=== PATIENT | female | born 1940 | race Hispanic/Latino ===

== ENCOUNTER 2017-10-28 08:54 | Emergency (ER) | payer MEDICARE ==
[~2017-10-28 08:54] MED LIST: ALBU8.5H8 IH; BIMA12.5OS OU; D-ME118S56 PO; FLUT16H NS; LORA10TA7 PO; METO-391 PO; OMEP20CA10 PO; SIMV20TA6 PO
[2017-10-28 09:16] LABS: APPEARANCE,URINE Clear (CLEAR); BILIRUBIN,URINE Negative (NEGATIVE); COLOR,URINE Yellow (YELLOW); GLUCOSE, URINE (UA) Negative (NEGATIVE); KETONES,URINE Negative (NEGATIVE); LEUKOCYTE ESTERASE ,URINE Negative (NEGATIVE); NITRATE,URINE Negative (NEGATIVE); OCCULT BLOOD,URINE Trace (NEGATIVE); PROTEIN,URINE Negative (NEGATIVE); UROBILINOGEN,URINE 0.2 mg/dL (0.2-1.0)
[2017-10-28 09:26] LABS: BASOPHILS % (AUTO) 0.9 % (0.0-5.0); EOSINOPHILS % (AUTO) 6.2 % (0.0-8.0); HEMATOCRIT 36.1 % (36-48); LYMPHOCYTES % (AUTO) 19.1 % (21.0-51.0); MEAN CORPUSCULAR HEMOGLOBIN 30.6 pg (27.0-33.0); MEAN CORPUSCULAR VOLUME 87.4 fL (79-99); MONOCYTES % (AUTO) 8.1 % (3.0-13.0); NEUTROPHILS % (AUTO) 65.7 % (40.0-77.0); NUCLEATED RED BLOOD CELLS 0.1 % (0.0-0.19); PLATELET COUNT (AUTO) 272 K/uL (130-400); RED BLOOD CELL COUNT(AUTO) 4.13 MIL/uL (4.00-5.50); RED CELL DISTRIBUTION WIDTH 15.4 % (11.0-15.5); WHITE BLOOD COUNT (AUTO) 6.6 K/uL (4.8-10.8)
[2017-10-28 09:32] LABS: POTASSIUM 4.7 mmol/L (3.5-5.1)
[2017-10-28 09:33] LABS: BACTERIA,URINE Few /HPF (None Seen); SQUAMOUS EPITHELIAL CELL,UR 0-2 /HPF (0-2); WBC,URINE 0-1 /HPF (0-1)
[2017-10-28 09:46] LABS: ALBUMIN 3.7 g/dL (3.5-5.0); BILIRUBIN,TOTAL 0.5 mg/dL (0.2-1.0); CREATINE KINASE MB 1.7 ng/mL (0.5-3.6); TOTAL PROTEIN, SERUM 7.7 g/dL (6.0-8.3)
== END 2017-10-28 11:47 | disposition home or self-care (01) ==
LOC: EDH 08:54
DX: R07.89 Other chest pain (principal); E78.5 Hyperlipidemia, unspecified; Z88.0 Allergy status to penicillin; Z72.0 Tobacco use
CPT/HCPCS: 36415; 71045; 80053; 81001; 82550; 82553; 84484; 85025; 93005

== ENCOUNTER 2024-04-24 10:51 | Inpatient (IN) | payer MEDICARE ==
[~2024-04-24] VITALS: Ht 157.5 cm; Wt 63.8 kg
[~2024-04-24 10:51] MED LIST changes: -OMEP20CA10 PO; +OMEP20CA12 PO; +SIMV-43 PO; -SIMV20TA6 PO
[2024-04-24] MEDS: 0.9%NACL 1000ML 1,000 ML IV ONE (11:26)
[2024-04-24] MEDS: morPHINE 4 MG SYG IVP ONE ×2 (11:26→14:34)
[2024-04-24] MEDS: ondanSETRON 4MG INJ IVP ONE ×2 (11:26→11:53)
--- NOTE | 2024-04-24 11:31 | ERN ---
ED Note History of Present Illness Stated Complaint: ABD PAIN Chief Complaint: Abdominal Pain Time Seen by MD: 10:51 Time Seen by Midlevel: 10:51 Dictation: The patient is an 83-year-old female with a history of hypertension, cholecystectomy, hysterectomy, ventral hernia who presents to the emergency department with complaints of right and left lower abdominal pain, nonbloody v omiting, onset today, constipation for three days. Patient denies any fevers. Patient reports abdominal mass to right lower quadrant. Reports she had a history of a hernia repair and reports that it has gotten bigger. Patient had an incisional hernia repair on 01/02/2015 Allergies: Coded Allergies: Penicillins (Unverified Allergy, Unknown, RASH, 12/31/14) atorvastatin (Unverified Allergy, Unknown, RASH, 12/01/16) Home Meds Reported Medications Albuterol Sulfate (Proair Hfa) 8.5 Gm Hfa.aer.ad, 90 MCG IH AD PRN for WHEEZING 12/01/16 D-Methorphan Hb/P-Epd HCl/Bpm (Hovggpoyfj-Ruuqxjaffsr-Ri Syr) 118 Ml Syrup, 10 ML PO Q4HPRN PRN for COUGH, ML 12/01/16 Omeprazole (Omeprazole) 20 Mg Capsule.dr, 20 MG PO DAILY, CAP 12/01/16 Metoprolol Succinate (Metoprolol Succinate) 50 Mg Tab.er.24h, 75 MG PO DAILY, TAB 12/01/16 Simvastatin (Simvastatin) 20 Mg Tablet, 20 MG PO HS, TAB 12/01/16 Bimatoprost (Lumigan 0.01% Ophth Soln) 20 Drop/Ml Opsol, 1 DROP OU HS, DROP 12/31/14 Loratadine (Loratadine) 10 Mg Tablet, 10 MG PO AM, TAB 12/31/14 Fluticasone Propionate (Fluticasone Propionate) 16 Gm [place].susp, NS DAILY PRN for CONGESTION, APPL 12/31/14 Past Medical History Past Medical History: Asthma, Diabetes-Type II, High Cholesterol, Hypertension Surgical History: Hysterectomy, Other Surgical History Other: HERNIA SX RN Note Reviewed/Agreed w/PFSH: Yes Review of System Dictation Constitutional: Negative for fever,chills, and weight loss Eyes: Negative for injury, pain,redness, and discharge ENT: Negative for injury,pain or swelling Cardiovascular: Negative for chest pain, palpitations, and edema Respiratory: Negative for shortness of breath, cough, and wheezing, Abdomen/GI: Negative for diarrhea positive for abdominal pain, nausea, vomiting, constipation Back: Negative for injury and pain : Negative for injury, bleeding and discharge MS/Extremity: Negative for injury and deformity Skin: Negative for rash, and discoloration Neuro: Negative for headache, weakness, numbness, tingling, and seizure Psych: Negative for suicide ideation, homicidal ideation, and hallucinations Initial Vital Sign VS Vital Signs Date Time Temp Pulse Resp B/P (MAP) Pulse Ox O2 Delivery O2 Flow Rate FiO2 04/24/24 10:52 98.2 76 16 173/80 98 Room Air 0 04/24/24 10:58 21 Physical Exam Dictation Vital Signs reviewed General Appearance: Alert, oriented x 3, no acute distress, well developed, nourished. Head and Face: non-traumatic. Eyes: PERRL, pink conjunctivas, eyelid no trauma, anterior chamber with arcus senilis. Ears: Pinnas intact and no signs of trauma or erythema ear canals clear and no discharge TM no erythema Nose: No discharge, no bleeding. Oropharynx: Mouth normal, tongue pink. pharynx clear,no erythema, tonsils no exudates, no abscesses noted, mucous membrane moist Neck: Supple, non-tender, no thyromegaly, no masses, no JVD, no bruits Breast:Deferred Chest:No tenderness, no crepitus, no paradoxical movement, no retractions Lungs:Clear, well-ventilated, symmetric, no rales, no wheezing, no rhonchi, no stridor, good breath sounds bilaterally Heart: Regular rate, regular rhythm, no murmur, no gallops Vascular: no peripheral edema, Abdomen: Soft, positive bowel sounds, nondistended, no guarding, no rebound, no hepatomegaly, no splenomegaly, no Emery's sign, lower abdominal pain tenderness, large right lower abdominal mass/hernia protruding, non reducible, periumbilical abdominal hernia, reducible Rectal: Deferred Genital: Deferred Neurological: Normal speech, motor function intact, sensory function intact Musculoskeletal: Neck nontender, full range of motion, back nontender, full range of motion, Extremities: nontender, full range of motion Skin: Color pink, dry, no turgor, no rash, no lacerations, no abrasions, no contusions. Lymphatic: Deferred Results (Laboratory/Radiology) Laboratory/Radiology Laboratory Tests Test 04/24/24 11:18 04/24/24 12:20 White Blood Count 11.4 K/uL (4.8-10.8) H Red Blood Count 4.43 MIL/uL (4.00-5.50) Hemoglobin 13.2 g/dL (12.0-16.0) Hematocrit 39.1 % (36-48) Mean Corpuscular Volume 88.3 fL (79-99) Mean Corpuscular Hemoglobin 29.8 pg (27.0-33.0) Mean Corpuscular Hemoglobin Concent 33.8 g/dL (32.0-36.0) Red Cell Distribution Width 13.9 % (11.0-15.5) Platelet Count 304 K/uL (130-400) Mean Platelet Volume 8.6 fL (7.5-10.5) Immature Granulocyte % (Auto) 0.4 % (0-1) Neutrophils (%) (Auto) 85.3 % (40.0-77.0) H Lymphocytes (%) (Auto) 8.3 % (21.0-51.0) L Monocytes (%) (Auto) 4.3 % (3.0-13.0) Eosinophils (%) (Auto) 1.3 % (0.0-8.0) Basophils (%) (Auto) 0.4 % (0.0-5.0) Neutrophils # (Auto) 9.7 K/uL (1.8-7.7) H Lymphocytes # (Auto) 0.9 K/uL (1.0-4.8) L Monocytes # (Auto) 0.5 K/uL (0.1-1.0) Eosinophils # (Auto) 0.15 K/uL (0.00-0.70) Basophils # (Auto) 0.04 K/uL (0.00-0.20) Absolute Immature Granulocyte (auto 0.04 K/uL (0-1) Nucleated Red Blood Cells 0.0 % (0.0-0.19) White Cell Morphology Comment See comments Sodium Level 136 mmol/L (136-145) Potassium Level 3.9 mmol/L (3.5-5.1) Chloride Level 98 mmol/L (101-111) L Carbon Dioxide Level 32 mmol/L (21-32) Blood Urea Nitrogen 11 mg/dL (7-18) Creatinine 1.2 mg/dL (0.5-1.0) H Glomerular Filtration Rate Calc 45 mL/min (>90) Random Glucose 154 mg/dL (70-105) H Hemoglobin A1c 5.8 % (4.0-6.0) Estimated Average Glucose (eAG) 120 mg/dL (70-126) Total Calcium 9.9 mg/dL (8.5-10.1) Total Bilirubin 0.6 mg/dL (0.2-1.0) Direct Bilirubin 0.1 mg/dL (0.0-0.3) Aspartate Amino Transf (AST/SGOT) 20 U/L (10-37) Alanine Aminotransferase (ALT/SGPT) 22 U/L (12-78) Alkaline Phosphatase 93 U/L (50-136) Total Protein 8.3 g/dL (6.0-8.3) Albumin 4.2 g/dL (3.5-5.0) Lipase 50 U/L (16-77) Urine Color COLORLESS (YELLOW) Urine Appearance CLOUDY (CLEAR) H Urine pH 8.0 (5.0-8.0) Urine Specific [place] 1.007 (1.001-1.031) Urine Protein 50 mg/dL (NEGATIVE) H Urine Glucose (UA) 30 mg/dL (NEGATIVE) H Urine Ketones 10 mg/dL (NEGATIVE) H Urine Occult Blood NEGATIVE (NEGATIVE) Urine Nitrate NEGATIVE (NEGATIVE) Urine Bilirubin NEGATIVE mg/dL (NEGATIVE) Urine Urobilinogen 0.2 mg/dL (0.2-1.0) Urine Leukocyte Esterase NEGATIVE Pravin/uL Urine RBC 2-5 /HPF (0-1) H Urine WBC 0-1 /HPF (0-1) Urine Squamous Epithelial Cells RARE /HPF (0-2) Urine Bacteria RARE /HPF (None Seen) REASON: lower abd pain, hx hernia, n/v ORDERING PHYSICIAN: JOHN LARA PROCEDURE: ABD PEL W - CT ABDOMEN/PELVIS W/CONTRAST CT ABDOMEN/PELVIS W/CONTRAST HISTORY: Pelvic pain COMPARISON: None TECHNIQUE: Multiple sequential axial images of the abdomen and pelvis were obtained from the dome of the diaphragm through symphysis pubis. Patient was given 100 cc of Omnipaque through intravenous route. Oral contrast was not given. FINDINGS: No pleural effusion is seen bilaterally. There is no evidence of parenchymal disease or pulmonary nodule of the visualized lower lungs. COPD changes are seen. Degenerative changes of the thoracolumbar spine are present. The heart is not enlarged. The liver measures 12 cm. Is small hiatal hernia is seen. Gastric distention is seen. Small bowel dilatation is seen with transitional point not well visualized. There is large anterior pelvic ventral hernia with bowel content. The liver, spleen, adrenal glands and pancreas are unremarkable. There is no evidence of hydronephrosis bilaterally. No evidence of renal stone is seen. Fecal material is seen in the colon. There are normal size retroperitoneal and mesenteric lymph nodes. No ascites is seen. Atherosclerotic changes are present. Appendix is not well seen limiting evaluation. There is diverticulosis. Pelvic sidewalls are symmetric bilaterally. Bladder is poorly distended. IMPRESSION: 1. Large anterior pelvic wall hernia with bowel content. Mild small bowel dilatation. No ascites. CT was performed with one or more following dose reduction techniques: automated exposure control, adjustment of the mA and kv according to patient's size, or use of a iterative reconstruction technique. Labs Reviewed?: Yes ED Course ED Course Orders Procedure Category Date Status Time Cbc With Differential LAB 04/24/24 Complete 10:59 Urinalysis Profile LAB 04/24/24 Complete 10:59 0.9%Nacl 1000ml (Ns PHA 04/24/24 Complete 1000ml) 11:00 Morphine 4mg Syg PHA 04/24/24 Complete (Morphine 4mg Syg) 11:00 Ondansetron 4mg Inj PHA 04/24/24 Complete (Zofran 4mg Inj) 11:00 Lipase LAB 04/24/24 Complete 10:59 Basic Metabolic Panel LAB 04/24/24 Complete 10:59 Ct Abdomen/Pelvis CT 04/24/24 Resulted W/Contrast 10:59 Hepatic Function Panel LAB 04/24/24 Complete 10:59 Ondansetron 4mg Inj PHA 04/24/24 Complete (Zofran 4mg Inj) 12:00 Iohexol (Omnipaque) PHA 04/24/24 Complete 13:22 Iohexol (Omnipaque) PHA 04/24/24 Complete 13:23 Metoclopramide 10 PHA 04/24/24 Complete Mg/2 Ml Vial (Reglan 1 14:30 Morphine 4mg Syg PHA 04/24/24 Complete (Morphine 4mg Syg) 14:30 Apply Ice Pack To: CPOE 04/24/24 Transmitted (Er) 15:53 Ngt To Low CPOE 04/24/24 Transmitted Intermittent Suctn 15:53 Edm Admit Bridge Order ADM 04/24/24 Transmitted 16:02 Admit Orders ADM 04/24/24 Transmitted 16:02 General Surgery CONPHYSVC 04/24/24 Transmitted Consult 16:02 Admit Orders ADM 04/24/24 Transmitted 16:02 Ngt To Low CPOE 04/24/24 Transmitted Intermittent Suctn 16:07 Nothing By Mouth DIET 04/24/24 Transmitted Dinner Ondansetron 4mg Inj PHA 04/24/24 In Process (Zofran 4mg Inj) 16:30 Morphine 2mg Syg PHA 04/24/24 In Process (Morphine 2mg Syg) 16:30 0.9%Nacl 1000ml (Ns PHA 04/24/24 In Process 1000ml) 16:30 Acetaminophen 325 Tab PHA 04/24/24 In Process (Tylenol 325mg Tab 16:30 Acetaminophen 325 Tab PHA 04/24/24 In Process (Tylenol 325mg Tab 16:30 Acetaminophen 325mg PHA 04/24/24 In Process Supp (Tylenol 325mg 16:30 Acetaminophen 325mg PHA 04/24/24 In Process Supp (Tylenol 325mg 16:30 Pantoprazole 40mg Inj PHA 04/25/24 In Process (Protonix 40mg Inj 09:00 Hemoglobin A1c LAB 04/24/24 Complete 16:53 Cbc Without LAB 04/25/24 Verified Differential 04:00 Basic Metabolic Panel LAB 04/25/24 Verified 04:00 Current Medications Medications (Trade) Dose Ordered Sig/[place] Route PRN Reason Start Time Stop Time Status Last Admin Dose Admin Iohexol (Omnipaque) 75 ml STK-MED ONCE IV 04/24/24 13:22 04/24/24 13:23 DC Iohexol (Omnipaque) 35,000 mg STK-MED ONCE IV 04/24/24 13:23 04/24/24 13:24 DC Metoclopramide HCl (regLAN 10MG IV) 10 mg ONCE ONCE IVP 04/24/24 14:30 04/24/24 14:31 DC 04/24/24 14:34 Morphine Sulfate (morPHINE 4MG SYG) 4 mg ONCE ONCE IVP 04/24/24 11:00 04/24/24 11:01 DC 04/24/24 11:26 Morphine Sulfate (morPHINE 4MG SYG) 4 mg ONCE ONCE IVP 04/24/24 14:30 04/24/24 14:31 DC 04/24/24 14:34 Ondansetron HCl (zoFRAN 4MG INJ) 4 mg ONCE ONCE IVP 04/24/24 11:00 04/24/24 11:01 DC 04/24/24 11:26 Ondansetron HCl (zoFRAN 4MG INJ) 4 mg ONCE ONCE IVP 04/24/24 12:00 04/24/24 12:01 DC 04/24/24 11:53 Sodium Chloride 1,000 ml @ 0 mls/hr ONCE ONCE IV 04/24/24 11:00 04/24/24 11:01 DC 04/24/24 11:26 Vital Signs Date Time Temp Pulse Resp B/P (MAP) Pulse Ox O2 Delivery O2 Flow Rate FiO2 04/24/24 16:55 98.2 72 16 163/77 98 Room Air* 0 21 04/24/24 14:12 98.2 74 16 158/74 98 Room Air* 0 21 04/24/24 10:58 98.2 76 16 173/80 98 Room Air* 0 04/24/24 10:52 98.2 76 16 173/80 98 Room Air 0 Medical Decision Making MDM The patient is an 83-year-old female with a history of hypertension, cholecystectomy, hysterectomy, ventral hernia who presents to the emergency department with complaints of right and left lower abdominal pain, nonbloody vomiting, onset today, constipation for three days. Patient denies any fevers. Patient reports abdominal mass to right lower quadrant. Reports she had a history of a hernia repair and reports that it has gotten bigger. Patient had an incisional hernia repair on 01/02/2015 CBC showed mild leukocytosis, no anemia, chemistry showed mild hypochloremia, decreased renal function, negative lipase, negative liver function, urinalysis unremarkable. CT abdomen revealed a large pelvic wall hernia with a small-bowel dilation. Patient will be admitted further management. Differential diagnosis: Bowel obstruction, electrolyte imbalance, constipation, gastritis, gastroenteritis Comorbidities: Hypertension, cholecystectomy, hypertension Tests considered and not ordered secondary to shared decision making include: none Previous outside records reviewed: none Risk of complication and/or morbidity or mortality of patient management: The patient meets criteria for admission. Need for emergency major/minor surgery: No There are no social concerns with this patient. I independently interpreted the tests I ordered (labs, urinalysis, etc.). I discussed the case with the hospitalist for admission. I discussed the case with the following specialists: Dr.Michael Thapa who accepts consult. Historian: pateint. I independently interpreted imaging studies and EKGs that I ordered (US, CT, XR, EKG, etc.). External chart review: none. Medical management and examination interpretation discussions were had by me with other qualified healthcare professionals as indicated for the patient's care. DX & DISP Disposition: Inpatient Decision to Admit Date: Apr 24, 2024 Decision to Admit Time: 16:02 Departure Impression: Primary Impression: Small bowel obstruction Additional Impressions: Abdominal wall hernia, Nausea and vomiting, Hypochloremia, Leukocytosis Condition: Stable Referrals: NADEEN LOWRY DO (PCP) I have examined patient, & reviewed all documents, & agreed W/ the Diagnosis, and Plan JOHN LARA Apr 24, 2024 11:31
[2024-04-24 11:35] LABS: BASOPHILS # (AUTO) 0.04 K/uL (0.00-0.20); BASOPHILS % (AUTO) 0.4 % (0.0-5.0); EOSINOPHILS # (AUTO) 0.15 K/uL (0.00-0.70); EOSINOPHILS % (AUTO) 1.3 % (0.0-8.0); HEMATOCRIT 39.1 % (36-48); IMMATURE GRANULOCYTE ABSOLUTE 0.04 K/uL (0-1); LYMPHOCYTES # (AUTO) 0.9 K/uL (1.0-4.8); LYMPHOCYTES % (AUTO) 8.3 % (21.0-51.0); MEAN CORPUSCULAR HEMOGLOBIN 29.8 pg (27.0-33.0); MEAN CORPUSCULAR HGB CONC 33.8 g/dL (32.0-36.0); MEAN CORPUSCULAR VOLUME 88.3 fL (79-99); MONOCYTES # (AUTO) 0.5 K/uL (0.1-1.0); MONOCYTES % (AUTO) 4.3 % (3.0-13.0); NEUTROPHILS # (AUTO) 9.7 K/uL (1.8-7.7); NEUTROPHILS % (AUTO) 85.3 % (40.0-77.0); PLATELET COUNT (AUTO) 304 K/uL (130-400); RED BLOOD CELL COUNT(AUTO) 4.43 MIL/uL (4.00-5.50); RED CELL DISTRIBUTION WIDTH 13.9 % (11.0-15.5); WHITE BLOOD COUNT (AUTO) 11.4 K/uL (4.8-10.8)
[2024-04-24 11:44] LABS: CREATININE 1.2 mg/dL (0.5-1.0); POTASSIUM 3.9 mmol/L (3.5-5.1)
[2024-04-24 11:51] LABS: ALBUMIN 4.2 g/dL (3.5-5.0); BILIRUBIN,DIRECT 0.1 mg/dL (0.0-0.3); BILIRUBIN,TOTAL 0.6 mg/dL (0.2-1.0); TOTAL PROTEIN, SERUM 8.3 g/dL (6.0-8.3)
[2024-04-24 12:51] LABS: APPEARANCE,URINE CLOUDY (CLEAR); BILIRUBIN,URINE NEGATIVE (NEGATIVE); COLOR,URINE COLORLESS (YELLOW); GLUCOSE, URINE (UA) 30 mg/dL (NEGATIVE); KETONES,URINE 10 mg/dL (NEGATIVE); LEUKOCYTE ESTERASE ,URINE NEGATIVE Leu/uL (NEGATIVE); NITRATE,URINE NEGATIVE (NEGATIVE); OCCULT BLOOD,URINE NEGATIVE (NEGATIVE); PROTEIN,URINE 50 mg/dL (NEGATIVE); UROBILINOGEN,URINE 0.2 mg/dL (0.2-1.0)
[2024-04-24 12:58] LABS: ADD UA MICROSCOPIC YES
[2024-04-24 12:59] LABS: BACTERIA,URINE RARE /HPF (None Seen); SQUAMOUS EPITHELIAL CELL,UR RARE /HPF (0-2); WBC,URINE 0-1 /HPF (0-1)
[2024-04-24] MEDS ORDERED: IOHEXOL-350 75 ML VIAL IV ONE (13:22)
[2024-04-24] MEDS ORDERED: IOHEXOL 350 MG/ML 100ML INFUS..BTL IV ONE (13:23)
--- NOTE | 2024-04-24 13:54 | HMCIMG ---
CT ABDOMEN/PELVIS W/CONTRAST HISTORY: Pelvic pain COMPARISON: None TECHNIQUE: Multiple sequential axial images of the abdomen and pelvis were obtained from the dome of the diaphragm through symphysis pubis. Patient was given 100 cc of Omnipaque through intravenous route. Oral contrast was not given. FINDINGS: No pleural effusion is seen bilaterally. There is no evidence of parenchymal disease or pulmonary nodule of the visualized lower lungs. COPD changes are seen. Degenerative changes of the thoracolumbar spine are present. The heart is not enlarged. The liver measures 12 cm. Is small hiatal hernia is seen. Gastric distention is seen. Small bowel dilatation is seen with transitional point not well visualized. There is large anterior pelvic ventral hernia with bowel content. The liver, spleen, adrenal glands and pancreas are unremarkable. There is no evidence of hydronephrosis bilaterally. No evidence of renal stone is seen. Fecal material is seen in the colon. There are normal size retroperitoneal and mesenteric lymph nodes. No ascites is seen. Atherosclerotic changes are present. Appendix is not well seen limiting evaluation. There is diverticulosis. Pelvic sidewalls are symmetric bilaterally. Bladder is poorly distended. IMPRESSION: 1. Large anterior pelvic wall hernia with bowel content. Mild small bowel dilatation. No ascites. CT was performed with one or more following dose reduction techniques: automated exposure control, adjustment of the mA and kv according to patient's size, or use of a iterative reconstruction technique.
[2024-04-24] MEDS: metoCLOPRAmide 10 MG/2 ML VIAL IVP ONE (14:34)
[2024-04-24] MEDS ORDERED: acetaMINOPHEN 325 MG TAB PO PRN (16:30)
[2024-04-24] MEDS ORDERED: acetaMINOPHEN 325 MG SUPPOSITORY RC PRN (16:30)
--- NOTE | 2024-04-24 16:57 | HP ---
[facility] HISTORY [facility] PHYS[facility] Date of Service: Apr 24, 2024 Time of Service: 16:10 HISTORY OF PRESENT ILLNESS: [83-year-old female with history of hyperlipidemia presented to the emergency department with complaints of left lower quadrant pain. Apparently patient was cooking when she suddenly felt sharp pain to the left lower quadrant accompanied by vomiting. Patient has history of ventral hernia in the past but after she vomited at home, her ventral hernia protruded out, and intense pain was felt after. In the ED, her initial vitals showed temperature of 98.2, pulse 76, respiratory rate 16, blood pressure 173/80, pulse oximetry 98% on room air. Labs reviewed, WBC 11.4, Cl 98, creatinine 1.2, random glucose 154. Urinalysis was remarkable with cloudy appearance, ketones 10. CT abdomen and pelvis with contrast showed large anterior pelvic wall hernia with bowel contents. Mild small bowel dilatation. No ascites. As per ER provider they reached out to Dr. Thapa, general surgeon who recommended patient to be admitted. She was referred to the hospitalist service further evaluation and management. Patient was evaluated in ED room 15, she is alert and oriented x3. she stated that the pain is subsided compared to the pain that she came with. Patient received morphine 4 mg x2 in the ED. patient also received ondansetron4 mg x 2, Reglan 10 mg x1. REVIEW OF SYSTEMS CONSTITUTIONAL: Denies fevers, chills, or night sweats. No unintentional weight loss reported. NEUROLOGICAL: Denies headache, amaurosis fugax, motor weakness, sensory deficit, vertigo/spinning sensation, gait abnormalities, or tremors. ENT: No hearing loss, otalgia, otorrhea, rhinitis, rhinorrhea, hoarseness, or sore throat. CARDIOVASCULAR: Denies any exertional angina, dyspnea on exertion, orthopnea, paroxysmal nocturnal dyspnea, palpitations, life-threatening arrhythmias, claudication. PULMONARY: Denies any shortness of breath, cough, phlegm/sputum, hemoptysis, pleuritic chest pain. SLEEP: Denies morning headaches, daytime somnolence or napping. Denies difficulty falling asleep, staying asleep, waking from sleep. Denies knowledge of snoring. GASTROINTESTINAL: Right lower quadrant pain. Reported no BM x5 days GENITOURINARY: Denies frequency, urgency, nocturia, hematuria or incontinence (Storage/Irritative symptoms.) Low urinary stream, straining to void, urinary intermittency or hesitancy, splitting of the voiding stream, terminal dribbling. ENDOCRINOLOGIC: Denies polyuria, polydipsia, polyphagia or heat/cold intolerances. HEMATOLOGIC: Denies thrombophilia/previous clots, or coagulopathy/bleeding disorders. ONCOLOGIC: Denies personal history of malignancy. DERMATOLOGIC: Denies rashes or pruritus. PSYCHIATRIC: Denies any suicidal or homicidal ideation. Denies hallucinations. PAST MEDICAL HISTORY: [Hyperlipidemia ] PAST SURGICAL HISTORY: [Cholecystectomy, hysterectomy and right knee surgery ] PAST SOCIAL HISTORY: [ Patient lives at home alone. She denies tobacco, alcohol or illicit drug use ] FAMILY HISTORY: [Noncontributory ] Coded Allergies: Penicillins (Unverified Allergy, Unknown, RASH, 12/31/14) atorvastatin (Unverified Allergy, Unknown, RASH, 12/01/16) PHYSICAL EXAM GENERAL APPEARANCE: The patient is awake, alert, and oriented, in no acute cardiopulmonary distress. NEUROLOGICAL: Cranial nerves II-XII grossly intact. Motor is 5/5 in bilateral upper and lower extremities proximal to distal. No sensory deficits. HEENT: Face is symmetric. Pupils are equal and reactive. Extraocular movements are intact. NECK: Supple. No JVD. No thyromegaly. No submental, submandibular, pre- /postauricular, occipital or supraclavicular lymphadenopathy. CHEST: Normal chest expansion. No Telemetry. LUNGS: Absence of any rales, rhonchi or any wheezing. CARDIOVASCULAR: Regular. S1 and S2 normal. No appreciable rubs, murmurs or gallops. ABDOMEN: Soft, nontender, and nondistended. There is no rebound, voluntary guarding, or rigidity. : Deferred. No Sykes. EXTREMITIES: Non-edematous and not cyanotic. No clubbing. Good capillary refill. SKIN: No skin breakdown. Vital Sign (Last 24 Hours) 04/24/24 14:12 Temp 98.2 Pulse 74 Resp 16 B/P (MAP) 158/74 Pulse Ox 98 O2 Delivery Room Air* O2 Flow Rate 0 FiO2 21 LABS: Laboratory: Test 04/24/24 12:20 04/24/24 11:18 Range/Units Urine Color COLORLESS YELLOW Urine Appearance CLOUDY H CLEAR Urine pH 8.0 5.0-8.0 Urine Specific [place] 1.007 1.001-1.031 Urine Protein 50 H NEGATIVE mg/dL Urine Glucose (UA) 30 H NEGATIVE mg/dL Urine Ketones 10 H NEGATIVE mg/dL Urine Occult Blood NEGATIVE NEGATIVE Urine Nitrate NEGATIVE NEGATIVE Urine Bilirubin NEGATIVE NEGATIVE mg/dL Urine Urobilinogen 0.2 0.2-1.0 mg/dL Urine Leukocyte Esterase NEGATIVE NEGATIVE Pravin/uL Urine RBC 2-5 H 0-1 /HPF Urine WBC 0-1 0-1 /HPF Urine Squamous Epithelial Cells RARE 0-2 /HPF Urine Bacteria RARE None Seen /HPF White Blood Count 11.4 H 4.8-10.8 K/uL Red Blood Count 4.43 4.00-5.50 MIL/uL Hemoglobin 13.2 12.0-16.0 g/dL Hematocrit 39.1 36-48 % Mean Corpuscular Volume 88.3 79-99 fL Mean Corpuscular Hemoglobin 29.8 27.0-33.0 pg Mean Corpuscular Hemoglobin Concent 33.8 32.0-36.0 g/dL Red Cell Distribution Width 13.9 11.0-15.5 % Platelet Count 304 130-400 K/uL Mean Platelet Volume 8.6 7.5-10.5 fL Immature Granulocyte % (Auto) 0.4 0-1 % Neutrophils (%) (Auto) 85.3 H 40.0-77.0 % Lymphocytes (%) (Auto) 8.3 L 21.0-51.0 % Monocytes (%) (Auto) 4.3 3.0-13.0 % Eosinophils (%) (Auto) 1.3 0.0-8.0 % Basophils (%) (Auto) 0.4 0.0-5.0 % Neutrophils # (Auto) 9.7 H 1.8-7.7 K/uL Lymphocytes # (Auto) 0.9 L 1.0-4.8 K/uL Monocytes # (Auto) 0.5 0.1-1.0 K/uL Eosinophils # (Auto) 0.15 0.00-0.70 K/uL Basophils # (Auto) 0.04 0.00-0.20 K/uL Absolute Immature Granulocyte (auto 0.04 0-1 K/uL Nucleated Red Blood Cells 0.0 0.0-0.19 % White Cell Morphology Comment See comments Sodium Level 136 136-145 mmol/L Potassium Level 3.9 3.5-5.1 mmol/L Chloride Level 98 L 101-111 mmol/L Carbon Dioxide Level 32 21-32 mmol/L Blood Urea Nitrogen 11 7-18 mg/dL Creatinine 1.2 H 0.5-1.0 mg/dL Glomerular Filtration Rate Calc 45 >90 mL/min Random Glucose 154 H 70-105 mg/dL Total Calcium 9.9 8.5-10.1 mg/dL Total Bilirubin 0.6 0.2-1.0 mg/dL Direct Bilirubin 0.1 0.0-0.3 mg/dL Aspartate Amino Transf (AST/SGOT) 20 10-37 U/L Alanine Aminotransferase (ALT/SGPT) 22 12-78 U/L Alkaline Phosphatase 93 50-136 U/L Total Protein 8.3 6.0-8.3 g/dL Albumin 4.2 3.5-5.0 g/dL Lipase 50 16-77 U/L DIAGNOSTICS / RADIOLOGY: [place] [address] IMAGING REPORT Signed PATIENT: NAMITA VICKERS MR#: [id number] : 1940 SEX: F AGE: 83 LOCATION: [facility] ORDER [id number] STATUS: [facility] REPORT#: [id number] SERVICE [id number] REASON: lower abd pain, hx hernia, n/v ORDERING PHYSICIAN: JOHN LARA PROCEDURE: ABD PEL W - CT ABDOMEN/PELVIS W/CONTRAST CT ABDOMEN/PELVIS W/CONTRAST HISTORY: Pelvic pain COMPARISON: None TECHNIQUE: Multiple sequential axial images of the abdomen and pelvis were obtained from the dome of the diaphragm through symphysis pubis. Patient was given 100 cc of Omnipaque through intravenous route. Oral contrast was not given. FINDINGS: No pleural effusion is seen bilaterally. There is no evidence of parenchymal disease or pulmonary nodule of the visualized lower lungs. COPD changes are seen. Degenerative changes of the thoracolumbar spine are present. The heart is not enlarged. The liver measures 12 cm. Is small hiatal hernia is seen. Gastric distention is seen. Small bowel dilatation is seen with transitional point not well visualized. There is large anterior pelvic ventral hernia with bowel content. The liver, spleen, adrenal glands and pancreas are unremarkable. There is no evidence of hydronephrosis bilaterally. No evidence of renal stone is seen. Fecal material is seen in the colon. There are normal size retroperitoneal and mesenteric lymph nodes. No ascites is seen. Atherosclerotic changes are present. Appendix is not well seen limiting evaluation. There is diverticulosis. Pelvic sidewalls are symmetric bilaterally. Bladder is poorly distended. IMPRESSION: 1. Large anterior pelvic wall hernia with bowel content. Mild small bowel dilatation. No ascites. CT was performed with one or more following dose reduction techniques: automated exposure control, adjustment of the mA and kv according to patient's size, or use of a iterative reconstruction technique. DICTATED BY: CARO TSE MD DATE: 04/24/24 1344 ELECTRONICALLY SIGNED BY: CARO TSE MD DATE: 04/24/24 8765 ] ASSESSMENT: [Large ventral hernia, POA Small bowel obstruction, POA Intractable nausea/vomiting, POA Hypertensive emergency, POA Hyperglycemia, POA Leukocytosis with left shift, POA PLAN: [Admit patient to medical-surgical Patient will be kept NPO Patient will be placed on NG tube on low intermittent suction General surgeon has been consulted we will await for his recommendation We will start with gentle IV hydration with NS at 50 mL/hour We will provide prn hydralazine for elevated systolic blood pressure of greater than 160 mm per mercury We will order hemoglobin A1c to rule out diabetes mellitus due to hyperglycemia We will start broad-spectrum IV antibiotic due to leukocytosis Patient will be on antiemetic as needed Patient will be on pain management We will repeat labs tomorrow GI prophylaxis with Protonix 40 mg IV daily DVT prophylaxis with SCD Patient is a full code Patient's case discussed with Dr. Mancia, above plan was formulated ADVANCED CARE PLANNING 1. Which of the following were discussed? Hospice Care - Yes / No Therapeutic options - Yes / No Advance Directives - Yes / No Other discussions - 2. Discussed with who? Patient 3. Voluntary nature of this service was explained to the patient? Yes / No 4. Amount of time spent - __20 mins____ 5. Reviewed by Physician? (if this service was performed by NPP) Yes / No ] ATTESTATION BY PHYSICIAN I have seen and examined the patient. I reviewed the documentation, medical decision making, and treatment plan as noted by the mid-level provider above. I agree with the findings and plan of care. ALDEN MANCIA MD, [facility] Apr 24, 2024 16:57
[2024-04-24] MEDS: 0.9%NACL 1000ML 1,000 ML IV SCH (17:08)
[2024-04-24 17:18] LABS: HEMOGLOBIN A1C 5.8 % (4.0-6.0)
[2024-04-24] MEDS: ondanSETRON 4MG INJ IVP PRN (20:08)
[2024-04-24] MEDS: morPHINE 2 MG SYG IVP PRN (20:08)
[2024-04-24] MEDS ORDERED: ACEB200C18 PO (20:35)
[2024-04-24] MEDS ORDERED: OMEP40CA21 PO (20:35)
--- NOTE | 2024-04-24 21:33 | NUR ---
CALLED [facility] FOR A REPORT NOT ABLE TO TAKE IT AT THE MOMENT, WILL WAIT FOR A CALL BACK
[2024-04-24 21:55] VITALS: BP 151/89; PULSE 98; RESP 18; TEMP 98
[2024-04-24 23:57] VITALS: BP 137/85; PULSE 93; RESP 17; TEMP 97.7
[2024-04-25] VITALS (8 sets, daily range): BP systolic 107–129; BP diastolic 42–74; PULSE 100–116; RESP 16–19; TEMP 97.7–100.3; O2SAT 93
[2024-04-25 04:32] LABS: HEMATOCRIT 43.7 % (36-48); MEAN CORPUSCULAR HEMOGLOBIN 30.1 pg (27.0-33.0); MEAN CORPUSCULAR HGB CONC 33.9 g/dL (32.0-36.0); RED BLOOD CELL COUNT(AUTO) 4.91 MIL/uL (4.00-5.50); RED CELL DISTRIBUTION WIDTH 14.1 % (11.0-15.5); WHITE BLOOD COUNT (AUTO) 19.5 K/uL (4.8-10.8)
[2024-04-25 04:42] LABS: CREATININE 1.6 mg/dL (0.5-1.0); POTASSIUM 3.4 mmol/L (3.5-5.1)
[2024-04-25] MEDS: PANTOPrazole 40 MG/VIAL IVP SCH (09:36)
--- NOTE | 2024-04-25 11:17 | CONS ---
CONSULT NOTE: Consulting physician: Dr. Mancia Consulting service: General surgery Reason for consultation: Large incisional hernia with bowel contents with concerns of small bowel obstruction History of present illness: This 83-year-old female with a medical history listed below who has been consulted to surgery for concerns of incisional hernia with bowel content concerning for small bowel obstruction. Patient with a several year history of known hernia. Patient had seen previous surgeons in the past but was told that she was too high-risk for surgery. Patient with a initial surgery back in 2014 for repair of incisional hernia which patient reports presented five years prior. Over the last two years patient has been unable to return content and reduce hernia. Patient is seen today resting comfortably. On presentation imaging performed and concerns of potential obstruction at hernia site. Patient with NG tube in place. Her INR reducible at this time. Patient otherwise stabl e. WBCs 19.5 with a hemoglobin of 14.8. Patient's last bowel movement two days prior. Patient reporting no flatus at this time. Hernia site for Medical history: PAST MEDICAL HISTORY: Hyperlipidemia PAST SURGICAL HISTORY: Cholecystectomy, hysterectomy and right knee surgery PAST SOCIAL HISTORY: Patient lives at home alone. She denies tobacco, alcohol or illicit drug use FAMILY HISTORY: Noncontributory Coded Allergies: Penicillins (Unverified Allergy, Unknown, RASH, 12/31/14) atorvastatin (Unverified Allergy, Unknown, RASH, 12/01/16) Vital Signs Date Time Temp Pulse Resp B/P (MAP) Pulse Ox O2 Delivery O2 Flow Rate FiO2 04/25/24 08:00 98.2 107 19 126/52 93 Room Air 04/24/24 22:00 0 21 Review of systems: General: No Fever, No Chills, No Night Sweats, No Fatigue, No Malaise, No Appetite, No Other HEENT: No Head Aches, No Visual Changes, No Eye Pain, No Ear Pain, No Dysphasia, No Sinus Congestion, No Post Nasal Drip, No Sore Throat, No Other Pulmonary: No Dyspnea, No Cough, No Pleuritic Chest Pain, No Other Cardiovascular: No: Chest Pain, Palpitations, Orthopnea, Paroxysmal No Dyspnea, Edema, Lt Headedness, Other Gastrointestinal: No: Nausea, Vomiting, Diarrhea, Constipation, Melena, Hematochezia, Other Genitourinary: No Dysuria, No Frequency, No Incontinence, No Hematuria, No Retention, No Other Musculoskeletal: No: other, neck pain, shoulder pain, arm pain, back pain, hand pain, leg pain, foot pain Skin: No Urticaria, No Rash, No Other Neurological: No: Weakness, Numbness, Incoordination, Change in speech, Confusion, Seizures, Other Physical exam: General: Awake alert and oriented Heart: Regular rate and rhythm} Lungs: [Clear to auscultation no distress Abdomen: [Large firm incisional hernia lower abdominal wall with bowel content not reducible Laboratory Tests Test 04/24/24 11:18 04/24/24 12:20 04/25/24 04:05 White Blood Count 11.4 K/uL (4.8-10.8) H 19.5 K/uL (4.8-10.8) #H Red Blood Count 4.43 MIL/uL (4.00-5.50) 4.91 MIL/uL (4.00-5.50) Hemoglobin 13.2 g/dL (12.0-16.0) 14.8 g/dL (12.0-16.0) Hematocrit 39.1 % (36-48) 43.7 % (36-48) Mean Corpuscular Volume 88.3 fL (79-99) 89.0 fL (79-99) Mean Corpuscular Hemoglobin 29.8 pg (27.0-33.0) 30.1 pg (27.0-33.0) Mean Corpuscular Hemoglobin Concent 33.8 g/dL (32.0-36.0) 33.9 g/dL (32.0-36.0) Red Cell Distribution Width 13.9 % (11.0-15.5) 14.1 % (11.0-15.5) Platelet Count 304 K/uL (130-400) 327 K/uL (130-400) Mean Platelet Volume 8.6 fL (7.5-10.5) 8.6 fL (7.5-10.5) Immature Granulocyte % (Auto) 0.4 % (0-1) Neutrophils (%) (Auto) 85.3 % (40.0-77.0) H Lymphocytes (%) (Auto) 8.3 % (21.0-51.0) L Monocytes (%) (Auto) 4.3 % (3.0-13.0) Eosinophils (%) (Auto) 1.3 % (0.0-8.0) Basophils (%) (Auto) 0.4 % (0.0-5.0) Neutrophils # (Auto) 9.7 K/uL (1.8-7.7) H Lymphocytes # (Auto) 0.9 K/uL (1.0-4.8) L Monocytes # (Auto) 0.5 K/uL (0.1-1.0) Eosinophils # (Auto) 0.15 K/uL (0.00-0.70) Basophils # (Auto) 0.04 K/uL (0.00-0.20) Absolute Immature Granulocyte (auto 0.04 K/uL (0-1) Nucleated Red Blood Cells 0.0 % (0.0-0.19) 0.0 % (0.0-0.19) White Cell Morphology Comment See comments Sodium Level 136 mmol/L (136-145) 141 mmol/L (136-145) Potassium Level 3.9 mmol/L (3.5-5.1) 3.4 mmol/L (3.5-5.1) L Chloride Level 98 mmol/L (101-111) L 98 mmol/L (101-111) L Carbon Dioxide Level 32 mmol/L (21-32) 29 mmol/L (21-32) Blood Urea Nitrogen 11 mg/dL (7-18) 20 mg/dL (7-18) H Creatinine 1.2 mg/dL (0.5-1.0) H 1.6 mg/dL (0.5-1.0) H Glomerular Filtration Rate Calc 45 mL/min (>90) 32 mL/min (>90) Random Glucose 154 mg/dL (70-105) H 156 mg/dL (70-105) H Hemoglobin A1c 5.8 % (4.0-6.0) Estimated Average Glucose (eAG) 120 mg/dL (70-126) Total Calcium 9.9 mg/dL (8.5-10.1) 10.2 mg/dL (8.5-10.1) H Total Bilirubin 0.6 mg/dL (0.2-1.0) Direct Bilirubin 0.1 mg/dL (0.0-0.3) Aspartate Amino Transf (AST/SGOT) 20 U/L (10-37) Alanine Aminotransferase (ALT/SGPT) 22 U/L (12-78) Alkaline Phosphatase 93 U/L (50-136) Total Protein 8.3 g/dL (6.0-8.3) Albumin 4.2 g/dL (3.5-5.0) Lipase 50 U/L (16-77) Urine Color COLORLESS (YELLOW) Urine Appearance CLOUDY (CLEAR) H Urine pH 8.0 (5.0-8.0) Urine Specific [place] 1.007 (1.001-1.031) Urine Protein 50 mg/dL (NEGATIVE) H Urine Glucose (UA) 30 mg/dL (NEGATIVE) H Urine Ketones 10 mg/dL (NEGATIVE) H Urine Occult Blood NEGATIVE (NEGATIVE) Urine Nitrate NEGATIVE (NEGATIVE) Urine Bilirubin NEGATIVE mg/dL (NEGATIVE) Urine Urobilinogen 0.2 mg/dL (0.2-1.0) Urine Leukocyte Esterase NEGATIVE Pravin/uL Urine RBC 2-5 /HPF (0-1) H Urine WBC 0-1 /HPF (0-1) Urine Squamous Epithelial Cells RARE /HPF (0-2) Urine Bacteria RARE /HPF (None Seen) Assessment: This is a 83-year-old female with incisional hernia concerns of bowel obstruction Plan: With patient's advanced age patient will likely need cardiac clearance before any surgical intervention Patient to remain NPO with NG tube to LIS Previous notes and surgeries to be reviewed to attempt to find out what was done to patient Dr. Thapa to be updated in patient's status and surgical team to follow patient closely DONNIE BA Jr. Apr 25, 2024 11:16
--- NOTE | 2024-04-25 11:40 | NUR ---
Initial assessment SW met with patient. Pt said that she lives alone and feels safe. Pt said that she has provider services Tuesday- Tuesday , to assist her with her adl's. Pt said that she is in need of a walker. SW encouraged her to speak to her PCP to request a walker. Pt expressed understanding. Pt said that her daughter, Emelia Jones, assist her with transportation to dr pagan as needed. PCP is Mirella Donohue and preferred pharmacy is [facility]. Addendum: 04/25/24 at 1140 by NAMITA LOAIZA Amended: Links added.
--- NOTE | 2024-04-25 12:08 | PN ---
[facility] PROGRESS NOTE Date of Service: Apr 25, 2024 Time of Service: 11:59 SUBJECTIVE: [83-year-old female admitted for early abdominal obstruction and large ventral hernia. She is currently tolerating NG tube to LIS. Patient reports no bowel movement and no passing gas at this time. Pain is controlled for now. ] REVIEW OF SYSTEMS CONSTITUTIONAL: Denies fevers, chills, or night sweats. No unintentional weight loss reported. NEUROLOGICAL: Denies headache, amaurosis fugax, motor weakness, sensory deficit, vertigo/spinning sensation, gait abnormalities, or tremors. ENT: No hearing loss, otalgia, otorrhea, rhinitis, rhinorrhea, hoarseness, or sore throat. CARDIOVASCULAR: Denies any exertional angina, dyspnea on exertion, orthopnea, paroxysmal nocturnal dyspnea, palpitations, life-threatening arrhythmias, claudication. PULMONARY: Denies any shortness of breath, cough, phlegm/sputum, hemoptysis, pleuritic chest pain. SLEEP: Denies morning headaches, daytime somnolence or napping. Denies difficulty falling asleep, staying asleep, waking from sleep. Denies knowledge of snoring. GASTROINTESTINAL: Right lower quadrant pain. Reported no BM x5 days GENITOURINARY: Denies frequency, urgency, nocturia, hematuria or incontinence (Storage/Irritative symptoms.) Low urinary stream, straining to void, urinary intermittency or hesitancy, splitting of the voiding stream, terminal dribbling. ENDOCRINOLOGIC: Denies polyuria, polydipsia, polyphagia or heat/cold intolerances. HEMATOLOGIC: Denies thrombophilia/previous clots, or coagulopathy/bleeding disorders. ONCOLOGIC: Denies personal history of malignancy. DERMATOLOGIC: Denies rashes or pruritus. PSYCHIATRIC: Denies any suicidal or homicidal ideation. Denies hallucinations. PHYSICAL EXAM GENERAL APPEARANCE: The patient is awake, alert, and oriented, in no acute cardiopulmonary distress. NEUROLOGICAL: Cranial nerves II-XII grossly intact. Motor is 5/5 in bilateral upper and lower extremities proximal to distal. No sensory deficits. HEENT: Face is symmetric. Pupils are equal and reactive. Extraocular movements are intact. NECK: Supple. No JVD. No thyromegaly. No submental, submandibular, pre-/postauricular, occipital or supraclavicular lymphadenopathy. CHEST: Normal chest expansion. No Telemetry. LUNGS: Absence of any rales, rhonchi or any wheezing. CARDIOVASCULAR: Regular. S1 and S2 normal. No appreciable rubs, murmurs or gallops. ABDOMEN: Soft, nontender, and nondistended. There is no rebound, voluntary guarding, or rigidity. : Deferred. No Sykes. EXTREMITIES: Non-edematous and not cyanotic. No clubbing. Good capillary refill. SKIN: No skin breakdown. Vital Signs (last 8hr) Date Time Temp Pulse Resp B/P (MAP) Pulse Ox O2 Delivery O2 Flow Rate FiO2 04/25/24 08:00 98.2 107 19 126/52 93 Room Air 04/25/24 04:00 97.7 100 17 126/74 94 Room Air LABS: Laboratory: Test 04/25/24 04:05 04/24/24 12:20 04/24/24 11:18 Range/Units White Blood Count 19.5 #H 4.8-10.8 K/uL Red Blood Count 4.91 4.00-5.50 MIL/uL Hemoglobin 14.8 12.0-16.0 g/dL Hematocrit 43.7 36-48 % Mean Corpuscular Volume 89.0 79-99 fL Mean Corpuscular Hemoglobin 30.1 27.0-33.0 pg Mean Corpuscular Hemoglobin Concent 33.9 32.0-36.0 g/dL Red Cell Distribution Width 14.1 11.0-15.5 % Platelet Count 327 130-400 K/uL Mean Platelet Volume 8.6 7.5-10.5 fL Nucleated Red Blood Cells 0.0 0.0-0.19 % Sodium Level 141 136-145 mmol/L Potassium Level 3.4 L 3.5-5.1 mmol/L Chloride Level 98 L 101-111 mmol/L Carbon Dioxide Level 29 21-32 mmol/L Blood Urea Nitrogen 20 H 7-18 mg/dL Creatinine 1.6 H 0.5-1.0 mg/dL Glomerular Filtration Rate Calc 32 >90 mL/min Random Glucose 156 H 70-105 mg/dL Total Calcium 10.2 H 8.5-10.1 mg/dL Urine Color COLORLESS YELLOW Urine Appearance CLOUDY H CLEAR Urine pH 8.0 5.0-8.0 Urine Specific [place] 1.007 1.001-1.031 Urine Protein 50 H NEGATIVE mg/dL Urine Glucose (UA) 30 H NEGATIVE mg/dL Urine Ketones 10 H NEGATIVE mg/dL Urine Occult Blood NEGATIVE NEGATIVE Urine Nitrate NEGATIVE NEGATIVE Urine Bilirubin NEGATIVE NEGATIVE mg/dL Urine Urobilinogen 0.2 0.2-1.0 mg/dL Urine Leukocyte Esterase NEGATIVE NEGATIVE Pravin/uL Urine RBC 2-5 H 0-1 /HPF Urine WBC 0-1 0-1 /HPF Urine Squamous Epithelial Cells RARE 0-2 /HPF Urine Bacteria RARE None Seen /HPF Immature Granulocyte % (Auto) 0.4 0-1 % Neutrophils (%) (Auto) 85.3 H 40.0-77.0 % Lymphocytes (%) (Auto) 8.3 L 21.0-51.0 % Monocytes (%) (Auto) 4.3 3.0-13.0 % Eosinophils (%) (Auto) 1.3 0.0-8.0 % Basophils (%) (Auto) 0.4 0.0-5.0 % Neutrophils # (Auto) 9.7 H 1.8-7.7 K/uL Lymphocytes # (Auto) 0.9 L 1.0-4.8 K/uL Monocytes # (Auto) 0.5 0.1-1.0 K/uL Eosinophils # (Auto) 0.15 0.00-0.70 K/uL Basophils # (Auto) 0.04 0.00-0.20 K/uL Absolute Immature Granulocyte (auto 0.04 0-1 K/uL White Cell Morphology Comment See comments Hemoglobin A1c 5.8 4.0-6.0 % Estimated Average Glucose (eAG) 120 70-126 mg/dL Total Bilirubin 0.6 0.2-1.0 mg/dL Direct Bilirubin 0.1 0.0-0.3 mg/dL Aspartate Amino Transf (AST/SGOT) 20 10-37 U/L Alanine Aminotransferase (ALT/SGPT) 22 12-78 U/L Alkaline Phosphatase 93 50-136 U/L Total Protein 8.3 6.0-8.3 g/dL Albumin 4.2 3.5-5.0 g/dL Lipase 50 16-77 U/L Current Medications Medications (Trade) Dose Ordered Sig/Papito Route PRN Reason Start Time Stop Time Status Last Admin Dose Admin Acetaminophen (TYLenol 325MG TAB) 650 mg Q4H PRN PO TEMPERATURE GREATER THAN 101.5 04/24/24 16:30 05/24/24 16:29 Acetaminophen (TYLenol 325MG TAB) 650 mg Q6H PRN PO MILD PAIN (1-3) 04/24/24 16:30 05/24/24 16:29 Acetaminophen (Tylenol 325mg Suppository) 325 mg Q4H PRN RC TEMPERATURE GREATER THAN 101.5 04/24/24 16:30 05/24/24 16:29 Acetaminophen (Tylenol 325mg Suppository) 325 mg Q6H PRN RC MILD PAIN (1-3) 04/24/24 16:30 05/24/24 16:29 Morphine Sulfate (morPHINE 2MG SYG) 2 mg Q4H PRN IVP SEVERE PAIN (7-10) 04/24/24 16:30 05/01/24 16:29 04/24/24 20:08 2 MG Ondansetron HCl (zoFRAN 4MG INJ) 4 mg Q6H PRN IVP NAUSEA/VOMITING 04/24/24 16:30 05/24/24 16:29 04/24/24 20:08 4 MG Pantoprazole Sodium (PROTonix 40MG INJ) 40 mg DAILY IVP 04/25/24 09:00 05/25/24 08:59 04/25/24 09:36 40 MG Sodium Chloride 1,000 ml @ 75 mls/hr [id number] IV 04/24/24 16:30 05/24/24 16:29 04/25/24 09:43 75 MLS/HR DIAGNOSTICS / RADIOLOGY: [ ] ASSESSMENT: [Large ventral hernia, POA Small bowel obstruction, POA Intractable nausea/vomiting, POA Hypertensive emergency, POA Hyperglycemia, POA Leukocytosis with left shift, uptrending POA Hypokalemia, POA PLAN: [Admit patient to medical-surgical Patient will be kept NPO Patient will be placed on NG tube on low intermittent suction General surgeon has been consulted we will await for his recommendation We will with gentle IV hydration with NS at 50 mL/hour We will provide prn hydralazine for elevated systolic blood pressure of greater than 160 mm per mercury We will continue broad-spectrum IV antibiotic due to leukocytosis We will continue to monitor electrolytes and replace as necessary Continue on antiemetic as needed Continue with pain management We will repeat labs tomorrow GI prophylaxis with Protonix 40 mg IV daily DVT prophylaxis with SCD Patient is a full code Patient's case discussed with Dr. Dinh, above plan was formulated ATTESTATION BY PHYSICIAN I have seen and examined the patient. I reviewed the documentation, medical decision making, and treatment plan as noted by the mid-level provider above. I agree with the findings and plan of care. ALDEN DINH MD, [facility] Apr 25, 2024 12:08
[2024-04-25 12:35] LABS: CREATININE 2.3 mg/dL (0.5-1.0); MAGNESIUM 3.3 mg/dL (1.80-2.40); POTASSIUM 3.4 mmol/L (3.5-5.1); TOTAL PROTEIN, SERUM 8.2 g/dL (6.0-8.3)
[2024-04-25] MEDS: acetaMINOPHEN 325 MG SUPPOSITORY RC PRN (14:02)
[2024-04-25 17:25] LABS: ALBUMIN 3.9 g/dL (3.5-5.0); MAGNESIUM 3.4 mg/dL (1.80-2.40); POTASSIUM 3.4 mmol/L (3.5-5.1); TOTAL PROTEIN, SERUM 8.2 g/dL (6.0-8.3)
[2024-04-25 23:49] LABS: ALBUMIN 3.6 g/dL (3.5-5.0); CREATININE 3.8 mg/dL (0.5-1.0); MAGNESIUM 3.7 mg/dL (1.80-2.40); POTASSIUM 3.4 mmol/L (3.5-5.1)
[2024-04-26] VITALS (12 sets, daily range): BP systolic 109–126; BP diastolic 52–78; PULSE 90–100; RESP 13–22; TEMP 97.7–99; O2SAT 91–93
--- NOTE | 2024-04-26 01:05 | NUR ---
PATIENT IS CONFUSED AND KEEPS TRYING TO GET OUT OF BED. SHE HAS PULLED OUT HER NG TUBE. PAGED THE INFORMATICS DEVELOPER TO REQUEST A 1:1 SITTER.
[2024-04-26] MEDS: LORazepam 2 MG/ML 1 ML VIAL IVP ONE (01:21)
--- NOTE | 2024-04-26 01:56 | NUR ---
PATIENT WAS GIVEN A ONE TIME DOSE OF LORAZEPAM 0.5MG IV PUSH ADMINISTERED BY ANTONETTE WILSON. THE PATIENT IS NOW SLEEPING COMFORTABLY, DEEP EVEN BREATHS. SIDE RAILS UP X3 CALL LIGHT IN REACH AND DOOR OPEN. CONTINUING TO MONITOR THE PATIENT.
[2024-04-26 05:31] LABS: BASOPHILS # (AUTO) 0.04 K/uL (0.00-0.20); BASOPHILS % (AUTO) 0.2 % (0.0-5.0); EOSINOPHILS # (AUTO) 0.02 K/uL (0.00-0.70); EOSINOPHILS % (AUTO) 0.1 % (0.0-8.0); HEMATOCRIT 41.6 % (36-48); LYMPHOCYTES # (AUTO) 0.7 K/uL (1.0-4.8); LYMPHOCYTES % (AUTO) 3.2 % (21.0-51.0); MEAN CORPUSCULAR HEMOGLOBIN 30.1 pg (27.0-33.0); MEAN CORPUSCULAR HGB CONC 33.2 g/dL (32.0-36.0); MEAN CORPUSCULAR VOLUME 90.6 fL (79-99); MONOCYTES # (AUTO) 2.2 K/uL (0.1-1.0); MONOCYTES % (AUTO) 9.9 % (3.0-13.0); NEUTROPHILS # (AUTO) 19.4 K/uL (1.8-7.7); NEUTROPHILS % (AUTO) 85.7 % (40.0-77.0); PLATELET COUNT (AUTO) 277 K/uL (130-400); RED BLOOD CELL COUNT(AUTO) 4.59 MIL/uL (4.00-5.50); RED CELL DISTRIBUTION WIDTH 14.7 % (11.0-15.5); WHITE BLOOD COUNT (AUTO) 22.6 K/uL (4.8-10.8)
[2024-04-26 05:59] LABS: ALBUMIN 3.4 g/dL (3.5-5.0); CREATININE 4.3 mg/dL (0.5-1.0); POTASSIUM 3.3 mmol/L (3.5-5.1); TOTAL PROTEIN, SERUM 7.6 g/dL (6.0-8.3)
--- NOTE | 2024-04-26 10:01 | PN ---
[facility] PROGRESS NOTE Date of Service: Apr 26, 2024 Time of Service: 09:59 SUBJECTIVE: [83-year-old female admitted for early abdominal obstruction and large ventral hernia. Patient pulled out her NG tube early this morning. Patient was noted with some confusion and trying to get out of bed. Patient is now on one-to-one supervision. We will continue to follow up with general surgeon on further recommendations. She will remain NPO. REVIEW OF SYSTEMS CONSTITUTIONAL: Denies fevers, chills, or night sweats. No unintentional weight loss reported. NEUROLOGICAL: Denies headache, amaurosis fugax, motor weakness, sensory deficit, vertigo/spinning sensation, gait abnormalities, or tremors. ENT: No hearing loss, otalgia, otorrhea, rhinitis, rhinorrhea, hoarseness, or sore throat. CARDIOVASCULAR: Denies any exertional angina, dyspnea on exertion, orthopnea, paroxysmal nocturnal dyspnea, palpitations, life-threatening arrhythmias, claudication. PULMONARY: Denies any shortness of breath, cough, phlegm/sputum, hemoptysis, pleuritic chest pain. SLEEP: Denies morning headaches, daytime somnolence or napping. Denies difficulty falling asleep, staying asleep, waking from sleep. Denies knowledge of snoring. GASTROINTESTINAL: Right lower quadrant pain. Reported no BM x5 days GENITOURINARY: Denies frequency, urgency, nocturia, hematuria or incontinence (Storage/Irritative symptoms.) Low urinary stream, straining to void, urinary intermittency or hesitancy, splitting of the voiding stream, terminal dribbling. ENDOCRINOLOGIC: Denies polyuria, polydipsia, polyphagia or heat/cold intolerances. HEMATOLOGIC: Denies thrombophilia/previous clots, or coagulopathy/bleeding disorders. ONCOLOGIC: Denies personal history of malignancy. DERMATOLOGIC: Denies rashes or pruritus. PSYCHIATRIC: Denies any suicidal or homicidal ideation. Denies hallucinations. PHYSICAL EXAM GENERAL APPEARANCE: The patient is awake, alert, and oriented, in no acute cardiopulmonary distress. NEUROLOGICAL: Cranial nerves II-XII grossly intact. Motor is 5/5 in bilateral upper and lower extremities proximal to distal. No sensory deficits. HEENT: Face is symmetric. Pupils are equal and reactive. Extraocular movements are intact. NECK: Supple. No JVD. No thyromegaly. No submental, submandibular, pre-/postauricular, occipital or supraclavicular lymphadenopathy. CHEST: Normal chest expansion. No Telemetry. LUNGS: Absence of any rales, rhonchi or any wheezing. CARDIOVASCULAR: Regular. S1 and S2 normal. No appreciable rubs, murmurs or gallops. ABDOMEN: Soft, nontender, and nondistended. There is no rebound, voluntary guarding, or rigidity. : Deferred. No Sykes. EXTREMITIES: Non-edematous and not cyanotic. No clubbing. Good capillary refill. SKIN: No skin breakdown. Vital Signs (last 8hr) Date Time Temp Pulse Resp B/P (MAP) Pulse Ox O2 Delivery O2 Flow Rate FiO2 04/26/24 08:00 97.7 100 18 112/67 91 Room Air LABS: Laboratory: Test 04/26/24 05:15 04/25/24 23:32 04/25/24 12:08 04/24/24 12:20 Range/Units White Blood Count 22.6 H 4.8-10.8 K/uL Red Blood Count 4.59 4.00-5.50 MIL/uL Hemoglobin 13.8 12.0-16.0 g/dL Hematocrit 41.6 36-48 % Mean Corpuscular Volume 90.6 79-99 fL Mean Corpuscular Hemoglobin 30.1 27.0-33.0 pg Mean Corpuscular Hemoglobin Concent 33.2 32.0-36.0 g/dL Red Cell Distribution Width 14.7 11.0-15.5 % Platelet Count 277 130-400 K/uL Mean Platelet Volume 9.3 7.5-10.5 fL Immature Granulocyte % (Auto) 0.9 0-1 % Neutrophils (%) (Auto) 85.7 H 40.0-77.0 % Lymphocytes (%) (Auto) 3.2 L 21.0-51.0 % Monocytes (%) (Auto) 9.9 3.0-13.0 % Eosinophils (%) (Auto) 0.1 0.0-8.0 % Basophils (%) (Auto) 0.2 0.0-5.0 % Neutrophils # (Auto) 19.4 H 1.8-7.7 K/uL Lymphocytes # (Auto) 0.7 L 1.0-4.8 K/uL Monocytes # (Auto) 2.2 H 0.1-1.0 K/uL Eosinophils # (Auto) 0.02 0.00-0.70 K/uL Basophils # (Auto) 0.04 0.00-0.20 K/uL Absolute Immature Granulocyte (auto 0.20 0-1 K/uL Nucleated Red Blood Cells 0.0 0.0-0.19 % Sodium Level 140 136-145 mmol/L Potassium Level 3.3 L 3.5-5.1 mmol/L Chloride Level 99 L 101-111 mmol/L Carbon Dioxide Level 26 21-32 mmol/L Blood Urea Nitrogen 55 H 7-18 mg/dL Creatinine 4.3 H 0.5-1.0 mg/dL Glomerular Filtration Rate Calc 10 >90 mL/min Random Glucose 141 H 70-105 mg/dL Total Calcium 9.2 8.5-10.1 mg/dL Total Bilirubin 1.0 0.2-1.0 mg/dL Aspartate Amino Transf (AST/SGOT) 71 H 10-37 U/L Alanine Aminotransferase (ALT/SGPT) 24 12-78 U/L Alkaline Phosphatase 73 50-136 U/L Total Protein 7.6 6.0-8.3 g/dL Albumin 3.4 L 3.5-5.0 g/dL Magnesium Level 3.70 H 1.80-2.40 mg/dL Lactic Acid Level 1.8 0.8-2.5 mmol/L Urine Color COLORLESS YELLOW Urine Appearance CLOUDY H CLEAR Urine pH 8.0 5.0-8.0 Urine Specific [place] 1.007 1.001-1.031 Urine Protein 50 H NEGATIVE mg/dL Urine Glucose (UA) 30 H NEGATIVE mg/dL Urine Ketones 10 H NEGATIVE mg/dL Urine Occult Blood NEGATIVE NEGATIVE Urine Nitrate NEGATIVE NEGATIVE Urine Bilirubin NEGATIVE NEGATIVE mg/dL Urine Urobilinogen 0.2 0.2-1.0 mg/dL Urine Leukocyte Esterase NEGATIVE NEGATIVE Pravin/uL Urine RBC 2-5 H 0-1 /HPF Urine WBC 0-1 0-1 /HPF Urine Squamous Epithelial Cells RARE 0-2 /HPF Urine Bacteria RARE None Seen /HPF Test 04/24/24 11:18 Range/Units White Cell Morphology Comment See comments Hemoglobin A1c 5.8 4.0-6.0 % Estimated Average Glucose (eAG) 120 70-126 mg/dL Direct Bilirubin 0.1 0.0-0.3 mg/dL Lipase 50 16-77 U/L Current Medications Medications (Trade) Dose Ordered Sig/Papito Route PRN Reason Start Time Stop Time Status Last Admin Dose Admin Acetaminophen (TYLenol 325MG TAB) 650 mg Q4H PRN PO TEMPERATURE GREATER THAN 101.5 04/24/24 16:30 05/24/24 16:29 Acetaminophen (TYLenol 325MG TAB) 650 mg Q6H PRN PO MILD PAIN (1-3) 04/24/24 16:30 05/24/24 16:29 Acetaminophen (Tylenol 325mg Suppository) 325 mg Q4H PRN RC TEMPERATURE GREATER THAN 101.5 04/24/24 16:30 05/24/24 16:29 04/25/24 14:02 325 MG Acetaminophen (Tylenol 325mg Suppository) 325 mg Q6H PRN RC MILD PAIN (1-3) 04/24/24 16:30 05/24/24 16:29 Morphine Sulfate (morPHINE 2MG SYG) 2 mg Q4H PRN IVP SEVERE PAIN (7-10) 04/24/24 16:30 05/01/24 16:29 04/24/24 20:08 2 MG Ondansetron HCl (zoFRAN 4MG INJ) 4 mg Q6H PRN IVP NAUSEA/VOMITING 04/24/24 16:30 05/24/24 16:29 04/24/24 20:08 4 MG Pantoprazole Sodium (PROTonix 40MG INJ) 40 mg DAILY IVP 04/25/24 09:00 05/25/24 08:59 04/26/24 08:08 40 MG Sodium Chloride 1,000 ml @ 75 mls/hr [id number] IV 04/24/24 16:30 05/24/24 16:29 04/26/24 08:10 75 MLS/HR DIAGNOSTICS / RADIOLOGY: [ ] ASSESSMENT: [Large ventral hernia, POA Small bowel obstruction, POA Intractable nausea/vomiting, POA Hypertensive emergency, POA Hyperglycemia, POA Leukocytosis with left shift, uptrending POA Hypokalemia, POA PLAN: [Admit patient to medical-surgical Patient will be kept NPO Patient's NG tube has been pulled out by patient this morning We will follow up with general surgeon on further recommendations We will continue with gentle IV hydration with NS at 50 mL/hour We will continue to monitor CMP every 6 hours Continue with prn hydralazine for elevated systolic blood pressure of greater than 160 mm per mercury We will continue broad-spectrum IV antibiotic due to leukocytosis We will request Infectious Disease due to up trending leukocytosis We will continue to monitor electrolytes and replace as necessary Continue on antiemetic as needed Continue with pain management We will repeat labs tomorrow GI prophylaxis with Protonix 40 mg IV daily DVT prophylaxis with SCD Patient is a full code Patient's case discussed with Dr. Dinh, above plan was formulated ATTESTATION BY PHYSICIAN I have seen and examined the patient. I reviewed the documentation, medical decision making, and treatment plan as noted by the mid-level provider above. I agree with the findings and plan of care. ALDEN DINH MD, [facility] Apr 26, 2024 10:01
[2024-04-26] MEDS: ceFEPime HCL 1 GM VIAL IVPB SCH (11:00)
--- NOTE | 2024-04-26 11:08 | PN ---
PROGRESS NOTE PROGRESS NOTE DATE OF PROGRESS NOTE: 04/26/24 SUBJECTIVE: This 83-year-old female seen in her room resting. overnight NG tube accidentally removed. 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 Patient reporting no flatus White count elevated 22.6 Patient also with episodes of tachycardia Patient remains NPO VITAL SIGNS Vital Signs Date Time Temp Pulse Resp B/P (MAP) Pulse Ox O2 Delivery O2 Flow Rate FiO2 04/26/24 08:00 97.7 100 18 112/67 91 Room Air 04/25/24 20:00 0 21 LABORATORY: Laboratory Result(s) Test 04/25/24 12:08 04/25/24 17:00 04/25/24 23:32 04/26/24 05:15 Sodium Level 138 mmol/L (136-145) 138 mmol/L (136-145) 140 mmol/L (136-145) 140 mmol/L (136-145) Potassium Level 3.4 mmol/L (3.5-5.1) 3.4 mmol/L (3.5-5.1) 3.4 mmol/L (3.5-5.1) 3.3 mmol/L (3.5-5.1) Chloride Level 96 mmol/L (101-111) 95 mmol/L (101-111) 98 mmol/L (101-111) 99 mmol/L (101-111) Carbon Dioxide Level 28 mmol/L (21-32) 27 mmol/L (21-32) 29 mmol/L (21-32) 26 mmol/L (21-32) Blood Urea Nitrogen 30 mg/dL (7-18) 37 mg/dL (7-18) 46 mg/dL (7-18) 55 mg/dL (7-18) Creatinine 2.3 mg/dL (0.5-1.0) 3.0 mg/dL (0.5-1.0) 3.8 mg/dL (0.5-1.0) 4.3 mg/dL (0.5-1.0) Glomerular Filtration Rate Calc 21 mL/min (>90) 15 mL/min (>90) 11 mL/min (>90) 10 mL/min (>90) Random Glucose 142 mg/dL (70-105) 148 mg/dL (70-105) 146 mg/dL (70-105) 141 mg/dL (70-105) Lactic Acid Level 1.8 mmol/L (0.8-2.5) Total Calcium 9.9 mg/dL (8.5-10.1) 9.8 mg/dL (8.5-10.1) 9.8 mg/dL (8.5-10.1) 9.2 mg/dL (8.5-10.1) Magnesium Level 3.30 mg/dL (1.80-2.40) 3.40 mg/dL (1.80-2.40) 3.70 mg/dL (1.80-2.40) Total Bilirubin 1.0 mg/dL (0.2-1.0) 1.0 mg/dL (0.2-1.0) 1.0 mg/dL (0.2-1.0) 1.0 mg/dL (0.2-1.0) Aspartate Amino Transf (AST/SGOT) 76 U/L (10-37) 74 U/L (10-37) 75 U/L (10-37) 71 U/L (10-37) Alanine Aminotransferase (ALT/SGPT) 26 U/L (12-78) 24 U/L (12-78) 21 U/L (12-78) 24 U/L (12-78) Alkaline Phosphatase 87 U/L (50-136) 85 U/L (50-136) 79 U/L (50-136) 73 U/L (50-136) Total Protein 8.2 g/dL (6.0-8.3) 8.2 g/dL (6.0-8.3) 8.0 g/dL (6.0-8.3) 7.6 g/dL (6.0-8.3) Albumin 4.0 g/dL (3.5-5.0) 3.9 g/dL (3.5-5.0) 3.6 g/dL (3.5-5.0) 3.4 g/dL (3.5-5.0) White Blood Count 22.6 K/uL (4.8-10.8) Red Blood Count 4.59 MIL/uL (4.00-5.50) Hemoglobin 13.8 g/dL (12.0-16.0) Hematocrit 41.6 % (36-48) Mean Corpuscular Volume 90.6 fL (79-99) Mean Corpuscular Hemoglobin 30.1 pg (27.0-33.0) Mean Corpuscular Hemoglobin Concent 33.2 g/dL (32.0-36.0) Red Cell Distribution Width 14.7 % (11.0-15.5) Platelet Count 277 K/uL (130-400) Mean Platelet Volume 9.3 fL (7.5-10.5) Immature Granulocyte % (Auto) 0.9 % (0-1) Neutrophils (%) (Auto) 85.7 % (40.0-77.0) Lymphocytes (%) (Auto) 3.2 % (21.0-51.0) Monocytes (%) (Auto) 9.9 % (3.0-13.0) Eosinophils (%) (Auto) 0.1 % (0.0-8.0) Basophils (%) (Auto) 0.2 % (0.0-5.0) Neutrophils # (Auto) 19.4 K/uL (1.8-7.7) Lymphocytes # (Auto) 0.7 K/uL (1.0-4.8) Monocytes # (Auto) 2.2 K/uL (0.1-1.0) Eosinophils # (Auto) 0.02 K/uL (0.00-0.70) Basophils # (Auto) 0.04 K/uL (0.00-0.20) Absolute Immature Granulocyte (auto 0.20 K/uL (0-1) Nucleated Red Blood Cells 0.0 % (0.0-0.19) INPATIENT MEDS: Current Medications Medications Dose Ordered Sig/Papito Start Time Stop Time Status Last Admin Ondansetron HCl 4 mg Q6H PRN 04/24/24 16:30 05/24/24 16:29 04/24/24 20:08 Morphine Sulfate 2 mg Q4H PRN 04/24/24 16:30 05/01/24 16:29 04/24/24 20:08 Sodium Chloride 1,000 ml @ 75 mls/hr [id number] 04/24/24 16:30 05/24/24 16:29 04/26/24 08:10 Acetaminophen 650 mg Q4H PRN 04/24/24 16:30 05/24/24 16:29 Acetaminophen 650 mg Q6H PRN 04/24/24 16:30 05/24/24 16:29 Acetaminophen 325 mg Q6H PRN 04/24/24 16:30 05/24/24 16:29 Acetaminophen 325 mg Q4H PRN 04/24/24 16:30 05/24/24 16:29 04/25/24 14:02 Pantoprazole Sodium 40 mg DAILY 04/25/24 09:00 05/25/24 08:59 04/26/24 08:08 Cefepime HCl 1 gm Q24H 04/26/24 10:30 05/06/24 10:29 Metronidazole 500 mg Q8H 04/26/24 10:30 05/06/24 10:29 PROBLEM LIST: (1) Small bowel obstruction ICD Code: K56.609 - Unspecified intestinal obstruction, unspecified as to partial versus complete obstruction (2) Incisional hernia ICD Code: K43.2 - Incisional hernia PLAN: Dr. Thapa to see patient today Patient to remain NPO Patient will likely need cardiac clearance before moving forward with any surgical intervention Surgical team to be updated with any further acute events DONNIE BA Jr. Apr 26, 2024 11:08
[2024-04-26 11:29] LABS: INFLUENZA TYPE A Negative For Type A (NEGATIVE); INFLUENZA TYPE B Negative For Type B (NEGATIVE)
[2024-04-26] MEDS: metRONIDazole 500 MG TABLET PO SCH (11:35)
[2024-04-26 12:13] LABS: ALBUMIN 3.2 g/dL (3.5-5.0); BILIRUBIN,TOTAL 1.1 mg/dL (0.2-1.0); CREATININE 4.7 mg/dL (0.5-1.0); POTASSIUM 3.6 mmol/L (3.5-5.1); TOTAL PROTEIN, SERUM 7.5 g/dL (6.0-8.3)
[2024-04-26 12:15] LABS: MAGNESIUM 4.1 mg/dL (1.80-2.40)
--- NOTE | 2024-04-26 12:46 | HMCIMG ---
CT CHEST W/O CONTRAST HISTORY: Pneumonia COMPARISON: None TECHNIQUE: Multiple sequential axial images of the chest were obtained from the thoracic inlet through upper abdomen. Patient was not given contrast through intravenous route. FINDINGS: Bilateral lower lung pulmonary infiltrates are seen. There are interstitial fibrosis with bronchiectasis. Tiny pericardial effusion is seen. No pleural effusion or pericardial effusion is seen. There is no evidence of pneumothorax. There are normal size mediastinal and hilar lymph nodes. The heart is not enlarged. Degenerative changes of the thoracolumbar spine are present. There is no evidence of adrenal nodule. IMPRESSION: 1. Bilateral lower lung pulmonary infiltrates with interstitial fibrosis. CT was performed with one or more following dose reduction techniques: automated exposure control, adjustment of the mA and kv according to patient's size, or use of a iterative reconstruction technique.
--- NOTE | 2024-04-26 14:30 | CONS ---
[facility] CARDIOLOGY CONSULTATION REPORT Cardiology consultation note dictated for Santiago Spicer MD Primary shellfish sorter: Kehinde Gillis MD Date Patient Seen: Apr 26, 2024 Requesting Physician: CIARAN Brown Reason for Consultation: CARDIAC RISK STRATIFICATION History of Present Illness: This is an 83-year-old female with a past medical history of paroxysmal supraventricular tachycardia, GERD, a negative Cardiolite Stress Test in 2011, dyslipidemia, and abdominal hernia who presented to the ED with complaints of abdominal pain, vomiting x1 day and constipation x3 days. CT of the abdomen demonstrated a large anterior pelvic wall hernia with bowel content and a mild small bowel dilatation. CT of the chest demonstrated bilateral lower pulmonary infiltrates with interstitial fibrosis, and a tiny pericardial effusion. Cardiology has been consulted for cardiac risk stratification for the patient to undergo a ventral hernia repair. The patient has a poor memory and possible dementia. The majority of the HPI was obtained by medical records but the patient was able to answer a some questions. The patient currently denies chest pain, chest pressure, dizziness, dyspnea, orthopnea, PND, fever, cough, nausea, or vomiting. She does admit to abdominal discomfort. We will order an EKG to assess for rhythm and an echocardiogram to assess LV function. Past Medical History: As per HPI and summarized below Past Surgical History: Hysterectomy Right knee surgery Cholecystectomy Hernia repair Family History: The patient's mother had diabetes mellitus type 2 and an unknown cancer. Social History: A grandson lives with the patient. Habits: The patient denies alcohol, tobacco, or illicit drug use. Home Meds: Acebutolol 200mg daily Omeprazole 40 mg daily Current Meds: Current Medications Medications Dose Ordered Sig/Papito Start Time Stop Time Status Last Admin Ondansetron HCl 4 mg Q6H PRN 04/24/24 16:30 05/24/24 16:29 04/24/24 20:08 Morphine Sulfate 2 mg Q4H PRN 04/24/24 16:30 05/01/24 16:29 04/24/24 20:08 Sodium Chloride 1,000 ml @ 75 mls/hr [id number] 04/24/24 16:30 05/24/24 16:29 04/26/24 08:10 Acetaminophen 650 mg Q4H PRN 04/24/24 16:30 05/24/24 16:29 Acetaminophen 650 mg Q6H PRN 04/24/24 16:30 05/24/24 16:29 Acetaminophen 325 mg Q6H PRN 04/24/24 16:30 05/24/24 16:29 Acetaminophen 325 mg Q4H PRN 04/24/24 16:30 05/24/24 16:29 04/25/24 14:02 Pantoprazole Sodium 40 mg DAILY 04/25/24 09:00 05/25/24 08:59 04/26/24 08:08 Cefepime HCl 1 gm Q24H 04/26/24 10:30 05/06/24 10:29 04/26/24 11:00 Metronidazole 500 mg Q8H 04/26/24 10:30 05/06/24 10:29 04/26/24 11:35 Review of Systems: CONST: No fever, fatigue, or weight changes. EYES: No recent vision problems. ENT: No congestion, ear pain, or sore throat. C/V: No chest pain, palpitations, or edema. RESP: No cough, congestion, wheezing or shortness of breath. GI: Admits to abdominal pain. No nausea, vomiting, constipation, or diarrhea. : No incontinence or dysuria. SKIN: No rash. NEURO: No headache, focal numbness or weakness, dizziness, or seizures. PSYCH: No depression or anxiety. HEME: No abnormal bruising or bleeding. LYMPH: No swollen glands. Physical Examination: GENERAL: No acute distress. HEAD: Normal with no signs of head trauma. EYES: PERRLA, EOMI, conjunctiva and sclera normal. ENT: Hearing grossly intact, normal oropharynx. NECK: Supple without JVD. There is no tenderness, lymphadenopathy, or masses. No thyromegaly. Normal carotid upstrokes without bruits. LUNGS: Clear breath sounds bilaterally. No wheezes, or rhonchi. HEART: Normal rate and rhythm. Normal S1 and S2 without murmurs, gallop or rub. VASC: Bilateral DP pulses 2+ ABD: Bilateral right and left abdomen with large, tender protrusions. : Not examined LYMPH: No lymphadenopathy noted. EXT: No clubbing, cyanosis or edema. SKIN: No rashes or lesions noted. NEURO: Awake and alert. Poor memory. Vital Signs (last 8hr) Date Time Temp Pulse Resp B/P (MAP) Pulse Ox O2 Delivery O2 Flow Rate FiO2 04/26/24 12:00 97.7 96 18 94 Room Air 04/26/24 08:00 97.7 100 18 112/67 91 Room Air Laboratory: Hematology Labs: Test 04/26/24 05:15 Range/Units White Blood Count 22.6 H 4.8-10.8 K/uL Red Blood Count 4.59 4.00-5.50 MIL/uL Hemoglobin 13.8 12.0-16.0 g/dL Hematocrit 41.6 36-48 % Mean Corpuscular Volume 90.6 79-99 fL Mean Corpuscular Hemoglobin 30.1 27.0-33.0 pg Mean Corpuscular Hemoglobin Concent 33.2 32.0-36.0 g/dL Red Cell Distribution Width 14.7 11.0-15.5 % Platelet Count 277 130-400 K/uL Mean Platelet Volume 9.3 7.5-10.5 fL Immature Granulocyte % (Auto) 0.9 0-1 % Neutrophils (%) (Auto) 85.7 H 40.0-77.0 % Lymphocytes (%) (Auto) 3.2 L 21.0-51.0 % Monocytes (%) (Auto) 9.9 3.0-13.0 % Eosinophils (%) (Auto) 0.1 0.0-8.0 % Basophils (%) (Auto) 0.2 0.0-5.0 % Neutrophils # (Auto) 19.4 H 1.8-7.7 K/uL Lymphocytes # (Auto) 0.7 L 1.0-4.8 K/uL Monocytes # (Auto) 2.2 H 0.1-1.0 K/uL Eosinophils # (Auto) 0.02 0.00-0.70 K/uL Basophils # (Auto) 0.04 0.00-0.20 K/uL Absolute Immature Granulocyte (auto 0.20 0-1 K/uL Nucleated Red Blood Cells 0.0 0.0-0.19 % Chemistry Labs: Test 04/26/24 12:46 04/26/24 11:40 Range/Units Lactic Acid Level 2.5 0.8-2.5 mmol/L Sodium Level 140 136-145 mmol/L Potassium Level 3.6 3.5-5.1 mmol/L Chloride Level 100 L 101-111 mmol/L Carbon Dioxide Level 26 21-32 mmol/L Blood Urea Nitrogen 65 H 7-18 mg/dL Creatinine 4.7 H 0.5-1.0 mg/dL Glomerular Filtration Rate Calc 9 >90 mL/min Random Glucose 142 H 70-105 mg/dL Total Calcium 9.3 8.5-10.1 mg/dL Magnesium Level 4.10 *H 1.80-2.40 mg/dL Total Bilirubin 1.1 H 0.2-1.0 mg/dL Aspartate Amino Transf (AST/SGOT) 61 H 10-37 U/L Alanine Aminotransferase (ALT/SGPT) 21 12-78 U/L Alkaline Phosphatase 73 50-136 U/L Total Protein 7.5 6.0-8.3 g/dL Albumin 3.2 L 3.5-5.0 g/dL Diagnostics / Radiology: Impression and Plan: Cardiac risk stratification Large anterior pelvic wall hernia with mild small bowel dilatation CTA with bilateral lower pulmonary infiltrates with interstitial fibrosis, and a tiny pericardial effusion Leukocytosis, WBC 22.6 JEAN-CLAUDE, Creatinine of 1.2 on admission has increased to 4.7 Paroxysmal supraventricular tachycardia GERD Negative Cardiolite Stress Test in 2011 DLD Possible dementia Allergy to atorvastatin Cardiology has been consulted for cardiac risk stratification for the patient to undergo a ventral hernia repair. The patient currently denies anginal equivalents. We will order an EKG to assess rhythm and an echocardiogram to assess LV function. Further recommendations pending results of echocardiogram. We will place the patient on continuous telemetry monitoring as she does have a history of SVT. Update: NSTEMI EKG demonstrating diffuse [place] [address] -Will initiate Metoprolol tartrate 12.5 mg b.i.d., Aspirin 325mg x1, then 81mg daily and Heparin drip per ACS protocol x 48 hours -Allergy to atorvastatin, but is currently taking Pravastatin 40mg nightly (Bottle in room), please resume VIDAL KING [facility] Apr 26, 2024 14:30
--- NOTE | 2024-04-26 15:17 | EKG ---
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
[2024-04-26 16:21] LABS: INR 1.25 (0.85-1.15); PROTHROMBIN TIME 13.3 SEC (9.6-11.6)
[2024-04-26 16:33] LABS: ALBUMIN 3.1 g/dL (3.5-5.0); BILIRUBIN,TOTAL 1.1 mg/dL (0.2-1.0); POTASSIUM 3.7 mmol/L (3.5-5.1); TOTAL PROTEIN, SERUM 7.4 g/dL (6.0-8.3)
[2024-04-26 16:38] LABS: MAGNESIUM 4.1 mg/dL (1.80-2.40)
[2024-04-26] MEDS: ASPIRIN 325MG TAB PO ONE (16:51)
[2024-04-26] MEDS ORDERED: HEParin 5,000 UNIT VIAL IV PRN (17:00)
[2024-04-26] MEDS: HEParin 5,000 UNIT VIAL IV ONE (17:10)
[2024-04-26] MEDS: HEParin 25,000 UNITS/250ML D5W 250 ML IV SCH (17:14)
--- NOTE | 2024-04-26 18:34 | NUR ---
No cardiac intervention as per Dr. Santiago Spicer
--- NOTE | 2024-04-26 20:24 | NUR ---
UPDATE 1448 EKG WAS ORDERED 1506 TELEMETRY WAS ORDERED 1512 EKG DONE 1513 VIDAL KING STATED THAT THE EKG RESULTS SHOWED "DIFFUSE T WAVE INVERSIONS" 1516 TROPONIN WAS ORDERED 1552 TELEMETRY WAS PLACED, #39 HR SR 96 1547 [place] [address] 1547 VIDAL KING POWDER COATER NOTIFIED OF TROPONIN RESULTS 1549 SAMMY BARROSO POWDER COATER NOTIFIED OF TROPONIN RESULTS 1553 TRANSFER TO PCCU ORDER FOR NSTEMI ENTERED PER SANTIAGO FINN 1600 VS DONE, HR 98 BP 119/61 RR 18 98% RA 1602 ORDER FOR HEPARIN PROTOCOL ENTERED PER VIDAL CHRISTIANSON IN AGREEMENT, SHE CALLED AND NOTIFIED DR. MATHIS 1602 VIDAL KING STATED PATIENTS VS ARE STABLE SHE NEEDS TO JUST GO TO PCCU FOR CLOSE MONITORING DUE TO NSTEMI, NO NEED FOR RR AT THIS TIME SINCE PATIENT IS NONSYMPTOMATIC 1615 REPORT GIVEN TO SHARA WILSON 1625 PATIENT TRANSFERRED TO ROOM 211
[2024-04-26] MEDS: metoPROLOL tartRATE 25 MG TAB PO SCH (21:48)
[2024-04-26 23:43] LABS: ALBUMIN 2.8 g/dL (3.5-5.0); BILIRUBIN,TOTAL 0.9 mg/dL (0.2-1.0); CREATININE 5.2 mg/dL (0.5-1.0); POTASSIUM 4.1 mmol/L (3.5-5.1); TOTAL PROTEIN, SERUM 7.4 g/dL (6.0-8.3)
[2024-04-26 23:50] LABS: MAGNESIUM 4.2 mg/dL (1.80-2.40)
[2024-04-27] VITALS (21 sets, daily range): BP systolic 111–138; BP diastolic 39–89; PULSE 83–95; RESP 10–23; TEMP 97.9–98.7; O2SAT 94–100
[2024-04-27 03:57] LABS: BASOPHILS # (AUTO) 0.02 K/uL (0.00-0.20); BASOPHILS % (AUTO) 0.1 % (0.0-5.0); HEMATOCRIT 38.2 % (36-48); IMMATURE GRANULOCYTE ABSOLUTE 0.09 K/uL (0-1); LYMPHOCYTES # (AUTO) 0.4 K/uL (1.0-4.8); LYMPHOCYTES % (AUTO) 2.6 % (21.0-51.0); MEAN CORPUSCULAR HEMOGLOBIN 29.4 pg (27.0-33.0); MEAN CORPUSCULAR HGB CONC 32.5 g/dL (32.0-36.0); MEAN CORPUSCULAR VOLUME 90.5 fL (79-99); MONOCYTES # (AUTO) 1.3 K/uL (0.1-1.0); MONOCYTES % (AUTO) 7.8 % (3.0-13.0); PLATELET COUNT (AUTO) 239 K/uL (130-400); RED BLOOD CELL COUNT(AUTO) 4.22 MIL/uL (4.00-5.50); RED CELL DISTRIBUTION WIDTH 14.9 % (11.0-15.5); WHITE BLOOD COUNT (AUTO) 16.8 K/uL (4.8-10.8)
[2024-04-27 04:08] LABS: CREATININE 5.2 mg/dL (0.5-1.0); POTASSIUM 3.7 mmol/L (3.5-5.1)
[2024-04-27 04:14] LABS: INR 1.23 (0.85-1.15); PROTHROMBIN TIME 13.1 SEC (9.6-11.6)
[2024-04-27 04:15] LABS: PARTIAL THROMBOPLASTIN TIME 42.6 SEC (26.3-35.5)
--- NOTE | 2024-04-27 07:14 | CONS ---
DATE OF SERVICE: 04/26/2024 INFECTIOUS DISEASE CONSULTATION REPORT REQUESTING PHYSICIAN: Dr. Rk Mancia. REASON FOR CONSULTATION: Sepsis, on antibiotic management. HISTORY OF PRESENT ILLNESS: The patient is an 83-year-old female with history of ventral hernia, dyslipidemia, who presented to hospital with abdominal pain. The pain localized to the left lower quadrant. The patient was also found with some fever, some nausea, vomiting. Initial WBC was 11,000 which has increased to 22,000. CT of the abdomen shows large ventral hernia. The patient has no cough, no hemoptysis or pleuritic pain. No dysuria or urinary frequency. The patient denies headache or dizziness. PAST MEDICAL HISTORY: * Dyslipidemia. * Ventral hernia. PAST SURGICAL HISTORY: * Cholecystectomy. * Hysterectomy. * Right knee surgery. ALLERGIES: * PENICILLIN (tolerating cephalosporin). * LIPITOR. CURRENT MEDICATIONS: Reviewed. SOCIAL HISTORY: No alcohol, tobacco or illicit drug use. FAMILY HISTORY: Noncontributory. REVIEW OF SYSTEMS: Greater than 10 systems were reviewed and negative except as documented above. PHYSICAL EXAMINATION: GENERAL: Elderly female, awake, in painful distress. VITAL SIGNS: Temperature 97.7, pulse 100, respiratory rate 18, BP 112/67. EYES: No icterus. Pupils are equal and reactive. HENT: No oral thrush seen. Moist oral mucosa. NECK: Supple. No JVD or thyromegaly. LUNGS: Good air entry. No rales. No rhonchi. CARDIOVASCULAR: S1, S2 regular. Tachycardic. No murmur. ABDOMEN: Full. Soft. Bowel sounds are hypoactive. There is a ventral hernia involving both lower quadrants, which is markedly tender. CENTRAL NERVOUS SYSTEM: Awake, alert, oriented x 3. No focal deficits. SKIN: No rashes. No itchiness. LYMPHATIC: No peripheral lymphadenopathy. BACK: No deformity. No pressure ulcer. HEMATOLOGIC: No bleeding or petechial lesions seen. MUSCULOSKELETAL: No joint swelling, erythema or tenderness. LABORATORY DATA: Sodium 140, potassium 3.3, BUN 55, creatinine 4.3. WBC 22.7, hemoglobin 13.8, platelet 277. Urinalysis negative. RADIOLOGY: CT of the abdomen results reviewed. ASSESSMENT: An 83-year-old female presenting with abdominal pain and fever. CURRENT PROBLEMS: Include: * Sepsis. * Incarcerated ventral hernia. * Abdominal pain. * Renal failure. * Hypokalemia. PLAN: * Obtain CT of chest without contrast. * Start the patient on cefepime. * Start the patient on doxycycline. * The patient will need a Surgical evaluation. * Monitor electrolytes and correct as needed. * Continue antiemetic. * Avoid nephrotoxic medications. Thank you for allowing me to participate in the care of this patient. TID: [id number] RECEIPT: [id number]
--- NOTE | 2024-04-27 07:15 | PN ---
[facility] Cardiology Progress Note CARDIOLOGY PROGRESS NOTE April Problems: 1. Small bowel obstruction with large anterior pelvic wall hernia 2. Non ST-elevation myocardial infarction 3. Acute kidney failure 4. History of paroxysmal supraventricular tachycardia 5. Dyslipidemia 6. Intolerance to atorvastatin 7. Leukocytosis The patient has been transferred to the intensive care unit. Blood pressure is running 120-130 systolic heart rate is in the 90s the patient did have a low- grade temperature of 99. Potassium 3.7 BUN 85 creatinine 5.2 essentially unchanged from yesterday. Baseline creatinine of 1.2. White count is 16.8 hemoglobin 12.4 platelet count is 168191. The patient continues on aspirin antibiotics metoprolol tartrate pantoprazole. I will review her 2D echocardiogram when available. She is a poor candidate for invasive cardiac procedures at this time due to acute renal failure and bowel obstruction . If her condition is considered life-threatening and surgery emergent there was no contraindication from a cardiac standpoint. We will plan on managing medically if possible. If she develops evidence of an ST-elevation myocardial infarction we will still proceed with left heart catheterization despite her renal failure. EDU QUINTANA MD Apr 27, 2024 07:15
--- NOTE | 2024-04-27 08:04 | PN ---
[facility] PROGRESS NOTE Date of Service: Apr 27, 2024 Time of Service: 07:52 SUBJECTIVE: [83-year-old female admitted for early abdominal obstruction and large ventral hernia. Patient continues with nonreducible hernia. Her abdomen is tender. Surgeon recommended cardiac clearance and found that patient has abnormal T-wave on the 12 lead EKG and troponin was elevated in [id number]. Patient was upgraded to PCCU as we have to start patient on heparin drip. At this time, machine operator assistant evaluated the patient this morning and indicated that patient is poor candidate for invasive cardiac procedure due to acute renal failure and bowel obstruction. We will await for 2D echo. At this time, we will also await for further surgical recommendation. No acute event reported overnight. Patient continues with abdominal tenderness. She will remain NPO. REVIEW OF SYSTEMS CONSTITUTIONAL: Denies fevers, chills, or night sweats. No unintentional weight loss reported. NEUROLOGICAL: Denies headache, amaurosis fugax, motor weakness, sensory deficit, vertigo/spinning sensation, gait abnormalities, or tremors. ENT: No hearing loss, otalgia, otorrhea, rhinitis, rhinorrhea, hoarseness, or sore throat. CARDIOVASCULAR: Denies any exertional angina, dyspnea on exertion, orthopnea, paroxysmal nocturnal dyspnea, palpitations, life-threatening arrhythmias, claudication. PULMONARY: Denies any shortness of breath, cough, phlegm/sputum, hemoptysis, pleuritic chest pain. SLEEP: Denies morning headaches, daytime somnolence or napping. Denies difficulty falling asleep, staying asleep, waking from sleep. Denies knowledge of snoring. GASTROINTESTINAL: Right lower quadrant pain. Reported no BM x5 days GENITOURINARY: Denies frequency, urgency, nocturia, hematuria or incontinence (Storage/Irritative symptoms.) Low urinary stream, straining to void, urinary i ntermittency or hesitancy, splitting of the voiding stream, terminal dribbling. ENDOCRINOLOGIC: Denies polyuria, polydipsia, polyphagia or heat/cold intolerances. HEMATOLOGIC: Denies thrombophilia/previous clots, or coagulopathy/bleeding disorders. ONCOLOGIC: Denies personal history of malignancy. DERMATOLOGIC: Denies rashes or pruritus. PSYCHIATRIC: Denies any suicidal or homicidal ideation. Denies hallucinations. PHYSICAL EXAM GENERAL APPEARANCE: The patient is awake, alert, and oriented, in no acute cardiopulmonary distress. NEUROLOGICAL: Cranial nerves II-XII grossly intact. Motor is 5/5 in bilateral upper and lower extremities proximal to distal. No sensory deficits. HEENT: Face is symmetric. Pupils are equal and reactive. Extraocular movements are intact. NECK: Supple. No JVD. No thyromegaly. No submental, submandibular, pre- /postauricular, occipital or supraclavicular lymphadenopathy. CHEST: Normal chest expansion. No Telemetry. LUNGS: Absence of any rales, rhonchi or any wheezing. CARDIOVASCULAR: Regular. S1 and S2 normal. No appreciable rubs, murmurs or gallops. ABDOMEN: Soft, nontender, and nondistended. There is no rebound, voluntary guarding, or rigidity. : Deferred. No Sykes. EXTREMITIES: Non-edematous and not cyanotic. No clubbing. Good capillary refill. SKIN: No skin breakdown. Vital Signs (last 8hr) Date Time Temp Pulse Resp B/P (MAP) Pulse Ox O2 Delivery O2 Flow Rate FiO2 04/27/24 03:49 98.8 91 20 122/39 Nasal Cannula 2.0 04/27/24 01:57 91 15 138/66 96 Nasal Cannula 2.0 LABS: Laboratory: Test 04/27/24 03:48 04/27/24 03:24 04/26/24 23:17 04/26/24 21:00 Range/Units Prothrombin Time 13.1 H 9.6-11.6 SEC Prothromb Time International Ratio 1.23 H 0.85-1.15 Activated Partial Thromboplast Time 42.6 #H 26.3-35.5 SEC White Blood Count 16.8 #H 4.8-10.8 K/uL Red Blood Count 4.22 4.00-5.50 MIL/uL Hemoglobin 12.4 12.0-16.0 g/dL Hematocrit 38.2 36-48 % Mean Corpuscular Volume 90.5 79-99 fL Mean Corpuscular Hemoglobin 29.4 27.0-33.0 pg Mean Corpuscular Hemoglobin Concent 32.5 32.0-36.0 g/dL Red Cell Distribution Width 14.9 11.0-15.5 % Platelet Count 239 130-400 K/uL Mean Platelet Volume 9.6 7.5-10.5 fL Immature Granulocyte % (Auto) 0.5 0-1 % Neutrophils (%) (Auto) 89.0 H 40.0-77.0 % Lymphocytes (%) (Auto) 2.6 L 21.0-51.0 % Monocytes (%) (Auto) 7.8 3.0-13.0 % Eosinophils (%) (Auto) 0.0 0.0-8.0 % Basophils (%) (Auto) 0.1 0.0-5.0 % Neutrophils # (Auto) 15.0 H 1.8-7.7 K/uL Lymphocytes # (Auto) 0.4 L 1.0-4.8 K/uL Monocytes # (Auto) 1.3 H 0.1-1.0 K/uL Eosinophils # (Auto) 0.00 0.00-0.70 K/uL Basophils # (Auto) 0.02 0.00-0.20 K/uL Absolute Immature Granulocyte (auto 0.09 0-1 K/uL Nucleated Red Blood Cells 0.0 0.0-0.19 % Sodium Level 144 136-145 mmol/L Potassium Level 3.7 3.5-5.1 mmol/L Chloride Level 105 101-111 mmol/L Carbon Dioxide Level 25 21-32 mmol/L Blood Urea Nitrogen 85 *H 7-18 mg/dL Creatinine 5.2 H 0.5-1.0 mg/dL Glomerular Filtration Rate Calc 8 >90 mL/min Random Glucose 146 H 70-105 mg/dL Total Calcium 8.7 8.5-10.1 mg/dL Magnesium Level 4.20 *H 1.80-2.40 mg/dL Total Bilirubin 0.9 0.2-1.0 mg/dL Aspartate Amino Transf (AST/SGOT) 60 H 10-37 U/L Alanine Aminotransferase (ALT/SGPT) 21 12-78 U/L Alkaline Phosphatase 69 50-136 U/L Total Protein 7.4 6.0-8.3 g/dL Albumin 2.8 L 3.5-5.0 g/dL Troponin I High Sensitivity 8493 *H 4-50 ng/L Test 04/26/24 16:25 04/26/24 16:00 04/26/24 11:05 Range/Units Whole Blood Glucose 139 H 70-110 MG/DL Lactic Acid Level 2.3 0.8-2.5 mmol/L Influenza Type A Antigen Negative For Type A NEGATIVE Influenza Type B Antigen Negative For Type B NEGATIVE Current Medications Medications (Trade) Dose Ordered Sig/Papito Route PRN Reason Start Time Stop Time Status Last Admin Dose Admin Acetaminophen (TYLenol 325MG TAB) 650 mg Q4H PRN PO TEMPERATURE GREATER THAN 101.5 04/24/24 16:30 05/24/24 16:29 Acetaminophen (TYLenol 325MG TAB) 650 mg Q6H PRN PO MILD PAIN (1-3) 04/24/24 16:30 05/24/24 16:29 Acetaminophen (Tylenol 325mg Suppository) 325 mg Q4H PRN RC TEMPERATURE GREATER THAN 101.5 04/24/24 16:30 05/24/24 16:29 04/25/24 14:02 325 MG Acetaminophen (Tylenol 325mg Suppository) 325 mg Q6H PRN RC MILD PAIN (1-3) 04/24/24 16:30 05/24/24 16:29 Aspirin (Aspirin 81mg Ec Tab) 81 mg DAILY PO 04/27/24 09:00 05/27/24 08:59 Cefepime HCl (MAXipime 1 GM vial) 1 gm Q24H IVPB 04/26/24 10:30 05/06/24 10:29 04/26/24 11:00 1 GM Heparin Sodium (Porcine) (HEParin 5,000 UNIT VIAL) *calculation based on ACTUAL B... AD PRN IV HEPARIN PROTOCOL 04/26/24 17:00 05/26/24 16:59 Heparin Sodium/ Dextrose 250 ml @ 0 mls/hr Q6H IV 04/26/24 17:00 05/26/24 16:59 04/26/24 17:14 10.47 MLS/HR Metoprolol Tartrate (loprESSOR) 12.5 mg BID PO 04/26/24 21:00 05/26/24 20:59 04/26/24 21:48 12.5 MG Metronidazole (flaGYL) 500 mg Q8H PO 04/26/24 10:30 05/06/24 10:29 04/27/24 03:30 500 MG Morphine Sulfate (morPHINE 2MG SYG) 2 mg Q4H PRN IVP SEVERE PAIN (7-10) 04/24/24 16:30 05/01/24 16:29 04/24/24 20:08 2 MG Ondansetron HCl (zoFRAN 4MG INJ) 4 mg Q6H PRN IVP NAUSEA/VOMITING 04/24/24 16:30 05/24/24 16:29 04/24/24 20:08 4 MG Pantoprazole Sodium (PROTonix 40MG INJ) 40 mg DAILY IVP 04/25/24 09:00 05/25/24 08:59 04/26/24 08:08 40 MG Sodium Chloride 1,000 ml @ 75 mls/hr [id number] IV 04/24/24 16:30 05/24/24 16:29 04/27/24 05:17 75 MLS/HR DIAGNOSTICS / RADIOLOGY: [ ] ASSESSMENT: [NSTEMI with abnormal EKG, POA Large ventral hernia, POA Small bowel obstruction, POA Intractable nausea/vomiting, POA Hypertensive emergency, POA Hyperglycemia, POA Leukocytosis with left shift, uptrending POA Hypokalemia, POA PLAN: Patient upgraded to PCCU Cardiology consulted, we will follow their recommendations: Continue with ACS protocol, heparin drip per protocol, continue with pravastatin, aspirin, and beta alta. 2D echo pending Patient will be kept NPO Patient has no NG tube at this time as it was accidentally pulled We will follow up with general surgeon on further recommendations We will continue with gentle IV hydration with NS at 50 mL/hour Continue with prn hydralazine for elevated systolic blood pressure of greater than 160 mm per mercury We will continue broad-spectrum IV antibiotic due to leukocytosis We will request Infectious Disease due to up trending leukocytosis We will continue to monitor electrolytes and replace as necessary Continue on antiemetic as needed We will repeat lactic acid now Continue with pain management We will repeat labs tomorrow GI prophylaxis with Protonix 40 mg IV daily DVT prophylaxis with SCD Patient is a full code, we will follow up with family regarding advance directive. Patient's case discussed with Dr. Dinh, above plan was formulated ATTESTATION BY PHYSICIAN I have seen and examined the patient. I reviewed the documentation, medical decision making, and treatment plan as noted by the mid-level provider above. I agree with the findings and plan of care. ALDEN DINH MD, [facility] Apr 27, 2024 08:04
--- NOTE | 2024-04-27 08:15 | NUR ---
CARDIAC CLEAREANCE Dewey RN notified Jeromy WAGONER from surgery team that as per Dr. Gillis from cardiology if the patient's condition is considered life-threatening and surgery emergent there was no contraindication from a cardiac standpoint. No new orders given from Jeromy WAGONER at this time, patient is awake, alert and oriented times 4 at this time , in no acute distress, no chest pain, no shortness of breath. will continue to monitor.
[2024-04-27] MEDS: ASPIRIN 81 MG EC TAB PO SCH (09:24)
--- NOTE | 2024-04-27 09:51 | PN ---
DONNIE BA Jr. 04/27/24 0951: This is an 83-year-old female with concerns of large ventral hernia with concerns of small bowel obstruction with recent upgrade the PCCU due to elevated troponins Interval history This 63-year-old female seen in her room resting. Patient is still with no return of bowel function Patient upgraded the PCCU due to elevated troponins Cardiology has seen patient and if condition is consider life-threatening and surgery emergently there is no contraindication from cardiology standpoint for surgical intervention Patient is still NPO Kidney function showing an elevation in creatinine to 5.2 White count trending down to 16.[address] Thapa to see patient today and evaluate for potential surgery Patient to remain NPO Continue with PCCU status Surgical team to be updated with any further acute events Patient to continue with IV antibiotics as well as IV fluids Continue to monitor electrolytes closely and replace as needed Vitals/Labs Vital Signs Date Time Temp Pulse Resp B/P (MAP) Pulse Ox O2 Delivery O2 Flow Rate FiO2 04/27/24 03:49 98.8 91 20 122/39 Nasal Cannula 2.0 04/27/24 01:57 96 04/26/24 19:15 28 Laboratory Tests 04/26/24 11:40 04/26/24 16:00 04/26/24 23:17 04/27/24 03:24 Medications Current Medications Sodium Chloride 1,000 ml @ 0 mls/hr ONCE ONCE IV Last administered on 04/24/24at 11:26; Start 04/24/24 at 11:00; Stop 04/24/24 at 11:01; Status DC Morphine Sulfate 4 mg ONCE ONCE IVP Last administered on 04/24/24at 11:26; Start 04/24/24 at 11:00; Stop 04/24/24 at 11:01; Status DC Ondansetron HCl 4 mg ONCE ONCE IVP Last administered on 04/24/24at 11:26; Start 04/24/24 at 11:00; Stop 04/24/24 at 11:01; Status DC Ondansetron HCl 4 mg ONCE ONCE IVP Last administered on 04/24/24at 11:53; Start 04/24/24 at 12:00; Stop 04/24/24 at 12:01; Status DC Iohexol 75 ml STK-MED ONCE IV; Start 04/24/24 at 13:22; Stop 04/24/24 at 13:23; Status DC Iohexol 35,000 mg STK-MED ONCE IV; Start 04/24/24 at 13:23; Stop 04/24/24 at 13:24; Status DC Metoclopramide HCl 10 mg ONCE ONCE IVP Last administered on 04/24/24at 14:34; Start 04/24/24 at 14:30; Stop 04/24/24 at 14:31; Status DC Morphine Sulfate 4 mg ONCE ONCE IVP Last administered on 04/24/24at 14:34; Start 04/24/24 at 14:30; Stop 04/24/24 at 14:31; Status DC Ondansetron HCl 4 mg Q6H PRN IVP Last administered on 04/24/24at 20:08; Start 04/24/24 at 16:30; Stop 05/24/24 at 16:29 Morphine Sulfate 2 mg Q4H PRN IVP Last administered on 04/24/24at 20:08; Start 04/24/24 at 16:30; Stop 05/01/24 at 16:29 Sodium Chloride 1,000 ml @ 75 mls/hr [id number] IV Last administered on 04/27/24at 05:17; Start 04/24/24 at 16:30; Stop 05/24/24 at 16:29 Acetaminophen 650 mg Q4H PRN PO; Start 04/24/24 at 16:30; Stop 05/24/24 at 16:29 Acetaminophen 650 mg Q6H PRN PO; Start 04/24/24 at 16:30; Stop 05/24/24 at 16:29 Acetaminophen 325 mg Q6H PRN RC; Start 04/24/24 at 16:30; Stop 05/24/24 at 16:29 Acetaminophen 325 mg Q4H PRN RC Last administered on 04/25/24at 14:02; Start 04/24/24 at 16:30; Stop 05/24/24 at 16:29 Pantoprazole Sodium 40 mg DAILY IVP Last administered on 04/27/24at 09:24; Start 04/25/24 at 09:00; Stop 05/25/24 at 08:59 Lorazepam 0.5 mg ONCE ONCE IVP Last administered on 04/26/24at 01:21; Start 04/26/24 at 01:30; Stop 04/26/24 at 01:31; Status DC Cefepime HCl 1 gm Q24H IVPB Last administered on 04/27/24at 09:24; Start 04/26/24 at 10:30; Stop 05/06/24 at 10:29 Metronidazole 500 mg Q8H PO Last administered on 04/27/24at 09:24; Start 04/26/24 at 10:30; Stop 05/06/24 at 10:29 Heparin Sodium (Porcine) *calculation based on ACTUAL B... AD PRN IV; Start 04/26/24 at 17:00; Stop 05/26/24 at 16:59 Heparin Sodium/ Dextrose 250 ml @ 0 mls/hr Q6H IV Last administered on 04/26/24at 17:14; Start 04/26/24 at 17:00; Stop 05/26/24 at 16:59 Metoprolol Tartrate 12.5 mg BID PO Last administered on 04/27/24at 09:24; Start 04/26/24 at 21:00; Stop 05/26/24 at 20:59 Aspirin 325 mg ONCE ONCE PO Last administered on 04/26/24at 16:51; Start 04/26/24 at 16:30; Stop 04/26/24 at 16:31; Status DC Aspirin 81 mg DAILY PO Last administered on 04/27/24at 09:24; Start 04/27/24 at 09:00; Stop 05/27/24 at 08:59 Heparin Sodium (Porcine) 5,000 unit ONCE ONCE IV Last administered on 04/26/24at 17:10; Start 04/26/24 at 17:00; Stop 04/26/24 at 17:01; Status DC PETERJUNE John CORDERO 04/27/241954: Patient seen [facility] for my partner Dr. Thapa. She is complaining of abdominal pain at hernia site NGT has been out. Daughter and patient deny her passing flatus she has a little bit of nausea with the pills and no vomiting vss wbc lower today at 16 abdomen is distended, she is tender over hernia site but NOT peritonitic on my exam, there is some bruising on her abdomen but she is on a hep gtt. I think her pain is due to her distention and she needs NGT now ordered NGT placement to [facility] (nursing staff aware); I believe NGT decompression will help improve her symptoms spoke with Dr. Thapa and he would like to hold heparin gtt at 0400 04/28/24. He will re-evaluate her in am to see if she has any improvement or if she needs to go to OR emergently. told the daughter and patient the plan. DONNIE Rogers Jr. Apr 27, 2024 09:51 JACOB GREEN MD Apr 27, 2024 19:55
--- NOTE | 2024-04-27 10:32 | PN ---
INFECTIOUS DISEASE PROGRESS NOTE Date of Service: Apr 27, 2024 SUBJECTIVE: Patient was seen and examined at bedside in room 232. Patient was downgraded from the ICU earlier today. Patient is awake, and able to answer basic questions. Has a ventral hernia, large area protruding from the lower abdomen. Very tender on palpation and with some erythema on the abdomen. Patient reported feeling nauseated earlier this morning and was medicated with Zofran.. Patient is currently on a heparin drip. The WBC is trending down and is 16.8 today. No reports fever, temperature. Patient continues on cefepime 1 g IV every 24 hours. PHYSICAL EXAM EYES: Anicteric. Pupils equal and reactive. HENT: No oral thrush seen, moist Oral mucosa NECK: Supple, no JVD or thyromegaly. LUNGS: Good air entry. No rales, no rhonchi. CARDIOVASCULAR: S1, S2 regular. No murmur heard. ABDOMEN: Soft, non tender, bowel sounds present, no organomegaly. Abdominal hernia. CENTRAL NERVOUS SYSTEM: Awake, alert, oriented x 3. SKIN: No rashes, no swelling. LYMPHATICS: No peripheral lymphadenopathy MUSCULOSKELETAL: No joint swelling, erythema or tenderness. EXTREMITIES: No cyanosis or clubbing BACK: No deformity, no pressure ulcer. GENITOURINARY: No dysuria or hematuria Vital Sign (Last 12 Hours) 04/26/24 04/26/24 04/27/24 04/27/24 22:48 23:49 01:57 03:49 Temp 99.0 98.8 Pulse 92 90 91 91 Resp 21 22 15 20 B/P (MAP) 126/72 116/73 138/66 122/39 Pulse Ox 95 95 96 O2 Delivery Nasal Cannula Nasal Cannula Nasal Cannula Nasal Cannula O2 Flow Rate 2.0 2.0 2.0 2.0 Intake & Output (last 24hrs) 04/26/24 04/26/24 04/27/24 15:00 23:00 07:00 Intake Total 100 ml 574.9 ml 421.0 ml Balance 100 ml 574.9 ml 421.0 ml LABS: Laboratory: Test 04/27/24 08:21 04/27/24 03:48 04/27/24 03:24 04/26/24 23:17 Range/Units Lactic Acid Level 2.2 0.8-2.5 mmol/L Prothrombin Time 13.1 H 9.6-11.6 SEC Prothromb Time International Ratio 1.23 H 0.85-1.15 Activated Partial Thromboplast Time 42.6 #H 26.3-35.5 SEC White Blood Count 16.8 #H 4.8-10.8 K/uL Red Blood Count 4.22 4.00-5.50 MIL/uL Hemoglobin 12.4 12.0-16.0 g/dL Hematocrit 38.2 36-48 % Mean Corpuscular Volume 90.5 79-99 fL Mean Corpuscular Hemoglobin 29.4 27.0-33.0 pg Mean Corpuscular Hemoglobin Concent 32.5 32.0-36.0 g/dL Red Cell Distribution Width 14.9 11.0-15.5 % Platelet Count 239 130-400 K/uL Mean Platelet Volume 9.6 7.5-10.5 fL Immature Granulocyte % (Auto) 0.5 0-1 % Neutrophils (%) (Auto) 89.0 H 40.0-77.0 % Lymphocytes (%) (Auto) 2.6 L 21.0-51.0 % Monocytes (%) (Auto) 7.8 3.0-13.0 % Eosinophils (%) (Auto) 0.0 0.0-8.0 % Basophils (%) (Auto) 0.1 0.0-5.0 % Neutrophils # (Auto) 15.0 H 1.8-7.7 K/uL Lymphocytes # (Auto) 0.4 L 1.0-4.8 K/uL Monocytes # (Auto) 1.3 H 0.1-1.0 K/uL Eosinophils # (Auto) 0.00 0.00-0.70 K/uL Basophils # (Auto) 0.02 0.00-0.20 K/uL Absolute Immature Granulocyte (auto 0.09 0-1 K/uL Nucleated Red Blood Cells 0.0 0.0-0.19 % Sodium Level 144 136-145 mmol/L Potassium Level 3.7 3.5-5.1 mmol/L Chloride Level 105 101-111 mmol/L Carbon Dioxide Level 25 21-32 mmol/L Blood Urea Nitrogen 85 *H 7-18 mg/dL Creatinine 5.2 H 0.5-1.0 mg/dL Glomerular Filtration Rate Calc 8 >90 mL/min Random Glucose 146 H 70-105 mg/dL Total Calcium 8.7 8.5-10.1 mg/dL Magnesium Level 4.20 *H 1.80-2.40 mg/dL Total Bilirubin 0.9 0.2-1.0 mg/dL Aspartate Amino Transf (AST/SGOT) 60 H 10-37 U/L Alanine Aminotransferase (ALT/SGPT) 21 12-78 U/L Alkaline Phosphatase 69 50-136 U/L Total Protein 7.4 6.0-8.3 g/dL Albumin 2.8 L 3.5-5.0 g/dL Test 04/26/24 21:00 04/26/24 16:25 04/26/24 11:05 Range/Units Troponin I High Sensitivity 8493 *H 4-50 ng/L Whole Blood Glucose 139 H 70-110 MG/DL Influenza Type A Antigen Negative For Type A NEGATIVE Influenza Type B Antigen Negative For Type B NEGATIVE ASSESSMENT: Abdominal pain. Incarcerated ventral hernia Sepsis. Acute renal failure. Leukocytosis. PLAN: Continue cefepime. Continue metronidazole. General surgery following patient. Continue pain management. Avoid nephrotoxic medications. This case was reviewed and discussed with my supervising physician and the above assessment and plan was formulated and agreed upon. ATTESTATION BY PHYSICIAN I have seen and examined the patient. I reviewed the documentation, medical decision making, and treatment plan as noted by the mid-level provider above. I agree with the findings and plan of care. NAHUM BROWN MD, [facility] Apr 27, 2024 10:32
[2024-04-27 11:45] LABS: INR 1.22 (0.85-1.15)
[2024-04-27 11:47] LABS: PARTIAL THROMBOPLASTIN TIME 71.2 SEC (26.3-35.5)
--- NOTE | 2024-04-27 14:44 | NUR ---
report given to Luigi MAHONEY , patient is going to room 232 stable. iv lines, labs, patient's condition and plan of care reviewed. all questions answered.
--- NOTE | 2024-04-27 18:05 | HMCSR ---
APPROVED REPORT EXAM: Two-dimensional and M-mode echocardiogram with Doppler and color Doppler. Study Details: Hx: DM type 2, hypertension, hyperlipidemia, diabetic retinopathy, macular degeneratio n INDICATION ICD: Cardiac clearance 2D Dimensions RVDd3.2 cmLVEF(%)25.2 (>50%)LVED Vol(simp.)96.5 mL IVSd1.1 (0.7-1.1cm)FS(%)12 %LVES Vol(simp.)61.2 mL LVDd5.2 (3.8-5.6cm)LVOT diam2.2 (1.8-2.4cm)LVEF(%, simp.)37 % PWd0.7 (0.7-1.1cm)LA ESV INDEX (4CH)18.10 mL/m2 IVSs1.0 cmLA ESV INDEX (2CH)21.30 mL/m2 LVDs4.6 (2.5-4.0cm)LA ESV INDEX (BP)20.30 mL/m2 PWs0.9 cm Deformation Strain Apical 414.0 % Apical 211.0 % Apical 313.0 % Global Humwqt19.0 % Aortic Valve AoV VTI0.2 mAo Mean GR5.0 mmHgLVOT VTI0.15 m VIDHYA (VMAX)2.5 cm2Al P1/2T436 msAVA (VTI) 2.5 cm2 Mitral Valve MV E Vmax43.7 cm/sDECEL [place]196 ms MV A Vmax83.9 cm/sP 1/2 T57 ms E/A ratio0.5MVA (PHT)3.9 cm2 TDI E/E' Fvewuj45.7E/E' Yvhwlpn18.6 Medial E' Peak V3.20 cm/sLateral E' Peak V2.80 cm/s Pulmonary Valve PV Vmax1.2 m/s PV Peak GR6.1 mmHg Left Ventricle Left ventricular cavity size is normal. There is normal left ventricular wall thickness. LVEF is 35-4 0%. Stage I diastolic dysfunction. Right Ventricle The right ventricle is normal size. The right ventricular systolic function is normal. Atria The left atrium size is normal. Lipomatus atrial septal hypertrophy is present. The right atrium size is normal. Eustachian valve is noted in the right atrium. Aortic Valve Aortic valve leaflets Trace of aortic regurgitation is present. There is no aortic valvular stenosis. Mitral Valve Mitral valve leaflets open well. There is trace of mitral valve regurgitation noted. There is no mitr al valve stenosis. Tricuspid Valve The tricuspid valve is normal in structure and function. There is no tricuspid valve regurgitation no renan. Pulmonic Valve The pulmonic valve leaflets appear normal. There is no pulmonic valvular regurgitation. Great Vessels The aortic root is normal in size. IVC is small in size and collapses <50% with inspiration. Pericardium No pericardial effusion. Other Information Quality : Technically difficult study due to body habitus Conclusion LVEF is 35-40%. Stage I diastolic dysfunction. The right atrium size is normal. Eustachian valve is noted in the right atrium. Lipomatus atrial septal hypertrophy is present. Trace of aortic regurgitation is present. There is trace of mitral valve regurgitation noted.
--- NOTE | 2024-04-27 19:25 | NUR ---
JACOB GREEN MD PRESENT AT PTS BEDSIDE. PER INSERT NG TUBE ,AND PLACE IT TO LOW INTERMITTENT WALL SUCTION ,AND ORDER X RAY FOR PLACEMENT . PER MD GREEN SHE SPOKE TO DR QURESHI ,AND DR QURESHI WOULD LIKE TO HAVE THE PTS HEPARIN GTT TURNED OFF AT 0400 04/28/24 ,[address] QURESHI WILL BE BY TO SEE THE PT TOMORROW 04/28/24.
--- NOTE | 2024-04-27 20:34 | NUR ---
PT LAYING IN BED WITH THE HEAD OF THE BED ELEVATED.PT DOES NOT APPEAR TO BE IN ANY DISTRESS.INSTRUCTED PT TO USE THE CALL LIGHT FOR ANY ASSISTANCE WHEN NEEDED.PT UNDERSTOOD BED IS LOW AND LOCKED CALL LIGHT WITHIN REACH .
--- NOTE | 2024-04-27 20:34 | NUR ---
14 FAROESE NG TUBE WAS INSERTED BY CANDIDA WILSON TO PTS LEFT NARE. GI ASPIRATE WAS CONFIRMED ,AIR BOLUS CHECK WAS DONE ,AND CONFIRMED PLACEMENT .PT PENDING X RAY CONFIRMATION .NG TUBE WAS SECURED TO THE PT .PT TOLERATED THE PROCEDURE WELL .NG TUBE WAS PLACED TO LOW INTERMITTENT WALL SUCTION PER MD MCGRATH ORDERS.
--- NOTE | 2024-04-27 22:04 | NUR ---
PAGED PERSON TRAVEL NURSE FOR HOSPITALIST TO UPDATE THEM THAT PER MD GREEN AN NG TUBE WAS INSERTED ,AND PTS NG TUBE IS ON LOW INTERMITTENT WALL SUCTION . CALL BACK FROM LING PEREZ RIVET STICKER UPDATED HER THAT NG TUBE WAS INSERTED AND PLACED TO LOW INTERMITTENT WALL SUCTION PER MD MCGRATH ORDER,UPDATED RIVET STICKER THAT PT HAS METOPROLOL 12.5MG PO DUE TONIGHT ,AND FLAGYL 5OOMG PO DUE AT 0230. PER RIVET STICKER HOLD PO METOPROLOL TONIGHT , PER PT IS NPO ,AND CHANGE PO FLAGYL TO FLAGYL 500MG IV Q8H X 2 DOSES,AND ORDER METOPROLOL 5MG IV Q6H PRN FOR SYSTOLIC GREATER THAN 160 ,AND HEART RATE GREATER THAN 110.
[2024-04-27] MEDS ORDERED: metoPROLOL tartRATE 1 MG/ML 5ML VIAL IV PRN (23:00)
[2024-04-27 23:06] LABS: INR 1.23 (0.85-1.15); PROTHROMBIN TIME 13.1 SEC (9.6-11.6)
[2024-04-27 23:07] LABS: PARTIAL THROMBOPLASTIN TIME 60.4 SEC (26.3-35.5)
[2024-04-28] VITALS (8 sets, daily range): BP systolic 110–125; BP diastolic 51–68; PULSE 77–85; RESP 15–20; TEMP 97.5–98.8; O2SAT 100
--- NOTE | 2024-04-28 00:17 | HMCIMG ---
ABD 1VW HISTORY: Nasogastric tube insertion COMPARISON: None FINDINGS: A frontal projection of the abdomen was obtained. Mild small bowel dilatation is seen. Fecal material is seen in the colon. Degenerative changes of the thoracolumbar spine are noted. IMPRESSION: 1. Mild small bowel dilatation.
--- NOTE | 2024-04-28 03:45 | NUR ---
PAGED PERSON [facility] NURSING DIRECTOR FOR HOSPITALIST REGARDING DR QURESHI WANTING THE HEPARIN GTT TO BE STOPPED AT 0400. CALL BACK FROM LING PEREZ UPDATED HER THAT PT WAS PLACED ON HEPARIN GTT FOR NSTEMI ,UPDATED BODY BUILDER THAT DR QURESHI WANTED HEPARIN GTT TO BE STOPPED AT 0400 ,[address] DR QURESHI WOULD BE BY TO SEE HER ON 04/28/24, PER BODY BUILDER OKAY TO STOP HEPARIN GTT AT 0400.
[2024-04-28] MEDS: metRONIDazole 500MG/100ML BAG IV SCH (04:02)
[2024-04-28 04:45] LABS: HEMATOCRIT 33.4 % (36-48); MEAN CORPUSCULAR HEMOGLOBIN 29.9 pg (27.0-33.0); MEAN CORPUSCULAR HGB CONC 32.3 g/dL (32.0-36.0); MEAN CORPUSCULAR VOLUME 92.5 fL (79-99); RED BLOOD CELL COUNT(AUTO) 3.61 MIL/uL (4.00-5.50); RED CELL DISTRIBUTION WIDTH 14.8 % (11.0-15.5); WHITE BLOOD COUNT (AUTO) 11.6 K/uL (4.8-10.8)
[2024-04-28 04:58] LABS: CREATININE 4.9 mg/dL (0.5-1.0); POTASSIUM 3.5 mmol/L (3.5-5.1)
--- NOTE | 2024-04-28 05:33 | NUR ---
PAGED PERSON [employer]IATION SAFETY TECHNICIAN FOR HOSPITALIST REGARDING PTS BUN OF 100. CALL BACK FROM LING PEREZ EQUINE BREEDER UPDATED HER ON PTS MORNING BUN LAB RESULT OF 100,AND EQUINE BREEDER AWARE OF GFR OF 8 . PER EQUINE BREEDER ORDER NEPHROLOGY CONSULT FOR DR TAFOYA FOR LATER IN THE MORNING.
--- NOTE | 2024-04-28 08:59 | PN ---
Problems: 1. Small bowel obstruction with large anterior pelvic wall hernia 2. Non ST-elevation myocardial infarction 3. Acute kidney failure 4. History of paroxysmal supraventricular tachycardia 5. Dyslipidemia 6. Intolerance to atorvastatin 7. Leukocytosis Patient offers no complaints of chest pressure, chest pain, or dyspnea. She does have some musculoskeletal pain in the left shoulder. Chest is clear and S1 and S2 are preserved and rhythm is currently regular. Bowel sounds are present. Patient is oriented and alert and conversant. Impression: Although the patient has suffered a non-STEMI earlier in the stay, she now appears stable and improved. She had been in ICU yesterday but appears stable now. Plan: Continue current observation on medical therapy. Vitals/Labs Vital Signs Date Time Temp Pulse Resp B/P (MAP) Pulse Ox O2 Delivery O2 Flow Rate FiO2 04/28/24 07:00 100 Room Air* 0 21 04/28/24 06:09 98.8 79 15 110/63 Laboratory Tests 04/28/24 04:39 Medications Current Medications Sodium Chloride 1,000 ml @ 0 mls/hr ONCE ONCE IV Last administered on 04/24/24at 11:26; Start 04/24/24 at 11:00; Stop 04/24/24 at 11:01; Status DC Morphine Sulfate 4 mg ONCE ONCE IVP Last administered on 04/24/24at 11:26; Start 04/24/24 at 11:00; Stop 04/24/24 at 11:01; Status DC Ondansetron HCl 4 mg ONCE ONCE IVP Last administered on 04/24/24at 11:26; Start 04/24/24 at 11:00; Stop 04/24/24 at 11:01; Status DC Ondansetron HCl 4 mg ONCE ONCE IVP Last administered on 04/24/24at 11:53; Start 04/24/24 at 12:00; Stop 04/24/24 at 12:01; Status DC Iohexol 75 ml STK-MED ONCE IV; Start 04/24/24 at 13:22; Stop 04/24/24 at 13:23; Status DC Iohexol 35,000 mg STK-MED ONCE IV; Start 04/24/24 at 13:23; Stop 04/24/24 at 13:24; Status DC Metoclopramide HCl 10 mg ONCE ONCE IVP Last administered on 04/24/24at 14:34; Start 04/24/24 at 14:30; Stop 04/24/24 at 14:31; Status DC Morphine Sulfate 4 mg ONCE ONCE IVP Last administered on 04/24/24at 14:34; Start 04/24/24 at 14:30; Stop 04/24/24 at 14:31; Status DC Ondansetron HCl 4 mg Q6H PRN IVP Last administered on 04/27/24at 10:42; Start 04/24/24 at 16:30; Stop 05/24/24 at 16:29 Morphine Sulfate 2 mg Q4H PRN IVP Last administered on 04/24/24at 20:08; Start 04/24/24 at 16:30; Stop 05/01/24 at 16:29 Sodium Chloride 1,000 ml @ 75 mls/hr [id number] IV Last administered on 04/28/24at 04:02; Start 04/24/24 at 16:30; Stop 05/24/24 at 16:29 Acetaminophen 650 mg Q4H PRN PO; Start 04/24/24 at 16:30; Stop 05/24/24 at 16:29 Acetaminophen 650 mg Q6H PRN PO; Start 04/24/24 at 16:30; Stop 05/24/24 at 16:29 Acetaminophen 325 mg Q6H PRN RC; Start 04/24/24 at 16:30; Stop 05/24/24 at 16:29 Acetaminophen 325 mg Q4H PRN RC Last administered on 04/25/24at 14:02; Start 04/24/24 at 16:30; Stop 05/24/24 at 16:29 Pantoprazole Sodium 40 mg DAILY IVP Last administered on 04/28/24at 08:28; Start 04/25/24 at 09:00; Stop 05/25/24 at 08:59 Lorazepam 0.5 mg ONCE ONCE IVP Last administered on 04/26/24at 01:21; Start 04/26/24 at 01:30; Stop 04/26/24 at 01:31; Status DC Cefepime HCl 1 gm Q24H IVPB Last administered on 04/27/24at 09:24; Start 04/26/24 at 10:30; Stop 05/06/24 at 10:29 Metronidazole 500 mg Q8H PO Last administered on 04/27/24at 17:47; Start 04/26/24 at 10:30; Stop 04/27/24 at 22:59; Status DC Heparin Sodium (Porcine) *calculation based on ACTUAL B... AD PRN IV; Start 04/26/24 at 17:00; Stop 05/26/24 at 16:59 Heparin Sodium/ Dextrose 250 ml @ 0 mls/hr Q6H IV Last administered on 04/27/24at 14:45; Start 04/26/24 at 17:00; Stop 05/26/24 at 16:59 Metoprolol Tartrate 12.5 mg BID PO Last administered on 04/27/24at 09:24; Start 04/26/24 at 21:00; Stop 05/26/24 at 20:59 Aspirin 325 mg ONCE ONCE PO Last administered on 04/26/24at 16:51; Start 04/26/24 at 16:30; Stop 04/26/24 at 16:31; Status DC Aspirin 81 mg DAILY PO Last administered on 04/27/24at 09:24; Start 04/27/24 at 09:00; Stop 05/27/24 at 08:59 Heparin Sodium (Porcine) 5,000 unit ONCE ONCE IV Last administered on 04/26/24at 17:10; Start 04/26/24 at 17:00; Stop 04/26/24 at 17:01; Status DC Metronidazole/ Sodium Chloride 500 mg Q8H IV Last administered on 04/28/24at 04:02; Start 04/28/24 at 02:30; Stop 05/08/24 at 02:29 Metoprolol Tartrate 5 mg Q6H PRN IV; Start 04/27/24 at 23:00; Stop 05/27/24 at 22:59 ROB GARZA MD Apr 28, 2024 08:59
--- NOTE | 2024-04-28 10:37 | PN ---
Patient reports improvement in her abdominal distention and pain after placement of the NG tube. On physical exam her hernias still firm remainder of the abdomen is soft. She does not have any peritoneal signs no rebound or guarding. White count continues to down trend. This is an 83-year-old female with small bowel obstruction due to chronically incarcerated ventral hernia. Patient does not appear to be resolving obstruction. I discussed with the family that patient is high risk for surgery given her elevated troponins. We will plan for operative ventral hernia repair tomorrow after an 24 hours of decompression. Hold heparin at 4:00 a.m. Vitals/Labs Vital Signs Date Time Temp Pulse Resp B/P (MAP) Pulse Ox O2 Delivery O2 Flow Rate FiO2 04/28/24 07:00 100 Room Air* 0 21 04/28/24 06:09 98.8 79 15 110/63 Laboratory Tests 04/28/24 04:39 EDU QURESHI DO Apr 28, 2024 10:37
[2024-04-28] MEDS: LACTATED RINGERS 1000ML 1,000 ML IV SCH (12:23)
--- NOTE | 2024-04-28 13:11 | PN ---
[facility] PROGRESS NOTE Date of Service: Apr 28, 2024 Time of Service: 13:08 Patient was seen and examined. Case discussed with RN. She was having good output with a NG tube which he was set to low intermittent suction. She is not having good urine output and is in significant renal failure. BUN of 100 and creatinine of 4.9 indicating worsening renal function possible chance of ending up on dialysis. She was agreeable to having a Sykes inserted for accurate I's and O's. SUBJECTIVE: [83-year-old female admitted for early abdominal obstruction and large ventral hernia. Patient continues with nonreducible hernia. Her abdomen is tender. Surgeon recommended cardiac clearance and found that patient has abnormal T-wave on the 12 lead EKG and trop[place] [address]22S. Patient was upgraded to PCCU as we have to start patient on heparin drip. At this time, prototype sewer evaluated the patient this morning and indicated that patient is poor candidate for invasive cardiac procedure due to acute renal failure and bowel obstruction. We will await for 2D echo. At this time, we will also await for further surgical recommendation. No acute event reported overnight. Patient continues with abdominal tenderness. She will remain NPO. REVIEW OF SYSTEMS CONSTITUTIONAL: Denies fevers, chills, or night sweats. No unintentional weight loss reported. NEUROLOGICAL: Denies headache, amaurosis fugax, motor weakness, sensory deficit, vertigo/spinning sensation, gait abnormalities, or tremors. ENT: No hearing loss, otalgia, otorrhea, rhinitis, rhinorrhea, hoarseness, or sore throat. CARDIOVASCULAR: Denies any exertional angina, dyspnea on exertion, orthopnea, paroxysmal nocturnal dyspnea, palpitations, life-threatening arrhythmias, claudication. PULMONARY: Denies any shortness of breath, cough, phlegm/sputum, hemoptysis, pleuritic chest pain. SLEEP: Denies morning headaches, daytime somnolence or napping. Denies difficulty falling asleep, staying asleep, waking from sleep. Denies knowledge of snoring. GASTROINTESTINAL: Right lower quadrant pain. Reported no BM x5 days GENITOURINARY: Denies frequency, urgency, nocturia, hematuria or incontinence (Storage/Irritative symptoms.) Low urinary stream, straining to void, urinary intermittency or hesitancy, splitting of the voiding stream, terminal dribbling. ENDOCRINOLOGIC: Denies polyuria, polydipsia, polyphagia or heat/cold intolerances. HEMATOLOGIC: Denies thrombophilia/previous clots, or coagulopathy/bleeding disorders. ONCOLOGIC: Denies personal history of malignancy. DERMATOLOGIC: Denies rashes or pruritus. PSYCHIATRIC: Denies any suicidal or homicidal ideation. Denies hallucinations. PHYSICAL EXAM GENERAL APPEARANCE: The patient is awake, alert, and oriented, in no acute cardiopulmonary distress. NEUROLOGICAL: Cranial nerves II-XII grossly intact. Motor is 5/5 in bilateral upper and lower extremities proximal to distal. No sensory deficits. HEENT: Face is symmetric. Pupils are equal and reactive. Extraocular movements are intact. NECK: Supple. No JVD. No thyromegaly. No submental, submandibular, pre- /postauricular, occipital or supraclavicular lymphadenopathy. CHEST: Normal chest expansion. No Telemetry. LUNGS: Absence of any rales, rhonchi or any wheezing. CARDIOVASCULAR: Regular. S1 and S2 normal. No appreciable rubs, murmurs or gallops. ABDOMEN: Soft, nontender, and nondistended. There is no rebound, voluntary guarding, or rigidity. : Deferred. No Sykes. EXTREMITIES: Non-edematous and not cyanotic. No clubbing. Good capillary refill. SKIN: No skin breakdown. Vital Signs (last 8hr) Date Time Temp Pulse Resp B/P (MAP) Pulse Ox O2 Delivery O2 Flow Rate FiO2 04/28/24 11:00 97.7 79 18 120/51 93 Room Air 04/28/24 07:00 100 Room Air* 0 21 04/28/24 06:09 98.8 79 15 110/63 100 Room Air LABS: Laboratory: Test 04/28/24 04:39 04/27/24 22:31 04/27/24 08:21 04/27/24 03:24 Range/Units White Blood Count 11.6 H 4.8-10.8 K/uL Red Blood Count 3.61 L 4.00-5.50 MIL/uL Hemoglobin 10.8 L 12.0-16.0 g/dL Hematocrit 33.4 L 36-48 % Mean Corpuscular Volume 92.5 79-99 fL Mean Corpuscular Hemoglobin 29.9 27.0-33.0 pg Mean Corpuscular Hemoglobin Concent 32.3 32.0-36.0 g/dL Red Cell Distribution Width 14.8 11.0-15.5 % Platelet Count 213 130-400 K/uL Mean Platelet Volume 9.2 7.5-10.5 fL Nucleated Red Blood Cells 0.0 0.0-0.19 % Activated Partial Thromboplast Time 52.0 H 26.3-35.5 SEC Sodium Level 145 136-145 mmol/L Potassium Level 3.5 3.5-5.1 mmol/L Chloride Level 109 101-111 mmol/L Carbon Dioxide Level 21 21-32 mmol/L Blood Urea Nitrogen 100 *H 7-18 mg/dL Creatinine 4.9 H 0.5-1.0 mg/dL Glomerular Filtration Rate Calc 8 >90 mL/min Random Glucose 143 H 70-105 mg/dL Total Calcium 7.7 L 8.5-10.1 mg/dL Prothrombin Time 13.1 H 9.6-11.6 SEC Prothromb Time International Ratio 1.23 H 0.85-1.15 Lactic Acid Level 2.2 0.8-2.5 mmol/L Immature Granulocyte % (Auto) 0.5 0-1 % Neutrophils (%) (Auto) 89.0 H 40.0-77.0 % Lymphocytes (%) (Auto) 2.6 L 21.0-51.0 % Monocytes (%) (Auto) 7.8 3.0-13.0 % Eosinophils (%) (Auto) 0.0 0.0-8.0 % Basophils (%) (Auto) 0.1 0.0-5.0 % Neutrophils # (Auto) 15.0 H 1.8-7.7 K/uL Lymphocytes # (Auto) 0.4 L 1.0-4.8 K/uL Monocytes # (Auto) 1.3 H 0.1-1.0 K/uL Eosinophils # (Auto) 0.00 0.00-0.70 K/uL Basophils # (Auto) 0.02 0.00-0.20 K/uL Absolute Immature Granulocyte (auto 0.09 0-1 K/uL Test 04/26/24 23:17 04/26/24 21:00 04/26/24 16:25 Range/Units Magnesium Level 4.20 *H 1.80-2.40 mg/dL Total Bilirubin 0.9 0.2-1.0 mg/dL Aspartate Amino Transf (AST/SGOT) 60 H 10-37 U/L Alanine Aminotransferase (ALT/SGPT) 21 12-78 U/L Alkaline Phosphatase 69 50-136 U/L Total Protein 7.4 6.0-8.3 g/dL Albumin 2.8 L 3.5-5.0 g/dL Troponin I High Sensitivity 8493 *H 4-50 ng/L Whole Blood Glucose 139 H 70-110 MG/DL Current Medications Medications (Trade) Dose Ordered Sig/[place] Route PRN Reason Start Time Stop Time Status Last Admin Dose Admin Acetaminophen (TYLenol 325MG TAB) 650 mg Q4H PRN PO TEMPERATURE GREATER THAN 101.5 04/24/24 16:30 05/24/24 16:29 Acetaminophen (TYLenol 325MG TAB) 650 mg Q6H PRN PO MILD PAIN (1-3) 04/24/24 16:30 05/24/24 16:29 Acetaminophen (Tylenol 325mg Suppository) 325 mg Q4H PRN RC TEMPERATURE GREATER THAN 101.5 04/24/24 16:30 05/24/24 16:29 04/25/24 14:02 325 MG Acetaminophen (Tylenol 325mg Suppository) 325 mg Q6H PRN RC MILD PAIN (1-3) 04/24/24 16:30 05/24/24 16:29 Aspirin (Aspirin 81mg Ec Tab) 81 mg DAILY PO 04/27/24 09:00 05/27/24 08:59 04/27/24 09:24 81 MG Cefepime HCl (MAXipime 1 GM vial) 1 gm Q24H IVPB 04/26/24 10:30 05/06/24 10:29 04/28/24 10:51 1 GM Heparin Sodium (Porcine) (HEParin 5,000 UNIT VIAL) *calculation based on ACTUAL B... AD PRN IV HEPARIN PROTOCOL 04/26/24 17:00 05/26/24 16:59 Heparin Sodium/ Dextrose 250 ml @ 0 mls/hr Q6H IV 04/26/24 17:00 05/26/24 16:59 04/27/24 14:45 15 MLS/HR Lactated Ringer's 1,000 ml @ 150 mls/hr Q6H40M IV 04/28/24 12:00 05/28/24 11:59 04/28/24 12:23 150 MLS/HR Metoprolol Tartrate (loprESSOR) 5 mg Q6H PRN IV ARRHYTHMIA 04/27/24 23:00 05/27/24 22:59 Metoprolol Tartrate (loprESSOR) 12.5 mg BID PO 04/26/24 21:00 05/26/24 20:59 04/27/24 09:24 12.5 MG Metronidazole (flaGYL) 500 mg Q8H PO 04/26/24 10:30 04/27/24 22:59 DC 04/27/24 17:47 500 MG Metronidazole/ Sodium Chloride (flaGYL) 500 mg Q8H IV 04/28/24 02:30 05/08/24 02:29 04/28/24 10:51 500 MG Morphine Sulfate (morPHINE 2MG SYG) 2 mg Q4H PRN IVP SEVERE PAIN (7-10) 04/24/24 16:30 05/01/24 16:29 04/24/24 20:08 2 MG Ondansetron HCl (zoFRAN 4MG INJ) 4 mg Q6H PRN IVP NAUSEA/VOMITING 04/24/24 16:30 05/24/24 16:29 04/27/24 10:42 4 MG Pantoprazole Sodium (PROTonix 40MG INJ) 40 mg DAILY IVP 04/25/24 09:00 05/25/24 08:59 04/28/24 08:28 40 MG Sodium Chloride 1,000 ml @ 75 mls/hr [id number] IV 04/24/24 16:30 04/28/24 11:48 DC 04/28/24 04:02 75 MLS/HR DIAGNOSTICS / RADIOLOGY: [ ] ASSESSMENT: [NSTEMI with abnormal EKG, POA Large ventral hernia, POA Small bowel obstruction, POA Intractable nausea/vomiting, POA Hypertensive emergency, POA Hyperglycemia, POA Leukocytosis with left shift, uptrending POA Hypokalemia, POA Acute renal failure. POA PLAN: Patient upgraded to PCCU Cardiology consulted, we will follow their recommendations: Continue with ACS protocol, heparin drip per protocol, continue with pravastatin, aspirin, and beta alta. 2D echo pending Patient will be kept NPO Patient has no NG tube at this time as it was accidentally pulled We will follow up with general surgeon on further recommendations We will continue with gentle IV hydration with NS at 50 mL/hour Continue with prn hydralazine for elevated systolic blood pressure of greater than 160 mm per mercury We will continue broad-spectrum IV antibiotic due to leukocytosis We will request Infectious Disease due to up trending leukocytosis We will continue to monitor electrolytes and replace as necessary Continue on antiemetic as needed We will repeat lactic acid now Continue with pain management We will repeat labs tomorrow GI prophylaxis with Protonix 40 mg IV daily DVT prophylaxis with SCD Patient is a full code, we will follow up with family regarding advance directive. Patient's case discussed with Dr. Mancia, above plan was formulated FELICIA RADFORD MD Apr 28, 2024 13:11
--- NOTE | 2024-04-28 13:28 | PN ---
INFECTIOUS DISEASE PROGRESS NOTE Date of Service: Apr 28, 2024 SUBJECTIVE: This 83 year old female patient is being seen today at bedside. She was placed on NG tube low intermitted suction. A total of 600 cc are seen in canister. Heparin has been placed on hold since early this morning. Awake, alert and oriented. She remains on antibiotics. WBC trending down. Pending recommendations from surgeon. Daughter at bedside went over plan of care, stated understanding. PHYSICAL EXAM EYES: Anicteric. Pupils equal and reactive. HENT: No oral thrush seen, moist Oral mucosa NECK: Supple, no JVD or thyromegaly. LUNGS: Good air entry. No rales, no rhonchi. CARDIOVASCULAR: S1, S2 regular. No murmur heard. ABDOMEN: Soft, tender, no organomegaly. Abdominal hernia. CENTRAL NERVOUS SYSTEM: Awake, alert, oriented x 3. SKIN: No rashes, no swelling. LYMPHATICS: No peripheral lymphadenopathy MUSCULOSKELETAL: No joint swelling, erythema or tenderness. EXTREMITIES: No cyanosis or clubbing BACK: No deformity, no pressure ulcer. GENITOURINARY: No dysuria or hematuria Vital Sign (Last 12 Hours) 04/28/24 04/28/24 04/28/24 04/28/24 04:12 06:09 07:00 11:00 Temp 97.9 98.8 97.7 Pulse 82 79 79 Resp 19 15 18 B/P (MAP) 112/64 110/63 120/51 Pulse Ox 94 100 100 93 O2 Delivery Room Air Room Air Room Air* Room Air O2 Flow Rate 0 FiO2 21 Intake & Output (last 24hrs) 04/27/24 04/27/24 04/28/24 15:00 23:00 07:00 Intake Total 508.8 ml 1071.7 ml Output Total 300 ml Balance 508.8 ml 771.7 ml LABS: Laboratory: Test 04/28/24 04:39 04/27/24 22:31 04/27/24 08:21 04/27/24 03:24 Range/Units White Blood Count 11.6 H 4.8-10.8 K/uL Red Blood Count 3.61 L 4.00-5.50 MIL/uL Hemoglobin 10.8 L 12.0-16.0 g/dL Hematocrit 33.4 L 36-48 % Mean Corpuscular Volume 92.5 79-99 fL Mean Corpuscular Hemoglobin 29.9 27.0-33.0 pg Mean Corpuscular Hemoglobin Concent 32.3 32.0-36.0 g/dL Red Cell Distribution Width 14.8 11.0-15.5 % Platelet Count 213 130-400 K/uL Mean Platelet Volume 9.2 7.5-10.5 fL Nucleated Red Blood Cells 0.0 0.0-0.19 % Activated Partial Thromboplast Time 52.0 H 26.3-35.5 SEC Sodium Level 145 136-145 mmol/L Potassium Level 3.5 3.5-5.1 mmol/L Chloride Level 109 101-111 mmol/L Carbon Dioxide Level 21 21-32 mmol/L Blood Urea Nitrogen 100 *H 7-18 mg/dL Creatinine 4.9 H 0.5-1.0 mg/dL Glomerular Filtration Rate Calc 8 >90 mL/min Random Glucose 143 H 70-105 mg/dL Total Calcium 7.7 L 8.5-10.1 mg/dL Prothrombin Time 13.1 H 9.6-11.6 SEC Prothromb Time International Ratio 1.23 H 0.85-1.15 Lactic Acid Level 2.2 0.8-2.5 mmol/L Immature Granulocyte % (Auto) 0.5 0-1 % Neutrophils (%) (Auto) 89.0 H 40.0-77.0 % Lymphocytes (%) (Auto) 2.6 L 21.0-51.0 % Monocytes (%) (Auto) 7.8 3.0-13.0 % Eosinophils (%) (Auto) 0.0 0.0-8.0 % Basophils (%) (Auto) 0.1 0.0-5.0 % Neutrophils # (Auto) 15.0 H 1.8-7.7 K/uL Lymphocytes # (Auto) 0.4 L 1.0-4.8 K/uL Monocytes # (Auto) 1.3 H 0.1-1.0 K/uL Eosinophils # (Auto) 0.00 0.00-0.70 K/uL Basophils # (Auto) 0.02 0.00-0.20 K/uL Absolute Immature Granulocyte (auto 0.09 0-1 K/uL Test 04/26/24 23:17 04/26/24 21:00 04/26/24 16:25 Range/Units Magnesium Level 4.20 *H 1.80-2.40 mg/dL Total Bilirubin 0.9 0.2-1.0 mg/dL Aspartate Amino Transf (AST/SGOT) 60 H 10-37 U/L Alanine Aminotransferase (ALT/SGPT) 21 12-78 U/L Alkaline Phosphatase 69 50-136 U/L Total Protein 7.4 6.0-8.3 g/dL Albumin 2.8 L 3.5-5.0 g/dL Troponin I High Sensitivity 8493 *H 4-50 ng/L Whole Blood Glucose 139 H 70-110 MG/DL HISTORY: Nasogastric tube insertion COMPARISON: None FINDINGS: A frontal projection of the abdomen was obtained. Mild small bowel dilatation is seen. Fecal material is seen in the colon. Degenerative changes of the thoracolumbar spine are noted. IMPRESSION: 1. Mild small bowel dilatation. EXAM: Two-dimensional and M-mode echocardiogram with Doppler and color Doppler. Study Details: Hx: DM type 2, hypertension, hyperlipidemia, diabetic retinopathy, macular degeneration INDICATION ICD: Cardiac clearance 2D Dimensions RVDd 3.2 cm LVEF(%) 25.2 (>50%) LVED Vol(simp.) 96.5 mL IVSd 1.1 (0.7-1.1cm) FS(%) 12 % LVES Vol(simp.) 61.2 mL LVDd 5.2 (3.8-5.6cm) LVOT diam 2.2 (1.8-2.4cm) LVEF(%, simp.) 37 % PWd 0.7 (0.7-1.1cm) LA ESV INDEX (4CH) 18.10 mL/m2 IVSs 1.0 cm LA ESV INDEX (2CH) 21.30 mL/m2 LVDs 4.6 (2.5-4.0cm) LA ESV INDEX (BP) 20.30 mL/m2 PWs 0.9 cm Deformation Strain Apical 4 14.0 % Apical 2 11.0 % Apical 3 13.0 % Global Strain 13.0 % Aortic Valve AoV VTI 0.2 m Ao Mean GR 5.0 mmHg LVOT VTI 0.15 m VIDHYA (VMAX) 2.5 cm2 Al P1/2T 436 ms VIDHYA (VTI) 2.5 cm2 Mitral Valve MV E Vmax 43.7 cm/s DECEL Time 137 ms MV A Vmax 83.9 cm/s P 1/2 T 57 ms E/A ratio 0.5 MVA (PHT) 3.9 cm2 TDI E/E' Medial 13.7 E/E' Lateral 15.6 Medial E' Peak V 3.20 cm/s Lateral E' Peak V 2.80 cm/s Pulmonary Valve PV Vmax 1.2 m/s PV Peak GR 6.1 mmHg Left Ventricle Left ventricular cavity size is normal. There is normal left ventricular wall thickness. LVEF is 35-40%. Stage I diastolic dysfunction. Right Ventricle The right ventricle is normal size. The right ventricular systolic function is normal. Atria The left atrium size is normal. Lipomatus atrial septal hypertrophy is present. The right atrium size is normal. Eustachian valve is noted in the right atrium. Aortic Valve Aortic valve leaflets Trace of aortic regurgitation is present. There is no aortic valvular stenosis. Mitral Valve Mitral valve leaflets open well. There is trace of mitral valve regurgitation noted. There is no mitral valve stenosis. Tricuspid Valve The tricuspid valve is normal in structure and function. There is no tricuspid valve regurgitation noted. Pulmonic Valve The pulmonic valve leaflets appear normal. There is no pulmonic valvular regurgitation. Great Vessels The aortic root is normal in size. IVC is small in size and collapses <50% with inspiration. Pericardium No pericardial effusion. Other Information Quality : Technically difficult study due to body habitus Conclusion LVEF is 35-40%. Stage I diastolic dysfunction. The right atrium size is normal. Eustachian valve is noted in the right atrium. Lipomatus atrial septal hypertrophy is present. Trace of aortic regurgitation is present. There is trace of mitral valve regurgitation noted. ASSESSMENT: Abdominal pain. Incarcerated ventral hernia Sepsis. Acute renal failure. Leukocytosis. Elevated troponin PLAN: Continue cefepime. Continue metronidazole. General surgery following patient. Continue pain management. Avoid nephrotoxic medications. monitor electrolytes This case was reviewed and discussed with my supervising physician and the above assessment and plan was formulated and agreed upon. FATOUMATA ZAMBRANO Apr 28, 2024 13:28
--- NOTE | 2024-04-28 13:41 | CONS ---
REFERRING PHYSICIAN: Rk Mancia MD REASON FOR CONSULTATION: Renal failure. HISTORY OF PRESENT ILLNESS: An 83-year-old female with a history of hypertension. The patient initially presented to the hospital with complaints of abdominal pain. The patient found to have a known ventral hernia. The patient has had a prolonged hospital course. The patient was found to have underlying bowel obstruction and had an NG tube in place. During her hospital course, the patient has had worsening renal dysfunction. The patient is being seen by surgical service for all of the above and the patient is being seen in consultation. PAST MEDICAL HISTORY: Hypertension, hypercholesterolemia, coronary artery disease. SURGICAL HISTORY: Cholecystectomy, hysterectomy, knee surgery. SOCIAL HISTORY: No alcohol or tobacco use. FAMILY HISTORY: No renal disease in the family. ALLERGIES: SHE HAS AN ALLERGY TO PENICILLIN AND LIPITOR. MEDICATIONS: All noted. REVIEW OF SYSTEMS: GENERAL: She is feeling weak and tired. HEENT: No change in vision. No change in hearing. CARDIOVASCULAR: No current chest pains or palpitations. PULMONARY: No shortness of breath. GASTROINTESTINAL: As described above. MUSCULOSKELETAL: Complains of weakness. NEUROLOGIC: No seizures or focal deficits. PSYCHIATRIC: No history of hallucinations, psychosis. ENDOCRINE: No history of thyroid disease. HEME: History of anemia. No history of malignancy. PHYSICAL EXAMINATION: VITAL SIGNS: Blood pressure 110/63, pulse 70s. GENERAL: She is a chronically ill female, elderly, lying in bed in the medical floor. HEENT: Head is atraumatic. Pupils equal, roving to light. Oropharynx is without exudate. Nares clear. NECK: There is no JVP. There is no thyromegaly, no mass. CARDIOVASCULAR: Regular. There is no S3, S4 gallop. LUNGS: Coarse with equal thoracic movement. ABDOMEN: Soft, nondistended, nontender. EXTREMITIES: Reveal no clubbing, no cyanosis. NEUROLOGICAL: She is awake. She is alert. She is oriented. SKIN: Reveals no rash or nodules. BACK: There is no CVA tenderness, no back deformities. LABORATORY DATA: Sodium 145, potassium 3.5, chloride 109, bicarbonate 21, BUN 100, creatinine 4.9. Creatinine upon admission was 1.2 mg/dL. Hemoglobin 10, hematocrit 34, white cell count of 11,000. Urinalysis is noted. IMPRESSION: 1. Acute renal failure. 2. Bowel obstruction. 3. Volume depletion. 4. Electrolyte abnormalities. 5. Anemia. PLAN: The patient with worsening renal dysfunction in the hospital. The patient has underlying intravascular volume depletion. The patient now with NG tube in place. The patient will be bolused 2 liters of normal saline. The patient will be started on lactated Ringer at 150 mL per hour. All chemistries can be repeated in the a.m. The patient is being seen by surgical service. We will send off urine for electrolytes. The patient's does have significant anemia. We will check on iron levels in the a.m. The patient and family at the bedside. Multiple questions were all answered. TID: [id number] RECEIPT: [id number]
[2024-04-29] VITALS (44 sets, daily range): BP systolic 91–168; BP diastolic 37–70; PULSE 74–93; RESP 11–29; TEMP 97.5–99.9; O2SAT 95–100
--- NOTE | 2024-04-29 01:30 | NUR ---
DR QURESHI MADE AWARE OF HEPARIN DRIP BEEN OFF SINCE 04/28/24 @ [address] QURESHI RECOMMENDATIONS, GO AHEAD AND ENTER AN ORDER FOR PTT AND INR FOR 04/29/24 @ 0400, NO NEED TO RESTART THE HEPARIN DRIP AT THIS TIME. WILL CONT TO MONITOR
[2024-04-29 04:32] LABS: HEMATOCRIT 32.2 % (36-48); MEAN CORPUSCULAR HEMOGLOBIN 28.9 pg (27.0-33.0); MEAN CORPUSCULAR VOLUME 90.4 fL (79-99); RED BLOOD CELL COUNT(AUTO) 3.56 MIL/uL (4.00-5.50); RED CELL DISTRIBUTION WIDTH 14.9 % (11.0-15.5); WHITE BLOOD COUNT (AUTO) 12.5 K/uL (4.8-10.8)
[2024-04-29 04:51] LABS: CREATININE 3.8 mg/dL (0.5-1.0); POTASSIUM 3.1 mmol/L (3.5-5.1)
[2024-04-29 04:52] LABS: % IRON SATURATION 7.6 % (22-44)
[2024-04-29 08:53] LABS: CREATININE,URINE RANDOM 66.67 mg/dL (30-135)
--- NOTE | 2024-04-29 09:43 | PN ---
Problems: 1. Small bowel obstruction with large anterior pelvic wall hernia 2. Non ST-elevation myocardial infarction 3. Acute kidney failure 4. History of paroxysmal supraventricular tachycardia 5. Dyslipidemia 6. Intolerance to atorvastatin 7. Leukocytosis Patient complains of cough but denies shortness of breath or chest pain or chest pressure. No rales or rhonchi, normal S1 and S2, regular rhythm, S4 noted, alert and oriented and appropriate. Impression: Suffered a non-STEMI earlier in the stay but is stable from a cardiac perspective Plan: Continue current therapy. Vitals/Labs Vital Signs Date Time Temp Pulse Resp B/P (MAP) Pulse Ox O2 Delivery O2 Flow Rate FiO2 04/29/24 08:59 97.9 81 18 133/66 97 Room Air 04/28/24 20:00 0 21 Laboratory Tests 04/29/24 04:06 Medications Current Medications Sodium Chloride 1,000 ml @ 0 mls/hr ONCE ONCE IV Last administered on 04/24/24at 11:26; Start 04/24/24 at 11:00; Stop 04/24/24 at 11:01; Status DC Morphine Sulfate 4 mg ONCE ONCE IVP Last administered on 04/24/24at 11:26; Start 04/24/24 at 11:00; Stop 04/24/24 at 11:01; Status DC Ondansetron HCl 4 mg ONCE ONCE IVP Last administered on 04/24/24at 11:26; Start 04/24/24 at 11:00; Stop 04/24/24 at 11:01; Status DC Ondansetron HCl 4 mg ONCE ONCE IVP Last administered on 04/24/24at 11:53; Start 04/24/24 at 12:00; Stop 04/24/24 at 12:01; Status DC Iohexol 75 ml STK-MED ONCE IV; Start 04/24/24 at 13:22; Stop 04/24/24 at 13:23; Status DC Iohexol 35,000 mg STK-MED ONCE IV; Start 04/24/24 at 13:23; Stop 04/24/24 at 13:24; Status DC Metoclopramide HCl 10 mg ONCE ONCE IVP Last administered on 04/24/24at 14:34; Start 04/24/24 at 14:30; Stop 04/24/24 at 14:31; Status DC Morphine Sulfate 4 mg ONCE ONCE IVP Last administered on 04/24/24at 14:34; Start 04/24/24 at 14:30; Stop 04/24/24 at 14:31; Status DC Ondansetron HCl 4 mg Q6H PRN IVP Last administered on 04/27/24at 10:42; Start 04/24/24 at 16:30; Stop 05/24/24 at 16:29 Morphine Sulfate 2 mg Q4H PRN IVP Last administered on 04/24/24at 20:08; Start 04/24/24 at 16:30; Stop 05/01/24 at 16:29 Sodium Chloride 1,000 ml @ 75 mls/hr [id number] IV Last administered on 04/28/24at 04:02; Start 04/24/24 at 16:30; Stop 04/28/24 at 11:48; Status DC Acetaminophen 650 mg Q4H PRN PO; Start 04/24/24 at 16:30; Stop 05/24/24 at 16:29 Acetaminophen 650 mg Q6H PRN PO; Start 04/24/24 at 16:30; Stop 05/24/24 at 16:29 Acetaminophen 325 mg Q6H PRN RC; Start 04/24/24 at 16:30; Stop 05/24/24 at 16:29 Acetaminophen 325 mg Q4H PRN RC Last administered on 04/25/24at 14:02; Start 04/24/24 at 16:30; Stop 05/24/24 at 16:29 Pantoprazole Sodium 40 mg DAILY IVP Last administered on 04/29/24at 08:33; Start 04/25/24 at 09:00; Stop 05/25/24 at 08:59 Lorazepam 0.5 mg ONCE ONCE IVP Last administered on 04/26/24at 01:21; Start 04/26/24 at 01:30; Stop 04/26/24 at 01:31; Status DC Cefepime HCl 1 gm Q24H IVPB Last administered on 04/28/24at 10:51; Start 04/26/24 at 10:30; Stop 05/06/24 at 10:29 Metronidazole 500 mg Q8H PO Last administered on 04/27/24at 17:47; Start 04/26/24 at 10:30; Stop 04/27/24 at 22:59; Status DC Heparin Sodium (Porcine) *calculation based on ACTUAL B... AD PRN IV; Start 04/26/24 at 17:00; Stop 05/26/24 at 16:59 Heparin Sodium/ Dextrose 250 ml @ 0 mls/hr Q6H IV Last administered on 04/27/24at 14:45; Start 04/26/24 at 17:00; Stop 05/26/24 at 16:59 Metoprolol Tartrate 12.5 mg BID PO Last administered on 04/29/24at 08:33; Start 04/26/24 at 21:00; Stop 05/26/24 at 20:59 Aspirin 325 mg ONCE ONCE PO Last administered on 04/26/24at 16:51; Start 04/26/24 at 16:30; Stop 04/26/24 at 16:31; Status DC Aspirin 81 mg DAILY PO Last administered on 04/27/24at 09:24; Start 04/27/24 at 09:00; Stop 05/27/24 at 08:59 Heparin Sodium (Porcine) 5,000 unit ONCE ONCE IV Last administered on 04/26/24at 17:10; Start 04/26/24 at 17:00; Stop 04/26/24 at 17:01; Status DC Metronidazole/ Sodium Chloride 500 mg Q8H IV Last administered on 04/29/24at 01:42; Start 04/28/24 at 02:30; Stop 05/08/24 at 02:29 Metoprolol Tartrate 5 mg Q6H PRN IV; Start 04/27/24 at 23:00; Stop 05/27/24 at 22:59 Lactated Ringer's 1,000 ml @ 150 mls/hr Q6H40M IV Last administered on 04/29/24at 01:42; Start 04/28/24 at 12:00; Stop 05/28/24 at 11:59 ROB GARZA MD Apr 29, 2024 09:43
--- NOTE | 2024-04-29 10:20 | NUR ---
TRANSFER pt transfer via bed to surgical holding area
[2024-04-29] MEDS ORDERED: NOREPINEPHRINE BITARTRATE 1 MG/1 ML ML IV ONE ×2 (11:21)
[2024-04-29] MEDS ORDERED: proPOFol 10 MG/ML 20ML VIAL IV ONE (11:22)
[2024-04-29] MEDS ORDERED: SUCCINYLCHOLINE CHLORIDE 20 MG/ML 10 ML VIAL ONE (11:22)
[2024-04-29] MEDS ORDERED: ETOMIDATE 20MG VIAL ONE (11:24)
[2024-04-29] MEDS ORDERED: NITROGLYCERIN 50MG/D5W 250ML 1 BOT ONE (11:25)
[2024-04-29] MEDS ORDERED: FENTanyl CITRate PF 50 MCG/1 ML 2ML VIAL ONE ×2 (11:46→15:07)
[2024-04-29] MEDS ORDERED: rocuRONium bROMide 10MG/1ML 5ML VL ONE (12:06)
--- NOTE | 2024-04-29 12:18 | PN ---
FOLLOWUP PROGRESS NOTE SUBJECTIVE: A 43-year-old female initially presented to the hospital with underlying abdominal pain. The patient has developed acute renal failure in the hospital. The patient also found to have cholecystitis as well as bowel obstruction. The patient is being seen by surgical service. The patient is also being seen by Cardiology and she is being seen for all the above. The patient was started on IV hydration and creatinine has actually stabilized. The patient is being seen for all of the above. REVIEW OF SYSTEMS: GENERAL: She is feeling somewhat improved. HEENT: No change in vision. No change in hearing. CARDIOVASCULAR: No current chest pain or palpitations. PULMONARY: No shortness of breath. GASTROINTESTINAL: As described above. MUSCULOSKELETAL: Complains of weakness. PHYSICAL EXAMINATION: VITAL SIGNS: Blood pressure 133/66, pulse in the 80s. GENERAL: Chronically ill female, elderly, lying in bed on the medical floor. HEENT: Head is Atraumatic. Pupils equal, roving to light. Oropharynx is without exudate. Nares clear. NECK: There is no JVP. There is no thyromegaly, no mass. CARDIOVASCULAR: Regular. There is no S3, S4 gallop. LUNGS: Coarse with equal thoracic movement. ABDOMEN: Soft, nondistended, nontender. EXTREMITIES: No clubbing, no cyanosis. NEUROLOGIC: She is awake. She is alert. LABORATORY DATA: Hemoglobin 10, hematocrit 32, white cell count is 12,000. Sodium 147, potassium is 3, BUN 100, creatinine is 3.8. Iron levels are all noted. IMPRESSION: 1. Renal dysfunction. 2. Electrolyte abnormalities. 3. History of bowel obstruction. 4. Electrolyte abnormalities. PLAN: The patient's IV fluids will be changed to half normal saline secondary to the hypernatremia. The patient's creatinine continues to stabilize. The patient is also being seen by Cardiology. The patient is scheduled for surgery later today. We will follow while in the hospital. TID: [id number] RECEIPT: [id number]
--- NOTE | 2024-04-29 13:24 | PN ---
[facility] PROGRESS NOTE Date of Service: Apr 29, 2024 Time of Service: 13:24 Patient was seen and examined case discussed with the RN. Her creatinine continues to improve. She will be undergoing ventral hernia repair surgery today SUBJECTIVE: [83-year-old female admitted for early abdominal obstruction and large ventral hernia. Patient continues with nonreducible hernia. Her abdomen is tender. Surgeon recommended cardiac clearance and found that patient has abnormal T-wave on the 12 lead EKG and trop[place] [address]5225T. Patient was upgraded to PCCU as we have to start patient on heparin drip. At this time, rubber heel and sole press tender evaluated the patient this morning and indicated that patient is poor candidate for invasive cardiac procedure due to acute renal failure and bowel obstruction. We will await for 2D echo. At this time, we will also await for further surgical recommendation. No acute event reported overnight. Patient continues with abdominal tenderness. She will remain NPO. REVIEW OF SYSTEMS CONSTITUTIONAL: Denies fevers, chills, or night sweats. No unintentional weight loss reported. NEUROLOGICAL: Denies headache, amaurosis fugax, motor weakness, sensory deficit, vertigo/spinning sensation, gait abnormalities, or tremors. ENT: No hearing loss, otalgia, otorrhea, rhinitis, rhinorrhea, hoarseness, or sore throat. CARDIOVASCULAR: Denies any exertional angina, dyspnea on exertion, orthopnea, paroxysmal nocturnal dyspnea, palpitations, life-threatening arrhythmias, claudication. PULMONARY: Denies any shortness of breath, cough, phlegm/sputum, hemoptysis, pleuritic chest pain. SLEEP: Denies morning headaches, daytime somnolence or napping. Denies difficulty falling asleep, staying asleep, waking from sleep. Denies knowledge of snoring. GASTROINTESTINAL: Right lower quadrant pain. Reported no BM x5 days GENITOURINARY: Denies frequency, urgency, nocturia, hematuria or incontinence (Storage/Irritative symptoms.) Low urinary stream, straining to void, urinary intermittency or hesitancy, splitting of the voiding stream, terminal dribbling. ENDOCRINOLOGIC: Denies polyuria, polydipsia, polyphagia or heat/cold intolerances. HEMATOLOGIC: Denies thrombophilia/previous clots, or coagulopathy/bleeding disorders. ONCOLOGIC: Denies personal history of malignancy. DERMATOLOGIC: Denies rashes or pruritus. PSYCHIATRIC: Denies any suicidal or homicidal ideation. Denies hallucinations. PHYSICAL EXAM GENERAL APPEARANCE: The patient is awake, alert, and oriented, in no acute cardiopulmonary distress. NEUROLOGICAL: Cranial nerves II-XII grossly intact. Motor is 5/5 in bilateral upper and lower extremities proximal to distal. No sensory deficits. HEENT: Face is symmetric. Pupils are equal and reactive. Extraocular movements are intact. NECK: Supple. No JVD. No thyromegaly. No submental, submandibular, pre- /postauricular, occipital or supraclavicular lymphadenopathy. CHEST: Normal chest expansion. No Telemetry. LUNGS: Absence of any rales, rhonchi or any wheezing. CARDIOVASCULAR: Regular. S1 and S2 normal. No appreciable rubs, murmurs or gallops. ABDOMEN: Soft, nontender, and nondistended. There is no rebound, voluntary guarding, or rigidity. : Deferred. No Sykes. EXTREMITIES: Non-edematous and not cyanotic. No clubbing. Good capillary refill. SKIN: No skin breakdown. Vital Signs (last 8hr) Date Time Temp Pulse Resp B/P (MAP) Pulse Ox O2 Delivery O2 Flow Rate FiO2 04/29/24 08:59 97.9 81 18 133/66 97 Room Air 04/29/24 08:00 100 Room Air* 0 21 LABS: Laboratory: Test 04/29/24 08:30 04/29/24 05:35 04/29/24 04:06 04/27/24 22:31 Range/Units Urine Random Creatinine 66.67 30-135 mg/dL Urine Random Sodium 31 L 40-220 mmol/l Whole Blood Glucose 104 70-110 MG/DL White Blood Count 12.5 H 4.8-10.8 K/uL Red Blood Count 3.56 L 4.00-5.50 MIL/uL Hemoglobin 10.3 L 12.0-16.0 g/dL Hematocrit 32.2 L 36-48 % Mean Corpuscular Volume 90.4 79-99 fL Mean Corpuscular Hemoglobin 28.9 27.0-33.0 pg Mean Corpuscular Hemoglobin Concent 32.0 32.0-36.0 g/dL Red Cell Distribution Width 14.9 11.0-15.5 % Platelet Count 234 130-400 K/uL Mean Platelet Volume 9.4 7.5-10.5 fL Nucleated Red Blood Cells 0.0 0.0-0.19 % Activated Partial Thromboplast Time 31.3 # 26.3-35.5 SEC Sodium Level 147 H 136-145 mmol/L Potassium Level 3.1 L 3.5-5.1 mmol/L Chloride Level 111 101-111 mmol/L Carbon Dioxide Level 22 21-32 mmol/L Blood Urea Nitrogen 100 *H 7-18 mg/dL Creatinine 3.8 H 0.5-1.0 mg/dL Glomerular Filtration Rate Calc 11 >90 mL/min Random Glucose 120 H 70-105 mg/dL Total Calcium 8.5 8.5-10.1 mg/dL Iron Level 12 L 50-170 mcg/dL Total Iron Binding Capacity 156 L 250-450 mcg/dL Percent Iron Saturation 7.6 L 22-44 % Prothrombin Time 13.1 H 9.6-11.6 SEC Prothromb Time International Ratio 1.23 H 0.85-1.15 Current Medications Medications (Trade) Dose Ordered Sig/[place] Route PRN Reason Start Time Stop Time Status Last Admin Dose Admin Acetaminophen (TYLenol 325MG TAB) 650 mg Q4H PRN PO TEMPERATURE GREATER THAN 101.5 04/24/24 16:30 05/24/24 16:29 Acetaminophen (TYLenol 325MG TAB) 650 mg Q6H PRN PO MILD PAIN (1-3) 04/24/24 16:30 05/24/24 16:29 Acetaminophen (Tylenol 325mg Suppository) 325 mg Q4H PRN RC TEMPERATURE GREATER THAN 101.5 04/24/24 16:30 05/24/24 16:29 04/25/24 14:02 325 MG Acetaminophen (Tylenol 325mg Suppository) 325 mg Q6H PRN RC MILD PAIN (1-3) 04/24/24 16:30 05/24/24 16:29 Aspirin (Aspirin 81mg Ec Tab) 81 mg DAILY PO 04/27/24 09:00 05/27/24 08:59 04/27/24 09:24 81 MG Cefepime HCl (MAXipime 1 GM vial) 1 gm Q24H IVPB 04/26/24 10:30 05/06/24 10:29 04/29/24 10:11 1 GM Heparin Sodium (Porcine) (HEParin 5,000 UNIT VIAL) *calculation based on ACTUAL B... AD PRN IV HEPARIN PROTOCOL 04/26/24 17:00 05/26/24 16:59 Heparin Sodium/ Dextrose 250 ml @ 0 mls/hr Q6H IV 04/26/24 17:00 04/29/24 10:28 DC 04/27/24 14:45 15 MLS/HR Lactated Ringer's 1,000 ml @ 150 mls/hr Q6H40M IV 04/28/24 12:00 04/29/24 11:36 DC 04/29/24 08:00 150 MLS/HR Metoprolol Tartrate (loprESSOR) 5 mg Q6H PRN IV ARRHYTHMIA 04/27/24 23:00 05/27/24 22:59 Metoprolol Tartrate (loprESSOR) 12.5 mg BID PO 04/26/24 21:00 05/26/24 20:59 04/29/24 08:33 12.5 MG Metronidazole (flaGYL) 500 mg Q8H PO 04/26/24 10:30 04/27/24 22:59 DC 04/27/24 17:47 500 MG Metronidazole/ Sodium Chloride (flaGYL) 500 mg Q8H IV 04/28/24 02:30 05/08/24 02:29 04/29/24 10:11 500 MG Morphine Sulfate (morPHINE 2MG SYG) 2 mg Q4H PRN IVP SEVERE PAIN (7-10) 04/24/24 16:30 05/01/24 16:29 04/24/24 20:08 2 MG Ondansetron HCl (zoFRAN 4MG INJ) 4 mg Q6H PRN IVP NAUSEA/VOMITING 04/24/24 16:30 05/24/24 16:29 04/27/24 10:42 4 MG Pantoprazole Sodium (PROTonix 40MG INJ) 40 mg DAILY IVP 04/25/24 09:00 05/25/24 08:59 04/29/24 08:33 40 MG Sodium Chloride 1,000 ml @ 75 mls/hr [id number] IV 04/24/24 16:30 04/28/24 11:48 DC 04/28/24 04:02 75 MLS/HR Sodium Chloride 1,000 ml @ 125 mls/hr Q8H IV 04/29/24 12:00 05/29/24 11:59 DIAGNOSTICS / RADIOLOGY: [ ] ASSESSMENT: [NSTEMI with abnormal EKG, POA Large ventral hernia, POA Small bowel obstruction, POA Intractable nausea/vomiting, POA Hypertensive emergency, POA Hyperglycemia, POA Leukocytosis with left shift, uptrending POA Hypokalemia, POA Acute renal failure. POA PLAN: Patient upgraded to PCCU Cardiology consulted, we will follow their recommendations: Continue with ACS protocol, heparin drip per protocol, continue with pravastatin, aspirin, and beta alta. 2D echo pending Patient will be kept NPO Patient has no NG tube at this time as it was accidentally pulled We will follow up with general surgeon on further recommendations We will continue with gentle IV hydration with NS at 50 mL/hour Continue with prn hydralazine for elevated systolic blood pressure of greater than 160 mm per mercury We will continue broad-spectrum IV antibiotic due to leukocytosis We will request Infectious Disease due to up trending leukocytosis We will continue to monitor electrolytes and replace as necessary Continue on antiemetic as needed We will repeat lactic acid now Continue with pain management We will repeat labs tomorrow GI prophylaxis with Protonix 40 mg IV daily DVT prophylaxis with SCD Patient is a full code, we will follow up with family regarding advance directive. Patient's case discussed with Dr. Mancia, above plan was formulated FELICIA RADFORD MD Apr 29, 2024 13:24
[2024-04-29 13:43] LABS: ABG BASE EXCESS -8.8 mmol/L (-2.0-3.0); ABG HCO3 17.4 mmol/L (21.0-28.0); ABG OXYGEN SATURATION 99.1 % (94.0-98.0); ABG PCO2 39 mmHg (32-45); ABG PH 7.268 (7.350-7.450); CARBON MONOXIDE 0.3 % (0.5-1.5); DEVICE COMMENT CRNA; HHb 0.9; PO2, ARTERIAL BG 319.5 mmHg (83.0-108.0); VENT MODE, BG AC (ROOM AIR)
[2024-04-29] MEDS ORDERED: SODIUM BICARB 8.4% 50ML SYRINGE ONE (13:45)
[2024-04-29] MEDS ORDERED: ALBUMIN (HUMAN) 5% 250 ML IV ONE (14:07)
[2024-04-29] MEDS ORDERED: ROPivacaine 0.5% 5MG/ML 30ML ONE (14:36)
--- NOTE | 2024-04-29 15:01 | OP ---
Operative Note: DATE OF PROCEDURE: 04/29/24 SURGEON: EDU QURESHI DO WILD ANIMAL CARETAKER: None ANESTHESIA: General ANESTHESIOLOGIST/BUSINESS PROGRAMMER: BEV Salgado PREOPERATIVE DIAGNOSIS: Incarcerated ventral hernia with small bowel obstr uction POSTOPERATIVE DIAGNOSIS: Incarcerated ventral hernia with small-bowel obstruction and ischemic small bowel SYNOPSIS: None PROCEDURE: Open ventral hernia repair and small-bowel resection ESTIMATED BLOOD LOSS: 200 cc INDICATIONS: This is an 83-year-old female that came to the ED with nausea vomiting and abdominal distention for several days. She had a large ventral hernia that was nonreducible. This hernia has been present and nonreducible for many years. NG tube was placed and nonoperative management was attempted. Patient developed an NSTEMI and was started on heparin drip. After about five days of nonoperative management I recommended to the patient open hernia repair with small bowel resection. I discussed the procedure in detail with the patient. All questions were answered. The patient expressed understanding and agreement with plan. DESCRIPTION OF PROCEDURE: The patient was placed on the operating table in the supine position. After adequate sedation the patient was intubated by anesthesia. Perioperative antibiotics were given. The patient's abdomen was prepped and draped in the usual sterile fashion and the time-out was performed. A low vertical midline skin incision was made and dissection was carried down to the hernia. Hernia sac was identified and incised. Foul odor was appreciated on entering the hernia sac. Multiple loops of ischemic small intestine were identified. The fascial defect was extended about 2 cm cephalad. The small bowel was mobilized and brought up out of the abdomen to identify the margins. There appeared to be two independent segments of ischemic bowel these were resected one at a time. They were divided proximally and medially using a blue load ANGELITO stapling device. The mesentery was taken down using vouyant vessel sealing device. Specimen was handed off for routine pathology and found to be 50 in long. A stapled [id number] anastomosis was performed using multiple blue load ANGELITO stapling devices. All intersections and corners of staple lines were oversewn in a Lembert fashion using 3-0 Vicryl sutures. The mesenteric defect was approximated using a running suture of 2-0 Vicryl in a locking fashion. The next segment of small bowel that was necrotic was approximately 50 cm away from the last. It was divided proximally and distally using blue load stapling device. The mesentery was divided using vouyant vessel sealing device. The specimen was handed off for routine pathology. It measured 39 in long. The healthy ends of bowel were then brought together and a stapled [id number] anastomosis was performed using blue load ANGELITO stapling devices. All corners and in her sections of staple lines were oversewn in a Lembert fashion using 3-0 Vicryl sutures. The mesenteric defect was approximated using 2-0 Vicryl in a running locking fashion. The small bowel was then evaluated and found to be in healthy-appearing condition and all the anastomosis is were patent. The bowel was placed back into the abdominal cavity in the abdominal cavity was irrigated with sterile saline. There was necrotic omentum adherent to the hernia sac. This was divided using the vouyant vessel sealing device. The hernia sac was then excised from the subcutaneous tissue in the abdominal fascia. It was handed off for routine pathology. The fascial defect was then measured to be 10 cm in length. It was approximated using interrupted sutures of 1. Prolene. The subcutaneous tissues were then irrigated copiously with sterile saline. Two Kevin drains were placed in the subcutaneous space and secured to the skin using sutures of 2-0 nylon. The subcutaneous tissues were approximated using interrupted sutures of 2-0 Vicryl. The skin was approximated using skin yossi. The wounds were dressed with gauze and tape. An abdominal binder was placed. The patient tolerated the procedure well. All instrument, needle, and sponge counts were correct at the end of the procedure. The patient was aroused from sedation, extubated, and transferred to the postanesthesia care unit in good condition. EDU QURESHI DO Apr 29, 2024 15:01
[2024-04-29] MEDS ORDERED: ondanSETRON 4MG INJ ONE (15:03)
[2024-04-29] MEDS: 1/2 NS 1000ML 1,000 ML IV SCH (15:31)
--- NOTE | 2024-04-29 15:42 | NUR ---
PATIENT ARRIVED TO ICU 219 AT 1500 BY OR STAFF. PT ON NRB 10L. AROUSABLE AND TRYING TO PULL ON LINES AND TUBES. PT STATED SHE HAD PAIN. 03/29, ANALGESIA MEDICATION GIVEN. PT CONTINUES TO TRY TO REMOVE IVS/NGT/LELE.
[2024-04-29] MEDS: SUGAMMADEX SODIUM 200 MG/2 ML VIAL IV ONE (15:44)
[2024-04-29] MEDS: morPHINE 2 MG SYG IVP PRN (22:09)
--- NOTE | 2024-04-29 22:13 | NUR ---
Patient is complaining about abdominal pain s/p surgery ventral hernia repair ischemic bowel resection of colon - called hospitalist - ALYSSA [employer] called back made aware of pt pain level, re -ordered morphine iv, as per morning nurse patient tolerated morphine earlier today well for pain continues on intermittent suction ng tube and NPO - poor mobility tolerance due to pain small repositioning positions left and right q2h and prn. low grade fever took off 2 blankets off left sheet and added some ice packs. morphine given stable vitals will cont to monitor- scd in place for vte prophylaxis- mouth swabs as needed. Rp was in the room earlier left for the day.
[2024-04-30] VITALS (73 sets, daily range): BP systolic 0–135; BP diastolic 0–57; PULSE 75–95; RESP 8–45; TEMP 98.4–99.9; O2SAT 94–96
[2024-04-30 04:51] LABS: BASOPHILS # (AUTO) 0.01 K/uL (0.00-0.20); BASOPHILS % (AUTO) 0.1 % (0.0-5.0); EOSINOPHILS # (AUTO) 0.06 K/uL (0.00-0.70); EOSINOPHILS % (AUTO) 0.8 % (0.0-8.0); HEMATOCRIT 29.7 % (36-48); IMMATURE GRANULOCYTE ABSOLUTE 0.09 K/uL (0-1); LYMPHOCYTES # (AUTO) 0.5 K/uL (1.0-4.8); LYMPHOCYTES % (AUTO) 6.2 % (21.0-51.0); MEAN CORPUSCULAR HEMOGLOBIN 29.6 pg (27.0-33.0); MEAN CORPUSCULAR HGB CONC 31.3 g/dL (32.0-36.0); MEAN CORPUSCULAR VOLUME 94.6 fL (79-99); MONOCYTES # (AUTO) 0.5 K/uL (0.1-1.0); MONOCYTES % (AUTO) 6.6 % (3.0-13.0); NEUTROPHILS # (AUTO) 6.6 K/uL (1.8-7.7); NEUTROPHILS % (AUTO) 85.1 % (40.0-77.0); PLATELET COUNT (AUTO) 204 K/uL (130-400); RED BLOOD CELL COUNT(AUTO) 3.14 MIL/uL (4.00-5.50); RED CELL DISTRIBUTION WIDTH 15.2 % (11.0-15.5); WHITE BLOOD COUNT (AUTO) 7.8 K/uL (4.8-10.8)
[2024-04-30] MEDS: SOD FERRIC GLUC COMPLEX/SUC 125 MG in 0.9%NACL 100ML 100 ML IV SCH (09:30)
[2024-04-30] MEDS: DEXTROSE 5%-WATER 1,000 ML IV SCH (09:30)
--- NOTE | 2024-04-30 09:31 | PN ---
SUBJECTIVE: An 83-year-old female initially presented to the hospital with abdominal pain. The patient was found to have incarcerated hernia. The patient was seen by surgical service and underwent surgery. She was found to have a bowel obstruction. She has had acute renal failure in the hospital. Creatinine continues to improve with the IV hydration. The patient is being seen as a followup visit for all of the above. She is being seen in the ICU. REVIEW OF SYSTEMS: GENERAL: She is feeling weak and tired. HEENT: No change in vision. No change in hearing. CARDIOVASCULAR: There is no current chest pain or palpitations. PULMONARY: There is no shortness of breath. GASTROINTESTINAL: As described above. She is n.p.o. right now. MUSCULOSKELETAL: Complains of weakness. PHYSICAL EXAMINATION:. VITAL SIGNS: Blood pressure 100/46, pulse in the 80s. GENERAL: She is a chronically ill female, elderly, lying in bed on the medical floor. SKIN: Head is atraumatic. Pupils equal, roving to light. Oropharynx is without exudate. Nares clear. NECK: There is no JVP, no thyromegaly. CARDIOVASCULAR: Regular. There is no S3, S4 gallop. LUNGS: Coarse with equal thoracic movement. ABDOMEN: Soft. She has bowel sounds. Extremities: Reveal no clubbing, no cyanosis. NEUROLOGIC: She is awake. She is alert. LABORATORY DATA: Hemoglobin 9.3, hematocrit 29, white count 7000. LABORATORY DATA: Sodium 155, potassium is 3, BUN 79, creatinine is 3. IMPRESSION: 1. Renal dysfunction. 2. Electrolyte abnormalities. 3. Anemia. 4. History of bowel obstruction, status post surgery. PLAN: The patient now with significant hypernatremia. The IV fluids will be switched to D5W at 125 mL per hour. The patient's creatinine continues to stabilize. The patient can be started on the IV iron for the anemia. We will continue to follow closely. Workup is ongoing per surgical service and we will follow while the patient is in the hospital. All labs will be repeated in the morning. TID: [id number] RECEIPT: [id number]
[2024-04-30] MEDS ORDERED: COMPOUND IV REFRIGERATED 1 EACH IVSOLN MISC PRN (10:00)
--- NOTE | 2024-04-30 10:22 | PN ---
This is an 83-year-old female postop day one open ventral hernia with small bowel resection by Dr. Thapa Interval history: This 83-year-old female seen in ICU resting. Incisions clean and dry patient has been compliant with the abdominal binder Accordion drain with no more than 30 mL of serosanguineous output NG in place with an of 100 No flatus reported today White count and hemoglobin stable Blood pressure on the softer side but patient receiving fluids Vital Signs Date Time Temp Pulse Resp B/P (MAP) Pulse Ox O2 Delivery O2 Flow Rate FiO2 04/30/24 08:30 95 Room Air* 0 21 04/30/24 06:00 88 21 100/46 04/30/24 05:15 98.8 Physical exam General: Awake alert and oriented Heart: Regular rate and rhythm} Lungs: [Clear to auscultation no distress Abdomen: [Midline incision clean, accordion drain in place, pain controlled but still present, patient compliant with the abdominal binder Laboratory Tests Test 04/29/24 13:41 04/30/24 04:31 Blood Gas Specimen Type Arterial Arterial Blood pH 7.268 (7.350-7.450) Arterial Blood Partial Pressure CO2 39 mmHg (32-45) Arterial Blood Partial Pressure O2 319.5 mmHg (83.0-108.0) Arterial Blood HCO3 17.4 mmol/L (21.0-28.0) L Arterial Blood Oxygen Saturation 99.1 % (94.0-98.0) H Arterial Blood Base Excess -8.8 mmol/L (-2.0-3.0) L Hemoglobin (Blood Gas) 10.3 g/dL (12.0-16.0) L Sodium (Blood Gas) 150 MMOL/L (136-145) H Bedside Potassium (Blood Gas) 3.1 MMOL/L (3.4-4.5) L Bedside Chloride (Blood Gas) 121 MMOL/L (98-107) *H Bedside Glucose (Blood Gas) 99 MG/DL (65-95) H Bedside Ionized Calcium (Blood Gas) 1.03 MMOL/L (1.15-1.33) L Bedside Lactic Acid (Blood Gas) 1.59 MMOL/L (0.36-0.75) H Blood Gas Temperature 37.0 CELSIUS (35.5-37.0) Blood Gas Vent Mode AC (ROOM AIR) FiO2 100.0 % Blood Gas Specimen Comment [employer]ING [employer]IST White Blood Count 7.8 K/uL (4.8-10.8) Red Blood Count 3.14 MIL/uL (4.00-5.50) L Hemoglobin 9.3 g/dL (12.0-16.0) L Hematocrit 29.7 % (36-48) L Mean Corpuscular Volume 94.6 fL (79-99) Mean Corpuscular Hemoglobin 29.6 pg (27.0-33.0) Mean Corpuscular Hemoglobin Concent 31.3 g/dL (32.0-36.0) L Red Cell Distribution Width 15.2 % (11.0-15.5) Platelet Count 204 K/uL (130-400) Mean Platelet Volume 9.6 fL (7.5-10.5) Immature Granulocyte % (Auto) 1.2 % (0-1) H Neutrophils (%) (Auto) 85.1 % (40.0-77.0) H Lymphocytes (%) (Auto) 6.2 % (21.0-51.0) L Monocytes (%) (Auto) 6.6 % (3.0-13.0) Eosinophils (%) (Auto) 0.8 % (0.0-8.0) Basophils (%) (Auto) 0.1 % (0.0-5.0) Neutrophils # (Auto) 6.6 K/uL (1.8-7.7) Lymphocytes # (Auto) 0.5 K/uL (1.0-4.8) L Monocytes # (Auto) 0.5 K/uL (0.1-1.0) Eosinophils # (Auto) 0.06 K/uL (0.00-0.70) Basophils # (Auto) 0.01 K/uL (0.00-0.20) Absolute Immature Granulocyte (auto 0.09 K/uL (0-1) Nucleated Red Blood Cells 0.0 % (0.0-0.19) Sodium Level 155 mmol/L (136-145) H Potassium Level 3.0 mmol/L (3.5-5.1) *L Chloride Level 115 mmol/L (101-111) H Carbon Dioxide Level 25 mmol/L (21-32) Blood Urea Nitrogen 79 mg/dL (7-18) *H Creatinine 3.0 mg/dL (0.5-1.0) H Glomerular Filtration Rate Calc 15 mL/min (>90) Random Glucose 88 mg/dL (70-105) Total Calcium 7.6 mg/dL (8.5-10.1) L Assessment : This is an 83-year-old female status post ventral hernia repair with small-bowel resection Plan: Patient should continue with ICU observation possible downgrade tomorrow Patient to remain NPO until flatus noted Continue with strict I's and O's of accordion drain as well as NG tube Continue with ICU management Dr Thapa to be updated in patient's status and surgical team to follow patient closely Vitals/Labs Vital Signs Date Time Temp Pulse Resp B/P (MAP) Pulse Ox O2 Delivery O2 Flow Rate FiO2 04/30/24 08:30 95 Room Air* 0 21 04/30/24 06:00 88 21 100/46 04/30/24 05:15 98.8 Laboratory Tests 04/30/24 04:31 Medications Current Medications Sodium Chloride 1,000 ml @ 0 mls/hr ONCE ONCE IV Last administered on 04/24/24at 11:26; Start 04/24/24 at 11:00; Stop 04/24/24 at 11:01; Status DC Morphine Sulfate 4 mg ONCE ONCE IVP Last administered on 04/24/24at 11:26; Start 04/24/24 at 11:00; Stop 04/24/24 at 11:01; Status DC Ondansetron HCl 4 mg ONCE ONCE IVP Last administered on 04/24/24at 11:26; Start 04/24/24 at 11:00; Stop 04/24/24 at 11:01; Status DC Ondansetron HCl 4 mg ONCE ONCE IVP Last administered on 04/24/24at 11:53; Start 04/24/24 at 12:00; Stop 04/24/24 at 12:01; Status DC Iohexol 75 ml STK-MED ONCE IV; Start 04/24/24 at 13:22; Stop 04/24/24 at 13:23; Status DC Iohexol 35,000 mg STK-MED ONCE IV; Start 04/24/24 at 13:23; Stop 04/24/24 at 13:24; Status DC Metoclopramide HCl 10 mg ONCE ONCE IVP Last administered on 04/24/24at 14:34; Start 04/24/24 at 14:30; Stop 04/24/24 at 14:31; Status DC Morphine Sulfate 4 mg ONCE ONCE IVP Last administered on 04/24/24at 14:34; Start 04/24/24 at 14:30; Stop 04/24/24 at 14:31; Status DC Ondansetron HCl 4 mg Q6H PRN IVP Last administered on 04/29/24at 18:29; Start 04/24/24 at 16:30; Stop 05/24/24 at 16:29 Morphine Sulfate 2 mg Q4H PRN IVP Last administered on 04/29/24at 15:38; Start 04/24/24 at 16:30; Stop 04/29/24 at 19:29; Status DC Sodium Chloride 1,000 ml @ 75 mls/hr [id number] IV Last administered on 04/28/24at 04:02; Start 04/24/24 at 16:30; Stop 04/28/24 at 11:48; Status DC Acetaminophen 650 mg Q4H PRN PO; Start 04/24/24 at 16:30; Stop 05/24/24 at 16:29 Acetaminophen 650 mg Q6H PRN PO; Start 04/24/24 at 16:30; Stop 05/24/24 at 16:29 Acetaminophen 325 mg Q6H PRN RC; Start 04/24/24 at 16:30; Stop 05/24/24 at 16:29 Acetaminophen 325 mg Q4H PRN RC Last administered on 04/25/24at 14:02; Start 04/24/24 at 16:30; Stop 05/24/24 at 16:29 Pantoprazole Sodium 40 mg DAILY IVP Last administered on 04/30/24at 08:09; Start 04/25/24 at 09:00; Stop 05/25/24 at 08:59 Lorazepam 0.5 mg ONCE ONCE IVP Last administered on 04/26/24at 01:21; Start 04/26/24 at 01:30; Stop 04/26/24 at 01:31; Status DC Cefepime HCl 1 gm Q24H IVPB Last administered on 04/29/24at 10:11; Start 04/26/24 at 10:30; Stop 05/06/24 at 10:29 Metronidazole 500 mg Q8H PO Last administered on 04/27/24at 17:47; Start 04/26/24 at 10:30; Stop 04/27/24 at 22:59; Status DC Heparin Sodium (Porcine) *calculation based on ACTUAL B... AD PRN IV; Start 04/26/24 at 17:00; Stop 05/26/24 at 16:59 Heparin Sodium/ Dextrose 250 ml @ 0 mls/hr Q6H IV Last administered on 04/27/24at 14:45; Start 04/26/24 at 17:00; Stop 04/29/24 at 10:28; Status DC Metoprolol Tartrate 12.5 mg BID PO Last administered on 04/29/24at 08:33; Start 04/26/24 at 21:00; Stop 05/26/24 at 20:59 Aspirin 325 mg ONCE ONCE PO Last administered on 04/26/24at 16:51; Start 04/26/24 at 16:30; Stop 04/26/24 at 16:31; Status DC Aspirin 81 mg DAILY PO Last administered on 04/27/24at 09:24; Start 04/27/24 at 09:00; Stop 05/27/24 at 08:59 Heparin Sodium (Porcine) 5,000 unit ONCE ONCE IV Last administered on 04/26/24at 17:10; Start 04/26/24 at 17:00; Stop 04/26/24 at 17:01; Status DC Metronidazole/ Sodium Chloride 500 mg Q8H IV Last administered on 04/30/24at 01:46; Start 04/28/24 at 02:30; Stop 05/08/24 at 02:29 Metoprolol Tartrate 5 mg Q6H PRN IV; Start 04/27/24 at 23:00; Stop 05/27/24 at 22:59 Lactated Ringer's 1,000 ml @ 150 mls/hr Q6H40M IV Last administered on 04/29/24at 08:00; Start 04/28/24 at 12:00; Stop 04/29/24 at 11:36; Status DC Norepinephrine Bitartrate 4 mg STK-MED ONCE IV; Start 04/29/24 at 11:21; Stop 04/29/24 at 11:22; Status DC Norepinephrine Bitartrate 4 mg STK-MED ONCE IV; Start 04/29/24 at 11:21; Stop 04/29/24 at 11:22; Status DC Propofol 200 mg STK-MED ONCE IV; Start 04/29/24 at 11:22; Stop 04/29/24 at 11:22; Status DC Succinylcholine Chloride 200 mg STK-MED ONCE .ROUTE; Start 04/29/24 at 11:22; Stop 04/29/24 at 11:22; Status DC Etomidate 20 mg STK-MED ONCE .ROUTE; Start 04/29/24 at 11:24; Stop 04/29/24 at 11:24; Status DC Nitroglycerin/ Dextrose 1 ml @ As Directed STK-MED ONCE .ROUTE; Start 04/29/24 at 11:25; Stop 04/29/24 at 11:25; Status DC Sodium Chloride 1,000 ml @ 125 mls/hr Q8H IV Last administered on 04/30/24at 04:16; Start 04/29/24 at 12:00; Stop 04/30/24 at 09:15; Status DC Fentanyl Citrate 100 mcg STK-MED ONCE .ROUTE; Start 04/29/24 at 11:46; Stop 04/29/24 at 11:46; Status DC Rocuronium Marshall 50 mg STK-MED ONCE .ROUTE; Start 04/29/24 at 12:06; Stop 04/29/24 at 12:06; Status DC Sodium Bicarbonate 50 meq STK-MED ONCE .ROUTE; Start 04/29/24 at 13:45; Stop 04/29/24 at 13:45; Status DC Albumin Human 250 ml @ As Directed STK-MED ONCE IV; Start 04/29/24 at 14:07; Stop 04/29/24 at 14:08; Status DC Ropivacaine 150 mg STK-MED ONCE .ROUTE; Start 04/29/24 at 14:36; Stop 04/29/24 at 14:36; Status DC Ondansetron HCl 4 mg STK-MED ONCE .ROUTE; Start 04/29/24 at 15:03; Stop 04/29/24 at 15:03; Status DC Fentanyl Citrate 100 mcg STK-MED ONCE .ROUTE; Start 04/29/24 at 15:07; Stop 04/29/24 at 15:07; Status DC Morphine Sulfate 2 mg Q4H PRN IVP Last administered on 04/29/24at 22:09; Start 04/29/24 at 21:30; Stop 05/06/24 at 21:29 Dextrose 1,000 ml @ 125 mls/hr Q8H IV Last administered on 04/30/24at 09:30; Start 04/30/24 at 09:30; Stop 05/30/24 at 09:29 Ferric Sodium Gluconate Complex 125 mg/Sodium Chloride 110 ml @ 110 mls/hr Q24H IV Last administered on 04/30/24at 09:30; Start 04/30/24 at 09:30; Stop 05/02/24 at 10:29 DONNIE BA Jr. Apr 30, 2024 10:22
--- NOTE | 2024-04-30 11:39 | PN ---
INFECTIOUS DISEASE PROGRESS NOTE Date of Service: Apr 30, 2024 SUBJECTIVE: Patient was seen and examined in the ICU room 219. Patient is awake, alert and able to answer basic questions. Patient is status post open ventral hernia repair and small-bowel resection on 04/29/2024. The WBC has trended down to normal level of 7.8. No reports of fever, temperature is 98.8. Less than 50 mL output in the two VALERIO drains. NG tube in place to low intermittent suction. Electrolytes being replaced. Currently remains on cefepime and metronidazole. Renal function continues to improve, BUN is 79 and creatinine is 3.0 this morning. PHYSICAL EXAM EYES: Anicteric. Pupils equal and reactive. HENT: No oral thrush seen, moist Oral mucosa. NG tube. NECK: Supple, no JVD or thyromegaly. LUNGS: Good air entry. No rales, no rhonchi. CARDIOVASCULAR: S1, S2 regular. No murmur heard. ABDOMEN: Soft, tender, no organomegaly. Abdominal Surgical incision. Two VALERIO drains. CENTRAL NERVOUS SYSTEM: Awake, alert, oriented x 3. SKIN: No rashes, no swelling. LYMPHATICS: No peripheral lymphadenopathy. MUSCULOSKELETAL: No joint swelling, erythema or tenderness. EXTREMITIES: No cyanosis or clubbing. BACK: No deformity, no pressure ulcer. GENITOURINARY: No dysuria or hematuria. Sykes catheter. Vital Sign (Last 12 Hours) 04/29/24 04/29/24 04/29/24 04/29/24 23:40 23:45 23:48 23:59 Temp 99.0 Pulse 91 89 86 Resp 22 17 17 B/P (MAP) 105/48 99/45 99/49 Pulse Ox 93 93 93 95 O2 Delivery Room Air Room Air Room Air* O2 Flow Rate 0 FiO2 21 04/30/24 04/30/24 04/30/24 04/30/24 00:00 00:15 00:30 00:45 Pulse 84 86 88 88 Resp 17 17 24 B/P (MAP) 90/55 89/46 93/47 95/47 Pulse Ox 94 97 96 96 O2 Delivery Nasal Cannula Nasal Cannula O2 Flow Rate 2.0 2.0 04/30/24 04/30/24 04/30/24 04/30/24 00:48 01:00 01:15 01:30 Pulse 91 90 82 85 Resp 20 24 16 15 B/P (MAP) 90/46 94/52 92/57 90/57 Pulse Ox 96 94 94 94 O2 Delivery Nasal Cannula Nasal Cannula O2 Flow Rate 2.0 2.0 04/30/24 04/30/24 04/30/24 04/30/24 01:45 01:48 02:15 02:30 Pulse 87 86 92 95 Resp 18 19 21 23 B/P (MAP) 93/48 88/47 95/49 96/49 Pulse Ox 95 95 95 94 O2 Delivery Nasal Cannula Nasal Cannula Nasal Cannula O2 Flow Rate 2.0 2.0 2.0 04/30/24 04/30/24 04/30/24 04/30/24 02:45 02:48 03:00 03:15 Pulse 92 85 92 90 Resp 24 20 B/P (MAP) 94/49 86/47 92/51 0/0 Pulse Ox 91 94 91 94 O2 Delivery Nasal Cannula Nasal Cannula O2 Flow Rate 2.0 2.0 04/30/24 04/30/24 04/30/24 04/30/24 03:30 03:45 03:48 04:00 Temp 98.8 Pulse 82 85 82 95 Resp 18 16 17 25 B/P (MAP) 90/53 90/52 98/42 96/45 Pulse Ox 94 93 94 95 O2 Delivery Nasal Cannula Nasal Cannula O2 Flow Rate 2.0 2.0 04/30/24 04/30/24 04/30/24 04/30/24 04:00 04:15 04:30 04:45 Pulse 91 91 90 Resp 16 17 20 B/P (MAP) 95/44 98/45 94/44 Pulse Ox 95 93 95 95 O2 Delivery Nasal Cannula* Nasal Cannula Nasal Cannula O2 Flow Rate 2 2.0 2.0 FiO2 28 04/30/24 04/30/24 04/30/24 04/30/24 04:49 05:00 05:15 05:30 Temp 98.8 Pulse 89 91 85 87 Resp 36 20 8 31 B/P (MAP) 107/46 105/49 95/45 98/46 Pulse Ox 95 93 97 O2 Delivery Nasal Cannula O2 Flow Rate 2.0 04/30/24 04/30/24 04/30/24 04/30/24 05:45 05:48 06:00 08:30 Pulse 88 84 88 Resp 27 24 21 B/P (MAP) 98/46 94/45 100/46 Pulse Ox 96 96 96 95 O2 Delivery Nasal Cannula Room Air* O2 Flow Rate 2.0 0 FiO2 21 Intake & Output (last 24hrs) 04/29/24 04/29/24 04/30/24 15:00 23:00 07:00 Intake Total 128.0 ml 996.0 ml 868.0 ml Output Total 200 ml 250 ml 500 ml Balance -72.0 ml 746.0 ml 368.0 ml LABS: Laboratory: Test 04/30/24 04:31 04/29/24 13:41 04/29/24 08:30 04/29/24 05:35 Range/Units White Blood Count 7.8 4.8-10.8 K/uL Red Blood Count 3.14 L 4.00-5.50 MIL/uL Hemoglobin 9.3 L 12.0-16.0 g/dL Hematocrit 29.7 L 36-48 % Mean Corpuscular Volume 94.6 79-99 fL Mean Corpuscular Hemoglobin 29.6 27.0-33.0 pg Mean Corpuscular Hemoglobin Concent 31.3 L 32.0-36.0 g/dL Red Cell Distribution Width 15.2 11.0-15.5 % Platelet Count 204 130-400 K/uL Mean Platelet Volume 9.6 7.5-10.5 fL Immature Granulocyte % (Auto) 1.2 H 0-1 % Neutrophils (%) (Auto) 85.1 H 40.0-77.0 % Lymphocytes (%) (Auto) 6.2 L 21.0-51.0 % Monocytes (%) (Auto) 6.6 3.0-13.0 % Eosinophils (%) (Auto) 0.8 0.0-8.0 % Basophils (%) (Auto) 0.1 0.0-5.0 % Neutrophils # (Auto) 6.6 1.8-7.7 K/uL Lymphocytes # (Auto) 0.5 L 1.0-4.8 K/uL Monocytes # (Auto) 0.5 0.1-1.0 K/uL Eosinophils # (Auto) 0.06 0.00-0.70 K/uL Basophils # (Auto) 0.01 0.00-0.20 K/uL Absolute Immature Granulocyte (auto 0.09 0-1 K/uL Nucleated Red Blood Cells 0.0 0.0-0.19 % Sodium Level 155 H 136-145 mmol/L Potassium Level 3.0 *L 3.5-5.1 mmol/L Chloride Level 115 H 101-111 mmol/L Carbon Dioxide Level 25 21-32 mmol/L Blood Urea Nitrogen 79 *H 7-18 mg/dL Creatinine 3.0 H 0.5-1.0 mg/dL Glomerular Filtration Rate Calc 15 >90 mL/min Random Glucose 88 70-105 mg/dL Total Calcium 7.6 L 8.5-10.1 mg/dL Blood Gas Specimen Type Arterial Arterial Blood pH 7.268 L 7.350-7.450 Arterial Blood Partial Pressure CO2 39 32-45 mmHg Arterial Blood Partial Pressure O2 319.5 *H 83.0-108.0 mmHg Arterial Blood HCO3 17.4 L 21.0-28.0 mmol/L Arterial Blood Oxygen Saturation 99.1 H 94.0-98.0 % Arterial Blood Base Excess -8.8 L -2.0-3.0 mmol/L Hemoglobin (Blood Gas) 10.3 L 12.0-16.0 g/dL Sodium (Blood Gas) 150 H 136-145 MMOL/L Bedside Potassium (Blood Gas) 3.1 L 3.4-4.5 MMOL/L Bedside Chloride (Blood Gas) 121 *H 98-107 MMOL/L Bedside Glucose (Blood Gas) 99 H 65-95 MG/DL Bedside Ionized Calcium (Blood Gas) 1.03 L 1.15-1.33 MMOL/L Bedside Lactic Acid (Blood Gas) 1.59 H 0.36-0.75 MMOL/L Blood Gas Temperature 37.0 35.5-37.0 CELSIUS Blood Gas Vent Mode AC ROOM AIR FiO2 100.0 % Blood Gas Specimen Comment EBD [employer]ER Urine Random Creatinine 66.67 30-135 mg/dL Urine Random Sodium 31 L 40-220 mmol/l Whole Blood Glucose 104 70-110 MG/DL Test 04/29/24 04:06 Range/Units Activated Partial Thromboplast Time 31.3 # 26.3-35.5 SEC Iron Level 12 L 50-170 mcg/dL Total Iron Binding Capacity 156 L 250-450 mcg/dL Percent Iron Saturation 7.6 L 22-44 % ASSESSMENT: Abdominal pain. Incarcerated ventral hernia, s/p open ventral hernia repair and small-bowel resection on 04/29/2024. Sepsis. Acute renal failure. Leukocytosis. Elevated troponin. Non-STEMI postop. PLAN: Continue cefepime. Continue metronidazole. Incision care as recommended by General surgery. Continue pain management. Sample Examiner following patient. Avoid nephrotoxic medications. Will monitor electrolytes. This case was reviewed and discussed with my supervising physician and the above assessment and plan was formulated and agreed upon. ATTESTATION BY PHYSICIAN I have seen and examined the patient. I reviewed the documentation, medical decision making, and treatment plan as noted by the mid-level provider above. I agree with the findings and plan of care. NAHUM BROWN MD, MIRTA L [facility] Apr 30, 2024 11:39
--- NOTE | 2024-04-30 12:30 | PN ---
[facility] PROGRESS NOTE Date of Service: Apr 30, 2024 Time of Service: 12:23 SUBJECTIVE: 83-year-old female admitted for early abdominal obstruction and large ventral hernia. Patient continues with nonreducible hernia. Her abdomen is tender. Surgeon recommended cardiac clearance and found that patient has abnormal T-wave on the 12 lead EKG and trop[place] was [place] 70031M. Patient was upgraded to PCCU as we have to start patient on heparin drip. At this time, brass polisher evaluated the patient this morning and indicated that patient is poor candidate for invasive cardiac procedure due to acute renal failure and bowel obstruction. We will await for 2D echo. At this time, we will also await for further surgical recommendation. 03/29 No acute event reported overnight. Patient continues with abdominal tenderness. She will remain NPO. 03/30 Pt seen at bedside, no acute events overnight. She is s/p ventral hernia repair with resection and repair of ischemic/necrotic bowel post op day 1. She reports her pain is well controlled, she denies BM or flatus. NG tube still in place to intermittent suction. Abdominal binder is in place. She is hypernatremic, not currently on IV fluids, will start D5 at 100 cc/hr to decrease sodium at 0.5 cc/hr rate. Potassium low at 3.0, will replete according to protocol, creatinine continued to improve from 3.8 down to 3.0, remainder of her labs are relatively unremarkable. Diet and NG tube management per General Surgery REVIEW OF SYSTEMS 12 point ROS negative unless noted in HPI PHYSICAL EXAM GENERAL APPEARANCE: The patient is awake, alert, and oriented, in no acute cardiopulmonary distress. NEUROLOGICAL: Cranial nerves II-XII grossly intact. Motor is 5/5 in bilateral upper and lower extremities proximal to distal. No sensory deficits. HEENT: Face is symmetric. Pupils are equal and reactive. Extraocular movements are intact. NECK: Supple. No JVD. No thyromegaly. No submental, submandibular, pre-/p ostauricular, occipital or supraclavicular lymphadenopathy. CHEST: Normal chest expansion. No Telemetry. LUNGS: Absence of any rales, rhonchi or any wheezing. CARDIOVASCULAR: Regular. S1 and S2 normal. No appreciable rubs, murmurs or gallops. ABDOMEN: Soft, nontender, and nondistended. There is no rebound, voluntary guarding, or rigidity. : Deferred. No Sykes. EXTREMITIES: Non-edematous and not cyanotic. No clubbing. Good capillary refill. SKIN: No skin breakdown. Vital Signs (last 8hr) Date Time Temp Pulse Resp B/P (MAP) Pulse Ox O2 Delivery O2 Flow Rate FiO2 04/30/24 11:00 82 19 117/50 91 Room Air 04/30/24 10:00 87 21 122/51 98 Room Air 04/30/24 09:00 84 21 118/47 93 Room Air 04/30/24 08:30 95 Room Air* 0 21 04/30/24 08:00 99.9 84 21 117/48 95 Room Air 04/30/24 07:00 86 21 111/47 94 Room Air 04/30/24 06:00 88 21 100/46 96 04/30/24 05:48 84 24 94/45 96 04/30/24 05:45 88 27 98/46 96 Nasal Cannula 2.0 04/30/24 05:30 87 31 98/46 97 04/30/24 05:15 98.8 85 8 95/45 93 04/30/24 05:00 91 20 105/49 95 Nasal Cannula 2.0 04/30/24 04:49 89 36 107/46 04/30/24 04:45 90 20 94/44 95 Nasal Cannula 2.0 04/30/24 04:30 91 17 98/45 95 LABS: Laboratory: Test 04/30/24 04:31 04/29/24 13:41 04/29/24 08:30 04/29/24 05:35 Range/Units White Blood Count 7.8 4.8-10.8 K/uL Red Blood Count 3.14 L 4.00-5.50 MIL/uL Hemoglobin 9.3 L 12.0-16.0 g/dL Hematocrit 29.7 L 36-48 % Mean Corpuscular Volume 94.6 79-99 fL Mean Corpuscular Hemoglobin 29.6 27.0-33.0 pg Mean Corpuscular Hemoglobin Concent 31.3 L 32.0-36.0 g/dL Red Cell Distribution Width 15.2 11.0-15.5 % Platelet Count 204 130-400 K/uL Mean Platelet Volume 9.6 7.5-10.5 fL Immature Granulocyte % (Auto) 1.2 H 0-1 % Neutrophils (%) (Auto) 85.1 H 40.0-77.0 % Lymphocytes (%) (Auto) 6.2 L 21.0-51.0 % Monocytes (%) (Auto) 6.6 3.0-13.0 % Eosinophils (%) (Auto) 0.8 0.0-8.0 % Basophils (%) (Auto) 0.1 0.0-5.0 % Neutrophils # (Auto) 6.6 1.8-7.7 K/uL Lymphocytes # (Auto) 0.5 L 1.0-4.8 K/uL Monocytes # (Auto) 0.5 0.1-1.0 K/uL Eosinophils # (Auto) 0.06 0.00-0.70 K/uL Basophils # (Auto) 0.01 0.00-0.20 K/uL Absolute Immature Granulocyte (auto 0.09 0-1 K/uL Nucleated Red Blood Cells 0.0 0.0-0.19 % Sodium Level 155 H 136-145 mmol/L Potassium Level 3.0 *L 3.5-5.1 mmol/L Chloride Level 115 H 101-111 mmol/L Carbon Dioxide Level 25 21-32 mmol/L Blood Urea Nitrogen 79 *H 7-18 mg/dL Creatinine 3.0 H 0.5-1.0 mg/dL Glomerular Filtration Rate Calc 15 >90 mL/min Random Glucose 88 70-105 mg/dL Total Calcium 7.6 L 8.5-10.1 mg/dL Blood Gas Specimen Type Arterial Arterial Blood pH 7.268 L 7.350-7.450 Arterial Blood Partial Pressure CO2 39 32-45 mmHg Arterial Blood Partial Pressure O2 319.5 *H 83.0-108.0 mmHg Arterial Blood HCO3 17.4 L 21.0-28.0 mmol/L Arterial Blood Oxygen Saturation 99.1 H 94.0-98.0 % Arterial Blood Base Excess -8.8 L -2.0-3.0 mmol/L Hemoglobin (Blood Gas) 10.3 L 12.0-16.0 g/dL Sodium (Blood Gas) 150 H 136-145 MMOL/L Bedside Potassium (Blood Gas) 3.1 L 3.4-4.5 MMOL/L Bedside Chloride (Blood Gas) 121 *H 98-107 MMOL/L Bedside Glucose (Blood Gas) 99 H 65-95 MG/DL Bedside Ionized Calcium (Blood Gas) 1.03 L 1.15-1.33 MMOL/L Bedside Lactic Acid (Blood Gas) 1.59 H 0.36-0.75 MMOL/L Blood Gas Temperature 37.0 35.5-37.0 CELSIUS Blood Gas Vent Mode AC ROOM AIR FiO2 100.0 % Blood Gas Specimen Comment [employer] Urine Random Creatinine 66.67 30-135 mg/dL Urine Random Sodium 31 L 40-220 mmol/l Whole Blood Glucose 104 70-110 MG/DL Test 04/29/24 04:06 Range/Units Activated Partial Thromboplast Time 31.3 # 26.3-35.5 SEC Iron Level 12 L 50-170 mcg/dL Total Iron Binding Capacity 156 L 250-450 mcg/dL Percent Iron Saturation 7.6 L 22-44 % Current Medications Medications (Trade) Dose Ordered Sig/[place] Route PRN Reason Start Time Stop Time Status Last Admin Dose Admin Acetaminophen (TYLenol 325MG TAB) 650 mg Q4H PRN PO TEMPERATURE GREATER THAN 101.5 04/24/24 16:30 05/24/24 16:29 Acetaminophen (TYLenol 325MG TAB) 650 mg Q6H PRN PO MILD PAIN (1-3) 04/24/24 16:30 05/24/24 16:29 Acetaminophen (Tylenol 325mg Suppository) 325 mg Q4H PRN RC TEMPERATURE GREATER THAN 101.5 04/24/24 16:30 05/24/24 16:29 04/25/24 14:02 325 MG Acetaminophen (Tylenol 325mg Suppository) 325 mg Q6H PRN RC MILD PAIN (1-3) 04/24/24 16:30 05/24/24 16:29 Aspirin (Aspirin 81mg Ec Tab) 81 mg DAILY PO 04/27/24 09:00 05/27/24 08:59 04/27/24 09:24 81 MG Cefepime HCl (MAXipime 1 GM vial) 1 gm Q24H IVPB 04/26/24 10:30 05/06/24 10:29 04/30/24 11:19 1 GM Dextrose 1,000 ml @ 100 mls/hr Q10H IV 04/30/24 09:30 05/30/24 09:29 04/30/24 09:30 125 MLS/HR Ferric Sodium Gluconate Complex 125 mg/Sodium Chloride 110 ml @ 110 mls/hr Q24H IV 04/30/24 09:30 05/02/24 10:29 04/30/24 09:30 110 MLS/HR Heparin Sodium (Porcine) (HEParin 5,000 UNIT VIAL) *calculation based on ACTUAL B... AD PRN IV HEPARIN PROTOCOL 04/26/24 17:00 05/26/24 16:59 Heparin Sodium/ Dextrose 250 ml @ 0 mls/hr Q6H IV 04/26/24 17:00 04/29/24 10:28 DC 04/27/24 14:45 15 MLS/HR Lactated Ringer's 1,000 ml @ 150 mls/hr Q6H40M IV 04/28/24 12:00 04/29/24 11:36 DC 04/29/24 08:00 150 MLS/HR Metoprolol Tartrate (loprESSOR) 5 mg Q6H PRN IV ARRHYTHMIA 04/27/24 23:00 05/27/24 22:59 Metoprolol Tartrate (loprESSOR) 12.5 mg BID PO 04/26/24 21:00 05/26/24 20:59 04/29/24 08:33 12.5 MG Metronidazole (flaGYL) 500 mg Q8H PO 04/26/24 10:30 04/27/24 22:59 DC 04/27/24 17:47 500 MG Metronidazole/ Sodium Chloride (flaGYL) 500 mg Q8H IV 04/28/24 02:30 05/08/24 02:29 04/30/24 11:36 500 MG Morphine Sulfate (morPHINE 2MG SYG) 2 mg Q4H PRN IVP SEVERE PAIN (7-10) 04/29/24 21:30 05/06/24 21:29 04/29/24 22:09 2 MG Morphine Sulfate (morPHINE 2MG SYG) 2 mg Q4H PRN IVP SEVERE PAIN (7-10) 04/24/24 16:30 04/29/24 19:29 DC 04/29/24 15:38 2 MG Ondansetron HCl (zoFRAN 4MG INJ) 4 mg Q6H PRN IVP NAUSEA/VOMITING 04/24/24 16:30 05/24/24 16:29 04/29/24 18:29 4 MG Pantoprazole Sodium (PROTonix 40MG INJ) 40 mg DAILY IVP 04/25/24 09:00 05/25/24 08:59 04/30/24 08:09 40 MG Sodium Chloride 1,000 ml @ 75 mls/hr [id number] IV 04/24/24 16:30 04/28/24 11:48 DC 04/28/24 04:02 75 MLS/HR Sodium Chloride 1,000 ml @ 125 mls/hr Q8H IV 04/29/24 12:00 04/30/24 09:15 DC 04/30/24 04:16 125 MLS/HR DIAGNOSTICS / RADIOLOGY: [ ] ASSESSMENT: NSTEMI with abnormal EKG, POA Large ventral hernia, POA Small bowel obstruction, POA Ischemic bowel, POA Intractable nausea/vomiting, POA s/p ventral hernia repair with repair of necrotic/ischemic bowel (04/29/24) Hypertensive emergency, resolved POA Hyperglycemia, resolved POA Hypernatremia Leukocytosis with left shift,improving POA Hypokalemia, POA Acute renal failure, improving POA PLAN: Patient upgraded to PCCU Patient will be kept NPO Start D5W at 100 cc/hr Continue NG tube to intermittent suction Continue NPO, advance diet per general surgery General surgery consulted, appreciate recommendations Continue broad-spectrum IV antibiotic due to leukocytosis Continue on antiemetic as needed Continue with pain management We will repeat labs tomorrow GI prophylaxis with Protonix 40 mg IV daily DVT prophylaxis with SCD Disposition: Pending improvement in clinical status and post op course Greater than 35 minutes ICU time spent in care of patient CHELY MATTHEWS MD Apr 30, 2024 12:30
[2024-05-01] VITALS (34 sets, daily range): BP systolic 105–149; BP diastolic 40–68; PULSE 68–87; RESP 14–40; TEMP 98–99.1; O2SAT 94–96
--- NOTE | 2024-05-01 00:03 | PN ---
INFECTIOUS DISEASE FOLLOWUP NOTE DATE OF SERVICE: 04/29/2024 SUBJECTIVE: The patient is seen and examined at bedside today. The patient has no fever, no chills. Continues with abdominal pain. The patient is passing gas and having bowel movement. The patient is scheduled to undergo surgery today. No dysuria or hematuria. PHYSICAL EXAMINATION: VITAL SIGNS: Temperature 97.0. EYES: No icterus. Pupils equal and reactive. HENT: No oral thrush seen. Moist oral mucosa. NECK: Supple, no JVD, no thyromegaly. LUNGS: Good air entry. No rales, no rhonchi. CARDIOVASCULAR: S1, S2 regular. No murmur heard. ABDOMEN: Full, soft, obese. Hernia involving both lower quadrants, which is tender. ____. CENTRAL NERVOUS SYSTEM: Awake, alert and oriented x 3. No focal deficits. SKIN: No rashes, no itchiness. LYMPHATIC: No peripheral lymphadenopathy. BACK: No deformity, no pressure ulcer. HEMATOLOGIC: No bleeding or petechial lesions seen. MUSCULOSKELETAL: No joint swelling, erythema or tenderness. ASSESSMENT: An 83-year-old female admitted with abdominal pain. CURRENT PROBLEMS: Include: * Septic shock. * Incarcerated ventral hernia. * Abdominal pain. * Hypokalemia. * Debility. PLAN: * Continue cefepime. * Continue Flagyl. * Continue pain management. * Continue antiemetic. * Continue IV fluids. * Monitor electrolytes. TID: [id number] RECEIPT: [id number]
[2024-05-01 08:16] LABS: BASOPHILS # (AUTO) 0.01 K/uL (0.00-0.20); BASOPHILS % (AUTO) 0.1 % (0.0-5.0); EOSINOPHILS # (AUTO) 0.29 K/uL (0.00-0.70); EOSINOPHILS % (AUTO) 3.6 % (0.0-8.0); IMMATURE GRANULOCYTE ABSOLUTE 0.18 K/uL (0-1); LYMPHOCYTES # (AUTO) 0.5 K/uL (1.0-4.8); LYMPHOCYTES % (AUTO) 5.9 % (21.0-51.0); MEAN CORPUSCULAR HEMOGLOBIN 29.9 pg (27.0-33.0); MEAN CORPUSCULAR HGB CONC 32.3 g/dL (32.0-36.0); MEAN CORPUSCULAR VOLUME 92.5 fL (79-99); MONOCYTES # (AUTO) 0.4 K/uL (0.1-1.0); MONOCYTES % (AUTO) 4.5 % (3.0-13.0); NEUTROPHILS # (AUTO) 6.7 K/uL (1.8-7.7); NEUTROPHILS % (AUTO) 83.6 % (40.0-77.0); PLATELET COUNT (AUTO) 217 K/uL (130-400); RED BLOOD CELL COUNT(AUTO) 2.81 MIL/uL (4.00-5.50); RED CELL DISTRIBUTION WIDTH 15.3 % (11.0-15.5)
[2024-05-01 08:27] LABS: ALBUMIN 1.6 g/dL (3.5-5.0); BILIRUBIN,TOTAL 0.3 mg/dL (0.2-1.0); CREATININE 2.8 mg/dL (0.5-1.0); POTASSIUM 3.1 mmol/L (3.5-5.1); TOTAL PROTEIN, SERUM 4.8 g/dL (6.0-8.3)
--- NOTE | 2024-05-01 10:18 | PN ---
This is a 83-year-old female status post ventral hernia repair with small-bowel resection postop day two by Dr[address] Thapa Interval history: This 83-year-old female seen in the ICU resting Patient's blood pressure better controlled today NG output minimal Bilateral accordion drains with minimal serosanguineous output No flatus or bowel movements reported Patient remains NPO Abdominal pain improving Physical exam General: Awake alert and oriented Heart: Regular rate and rhythm} Lungs: [Clear to auscultation no distress Abdomen: [Incisions clean. Accordion is in place. Assessment : This is a 83-year-old female status post ventral hernia repair with small-bowel resection Plan: Patient to remain NPO We will await for bowel function to return before starting diet Patient to work with physical therapy From surgical standpoint patient cleared for downgrade Dr. Thapa to be updated on patient's status Vitals/Labs Vital Signs Date Time Temp Pulse Resp B/P (MAP) Pulse Ox O2 Delivery O2 Flow Rate FiO2 05/01/24 09:00 70 16 118/46 97 Nasal Cannula 2.0 05/01/24 08:00 99.1 05/01/24 07:38 28 Laboratory Tests 05/01/24 07:49 Medications Current Medications Sodium Chloride 1,000 ml @ 0 mls/hr ONCE ONCE IV Last administered on 04/24/24at 11:26; Start 04/24/24 at 11:00; Stop 04/24/24 at 11:01; Status DC Morphine Sulfate 4 mg ONCE ONCE IVP Last administered on 04/24/24at 11:26; Start 04/24/24 at 11:00; Stop 04/24/24 at 11:01; Status DC Ondansetron HCl 4 mg ONCE ONCE IVP Last administered on 04/24/24at 11:26; Start 04/24/24 at 11:00; Stop 04/24/24 at 11:01; Status DC Ondansetron HCl 4 mg ONCE ONCE IVP Last administered on 04/24/24at 11:53; Start 04/24/24 at 12:00; Stop 04/24/24 at 12:01; Status DC Iohexol 75 ml STK-MED ONCE IV; Start 04/24/24 at 13:22; Stop 04/24/24 at 13:23; Status DC Iohexol 35,000 mg STK-MED ONCE IV; Start 04/24/24 at 13:23; Stop 04/24/24 at 13:24; Status DC Metoclopramide HCl 10 mg ONCE ONCE IVP Last administered on 04/24/24at 14:34; Start 04/24/24 at 14:30; Stop 04/24/24 at 14:31; Status DC Morphine Sulfate 4 mg ONCE ONCE IVP Last administered on 04/24/24at 14:34; Start 04/24/24 at 14:30; Stop 04/24/24 at 14:31; Status DC Ondansetron HCl 4 mg Q6H PRN IVP Last administered on 04/29/24at 18:29; Start 04/24/24 at 16:30; Stop 05/24/24 at 16:29 Morphine Sulfate 2 mg Q4H PRN IVP Last administered on 04/29/24at 15:38; Start 04/24/24 at 16:30; Stop 04/29/24 at 19:29; Status DC Sodium Chloride 1,000 ml @ 75 mls/hr [id number] IV Last administered on 04/28/24at 04:02; Start 04/24/24 at 16:30; Stop 04/28/24 at 11:48; Status DC Acetaminophen 650 mg Q4H PRN PO; Start 04/24/24 at 16:30; Stop 05/24/24 at 16:29 Acetaminophen 650 mg Q6H PRN PO; Start 04/24/24 at 16:30; Stop 05/24/24 at 16:29 Acetaminophen 325 mg Q6H PRN RC; Start 04/24/24 at 16:30; Stop 05/24/24 at 16:29 Acetaminophen 325 mg Q4H PRN RC Last administered on 04/25/24at 14:02; Start 04/24/24 at 16:30; Stop 05/24/24 at 16:29 Pantoprazole Sodium 40 mg DAILY IVP Last administered on 05/01/24at 08:18; Start 04/25/24 at 09:00; Stop 05/25/24 at 08:59 Lorazepam 0.5 mg ONCE ONCE IVP Last administered on 04/26/24at 01:21; Start 04/26/24 at 01:30; Stop 04/26/24 at 01:31; Status DC Cefepime HCl 1 gm Q24H IVPB Last administered on 04/30/24at 11:19; Start 04/26/24 at 10:30; Stop 05/06/24 at 10:29 Metronidazole 500 mg Q8H PO Last administered on 04/27/24at 17:47; Start 04/26/24 at 10:30; Stop 04/27/24 at 22:59; Status DC Heparin Sodium (Porcine) *calculation based on ACTUAL B... AD PRN IV; Start 04/26/24 at 17:00; Stop 05/26/24 at 16:59 Heparin Sodium/ Dextrose 250 ml @ 0 mls/hr Q6H IV Last administered on 04/27/24at 14:45; Start 04/26/24 at 17:00; Stop 04/29/24 at 10:28; Status DC Metoprolol Tartrate 12.5 mg BID PO Last administered on 04/29/24at 08:33; Start 04/26/24 at 21:00; Stop 05/26/24 at 20:59 Aspirin 325 mg ONCE ONCE PO Last administered on 04/26/24at 16:51; Start 04/26/24 at 16:30; Stop 04/26/24 at 16:31; Status DC Aspirin 81 mg DAILY PO Last administered on 04/27/24at 09:24; Start 04/27/24 at 09:00; Stop 05/27/24 at 08:59 Heparin Sodium (Porcine) 5,000 unit ONCE ONCE IV Last administered on 04/26/24at 17:10; Start 04/26/24 at 17:00; Stop 04/26/24 at 17:01; Status DC Metronidazole/ Sodium Chloride 500 mg Q8H IV Last administered on 05/01/24at 02:29; Start 04/28/24 at 02:30; Stop 05/08/24 at 02:29 Metoprolol Tartrate 5 mg Q6H PRN IV; Start 04/27/24 at 23:00; Stop 05/27/24 at 22:59 Lactated Ringer's 1,000 ml @ 150 mls/hr Q6H40M IV Last administered on 04/29/24at 08:00; Start 04/28/24 at 12:00; Stop 04/29/24 at 11:36; Status DC Norepinephrine Bitartrate 4 mg STK-MED ONCE IV; Start 04/29/24 at 11:21; Stop 04/29/24 at 11:22; Status DC Norepinephrine Bitartrate 4 mg STK-MED ONCE IV; Start 04/29/24 at 11:21; Stop 04/29/24 at 11:22; Status DC Propofol 200 mg STK-MED ONCE IV; Start 04/29/24 at 11:22; Stop 04/29/24 at 11:22; Status DC Succinylcholine Chloride 200 mg STK-MED ONCE .ROUTE; Start 04/29/24 at 11:22; Stop 04/29/24 at 11:22; Status DC Etomidate 20 mg STK-MED ONCE .ROUTE; Start 04/29/24 at 11:24; Stop 04/29/24 at 11:24; Status DC Nitroglycerin/ Dextrose 1 ml @ As Directed STK-MED ONCE .ROUTE; Start 04/29/24 at 11:25; Stop 04/29/24 at 11:25; Status DC Sodium Chloride 1,000 ml @ 125 mls/hr Q8H IV Last administered on 04/30/24at 04:16; Start 04/29/24 at 12:00; Stop 04/30/24 at 09:15; Status DC Fentanyl Citrate 100 mcg STK-MED ONCE .ROUTE; Start 04/29/24 at 11:46; Stop 04/29/24 at 11:46; Status DC Rocuronium [place] 50 mg STK-MED ONCE .ROUTE; Start 04/29/24 at 12:06; Stop 04/29/24 at 12:06; Status DC Sodium Bicarbonate 50 meq STK-MED ONCE .ROUTE; Start 04/29/24 at 13:45; Stop 04/29/24 at 13:45; Status DC Albumin Human 250 ml @ As Directed STK-MED ONCE IV; Start 04/29/24 at 14:07; Stop 04/29/24 at 14:08; Status DC Ropivacaine 150 mg STK-MED ONCE .ROUTE; Start 04/29/24 at 14:36; Stop 04/29/24 at 14:36; Status DC Ondansetron HCl 4 mg STK-MED ONCE .ROUTE; Start 04/29/24 at 15:03; Stop 04/29/24 at 15:03; Status DC Fentanyl Citrate 100 mcg STK-MED ONCE .ROUTE; Start 04/29/24 at 15:07; Stop 04/29/24 at 15:07; Status DC Morphine Sulfate 2 mg Q4H PRN IVP Last administered on 04/29/24at 22:09; Start 04/29/24 at 21:30; Stop 05/06/24 at 21:29 Dextrose 1,000 ml @ 100 mls/hr Q10H IV Last administered on 05/01/24at 08:18; Start 04/30/24 at 09:30; Stop 05/30/24 at 09:29 Ferric Sodium Gluconate Complex 125 mg/Sodium Chloride 110 ml @ 110 mls/hr Q24H IV Last administered on 04/30/24at 09:30; Start 04/30/24 at 09:30; Stop 05/02/24 at 10:29 DONNIE BA Jr. May 01, 2024 10:18
--- NOTE | 2024-05-01 13:42 | PN ---
[facility] PROGRESS NOTE Date of Service: May 01, 2024 Time of Service: 13:34 SUBJECTIVE: 83-year-old female admitted for early abdominal obstruction and large ventral hernia. Patient continues with nonreducible hernia. Her abdomen is tender. Surgeon recommended cardiac clearance and found that patient has abnormal T-wave on the 12 lead EKG and troponin was elevated in [id number]. Patient was upgraded to PCCU as we have to start patient on heparin drip. At this time, senior j2ee developer evaluated the patient this morning and indicated that patient is poor candidate for invasive cardiac procedure due to acute renal failure and bowel obstruction. We will await for 2D echo. At this time, we will also await for further surgical recommendation. 03/29 No acute event reported overnight. Patient continues with abdominal tenderness. She will remain NPO. 03/30 Pt seen at bedside, no acute events overnight. She is s/p ventral hernia repair with resection and repair of ischemic/necrotic bowel post op day 1. She reports her pain is well controlled, she denies BM or flatus. NG tube still in place to intermittent suction. Abdominal binder is in place. She is hypernatremic, not currently on IV fluids, will start D5 at 100 cc/hr to decrease sodium at 0.5 cc/hr rate. Potassium low at 3.0, will replete according to protocol, creatinine continued to improve from 3.8 down to 3.0, remainder of her labs are relatively unremarkable. Diet and NG tube management per General Surgery 03/31 Pt seen at bedside, no acute events overnight. Pt has no complaints today, reports her pain is controlled. She is still NPO with NG tube in place. Denies BM or flatus, continues NPO per general surgery. She was started on D5W at 100 cc/hr yesterday due to hypernatremia at 155, no improvement in sodium this am. Will increase D5W to 125cc/hr and repeat Na at 4pm. Hgb decreased from 9.3 down to 8.4, potassium increased from 3.0 up to 3.1, will continue to replete according to protocol, creatinine improved from 3.0 down to 2.8. Iron is low, patient started on Ferric sodium gluconate per nephrology. Remainder of vitals and labs are relatively unremarkable. REVIEW OF SYSTEMS 12 point ROS negative unless noted in HPI PHYSICAL EXAM GENERAL APPEARANCE: The patient is awake, alert, and oriented, in no acute cardiopulmonary distress. NEUROLOGICAL: Cranial nerves II-XII grossly intact. Motor is 5/5 in bilateral upper and lower extremities proximal to distal. No sensory deficits. HEENT: Face is symmetric. Pupils are equal and reactive. Extraocular movements are intact. NECK: Supple. No JVD. No thyromegaly. No submental, submandibular, pre- /postauricular, occipital or supraclavicular lymphadenopathy. CHEST: Normal chest expansion. No Telemetry. LUNGS: Absence of any rales, rhonchi or any wheezing. CARDIOVASCULAR: Regular. S1 and S2 normal. No appreciable rubs, murmurs or gallops. ABDOMEN: Soft, nontender, and nondistended. There is no rebound, voluntary guarding, or rigidity. : Deferred. No Sykes. EXTREMITIES: Non-edematous and not cyanotic. No clubbing. Good capillary refill. SKIN: No skin breakdown. Vital Signs (last 8hr) Date Time Temp Pulse Resp B/P (MAP) Pulse Ox O2 Delivery O2 Flow Rate FiO2 05/01/24 09:00 70 16 118/46 97 Nasal Cannula 2.0 05/01/24 08:00 99.1 77 19 135/54 97 Nasal Cannula 2.0 05/01/24 07:38 96 Nasal Cannula* 2 28 05/01/24 07:00 75 17 134/53 97 Nasal Cannula 2.0 05/01/24 06:00 78 40 138/57 98 Nasal Cannula 2.0 LABS: Laboratory: Test 05/01/24 07:49 04/30/24 21:10 04/29/24 13:41 Range/Units White Blood Count 8.0 4.8-10.8 K/uL Red Blood Count 2.81 L 4.00-5.50 MIL/uL Hemoglobin 8.4 L 12.0-16.0 g/dL Hematocrit 26.0 L 36-48 % Mean Corpuscular Volume 92.5 79-99 fL Mean Corpuscular Hemoglobin 29.9 27.0-33.0 pg Mean Corpuscular Hemoglobin Concent 32.3 32.0-36.0 g/dL Red Cell Distribution Width 15.3 11.0-15.5 % Platelet Count 217 130-400 K/uL Mean Platelet Volume 9.9 7.5-10.5 fL Immature Granulocyte % (Auto) 2.3 H 0-1 % Neutrophils (%) (Auto) 83.6 H 40.0-77.0 % Lymphocytes (%) (Auto) 5.9 L 21.0-51.0 % Monocytes (%) (Auto) 4.5 3.0-13.0 % Eosinophils (%) (Auto) 3.6 0.0-8.0 % Basophils (%) (Auto) 0.1 0.0-5.0 % Neutrophils # (Auto) 6.7 1.8-7.7 K/uL Lymphocytes # (Auto) 0.5 L 1.0-4.8 K/uL Monocytes # (Auto) 0.4 0.1-1.0 K/uL Eosinophils # (Auto) 0.29 0.00-0.70 K/uL Basophils # (Auto) 0.01 0.00-0.20 K/uL Absolute Immature Granulocyte (auto 0.18 0-1 K/uL Nucleated Red Blood Cells 0.0 0.0-0.19 % Sodium Level 155 H 136-145 mmol/L Potassium Level 3.1 L 3.5-5.1 mmol/L Chloride Level 118 H 101-111 mmol/L Carbon Dioxide Level 28 21-32 mmol/L Blood Urea Nitrogen 66 H 7-18 mg/dL Creatinine 2.8 H 0.5-1.0 mg/dL Glomerular Filtration Rate Calc 16 >90 mL/min Random Glucose 228 H 70-105 mg/dL Total Calcium 7.8 L 8.5-10.1 mg/dL Total Bilirubin 0.3 0.2-1.0 mg/dL Aspartate Amino Transf (AST/SGOT) 17 10-37 U/L Alanine Aminotransferase (ALT/SGPT) 9 L 12-78 U/L Alkaline Phosphatase 41 L 50-136 U/L Total Protein 4.8 L 6.0-8.3 g/dL Albumin 1.6 L 3.5-5.0 g/dL Whole Blood Glucose 150 H 70-110 MG/DL Blood Gas Specimen Type Arterial Arterial Blood pH 7.268 L 7.350-7.450 Arterial Blood Partial Pressure CO2 39 32-45 mmHg Arterial Blood Partial Pressure O2 319.5 *H 83.0-108.0 mmHg Arterial Blood HCO3 17.4 L 21.0-28.0 mmol/L Arterial Blood Oxygen Saturation 99.1 H 94.0-98.0 % Arterial Blood Base Excess -8.8 L -2.0-3.0 mmol/L Hemoglobin (Blood Gas) 10.3 L 12.0-16.0 g/dL Sodium (Blood Gas) 150 H 136-145 MMOL/L Bedside Potassium (Blood Gas) 3.1 L 3.4-4.5 MMOL/L Bedside Chloride (Blood Gas) 121 *H 98-107 MMOL/L Bedside Glucose (Blood Gas) 99 H 65-95 MG/DL Bedside Ionized Calcium (Blood Gas) 1.03 L 1.15-1.33 MMOL/L Bedside Lactic Acid (Blood Gas) 1.59 H 0.36-0.75 MMOL/L Blood Gas Temperature 37.0 35.5-37.0 CELSIUS Blood Gas Vent Mode AC ROOM AIR FiO2 100.0 % Blood Gas Specimen Comment HELP DESK SPECIALIST Current Medications Medications (Trade) Dose Ordered Sig/[place] Route PRN Reason Start Time Stop Time Status Last Admin Dose Admin Acetaminophen (TYLenol 325MG TAB) 650 mg Q4H PRN PO TEMPERATURE GREATER THAN 101.5 04/24/24 16:30 05/24/24 16:29 Acetaminophen (TYLenol 325MG TAB) 650 mg Q6H PRN PO MILD PAIN (1-3) 04/24/24 16:30 05/24/24 16:29 Acetaminophen (Tylenol 325mg Suppository) 325 mg Q4H PRN RC TEMPERATURE GREATER THAN 101.5 04/24/24 16:30 05/24/24 16:29 04/25/24 14:02 325 MG Acetaminophen (Tylenol 325mg Suppository) 325 mg Q6H PRN RC MILD PAIN (1-3) 04/24/24 16:30 05/24/24 16:29 Aspirin (Aspirin 81mg Ec Tab) 81 mg DAILY PO 04/27/24 09:00 05/27/24 08:59 04/27/24 09:24 81 MG Cefepime HCl (MAXipime 1 GM vial) 1 gm Q24H IVPB 04/26/24 10:30 05/06/24 10:29 05/01/24 11:01 1 GM Dextrose 1,000 ml @ 100 mls/hr Q10H IV 04/30/24 09:30 05/30/24 09:29 05/01/24 08:18 100 MLS/HR Ferric Sodium Gluconate Complex 125 mg/Sodium Chloride 110 ml @ 110 mls/hr Q24H IV 04/30/24 09:30 05/02/24 10:29 04/30/24 09:30 110 MLS/HR Heparin Sodium (Porcine) (HEParin 5,000 UNIT VIAL) *calculation based on ACTUAL B... AD PRN IV HEPARIN PROTOCOL 04/26/24 17:00 05/26/24 16:59 Heparin Sodium/ Dextrose 250 ml @ 0 mls/hr Q6H IV 04/26/24 17:00 04/29/24 10:28 DC 04/27/24 14:45 15 MLS/HR Lactated Ringer's 1,000 ml @ 150 mls/hr Q6H40M IV 04/28/24 12:00 04/29/24 11:36 DC 04/29/24 08:00 150 MLS/HR Metoprolol Tartrate (loprESSOR) 5 mg Q6H PRN IV ARRHYTHMIA 04/27/24 23:00 05/27/24 22:59 Metoprolol Tartrate (loprESSOR) 12.5 mg BID PO 04/26/24 21:00 05/26/24 20:59 04/29/24 08:33 12.5 MG Metronidazole (flaGYL) 500 mg Q8H PO 04/26/24 10:30 04/27/24 22:59 DC 04/27/24 17:47 500 MG Metronidazole/ Sodium Chloride (flaGYL) 500 mg Q8H IV 04/28/24 02:30 05/08/24 02:29 05/01/24 11:01 500 MG Morphine Sulfate (morPHINE 2MG SYG) 2 mg Q4H PRN IVP SEVERE PAIN (7-10) 04/29/24 21:30 05/06/24 21:29 04/29/24 22:09 2 MG Morphine Sulfate (morPHINE 2MG SYG) 2 mg Q4H PRN IVP SEVERE PAIN (7-10) 04/24/24 16:30 04/29/24 19:29 DC 04/29/24 15:38 2 MG Ondansetron HCl (zoFRAN 4MG INJ) 4 mg Q6H PRN IVP NAUSEA/VOMITING 04/24/24 16:30 05/24/24 16:29 04/29/24 18:29 4 MG Pantoprazole Sodium (PROTonix 40MG INJ) 40 mg DAILY IVP 04/25/24 09:00 05/25/24 08:59 05/01/24 08:18 40 MG Sodium Chloride 1,000 ml @ 75 mls/hr [id number] IV 04/24/24 16:30 04/28/24 11:48 DC 04/28/24 04:02 75 MLS/HR Sodium Chloride 1,000 ml @ 125 mls/hr Q8H IV 04/29/24 12:00 04/30/24 09:15 DC 04/30/24 04:16 125 MLS/HR DIAGNOSTICS / RADIOLOGY: [ ] ASSESSMENT: NSTEMI with abnormal EKG, POA Large ventral hernia, POA Small bowel obstruction, POA Ischemic bowel, POA Intractable nausea/vomiting, POA s/p ventral hernia repair with repair of necrotic/ischemic bowel (04/29/24) Hypertensive emergency, resolved POA Hyperglycemia, resolved POA Hypernatremia Leukocytosis with left shift,improving POA Hypokalemia, POA Acute renal failure, improving POA PLAN: Continue NPO with NG at intermittent suction Increase D5W to 125 cc/hr General surgery consulted, appreciate recommendations Continue broad-spectrum IV antibiotic due to leukocytosis Continue on antiemetic as needed Continue with pain management We will repeat labs tomorrow GI prophylaxis with Protonix 40 mg IV daily DVT prophylaxis with SCD PT to start working with patient Disposition: Pending improvement in clinical status and post op course Greater than 35 minutes ICU time spent in care of patient CHELY MATTHEWS MD May 01, 2024 13:42
--- NOTE | 2024-05-01 16:39 | PN ---
INFECTIOUS DISEASE PROGRESS NOTE Date of Service: May 01, 2024 SUBJECTIVE: Patient was seen and examined in the ICU room 219. Patient is awake, alert and able to answer basic questions. Patient is s/p open ventral hernia repair and small-bowel resection on 04/29/2024. No fever this morning, temperature is 98.4. Patient continues with NG tube to low intermittent suction. Two VALERIO drains intact. Continues on cefepime and metronidazole. BUN and creatinine continues to improve, BUN is 66 and creatinine of 2.8. We will continue to monitor patient. PHYSICAL EXAM EYES: Anicteric. Pupils equal and reactive. HENT: No oral thrush seen, moist Oral mucosa. NG tube. NECK: Supple, no JVD or thyromegaly. LUNGS: Good air entry. No rales, no rhonchi. CARDIOVASCULAR: S1, S2 regular. No murmur heard. GI: Soft, tender, no organomegaly. Abdominal Surgical incision. Two Hemovac drains. CENTRAL NERVOUS SYSTEM: Awake, alert, oriented x 3. SKIN: No rashes, no swelling. LYMPHATICS: No peripheral lymphadenopathy. MUSCULOSKELETAL: No joint swelling, erythema or tenderness. EXTREMITIES: No cyanosis or clubbing. BACK: No deformity, no pressure ulcer. GENITOURINARY: No dysuria or hematuria. Sykes catheter. Vital Sign (Last 12 Hours) 05/01/24 05/01/24 05/01/24 05/01/24 04:48 05:00 05:30 06:00 Pulse 78 78 76 78 Resp 18 19 16 40 B/P (MAP) 137/51 127/48 149/62 138/57 Pulse Ox 96 95 98 98 O2 Delivery Nasal Cannula Nasal Cannula Nasal Cannula Nasal Cannula O2 Flow Rate 2.0 2.0 2.0 2.0 05/01/24 05/01/24 05/01/24 05/01/24 07:00 07:38 08:00 09:00 Temp 99.1 Pulse 75 77 70 Resp 17 19 16 B/P (MAP) 134/53 135/54 118/46 Pulse Ox 97 96 97 97 O2 Delivery Nasal Cannula Nasal Cannula* Nasal Cannula Nasal Cannula O2 Flow Rate 2.0 2 2.0 2.0 FiO2 28 05/01/24 05/01/24 05/01/24 05/01/24 10:00 11:00 12:00 13:00 Temp 98.4 Pulse 79 75 75 78 Resp 24 19 18 20 B/P (MAP) 137/55 130/53 120/49 123/49 Pulse Ox 99 97 97 98 O2 Delivery Nasal Cannula Nasal Cannula Nasal Cannula Nasal Cannula O2 Flow Rate 2.0 2.0 2.0 2.0 05/01/24 05/01/24 05/01/24 14:00 15:00 16:00 Temp 98.6 Pulse 79 76 84 Resp 14 21 23 B/P (MAP) 139/53 136/52 133/68 Pulse Ox 98 98 96 O2 Delivery Nasal Cannula Nasal Cannula Nasal Cannula O2 Flow Rate 2.0 2.0 2.0 Intake & Output (last 24hrs) 04/30/24 04/30/24 05/01/24 15:00 23:00 07:00 Intake Total 843.0 ml 821.0 ml 824.0 ml Output Total 50 ml 120 ml 700 ml Balance 793.0 ml 701.0 ml 124.0 ml LABS: Laboratory: Test 05/01/24 07:49 04/30/24 21:10 Range/Units White Blood Count 8.0 4.8-10.8 K/uL Red Blood Count 2.81 L 4.00-5.50 MIL/uL Hemoglobin 8.4 L 12.0-16.0 g/dL Hematocrit 26.0 L 36-48 % Mean Corpuscular Volume 92.5 79-99 fL Mean Corpuscular Hemoglobin 29.9 27.0-33.0 pg Mean Corpuscular Hemoglobin Concent 32.3 32.0-36.0 g/dL Red Cell Distribution Width 15.3 11.0-15.5 % Platelet Count 217 130-400 K/uL Mean Platelet Volume 9.9 7.5-10.5 fL Immature Granulocyte % (Auto) 2.3 H 0-1 % Neutrophils (%) (Auto) 83.6 H 40.0-77.0 % Lymphocytes (%) (Auto) 5.9 L 21.0-51.0 % Monocytes (%) (Auto) 4.5 3.0-13.0 % Eosinophils (%) (Auto) 3.6 0.0-8.0 % Basophils (%) (Auto) 0.1 0.0-5.0 % Neutrophils # (Auto) 6.7 1.8-7.7 K/uL Lymphocytes # (Auto) 0.5 L 1.0-4.8 K/uL Monocytes # (Auto) 0.4 0.1-1.0 K/uL Eosinophils # (Auto) 0.29 0.00-0.70 K/uL Basophils # (Auto) 0.01 0.00-0.20 K/uL Absolute Immature Granulocyte (auto 0.18 0-1 K/uL Nucleated Red Blood Cells 0.0 0.0-0.19 % Sodium Level 155 H 136-145 mmol/L Potassium Level 3.1 L 3.5-5.1 mmol/L Chloride Level 118 H 101-111 mmol/L Carbon Dioxide Level 28 21-32 mmol/L Blood Urea Nitrogen 66 H 7-18 mg/dL Creatinine 2.8 H 0.5-1.0 mg/dL Glomerular Filtration Rate Calc 16 >90 mL/min Random Glucose 228 H 70-105 mg/dL Total Calcium 7.8 L 8.5-10.1 mg/dL Total Bilirubin 0.3 0.2-1.0 mg/dL Aspartate Amino Transf (AST/SGOT) 17 10-37 U/L Alanine Aminotransferase (ALT/SGPT) 9 L 12-78 U/L Alkaline Phosphatase 41 L 50-136 U/L Total Protein 4.8 L 6.0-8.3 g/dL Albumin 1.6 L 3.5-5.0 g/dL Whole Blood Glucose 150 H 70-110 MG/DL ASSESSMENT: Abdominal pain. Incarcerated ventral hernia, s/p open ventral hernia repair and small-bowel resection on 04/29/2024. Sepsis. Acute renal failure. Leukocytosis. Elevated troponin. Non-STEMI postop. PLAN: Continue cefepime. Continue metronidazole. Incision care as recommended by General surgery. Hemovac drain care. NG tube currently to low intermittent suction. Continue pain management. Machine Joint Cutter following patient. Avoid nephrotoxic medications. Will monitor electrolytes. This case was reviewed and discussed with my supervising physician and the above assessment and plan was formulated and agreed upon. ATTESTATION BY PHYSICIAN I have seen and examined the patient. I reviewed the documentation, medical decision making, and treatment plan as noted by the mid-level provider above. I agree with the findings and plan of care. NAHUM BROWN MD, MIRTA L TECHNOLOGY ADOPTION MANAGER May 01, 2024 16:39
--- NOTE | 2024-05-01 18:00 | PN ---
SUBJECTIVE: An 83-year-old female who initially presented, found to have bowel obstruction. The patient has had acute renal failure in the hospital. The patient also with significant electrolyte abnormalities. She did undergo abdominal hernia repair. She continues with the NG tube in place, and the patient is being seen as a followup visit for all of the above. REVIEW OF SYSTEMS: GENERAL: She is feeling weak and tired. HEENT: No change in vision. No change in hearing. CARDIOVASCULAR: There is no current chest pain or palpitations. PULMONARY: There is no shortness of breath. GASTROINTESTINAL: As described above. MUSCULOSKELETAL: Complains of weakness. PHYSICAL EXAMINATION: VITAL SIGNS: Blood pressure 123/49, pulse in the 70s. GENERAL: Chronically ill female, elderly, lying in bed on medical floor. HEENT: Head is atraumatic. Pupils equal, roving to light. Oropharynx is without exudate. Nares clear. NECK: There is no JVP. There is no thyromegaly, no mass. CARDIOVASCULAR: Regular. There is no S3, S4 gallop. LUNGS: Coarse with equal thoracic movement. ABDOMEN: Soft, nondistended, nontender. EXTREMITIES: Reveal no clubbing, no cyanosis. NEUROLOGIC: She is awake. She is alert. LABORATORY DATA: Sodium 155, BUN 66, creatinine is 2.8, potassium is 3. Hemoglobin 8.4, hematocrit 26. IMPRESSION: * Renal dysfunction. * Electrolyte abnormalities. * History of bowel obstruction, status post surgery. * Anemia. PLAN: The patient remains on the D5W. The patient also receiving IV iron for the anemia. The patient's workup is ongoing per Surgical Service. We will continue to monitor closely. The patient and family at the bedside. Multiple questions were answered. TID: [id number] RECEIPT: [id number]
[2024-05-01 18:20] LABS: CREATININE 2.7 mg/dL (0.5-1.0); POTASSIUM 3.2 mmol/L (3.5-5.1)
[2024-05-02] VITALS (11 sets, daily range): BP systolic 122–159; BP diastolic 38–70; PULSE 71–85; RESP 16–39; TEMP 98.6–98.8; O2SAT 98
--- NOTE | 2024-05-02 09:51 | PN ---
SUBJECTIVE: An 83-year-old female who initially presented with small bowel obstruction. The patient underwent hernia repair. She continues with the NG tube in place. She has had acute renal failure in the hospital as well as significant electrolyte abnormalities. The patient's creatinine continues to stabilize. She remains on the D5W for the hypernatremia and the patient is being seen for all of the above. REVIEW OF SYSTEMS: GENERAL: She is feeling improved. HEENT: No change in vision. No change in hearing, no nasal discharge, no sore throat. CARDIOVASCULAR: There is no current chest pain or palpitations. PULMONARY: There is no shortness of breath. GASTROINTESTINAL: As described above. MUSCULOSKELETAL: Complains of weakness. PHYSICAL EXAMINATION:. VITAL SIGNS: Blood pressure 123/78, pulse in the 70s. GENERAL: She is chronically ill female, elderly, lying in bed on medical floor. HEENT: Head is atraumatic. Pupils equal, roving to light. Oropharynx is without exudate. Nares clear. NECK: There is no JVP. There is no thyromegaly, no mass. CARDIOVASCULAR: Regular. There is no S3, S4 gallop. LUNGS: Coarse with equal thoracic movement. ABDOMEN: Soft, nondistended, nontender. EXTREMITIES: Reveal no clubbing, no cyanosis. NEUROLOGIC: She is awake. She is alert. LABORATORY DATA: Sodium 153, potassium 3.2, BUN 62, creatinine is 2.7. Hemoglobin 8.4, hematocrit 26. IMPRESSION: * Renal dysfunction. * Small bowel obstruction, status post surgery. * Electrolyte abnormalities. * Diabetes mellitus. PLAN: The patient's renal function continues to slowly improve. The patient with significant hypernatremia and continues with the D5W. The patient's electrolytes have all been aggressively repleted. The patient is for transfer out to medical floor. Workup is ongoing per surgical service. We will follow closely. TID: [id number] RECEIPT: [id number]
[2024-05-02 10:22] LABS: HEMATOCRIT 25.7 % (36-48); MEAN CORPUSCULAR HGB CONC 31.1 g/dL (32.0-36.0); MEAN CORPUSCULAR VOLUME 96.3 fL (79-99); PLATELET COUNT (AUTO) 194 K/uL (130-400); RED BLOOD CELL COUNT(AUTO) 2.67 MIL/uL (4.00-5.50); RED CELL DISTRIBUTION WIDTH 15.2 % (11.0-15.5)
[2024-05-02 10:41] LABS: ALBUMIN 1.5 g/dL (3.5-5.0); BILIRUBIN,TOTAL 0.3 mg/dL (0.2-1.0); CREATININE 2.4 mg/dL (0.5-1.0); MAGNESIUM 2.2 mg/dL (1.80-2.40); POTASSIUM 3.2 mmol/L (3.5-5.1); TOTAL PROTEIN, SERUM 4.8 g/dL (6.0-8.3)
--- NOTE | 2024-05-02 10:57 | PN ---
This is an 83-year-old female status post ventral hernia repair with small-bowel resection postop day [address] Thapa Interval history This 83-year-old female seen in her room Midline incision with some serosanguineous drainage in the lower portion but no signs of infection Patient is still with no flatus reported today Labs unremarkable Vitals stable Patient is still NPO Assessment and plan Nursing to perform wound care and dressing changes b.i.d. Dr. Thapa to be updated on patient's status Patient is allowed to rinse with water Continue to monitor output from VALERIO drain as well as NG tube No immediate surgical intervention planned Nursing report any further acute events Vitals/Labs Vital Signs Date Time Temp Pulse Resp B/P (MAP) Pulse Ox O2 Delivery O2 Flow Rate FiO2 05/02/24 03:00 71 23 122/38 97 05/01/24 23:55 98.2 05/01/24 20:00 Nasal Cannula* 2 28 Laboratory Tests 05/01/24 17:43 05/02/24 10:10 Medications Current Medications Sodium Chloride 1,000 ml @ 0 mls/hr ONCE ONCE IV Last administered on 04/24/24at 11:26; Start 04/24/24 at 11:00; Stop 04/24/24 at 11:01; Status DC Morphine Sulfate 4 mg ONCE ONCE IVP Last administered on 04/24/24at 11:26; Start 04/24/24 at 11:00; Stop 04/24/24 at 11:01; Status DC Ondansetron HCl 4 mg ONCE ONCE IVP Last administered on 04/24/24at 11:26; Start 04/24/24 at 11:00; Stop 04/24/24 at 11:01; Status DC Ondansetron HCl 4 mg ONCE ONCE IVP Last administered on 04/24/24at 11:53; Start 04/24/24 at 12:00; Stop 04/24/24 at 12:01; Status DC Iohexol 75 ml STK-MED ONCE IV; Start 04/24/24 at 13:22; Stop 04/24/24 at 13:23; Status DC Iohexol 35,000 mg STK-MED ONCE IV; Start 04/24/24 at 13:23; Stop 04/24/24 at 13:24; Status DC Metoclopramide HCl 10 mg ONCE ONCE IVP Last administered on 04/24/24at 14:34; Start 04/24/24 at 14:30; Stop 04/24/24 at 14:31; Status DC Morphine Sulfate 4 mg ONCE ONCE IVP Last administered on 04/24/24at 14:34; Start 04/24/24 at 14:30; Stop 04/24/24 at 14:31; Status DC Ondansetron HCl 4 mg Q6H PRN IVP Last administered on 04/29/24at 18:29; Start 04/24/24 at 16:30; Stop 05/24/24 at 16:29 Morphine Sulfate 2 mg Q4H PRN IVP Last administered on 04/29/24at 15:38; Start 04/24/24 at 16:30; Stop 04/29/24 at 19:29; Status DC Sodium Chloride 1,000 ml @ 75 mls/hr [id number] IV Last administered on 04/28/24at 04:02; Start 04/24/24 at 16:30; Stop 04/28/24 at 11:48; Status DC Acetaminophen 650 mg Q4H PRN PO; Start 04/24/24 at 16:30; Stop 05/24/24 at 16:29 Acetaminophen 650 mg Q6H PRN PO; Start 04/24/24 at 16:30; Stop 05/24/24 at 16:29 Acetaminophen 325 mg Q6H PRN RC; Start 04/24/24 at 16:30; Stop 05/24/24 at 16:29 Acetaminophen 325 mg Q4H PRN RC Last administered on 04/25/24at 14:02; Start 04/24/24 at 16:30; Stop 05/24/24 at 16:29 Pantoprazole Sodium 40 mg DAILY IVP Last administered on 05/02/24at 08:35; Start 04/25/24 at 09:00; Stop 05/25/24 at 08:59 Lorazepam 0.5 mg ONCE ONCE IVP Last administered on 04/26/24at 01:21; Start 04/26/24 at 01:30; Stop 04/26/24 at 01:31; Status DC Cefepime HCl 1 gm Q24H IVPB Last administered on 05/01/24at 11:01; Start 04/26/24 at 10:30; Stop 05/06/24 at 10:29 Metronidazole 500 mg Q8H PO Last administered on 04/27/24at 17:47; Start 04/26/24 at 10:30; Stop 04/27/24 at 22:59; Status DC Heparin Sodium (Porcine) *calculation based on ACTUAL B... AD PRN IV; Start 04/26/24 at 17:00; Stop 05/02/24 at 07:23; Status DC Heparin Sodium/ Dextrose 250 ml @ 0 mls/hr Q6H IV Last administered on 04/27/24at 14:45; Start 04/26/24 at 17:00; Stop 04/29/24 at 10:28; Status DC Metoprolol Tartrate 12.5 mg BID PO Last administered on 05/02/24at 08:35; Start 04/26/24 at 21:00; Stop 05/26/24 at 20:59 Aspirin 325 mg ONCE ONCE PO Last administered on 04/26/24at 16:51; Start 04/26/24 at 16:30; Stop 04/26/24 at 16:31; Status DC Aspirin 81 mg DAILY PO Last administered on 05/02/24at 08:35; Start 04/27/24 at 09:00; Stop 05/27/24 at 08:59 Heparin Sodium (Porcine) 5,000 unit ONCE ONCE IV Last administered on 04/26/24at 17:10; Start 04/26/24 at 17:00; Stop 04/26/24 at 17:01; Status DC Metronidazole/ Sodium Chloride 500 mg Q8H IV Last administered on 05/02/24at 02:26; Start 04/28/24 at 02:30; Stop 05/02/24 at 07:24; Status DC Metoprolol Tartrate 5 mg Q6H PRN IV; Start 04/27/24 at 23:00; Stop 05/27/24 at 22:59 Lactated Ringer's 1,000 ml @ 150 mls/hr Q6H40M IV Last administered on 04/29/24at 08:00; Start 04/28/24 at 12:00; Stop 04/29/24 at 11:36; Status DC Norepinephrine Bitartrate 4 mg STK-MED ONCE IV; Start 04/29/24 at 11:21; Stop 04/29/24 at 11:22; Status DC Norepinephrine Bitartrate 4 mg STK-MED ONCE IV; Start 04/29/24 at 11:21; Stop 04/29/24 at 11:22; Status DC Propofol 200 mg STK-MED ONCE IV; Start 04/29/24 at 11:22; Stop 04/29/24 at 11:22; Status DC Succinylcholine Chloride 200 mg STK-MED ONCE .ROUTE; Start 04/29/24 at 11:22; Stop 04/29/24 at 11:22; Status DC Etomidate 20 mg STK-MED ONCE .ROUTE; Start 04/29/24 at 11:24; Stop 04/29/24 at 11:24; Status DC Nitroglycerin/ Dextrose 1 ml @ As Directed STK-MED ONCE .ROUTE; Start 04/29/24 at 11:25; Stop 04/29/24 at 11:25; Status DC Sodium Chloride 1,000 ml @ 125 mls/hr Q8H IV Last administered on 04/30/24at 04:16; Start 04/29/24 at 12:00; Stop 04/30/24 at 09:15; Status DC Fentanyl Citrate 100 mcg STK-MED ONCE .ROUTE; Start 04/29/24 at 11:46; Stop 04/29/24 at 11:46; Status DC Rocuronium Beaman 50 mg STK-MED ONCE .ROUTE; Start 04/29/24 at 12:06; Stop 04/29/24 at 12:06; Status DC Sodium Bicarbonate 50 meq STK-MED ONCE .ROUTE; Start 04/29/24 at 13:45; Stop 04/29/24 at 13:45; Status DC Albumin Human 250 ml @ As Directed STK-MED ONCE IV; Start 04/29/24 at 14:07; Stop 04/29/24 at 14:08; Status DC Ropivacaine 150 mg STK-MED ONCE .ROUTE; Start 04/29/24 at 14:36; Stop 04/29/24 at 14:36; Status DC Ondansetron HCl 4 mg STK-MED ONCE .ROUTE; Start 04/29/24 at 15:03; Stop 04/29/24 at 15:03; Status DC Fentanyl Citrate 100 mcg STK-MED ONCE .ROUTE; Start 04/29/24 at 15:07; Stop 04/29/24 at 15:07; Status DC Morphine Sulfate 2 mg Q4H PRN IVP Last administered on 05/01/24at 16:19; Start 04/29/24 at 21:30; Stop 05/06/24 at 21:29 Dextrose 1,000 ml @ 125 mls/hr Q8H IV Last administered on 05/01/24at 19:39; Start 04/30/24 at 09:30; Stop 05/30/24 at 09:29 Ferric Sodium Gluconate Complex 125 mg/Sodium Chloride 110 ml @ 110 mls/hr Q24H IV Last administered on 05/02/24at 08:48; Start 04/30/24 at 09:30; Stop 05/02/24 at 10:29; Status DC DONNIE BA Jr. May 02, 2024 10:57
[2024-05-02 11:28] LABS: BAND NEUTROPHILS % (MANUAL) 2 % (0-2); EOSINOPHILS % (MANUAL) 2 % (1-6); LYMPHOCYTES % (MANUAL) 2 % (22-44); MAN.DIFF COMMENT-IMPRESSION MANUAL DIFFERENTIAL; MONOCYTES % (MANUAL) 2 % (2-9); PLATELET MORPHOLOGY COMMENT ADEQUATE; SEGMENTED NEUTROPHILS % 92 % (40-70); TOTAL CELLS COUNTED 100
--- NOTE | 2024-05-02 13:00 | PN ---
[facility] PROGRESS NOTE Date of Service: May 02, 2024 Time of Service: 12:58 SUBJECTIVE: 83-year-old female admitted for early abdominal obstruction and large ventral hernia. Patient continues with nonreducible hernia. Her abdomen is tender. Surgeon recommended cardiac clearance and found that patient has abnormal T-wave on the 12 lead EKG and troponin was [place] [id number]. Patient was upgraded to PCCU as we have to start patient on heparin drip. At this time, electronic organ mechanic evaluated the patient this morning and indicated that patient is poor candidate for invasive cardiac procedure due to acute renal failure and bowel obstruction. We will await for 2D echo. At this time, we will also await for further surgical recommendation. 03/29 No acute event reported overnight. Patient continues with abdominal tenderness. She will remain NPO. 03/30 Pt seen at bedside, no acute events overnight. She is s/p ventral hernia repair with resection and repair of ischemic/necrotic bowel post op day 1. She reports her pain is well controlled, she denies BM or flatus. NG tube still in place to intermittent suction. Abdominal binder is in place. She is hypernatremic, not currently on IV fluids, will start D5 at 100 cc/hr to decrease sodium at 0.5 cc/hr rate. Potassium low at 3.0, will replete according to protocol, creatinine continued to improve from 3.8 down to 3.0, remainder of her labs are relatively unremarkable. Diet and NG tube management per General Surgery 03/31 Pt seen at bedside, no acute events overnight. Pt has no complaints today, reports her pain is controlled. She is still NPO with NG tube in place. Denies BM or flatus, continues NPO per general surgery. She was started on D5W at 100 cc/hr yesterday due to hypernatremia at 155, no improvement in sodium this am. Will increase D5W to 125cc/hr and repeat Na at 4pm. Hgb decreased from 9.3 down to 8.4, potassium increased from 3.0 up to 3.1, will continue to replete according to protocol, creatinine improved from 3.0 down to 2.8. Iron is low, patient started on Ferric sodium gluconate per nephrology. Remainder of vitals and labs are relatively unremarkable. 05/02 the patient has been seen and examined during my rounding, no acute events overnight, remains comfortable in bed, NG tube to intermittent suction, output off 150 mL overnight. BP 122/38, afebrile, saturating 94% on 2 L via nasal cannula, no nausea, no vomiting, no abdominal pain, getting good pain control with current medical management. REVIEW OF SYSTEMS 12 point ROS negative unless noted in HPI PHYSICAL EXAM GENERAL APPEARANCE: The patient is awake, alert, and oriented, in no acute cardiopulmonary distress. NEUROLOGICAL: Cranial nerves II-XII grossly intact. Motor is 5/5 in bilateral upper and lower extremities proximal to distal. No sensory deficits. HEENT: Face is symmetric. Pupils are equal and reactive. Extraocular movements are intact. NECK: Supple. No JVD. No thyromegaly. No submental, submandibular, pre-/ postauricular, occipital or supraclavicular lymphadenopathy. CHEST: Normal chest expansion. No Telemetry. LUNGS: Absence of any rales, rhonchi or any wheezing. CARDIOVASCULAR: Regular. S1 and S2 normal. No appreciable rubs, murmurs or gallops. ABDOMEN: Soft, nontender, and nondistended. There is no rebound, voluntary guarding, or rigidity. : Deferred. No Sykes. EXTREMITIES: Non-edematous and not cyanotic. No clubbing. Good capillary refill. SKIN: No skin breakdown. LABS: Laboratory: Test 05/02/24 10:10 05/01/24 07:49 04/30/24 21:10 Range/Units White Blood Count 9.0 4.8-10.8 K/uL Red Blood Count 2.67 L 4.00-5.50 MIL/uL Hemoglobin 8.0 L 12.0-16.0 g/dL Hematocrit 25.7 L 36-48 % Mean Corpuscular Volume 96.3 79-99 fL Mean Corpuscular Hemoglobin 30.0 27.0-33.0 pg Mean Corpuscular Hemoglobin Concent 31.1 L 32.0-36.0 g/dL Red Cell Distribution Width 15.2 11.0-15.5 % Platelet Count 194 130-400 K/uL Mean Platelet Volume 10.1 7.5-10.5 fL Segmented Neutrophils % 92 H 40-70 % Band Neutrophils % 2 0-2 % Lymphocytes % (Manual) 2 L 22-44 % Monocytes % (Manual) 2 2-9 % Eosinophils % (Manual) 2 1-6 % Nucleated Red Blood Cells 0.0 0.0-0.19 % Differential Comment MANUAL DIFFERENTIAL White Cell Morphology Comment Platelet Morphology Comment ADEQUATE Red Blood Cell Morphology HYPOCHROM CELLS 2+ Sodium Level 148 H 136-145 mmol/L Potassium Level 3.2 L 3.5-5.1 mmol/L Chloride Level 114 H 101-111 mmol/L Carbon Dioxide Level 28 21-32 mmol/L Blood Urea Nitrogen 49 H 7-18 mg/dL Creatinine 2.4 H 0.5-1.0 mg/dL Glomerular Filtration Rate Calc 20 >90 mL/min Random Glucose 165 H 70-105 mg/dL Total Calcium 7.7 L 8.5-10.1 mg/dL Magnesium Level 2.20 1.80-2.40 mg/dL Total Bilirubin 0.3 0.2-1.0 mg/dL Aspartate Amino Transf (AST/SGOT) 18 10-37 U/L Alanine Aminotransferase (ALT/SGPT) 7 L 12-78 U/L Alkaline Phosphatase 36 L 50-136 U/L Total Protein 4.8 L 6.0-8.3 g/dL Albumin 1.5 L 3.5-5.0 g/dL Immature Granulocyte % (Auto) 2.3 H 0-1 % Neutrophils (%) (Auto) 83.6 H 40.0-77.0 % Lymphocytes (%) (Auto) 5.9 L 21.0-51.0 % Monocytes (%) (Auto) 4.5 3.0-13.0 % Eosinophils (%) (Auto) 3.6 0.0-8.0 % Basophils (%) (Auto) 0.1 0.0-5.0 % Neutrophils # (Auto) 6.7 1.8-7.7 K/uL Lymphocytes # (Auto) 0.5 L 1.0-4.8 K/uL Monocytes # (Auto) 0.4 0.1-1.0 K/uL Eosinophils # (Auto) 0.29 0.00-0.70 K/uL Basophils # (Auto) 0.01 0.00-0.20 K/uL Absolute Immature Granulocyte (auto 0.18 0-1 K/uL Whole Blood Glucose 150 H 70-110 MG/DL Current Medications Medications (Trade) Dose Ordered Sig/[place] Route PRN Reason Start Time Stop Time Status Last Admin Dose Admin Acetaminophen (TYLenol 325MG TAB) 650 mg Q4H PRN PO TEMPERATURE GREATER THAN 101.5 04/24/24 16:30 05/24/24 16:29 Acetaminophen (TYLenol 325MG TAB) 650 mg Q6H PRN PO MILD PAIN (1-3) 04/24/24 16:30 05/24/24 16:29 Acetaminophen (Tylenol 325mg Suppository) 325 mg Q4H PRN RC TEMPERATURE GREATER THAN 101.5 04/24/24 16:30 05/24/24 16:29 04/25/24 14:02 325 MG Acetaminophen (Tylenol 325mg Suppository) 325 mg Q6H PRN RC MILD PAIN (1-3) 04/24/24 16:30 05/24/24 16:29 Aspirin (Aspirin 81mg Ec Tab) 81 mg DAILY PO 04/27/24 09:00 05/27/24 08:59 05/02/24 08:35 81 MG Cefepime HCl (MAXipime 1 GM vial) 1 gm Q24H IVPB 04/26/24 10:30 05/06/24 10:29 05/02/24 11:38 1 GM Dextrose 1,000 ml @ 125 mls/hr Q8H IV 04/30/24 09:30 05/30/24 09:29 05/01/24 19:39 125 MLS/HR Ferric Sodium Gluconate Complex 125 mg/Sodium Chloride 110 ml @ 110 mls/hr Q24H IV 04/30/24 09:30 05/02/24 10:29 DC 05/02/24 08:48 110 MLS/HR Heparin Sodium (Porcine) (HEParin 5,000 UNIT VIAL) *calculation based on ACTUAL B... AD PRN IV HEPARIN PROTOCOL 04/26/24 17:00 05/02/24 07:23 DC Heparin Sodium/ Dextrose 250 ml @ 0 mls/hr Q6H IV 04/26/24 17:00 04/29/24 10:28 DC 04/27/24 14:45 15 MLS/HR Lactated Ringer's 1,000 ml @ 150 mls/hr Q6H40M IV 04/28/24 12:00 04/29/24 11:36 DC 04/29/24 08:00 150 MLS/HR Metoprolol Tartrate (loprESSOR) 5 mg Q6H PRN IV ARRHYTHMIA 04/27/24 23:00 05/27/24 22:59 Metoprolol Tartrate (loprESSOR) 12.5 mg BID PO 04/26/24 21:00 05/26/24 20:59 05/02/24 08:35 12.5 MG Metronidazole (flaGYL) 500 mg Q8H PO 04/26/24 10:30 04/27/24 22:59 DC 04/27/24 17:47 500 MG Metronidazole/ Sodium Chloride (flaGYL) 500 mg Q8H IV 04/28/24 02:30 05/02/24 07:24 DC 05/02/24 02:26 500 MG Morphine Sulfate (morPHINE 2MG SYG) 2 mg Q4H PRN IVP SEVERE PAIN (7-10) 04/29/24 21:30 05/06/24 21:29 05/01/24 16:19 2 MG Morphine Sulfate (morPHINE 2MG SYG) 2 mg Q4H PRN IVP SEVERE PAIN (7-10) 04/24/24 16:30 04/29/24 19:29 DC 04/29/24 15:38 2 MG Ondansetron HCl (zoFRAN 4MG INJ) 4 mg Q6H PRN IVP NAUSEA/VOMITING 04/24/24 16:30 05/24/24 16:29 04/29/24 18:29 4 MG Pantoprazole Sodium (PROTonix 40MG INJ) 40 mg DAILY IVP 04/25/24 09:00 05/25/24 08:59 05/02/24 08:35 40 MG Sodium Chloride 1,000 ml @ 75 mls/hr [id number] IV 04/24/24 16:30 04/28/24 11:48 DC 04/28/24 04:02 75 MLS/HR Sodium Chloride 1,000 ml @ 125 mls/hr Q8H IV 04/29/24 12:00 04/30/24 09:15 DC 04/30/24 04:16 125 MLS/HR DIAGNOSTICS / RADIOLOGY: [ ] ASSESSMENT: NSTEMI with abnormal EKG, POA Large ventral hernia, POA Small bowel obstruction, POA Ischemic bowel, POA Intractable nausea/vomiting, POA s/p ventral hernia repair with repair of necrotic/ischemic bowel (04/29/24) Hypertensive emergency, resolved POA Hyperglycemia, resolved POA Hypernatremia Leukocytosis with left shift,improving POA Hypokalemia, POA Acute renal failure, improving POA PLAN: Continue NPO with NG at intermittent suction Continue supportive care with IV fluids General surgery consulted, appreciate recommendations Continue broad-spectrum IV antibiotic due to leukocytosis Continue on antiemetic as needed Continue with pain management We will repeat labs tomorrow GI prophylaxis with Protonix 40 mg IV daily DVT prophylaxis with SCD PT to start working with patient Disposition: The patient remains admitted to the ICU, possible downgraded to the progressive care unit, continue with the NG tube connected to intermittent suction, continue the patient NPO. Continue to follow surgical input and recommendations. Continue broad-spectrum IV antibiotics, pain medication with the adjustment as needed, follow a.m. labs and replace electrolytes IV per protocol. No family members at bedside during my visit to discuss further goals of care, plan of action discussed with the patient, questions answered. Total ICU time spent greater than 30 minutes. ALDEN DINH MD May 02, 2024 12:59
--- NOTE | 2024-05-02 14:01 | PN ---
INFECTIOUS DISEASE PROGRESS NOTE Date of Service: May 02, 2024 SUBJECTIVE: Patient was seen and examined in the ICU room 219. Patient is awake, alert and answered basic questions well. Patient is s/p open ventral hernia repair and small-bowel resection on 04/29/2024. Patient is sitting up on the bedside chair and tolerating well. Patient continues with a NG tube to low intermittent suction and being clamped for medication administration. Patient is still not passing gases. Per report patient will be allowed sips of water by mouth. Remains afebrile, temperature is 98.2 and a WBC of 9.0. The two VALERIO drains intact. Continues on cefepime and metronidazole. We will continue to monitor patient. PHYSICAL EXAM EYES: Anicteric. Pupils equal and reactive. HENT: No oral thrush seen, moist Oral mucosa. NG tube. NECK: Supple, no JVD or thyromegaly. LUNGS: Good air entry. No rales, no rhonchi. CARDIOVASCULAR: S1, S2 regular. No murmur heard. ABDOMEN: Soft, tender, no organomegaly. Abdominal Surgical incision. Two VALERIO drains. CENTRAL NERVOUS SYSTEM: Awake, alert, oriented x 3. SKIN: No rashes, no swelling. LYMPHATICS: No peripheral lymphadenopathy. MUSCULOSKELETAL: No joint swelling, erythema or tenderness. EXTREMITIES: No cyanosis or clubbing. BACK: No deformity, no pressure ulcer. GENITOURINARY: No dysuria or hematuria. Sykes catheter. Vital Sign (Last 12 Hours) 05/02/24 03:00 Pulse 71 Resp 23 B/P (MAP) 122/38 Pulse Ox 97 Intake & Output (last 24hrs) 05/01/24 05/01/24 05/02/24 15:00 23:00 07:00 Intake Total 971.0 ml 734.0 ml 1350.0 ml Output Total 750 ml 720 ml Balance 971.0 ml -16.0 ml 630.0 ml LABS: Laboratory: Test 05/02/24 10:10 05/01/24 07:49 04/30/24 21:10 Range/Units White Blood Count 9.0 4.8-10.8 K/uL Red Blood Count 2.67 L 4.00-5.50 MIL/uL Hemoglobin 8.0 L 12.0-16.0 g/dL Hematocrit 25.7 L 36-48 % Mean Corpuscular Volume 96.3 79-99 fL Mean Corpuscular Hemoglobin 30.0 27.0-33.0 pg Mean Corpuscular Hemoglobin Concent 31.1 L 32.0-36.0 g/dL Red Cell Distribution Width 15.2 11.0-15.5 % Platelet Count 194 130-400 K/uL Mean Platelet Volume 10.1 7.5-10.5 fL Segmented Neutrophils % 92 H 40-70 % Band Neutrophils % 2 0-2 % Lymphocytes % (Manual) 2 L 22-44 % Monocytes % (Manual) 2 2-9 % Eosinophils % (Manual) 2 1-6 % Nucleated Red Blood Cells 0.0 0.0-0.19 % Differential Comment MANUAL DIFFERENTIAL White Cell Morphology Comment Platelet Morphology Comment ADEQUATE Red Blood Cell Morphology HYPOCHROM CELLS 2+ Sodium Level 148 H 136-145 mmol/L Potassium Level 3.2 L 3.5-5.1 mmol/L Chloride Level 114 H 101-111 mmol/L Carbon Dioxide Level 28 21-32 mmol/L Blood Urea Nitrogen 49 H 7-18 mg/dL Creatinine 2.4 H 0.5-1.0 mg/dL Glomerular Filtration Rate Calc 20 >90 mL/min Random Glucose 165 H 70-105 mg/dL Total Calcium 7.7 L 8.5-10.1 mg/dL Magnesium Level 2.20 1.80-2.40 mg/dL Total Bilirubin 0.3 0.2-1.0 mg/dL Aspartate Amino Transf (AST/SGOT) 18 10-37 U/L Alanine Aminotransferase (ALT/SGPT) 7 L 12-78 U/L Alkaline Phosphatase 36 L 50-136 U/L Total Protein 4.8 L 6.0-8.3 g/dL Albumin 1.5 L 3.5-5.0 g/dL Immature Granulocyte % (Auto) 2.3 H 0-1 % Neutrophils (%) (Auto) 83.6 H 40.0-77.0 % Lymphocytes (%) (Auto) 5.9 L 21.0-51.0 % Monocytes (%) (Auto) 4.5 3.0-13.0 % Eosinophils (%) (Auto) 3.6 0.0-8.0 % Basophils (%) (Auto) 0.1 0.0-5.0 % Neutrophils # (Auto) 6.7 1.8-7.7 K/uL Lymphocytes # (Auto) 0.5 L 1.0-4.8 K/uL Monocytes # (Auto) 0.4 0.1-1.0 K/uL Eosinophils # (Auto) 0.29 0.00-0.70 K/uL Basophils # (Auto) 0.01 0.00-0.20 K/uL Absolute Immature Granulocyte (auto 0.18 0-1 K/uL Whole Blood Glucose 150 H 70-110 MG/DL ASSESSMENT: Abdominal pain. Incarcerated ventral hernia, s/p open ventral hernia repair and small-bowel resection on 04/29/2024. Sepsis. Acute renal failure. Leukocytosis. Elevated troponin. Non-STEMI postop. PLAN: Continue cefepime. Continue metronidazole. Incision care as recommended by General surgery. Hemovac drain care. NG tube currently to low intermittent suction. Continue pain management. Room Manager following patient. Avoid nephrotoxic medications. Will monitor electrolytes. This case was reviewed and discussed with my supervising physician and the above assessment and plan was formulated and agreed upon. ATTESTATION BY PHYSICIAN I have seen and examined the patient. I reviewed the documentation, medical decision making, and treatment plan as noted by the mid-level provider above. I agree with the findings and plan of care. NAHUM BROWN MD, MIRTA L [facility] May 02, 2024 14:01
[2024-05-02] MEDS ORDERED: PoTASSium chloRIDE 20MEQ/100ML 100 ML IV PRN (16:00)
[2024-05-02] MEDS ORDERED: PoTASSium chloRIDE 20MEQ ER 20 MEQ ERTAB PO PRN (16:00)
[2024-05-02] MEDS: guaiFENesin-DM 200/20MG 10ML PO PRN (18:36)
[2024-05-03] VITALS (16 sets, daily range): BP systolic 128–153; BP diastolic 53–78; PULSE 67–87; RESP 17–23; TEMP 98.1–99.2; O2SAT 95–96
[2024-05-03 04:28] LABS: BASOPHILS # (AUTO) 0.01 K/uL (0.00-0.20); BASOPHILS % (AUTO) 0.1 % (0.0-5.0); EOSINOPHILS # (AUTO) 0.31 K/uL (0.00-0.70); EOSINOPHILS % (AUTO) 3.4 % (0.0-8.0); HEMATOCRIT 25.8 % (36-48); IMMATURE GRANULOCYTE ABSOLUTE 0.19 K/uL (0-1); LYMPHOCYTES # (AUTO) 0.5 K/uL (1.0-4.8); MEAN CORPUSCULAR HEMOGLOBIN 29.4 pg (27.0-33.0); MEAN CORPUSCULAR VOLUME 94.9 fL (79-99); MONOCYTES # (AUTO) 0.3 K/uL (0.1-1.0); MONOCYTES % (AUTO) 3.8 % (3.0-13.0); NEUTROPHILS # (AUTO) 7.7 K/uL (1.8-7.7); NEUTROPHILS % (AUTO) 85.6 % (40.0-77.0); PLATELET COUNT (AUTO) 236 K/uL (130-400); RED BLOOD CELL COUNT(AUTO) 2.72 MIL/uL (4.00-5.50)
[2024-05-03] MEDS: PoTASSium chl 10% ELIXIR 20MEQ 20 MEQ/15 ML UDCUP PO PRN (05:40)
[2024-05-03 08:20] LABS: ALBUMIN 1.6 g/dL (3.5-5.0); BILIRUBIN,TOTAL 0.3 mg/dL (0.2-1.0); CREATININE 2.2 mg/dL (0.5-1.0); TOTAL PROTEIN, SERUM 5.2 g/dL (6.0-8.3)
--- NOTE | 2024-05-03 09:00 | NUR ---
WOUND DRESSING DONE PER ORDER, ASYMPTOMATIC SURGICAL/DRAIN SITE.
--- NOTE | 2024-05-03 09:18 | PN ---
SUBJECTIVE: An 83-year-old female with history of small bowel obstruction. The patient with underlying hernia repair. She remains n.p.o. in the ICU. The patient has had acute renal failure in the hospital as well as significant electrolyte abnormalities and the patient is being seen for all of the above. REVIEW OF SYSTEMS: GENERAL: She is feeling weak and tired. HEENT: No change in vision. No change in hearing. CARDIOVASCULAR: No current chest pains or palpitations. PULMONARY: No shortness of breath. GASTROINTESTINAL: As described above. MUSCULOSKELETAL: Complains of weakness. PHYSICAL EXAMINATION: VITAL SIGNS: Blood pressure 152/73, pulse in the 70s. GENERAL: She is a chronically ill female, elderly, lying in bed on the medical floor. HEENT: Head is atraumatic. Pupils equal, roving to light. Oropharynx is without exudate. Nares are clear. NECK: There is no JVP. There is no thyromegaly. CARDIOVASCULAR: Regular. There is no S3, S4, gallop. LUNGS: Coarse with equal thoracic movement. ABDOMEN: Soft, nondistended, nontender. EXTREMITIES: There is no edema. NEUROLOGIC: She is awake, she is alert. LABORATORY DATA: Hemoglobin 8, hematocrit 25. Sodium 149, potassium is 3. BUN 46, creatinine 2.2. IMPRESSION: * Acute renal failure. * Electrolyte abnormalities. * Dehydration. * Small-bowel obstruction, status post hernia repair. * Diabetes mellitus. PLAN: The patient with persistent hypernatremia. We will increase the D5W to 150 mL per hour. The patient's potassium has been aggressively repleted. Workup is ongoing per surgical service. Creatinine continues to stabilize. All labs will be repeated in the morning. TID: [id number] RECEIPT: [id number]
--- NOTE | 2024-05-03 10:26 | PN ---
This is an 83-year-old female postop day four for ventral hernia repair with small-bowel resection by Dr. Thapa Interval history This 83-year-old female seen in her room resting Patient is still with no bowel function flatus or bowel movements reported Incisions clean dry and being changed twice daily VALERIO drainage was serosanguineous output Patient working very little with physical therapy Patient otherwise stable reporting hunger GENERAL APPEARANCE: The patient is awake, alert, and oriented, in no acute cardiopulmonary distress. NEUROLOGICAL: Cranial nerves II-XII grossly intact. Motor is 5/5 in bilateral upper and lower extremities proximal to distal. No sensory deficits. HEENT: Face is symmetric. Pupils are equal and reactive. Extraocular movements are intact. NECK: Supple. No JVD. No thyromegaly. No submental, submandibular, pre- /postauricular, occipital or supraclavicular lymphadenopathy. CHEST: Normal chest expansion. No Telemetry. LUNGS: Absence of any rales, rhonchi or any wheezing. CARDIOVASCULAR: Regular. S1 and S2 normal. No appreciable rubs, murmurs or gallops. ABDOMEN: Soft, nontender, and nondistended. There is no rebound, voluntary guarding, or rigidity. : Deferred. No Sykes. EXTREMITIES: Non-edematous and not cyanotic. No clubbing. Good capillary refill. SKIN: No skin breakdown. Assessment and plan Patient to remain NPO with the exception of ice chips and meds Continue with the LIS Stressed the importance of compliance with physical therapy Continue with b.i.d. dressing changes of abdomen Dr. Thapa updated on patient's status and surgical team to follow patient closely. Vitals/Labs Vital Signs Date Time Temp Pulse Resp B/P (MAP) Pulse Ox O2 Delivery O2 Flow Rate FiO2 05/03/24 04:48 98.4 76 17 153/73 96 Room Air 2.0 05/02/24 19:30 28 Laboratory Tests 05/03/24 04:14 Medications Current Medications Sodium Chloride 1,000 ml @ 0 mls/hr ONCE ONCE IV Last administered on 04/24/24at 11:26; Start 04/24/24 at 11:00; Stop 04/24/24 at 11:01; Status DC Morphine Sulfate 4 mg ONCE ONCE IVP Last administered on 04/24/24at 11:26; Start 04/24/24 at 11:00; Stop 04/24/24 at 11:01; Status DC Ondansetron HCl 4 mg ONCE ONCE IVP Last administered on 04/24/24at 11:26; Start 04/24/24 at 11:00; Stop 04/24/24 at 11:01; Status DC Ondansetron HCl 4 mg ONCE ONCE IVP Last administered on 04/24/24at 11:53; Start 04/24/24 at 12:00; Stop 04/24/24 at 12:01; Status DC Iohexol 75 ml STK-MED ONCE IV; Start 04/24/24 at 13:22; Stop 04/24/24 at 13:23; Status DC Iohexol 35,000 mg STK-MED ONCE IV; Start 04/24/24 at 13:23; Stop 04/24/24 at 13:24; Status DC Metoclopramide HCl 10 mg ONCE ONCE IVP Last administered on 04/24/24at 14:34; Start 04/24/24 at 14:30; Stop 04/24/24 at 14:31; Status DC Morphine Sulfate 4 mg ONCE ONCE IVP Last administered on 04/24/24at 14:34; Start 04/24/24 at 14:30; Stop 04/24/24 at 14:31; Status DC Ondansetron HCl 4 mg Q6H PRN IVP Last administered on 04/29/24at 18:29; Start 04/24/24 at 16:30; Stop 05/24/24 at 16:29 Morphine Sulfate 2 mg Q4H PRN IVP Last administered on 04/29/24at 15:38; Start 04/24/24 at 16:30; Stop 04/29/24 at 19:29; Status DC Sodium Chloride 1,000 ml @ 75 mls/hr [id number] IV Last administered on 04/28/24at 04:02; Start 04/24/24 at 16:30; Stop 04/28/24 at 11:48; Status DC Acetaminophen 650 mg Q4H PRN PO; Start 04/24/24 at 16:30; Stop 05/24/24 at 16:29 Acetaminophen 650 mg Q6H PRN PO; Start 04/24/24 at 16:30; Stop 05/24/24 at 16:29 Acetaminophen 325 mg Q6H PRN RC; Start 04/24/24 at 16:30; Stop 05/24/24 at 16:29 Acetaminophen 325 mg Q4H PRN RC Last administered on 04/25/24at 14:02; Start 04/24/24 at 16:30; Stop 05/24/24 at 16:29 Pantoprazole Sodium 40 mg DAILY IVP Last administered on 05/03/24at 08:57; Start 04/25/24 at 09:00; Stop 05/25/24 at 08:59 Lorazepam 0.5 mg ONCE ONCE IVP Last administered on 04/26/24at 01:21; Start 04/26/24 at 01:30; Stop 04/26/24 at 01:31; Status DC Cefepime HCl 1 gm Q24H IVPB Last administered on 05/03/24at 08:57; Start 04/26/24 at 10:30; Stop 05/06/24 at 10:29 Metronidazole 500 mg Q8H PO Last administered on 04/27/24at 17:47; Start 04/26/24 at 10:30; Stop 04/27/24 at 22:59; Status DC Heparin Sodium (Porcine) *calculation based on ACTUAL B... AD PRN IV; Start 04/26/24 at 17:00; Stop 05/02/24 at 07:23; Status DC Heparin Sodium/ Dextrose 250 ml @ 0 mls/hr Q6H IV Last administered on 04/27/24at 14:45; Start 04/26/24 at 17:00; Stop 04/29/24 at 10:28; Status DC Metoprolol Tartrate 12.5 mg BID PO Last administered on 05/03/24at 08:57; Start 04/26/24 at 21:00; Stop 05/26/24 at 20:59 Aspirin 325 mg ONCE ONCE PO Last administered on 04/26/24at 16:51; Start 04/26/24 at 16:30; Stop 04/26/24 at 16:31; Status DC Aspirin 81 mg DAILY PO Last administered on 05/03/24at 08:57; Start 04/27/24 at 09:00; Stop 05/27/24 at 08:59 Heparin Sodium (Porcine) 5,000 unit ONCE ONCE IV Last administered on 04/26/24at 17:10; Start 04/26/24 at 17:00; Stop 04/26/24 at 17:01; Status DC Metronidazole/ Sodium Chloride 500 mg Q8H IV Last administered on 05/02/24at 02:26; Start 04/28/24 at 02:30; Stop 05/02/24 at 07:24; Status DC Metoprolol Tartrate 5 mg Q6H PRN IV; Start 04/27/24 at 23:00; Stop 05/27/24 at 22:59 Lactated Ringer's 1,000 ml @ 150 mls/hr Q6H40M IV Last administered on 04/29/24at 08:00; Start 04/28/24 at 12:00; Stop 04/29/24 at 11:36; Status DC Norepinephrine Bitartrate 4 mg STK-MED ONCE IV; Start 04/29/24 at 11:21; Stop 04/29/24 at 11:22; Status DC Norepinephrine Bitartrate 4 mg STK-MED ONCE IV; Start 04/29/24 at 11:21; Stop 04/29/24 at 11:22; Status DC Propofol 200 mg STK-MED ONCE IV; Start 04/29/24 at 11:22; Stop 04/29/24 at 11:22; Status DC Succinylcholine Chloride 200 mg STK-MED ONCE .ROUTE; Start 04/29/24 at 11:22; Stop 04/29/24 at 11:22; Status DC Etomidate 20 mg STK-MED ONCE .ROUTE; Start 04/29/24 at 11:24; Stop 04/29/24 at 11:24; Status DC Nitroglycerin/ Dextrose 1 ml @ As Directed STK-MED ONCE .ROUTE; Start 04/29/24 at 11:25; Stop 04/29/24 at 11:25; Status DC Sodium Chloride 1,000 ml @ 125 mls/hr Q8H IV Last administered on 04/30/24at 04:16; Start 04/29/24 at 12:00; Stop 04/30/24 at 09:15; Status DC Fentanyl Citrate 100 mcg STK-MED ONCE .ROUTE; Start 04/29/24 at 11:46; Stop 04/29/24 at 11:46; Status DC Rocuronium [place] 50 mg STK-MED ONCE .ROUTE; Start 04/29/24 at 12:06; Stop 04/29/24 at 12:06; Status DC Sodium Bicarbonate 50 meq STK-MED ONCE .ROUTE; Start 04/29/24 at 13:45; Stop 04/29/24 at 13:45; Status DC Albumin Human 250 ml @ As Directed STK-MED ONCE IV; Start 04/29/24 at 14:07; Stop 04/29/24 at 14:08; Status DC Ropivacaine 150 mg STK-MED ONCE .ROUTE; Start 04/29/24 at 14:36; Stop 04/29/24 at 14:36; Status DC Ondansetron HCl 4 mg STK-MED ONCE .ROUTE; Start 04/29/24 at 15:03; Stop 04/29/24 at 15:03; Status DC Fentanyl Citrate 100 mcg STK-MED ONCE .ROUTE; Start 04/29/24 at 15:07; Stop 04/29/24 at 15:07; Status DC Morphine Sulfate 2 mg Q4H PRN IVP Last administered on 05/01/24at 16:19; Start 04/29/24 at 21:30; Stop 05/06/24 at 21:29 Dextrose 1,000 ml @ 150 mls/hr Q6H40M IV Last administered on 05/03/24at 05:41; Start 04/30/24 at 09:30; Stop 05/30/24 at 09:29 Ferric Sodium Gluconate Complex 125 mg/Sodium Chloride 110 ml @ 110 mls/hr Q24H IV Last administered on 05/02/24at 08:48; Start 04/30/24 at 09:30; Stop 05/02/24 at 10:29; Status DC Potassium Chloride 100 ml @ 100 mls/hr AD PRN IV; Start 05/02/24 at 16:00; Stop 06/01/24 at 15:59 Potassium Chloride 20 meq AD PRN PO Last administered on 05/03/24at 08:58; Start 05/02/24 at 16:00; Stop 06/01/24 at 15:59 Potassium Chloride 20 meq AD PRN PO; Start 05/02/24 at 16:00; Stop 06/01/24 at 15:59 Guaifenesin/ Dextromethorphan 10 ml Q6H PRN PO Last administered on 05/03/24at 08:58; Start 05/02/24 at 18:00; Stop 06/01/24 at 17:59 DONNIE BA Jr. May 03, 2024 10:26
--- NOTE | 2024-05-03 11:21 | PN ---
INFECTIOUS DISEASE PROGRESS NOTE Date of Service: May 03, 2024 SUBJECTIVE: Patient was seen and examined in the ICU room 219. Patient is awake, alert and oriented. Patient is s/p open ventral hernia repair and small-bowel resection on 04/29/2024. During rounding patient asking to be put on a bedpan, stated she feels the urge of having a bowel movement. Patient continues on the NG tube to low intermittent suction and no reports of nausea or vomiting. Patient being allowed sips of water by mouth. No fever , temperature is 98.6 and a WBC 9.0. The two VALERIO drains intact. Continues on cefepime. Patient's daughter visiting at bedside. We will continue to monitor patient. PHYSICAL EXAM EYES: Anicteric. Pupils equal and reactive. HENT: No oral thrush seen, moist Oral mucosa. NG tube. NECK: Supple, no JVD or thyromegaly. LUNGS: Good air entry. No rales, no rhonchi. CARDIOVASCULAR: S1, S2 regular. No murmur heard. ABDOMEN: Soft, tender, no organomegaly. Abdominal Surgical incision. Two VALERIO drains. CENTRAL NERVOUS SYSTEM: Awake, alert, oriented x 3. SKIN: No rashes, no swelling. LYMPHATICS: No peripheral lymphadenopathy. MUSCULOSKELETAL: No joint swelling, erythema or tenderness. EXTREMITIES: No cyanosis or clubbing. BACK: No deformity, no pressure ulcer. GENITOURINARY: No dysuria or hematuria. Sykes catheter. Vital Sign (Last 12 Hours) 05/02/24 05/03/24 05/03/24 05/03/24 23:48 00:48 01:48 02:48 Temp 98.6 Pulse 74 73 81 74 Resp 21 21 22 20 B/P (MAP) 132/69 136/73 136/64 135/69 Pulse Ox 96 96 95 95 O2 Delivery Room Air Room Air Room Air Room Air O2 Flow Rate 2.0 2.0 2.0 2.0 05/03/24 05/03/24 05/03/24 05/03/24 03:48 04:48 07:00 07:49 Temp 98.4 98.6 Pulse 84 76 73 Resp 19 17 20 B/P (MAP) 143/71 153/73 128/75 Pulse Ox 95 96 96 96 O2 Delivery Room Air Room Air Room Air* Room Air O2 Flow Rate 2.0 2.0 0 0.0 FiO2 21 05/03/24 05/03/24 08:48 09:48 Pulse 78 70 Resp 18 21 B/P (MAP) 130/63 142/68 Pulse Ox 94 96 O2 Delivery Room Air Room Air O2 Flow Rate 0.0 0.0 Intake & Output (last 24hrs) 05/02/24 05/02/24 05/03/24 15:00 23:00 07:00 Intake Total 1050.0 ml 1000.0 ml 875.0 ml Output Total 610 ml 710 ml Balance 1050.0 ml 390.0 ml 165.0 ml LABS: Laboratory: Test 05/03/24 04:14 05/02/24 10:10 Range/Units White Blood Count 9.0 4.8-10.8 K/uL Red Blood Count 2.72 L 4.00-5.50 MIL/uL Hemoglobin 8.0 L 12.0-16.0 g/dL Hematocrit 25.8 L 36-48 % Mean Corpuscular Volume 94.9 79-99 fL Mean Corpuscular Hemoglobin 29.4 27.0-33.0 pg Mean Corpuscular Hemoglobin Concent 31.0 L 32.0-36.0 g/dL Red Cell Distribution Width 15.0 11.0-15.5 % Platelet Count 236 130-400 K/uL Mean Platelet Volume 9.9 7.5-10.5 fL Immature Granulocyte % (Auto) 2.1 H 0-1 % Neutrophils (%) (Auto) 85.6 H 40.0-77.0 % Lymphocytes (%) (Auto) 5.0 L 21.0-51.0 % Monocytes (%) (Auto) 3.8 3.0-13.0 % Eosinophils (%) (Auto) 3.4 0.0-8.0 % Basophils (%) (Auto) 0.1 0.0-5.0 % Neutrophils # (Auto) 7.7 1.8-7.7 K/uL Lymphocytes # (Auto) 0.5 L 1.0-4.8 K/uL Monocytes # (Auto) 0.3 0.1-1.0 K/uL Eosinophils # (Auto) 0.31 0.00-0.70 K/uL Basophils # (Auto) 0.01 0.00-0.20 K/uL Absolute Immature Granulocyte (auto 0.19 0-1 K/uL Nucleated Red Blood Cells 0.0 0.0-0.19 % Sodium Level 149 H 136-145 mmol/L Potassium Level 3.0 *L 3.5-5.1 mmol/L Chloride Level 114 H 101-111 mmol/L Carbon Dioxide Level 29 21-32 mmol/L Blood Urea Nitrogen 46 H 7-18 mg/dL Creatinine 2.2 H 0.5-1.0 mg/dL Glomerular Filtration Rate Calc 22 >90 mL/min Random Glucose 122 H 70-105 mg/dL Total Calcium 8.0 L 8.5-10.1 mg/dL Magnesium Level 2.00 1.80-2.40 mg/dL Total Bilirubin 0.3 0.2-1.0 mg/dL Aspartate Amino Transf (AST/SGOT) 22 10-37 U/L Alanine Aminotransferase (ALT/SGPT) 11 #L 12-78 U/L Alkaline Phosphatase 36 L 50-136 U/L Total Protein 5.2 L 6.0-8.3 g/dL Albumin 1.6 L 3.5-5.0 g/dL Segmented Neutrophils % 92 H 40-70 % Band Neutrophils % 2 0-2 % Lymphocytes % (Manual) 2 L 22-44 % Monocytes % (Manual) 2 2-9 % Eosinophils % (Manual) 2 1-6 % Differential Comment MANUAL DIFFERENTIAL White Cell Morphology Comment Platelet Morphology Comment ADEQUATE Red Blood Cell Morphology HYPOCHROM CELLS 2+ ASSESSMENT: Abdominal pain. Incarcerated ventral hernia, s/p open ventral hernia repair and small-bowel resection on 04/29/2024. Sepsis. Acute renal failure. Leukocytosis. Elevated troponin. Non-STEMI postop. PLAN: Continue cefepime. Incision care as recommended by General surgery. Hemovac drain care. NG tube currently to low intermittent suction. Continue pain management. [place] Sequins following patient. Avoid nephrotoxic medications. Will monitor electrolytes. This case was reviewed and discussed with my supervising physician and the above assessment and plan was formulated and agreed upon. ATTESTATION BY PHYSICIAN I have seen and examined the patient. I reviewed the documentation, medical decision making, and treatment plan as noted by the mid-level provider above. I agree with the findings and plan of care. NAHUM BROWN MD, [facility]TA [facility] May 03, 2024 11:21
--- NOTE | 2024-05-03 16:24 | PN ---
[facility] PROGRESS NOTE Date of Service: May 03, 2024 Time of Service: 16:19 SUBJECTIVE: 83-year-old female admitted for early abdominal obstruction and large ventral hernia. Patient continues with nonreducible hernia. Her abdomen is tender. Surgeon recommended cardiac clearance and found that patient has abnormal T-wave on the 12 lead EKG and troponin was elevated in [id number]. Patient was upgraded to PCCU as we have to start patient on heparin drip. At this time, cotton puller evaluated the patient this morning and indicated that patient is poor candidate for invasive cardiac procedure due to acute renal failure and bowel obstruction. We will await for 2D echo. At this time, we will also await for further surgical recommendation. 03/29 No acute event reported overnight. Patient continues with abdominal tenderness. She will remain NPO. 03/30 Pt seen at bedside, no acute events overnight. She is s/p ventral hernia repair with resection and repair of ischemic/necrotic bowel post op day 1. She reports her pain is well controlled, she denies BM or flatus. NG tube still in place to intermittent suction. Abdominal binder is in place. She is hypernatremic, not currently on IV fluids, will start D5 at 100 cc/hr to decrease sodium at 0.5 cc/hr rate. Potassium low at 3.0, will replete according to protocol, creatinine continued to improve from 3.8 down to 3.0, remainder of her labs are relatively unremarkable. Diet and NG tube management per General Surgery 03/31 Pt seen at bedside, no acute events overnight. Pt has no complaints today, reports her pain is controlled. She is still NPO with NG tube in place. Denies BM or flatus, continues NPO per general surgery. She was started on D5W at 100 cc/hr yesterday due to hypernatremia at 155, no improvement in sodium this am. Will increase D5W to 125cc/hr and repeat Na at 4pm. Hgb decreased from 9.3 down to 8.4, potassium increased from 3.0 up to 3.1, will continue to replete according to protocol, creatinine improved from 3.0 down to 2.8. Iron is low, patient started on Ferric sodium gluconate per nephrology. Remainder of vitals and labs are relatively unremarkable. 05/02 the patient has been seen and examined during my rounding, no acute events overnight, remains comfortable in bed, NG tube to intermittent suction, output off 150 mL overnight. BP 122/38, afebrile, saturating 94% on 2 L via nasal cannula, no nausea, no vomiting, no abdominal pain, getting good pain control with current medical management. 05/03 the patient has been seen and examined during my rounding, no acute events overnight, remains comfortable in bed, NG tube to intermittent suction, output noted. Patient has not had a bowel movement, currently not passing gas. BP 122/38, afebrile, saturating 94% on 2 L via nasal cannula, no nausea, no vomiting, no abdominal pain, getting good pain control with current medical management. No family at bedside during my visit. REVIEW OF SYSTEMS 12 point ROS negative unless noted in HPI PHYSICAL EXAM GENERAL APPEARANCE: The patient is awake, alert, and oriented, in no acute cardiopulmonary distress. NEUROLOGICAL: Cranial nerves II-XII grossly intact. Motor is 5/5 in bilateral upper and lower extremities proximal to distal. No sensory deficits. HEENT: Face is symmetric. Pupils are equal and reactive. Extraocular movements are intact. NECK: Supple. No JVD. No thyromegaly. No submental, submandibular, pre- /postauricular, occipital or supraclavicular lymphadenopathy. CHEST: Normal chest expansion. No Telemetry. LUNGS: Absence of any rales, rhonchi or any wheezing. CARDIOVASCULAR: Regular. S1 and S2 normal. No appreciable rubs, murmurs or gallops. ABDOMEN: Distended, VALERIO drainage serosanguineous output noted. : Deferred. No Sykes. EXTREMITIES: Non-edematous and not cyanotic. No clubbing. Good capillary refill. SKIN: No skin breakdown. Vital Signs (last 8hr) Date Time Temp Pulse Resp B/P (MAP) Pulse Ox O2 Delivery O2 Flow Rate FiO2 05/03/24 15:57 99.1 05/03/24 12:12 98.2 73 19 152/65 95 Room Air 05/03/24 09:48 70 21 142/68 96 Room Air 0.0 05/03/24 08:48 78 18 130/63 94 Room Air 0.0 LABS: Laboratory: Test 05/03/24 04:14 05/02/24 10:10 Range/Units White Blood Count 9.0 4.8-10.8 K/uL Red Blood Count 2.72 L 4.00-5.50 MIL/uL Hemoglobin 8.0 L 12.0-16.0 g/dL Hematocrit 25.8 L 36-48 % Mean Corpuscular Volume 94.9 79-99 fL Mean Corpuscular Hemoglobin 29.4 27.0-33.0 pg Mean Corpuscular Hemoglobin Concent 31.0 L 32.0-36.0 g/dL Red Cell Distribution Width 15.0 11.0-15.5 % Platelet Count 236 130-400 K/uL Mean Platelet Volume 9.9 7.5-10.5 fL Immature Granulocyte % (Auto) 2.1 H 0-1 % Neutrophils (%) (Auto) 85.6 H 40.0-77.0 % Lymphocytes (%) (Auto) 5.0 L 21.0-51.0 % Monocytes (%) (Auto) 3.8 3.0-13.0 % Eosinophils (%) (Auto) 3.4 0.0-8.0 % Basophils (%) (Auto) 0.1 0.0-5.0 % Neutrophils # (Auto) 7.7 1.8-7.7 K/uL Lymphocytes # (Auto) 0.5 L 1.0-4.8 K/uL Monocytes # (Auto) 0.3 0.1-1.0 K/uL Eosinophils # (Auto) 0.31 0.00-0.70 K/uL Basophils # (Auto) 0.01 0.00-0.20 K/uL Absolute Immature Granulocyte (auto 0.19 0-1 K/uL Nucleated Red Blood Cells 0.0 0.0-0.19 % Sodium Level 149 H 136-145 mmol/L Potassium Level 3.0 *L 3.5-5.1 mmol/L Chloride Level 114 H 101-111 mmol/L Carbon Dioxide Level 29 21-32 mmol/L Blood Urea Nitrogen 46 H 7-18 mg/dL Creatinine 2.2 H 0.5-1.0 mg/dL Glomerular Filtration Rate Calc 22 >90 mL/min Random Glucose 122 H 70-105 mg/dL Total Calcium 8.0 L 8.5-10.1 mg/dL Magnesium Level 2.00 1.80-2.40 mg/dL Total Bilirubin 0.3 0.2-1.0 mg/dL Aspartate Amino Transf (AST/SGOT) 22 10-37 U/L Alanine Aminotransferase (ALT/SGPT) 11 #L 12-78 U/L Alkaline Phosphatase 36 L 50-136 U/L Total Protein 5.2 L 6.0-8.3 g/dL Albumin 1.6 L 3.5-5.0 g/dL Segmented Neutrophils % 92 H 40-70 % Band Neutrophils % 2 0-2 % Lymphocytes % (Manual) 2 L 22-44 % Monocytes % (Manual) 2 2-9 % Eosinophils % (Manual) 2 1-6 % Differential Comment MANUAL DIFFERENTIAL White Cell Morphology Comment Platelet Morphology Comment ADEQUATE Red Blood Cell Morphology HYPOCHROM CELLS 2+ Current Medications Medications (Trade) Dose Ordered Sig/[place] Route PRN Reason Start Time Stop Time Status Last Admin Dose Admin Acetaminophen (TYLenol 325MG TAB) 650 mg Q4H PRN PO TEMPERATURE GREATER THAN 101.5 04/24/24 16:30 05/24/24 16:29 Acetaminophen (TYLenol 325MG TAB) 650 mg Q6H PRN PO MILD PAIN (1-3) 04/24/24 16:30 05/24/24 16:29 Acetaminophen (Tylenol 325mg Suppository) 325 mg Q4H PRN RC TEMPERATURE GREATER THAN 101.5 04/24/24 16:30 05/24/24 16:29 04/25/24 14:02 325 MG Acetaminophen (Tylenol 325mg Suppository) 325 mg Q6H PRN RC MILD PAIN (1-3) 04/24/24 16:30 05/24/24 16:29 Aspirin (Aspirin 81mg Ec Tab) 81 mg DAILY PO 04/27/24 09:00 05/27/24 08:59 05/03/24 08:57 81 MG Cefepime HCl (MAXipime 1 GM vial) 1 gm Q24H IVPB 04/26/24 10:30 05/06/24 10:29 05/03/24 08:57 1 GM Dextrose 1,000 ml @ 150 mls/hr Q6H40M IV 04/30/24 09:30 05/30/24 09:29 05/03/24 14:15 150 MLS/HR Ferric Sodium Gluconate Complex 125 mg/Sodium Chloride 110 ml @ 110 mls/hr Q24H IV 04/30/24 09:30 05/02/24 10:29 DC 05/02/24 08:48 110 MLS/HR Guaifenesin/ Dextromethorphan (RobiTUSSin DM 200/20MG 10ML) 10 ml Q6H PRN PO COUGH 05/02/24 18:00 06/01/24 17:59 05/03/24 08:58 10 ML Heparin Sodium (Porcine) (HEParin 5,000 UNIT VIAL) *calculation based on ACTUAL B... AD PRN IV HEPARIN PROTOCOL 04/26/24 17:00 05/02/24 07:23 DC Heparin Sodium/ Dextrose 250 ml @ 0 mls/hr Q6H IV 04/26/24 17:00 04/29/24 10:28 DC 04/27/24 14:45 15 MLS/HR Lactated Ringer's 1,000 ml @ 150 mls/hr Q6H40M IV 04/28/24 12:00 04/29/24 11:36 DC 04/29/24 08:00 150 MLS/HR Metoprolol Tartrate (loprESSOR) 5 mg Q6H PRN IV ARRHYTHMIA 04/27/24 23:00 05/27/24 22:59 Metoprolol Tartrate (loprESSOR) 12.5 mg BID PO 04/26/24 21:00 05/26/24 20:59 05/03/24 08:57 12.5 MG Metronidazole (flaGYL) 500 mg Q8H PO 04/26/24 10:30 04/27/24 22:59 DC 04/27/24 17:47 500 MG Metronidazole/ Sodium Chloride (flaGYL) 500 mg Q8H IV 04/28/24 02:30 05/02/24 07:24 DC 05/02/24 02:26 500 MG Morphine Sulfate (morPHINE 2MG SYG) 2 mg Q4H PRN IVP SEVERE PAIN (7-10) 04/29/24 21:30 05/06/24 21:29 05/01/24 16:19 2 MG Morphine Sulfate (morPHINE 2MG SYG) 2 mg Q4H PRN IVP SEVERE PAIN (7-10) 04/24/24 16:30 04/29/24 19:29 DC 04/29/24 15:38 2 MG Ondansetron HCl (zoFRAN 4MG INJ) 4 mg Q6H PRN IVP NAUSEA/VOMITING 04/24/24 16:30 05/24/24 16:29 04/29/24 18:29 4 MG Pantoprazole Sodium (PROTonix 40MG INJ) 40 mg DAILY IVP 04/25/24 09:00 05/25/24 08:59 05/03/24 08:57 40 MG Potassium Chloride 100 ml @ 100 mls/hr AD PRN IV POTASSIUM PROTOCOL 05/02/24 16:00 06/01/24 15:59 Potassium Chloride (K-Dur/Klor-Con 20meq) 20 meq AD PRN PO POTASSIUM PROTOCOL 05/02/24 16:00 06/01/24 15:59 Potassium Chloride (KCl 10% Elixir 20meq/15ml) 20 meq AD PRN PO POTASSIUM PROTOCOL 05/02/24 16:00 06/01/24 15:59 05/03/24 08:58 20 MEQ Sodium Chloride 1,000 ml @ 75 mls/hr [id number] IV 04/24/24 16:30 04/28/24 11:48 DC 04/28/24 04:02 75 MLS/HR Sodium Chloride 1,000 ml @ 125 mls/hr Q8H IV 04/29/24 12:00 04/30/24 09:15 DC 04/30/24 04:16 125 MLS/HR DIAGNOSTICS / RADIOLOGY: [ ] ASSESSMENT: NSTEMI with abnormal EKG, POA Large ventral hernia, POA Small bowel obstruction, POA Ischemic bowel, POA Intractable nausea/vomiting, POA s/p ventral hernia repair with repair of necrotic/ischemic bowel (04/29/24) Hypertensive emergency, resolved POA Hyperglycemia, resolved POA Hypernatremia Leukocytosis with left shift,improving POA Hypokalemia, POA Acute renal failure, improving POA PLAN: Continue NPO with NG at intermittent suction Continue supportive care with IV fluids General surgery consulted, appreciate recommendations Continue broad-spectrum IV antibiotic due to leukocytosis Continue on antiemetic as needed Continue with pain management We will repeat labs tomorrow GI prophylaxis with Protonix 40 mg IV daily DVT prophylaxis with SCD PT to start working with patient Disposition: The patient to be downgraded to the medical floor, continue NPO, NG tube to intermittent suction, broad-spectrum IV antibiotics, continue to follow surgical input and recommendation, replace electrolytes IV per protocol, a.m. labs. No family members at bedside during my visit to discuss further goals of care, plan of action discussed with the patient, questions answered. Total ICU time spent greater than 30 minutes. ALDEN DINH MD May 03, 2024 16:24
[2024-05-03] MEDS: PoTASSium chloRIDE 20MEQ/100ML 100 ML IV ONE (16:58)
[2024-05-03] MEDS: PoTASSium chloRIDE 10MEQ/100ML 100 ML IV ONE ×2 (17:11)
--- NOTE | 2024-05-03 17:30 | NUR ---
GAVE REPORT TO KATIE ROMAN FOR PT GOING TO [facility], FAMILY AND PT AWARE OF TRANSFER. UPDATED ON PLAN OF CARE.
--- NOTE | 2024-05-03 18:13 | NUR ---
CIARAN FIELDS ROUNDING THIS MORNING, AWARE OF PT REPORTING NO FLATUS/BM YET. NG TO IMS. CIARAN WILL SPEAK WITH .
[2024-05-04] VITALS (8 sets, daily range): BP systolic 129–168; BP diastolic 61–74; PULSE 72–85; RESP 17–22; TEMP 98–98.8; O2SAT 98
[2024-05-04 03:59] LABS: HEMATOCRIT 24.8 % (36-48); MEAN CORPUSCULAR HEMOGLOBIN 29.6 pg (27.0-33.0); MEAN CORPUSCULAR HGB CONC 32.3 g/dL (32.0-36.0); MEAN CORPUSCULAR VOLUME 91.9 fL (79-99); RED BLOOD CELL COUNT(AUTO) 2.7 MIL/uL (4.00-5.50); RED CELL DISTRIBUTION WIDTH 14.6 % (11.0-15.5); WHITE BLOOD COUNT (AUTO) 10.8 K/uL (4.8-10.8)
--- NOTE | 2024-05-04 06:22 | NUR ---
Orders Notified Sindy Barahona of patient's magnesium of 1.7. Orders given for electrolyte replacement.
[2024-05-04] MEDS: MAGNESIUM 2GM PREMIX 50ML 50 ML IV SCH (06:39)
[2024-05-04 07:17] LABS: CREATININE 1.9 mg/dL (0.5-1.0); POTASSIUM 3.1 mmol/L (3.5-5.1)
--- NOTE | 2024-05-04 09:09 | PN ---
SUBJECTIVE: An 83-year-old female, initially presented with small bowel obstruction. The patient underwent hernia repair. She continues to remain n.p.o. The patient had acute renal failure as well as significant electrolyte abnormalities postop. The patient has been transferred out of the ICU. She is being seen as a followup visit for all the above. REVIEW OF SYSTEMS: GENERAL: She is feeling weak and tired. HEENT: No change in vision. No change in hearing. CARDIOVASCULAR: No current chest pains or palpitations. PULMONARY: No shortness of breath. GASTROINTESTINAL: As described above. MUSCULOSKELETAL: Complains of weakness. PHYSICAL EXAMINATION: VITAL SIGNS: Blood pressure 143/70, pulse in the 70s. GENERAL: Chronically ill female, elderly, lying in bed on the medical floor. HEENT: Head is atraumatic. Pupils equal, roving to light. Oropharynx is without exudate. Nares are clear. NECK: There is no JVP. There is no thyromegaly, no mass. CARDIOVASCULAR: Regular. There is no S3, S4, gallop. LUNGS: Coarse with equal thoracic movement. ABDOMEN: Soft, nondistended, nontender. EXTREMITIES: No clubbing, no cyanosis. NEUROLOGIC: She is awake. She is alert. LABORATORY DATA: Hemoglobin 8, hematocrit 24. Sodium 143, potassium is 3, BUN 37, creatinine 1.9. IMPRESSION: * Acute renal failure. * Electrolyte abnormalities. * Small-bowel obstruction. * Diabetes mellitus. PLAN: The patient's serum sodium continues to slowly improve. She remains on the IV hydration. The patient's potassium has been aggressively repleted. We will continue to follow the patient closely. Workup is ongoing per surgical service. TID: [id number] RECEIPT: [id number]
--- NOTE | 2024-05-04 10:25 | PN ---
This is an 83-year-old female postop day 5for ventral hernia repair with small- bowel resection Interval history This 73-year-old female seen in telemetry resting NG output still minimal Patient tolerating ice chips Patient is still with no bowel function to report Minimal drainage from accordion drains Midline incision clean and dry with yossi in place with nursing changing twice daily White count unremarkable Vitals stable Assessment and plan Patient to remain NPO Dietary team to be consulted for commencement of TPN Patient to continue with physical therapy Continue with ice chips Strict I's and O's of accordion drain output Dr. Thapa to be updated in patient's status and surgical team follow patient Vitals/Labs Vital Signs Date Time Temp Pulse Resp B/P (MAP) Pulse Ox O2 Delivery O2 Flow Rate FiO2 05/04/24 07:00 98.8 75 18 142/70 96 Room Air 05/03/24 23:32 2.0 05/03/24 20:00 21 Laboratory Tests 05/04/24 03:36 Medications Current Medications Sodium Chloride 1,000 ml @ 0 mls/hr ONCE ONCE IV Last administered on 04/24/24at 11:26; Start 04/24/24 at 11:00; Stop 04/24/24 at 11:01; Status DC Morphine Sulfate 4 mg ONCE ONCE IVP Last administered on 04/24/24at 11:26; Start 04/24/24 at 11:00; Stop 04/24/24 at 11:01; Status DC Ondansetron HCl 4 mg ONCE ONCE IVP Last administered on 04/24/24at 11:26; Start 04/24/24 at 11:00; Stop 04/24/24 at 11:01; Status DC Ondansetron HCl 4 mg ONCE ONCE IVP Last administered on 04/24/24at 11:53; Start 04/24/24 at 12:00; Stop 04/24/24 at 12:01; Status DC Iohexol 75 ml STK-MED ONCE IV; Start 04/24/24 at 13:22; Stop 04/24/24 at 13:23; Status DC Iohexol 35,000 mg STK-MED ONCE IV; Start 04/24/24 at 13:23; Stop 04/24/24 at 13:24; Status DC Metoclopramide HCl 10 mg ONCE ONCE IVP Last administered on 04/24/24at 14:34; Start 04/24/24 at 14:30; Stop 04/24/24 at 14:31; Status DC Morphine Sulfate 4 mg ONCE ONCE IVP Last administered on 04/24/24at 14:34; Start 04/24/24 at 14:30; Stop 04/24/24 at 14:31; Status DC Ondansetron HCl 4 mg Q6H PRN IVP Last administered on 04/29/24at 18:29; Start 04/24/24 at 16:30; Stop 05/24/24 at 16:29 Morphine Sulfate 2 mg Q4H PRN IVP Last administered on 04/29/24at 15:38; Start 04/24/24 at 16:30; Stop 04/29/24 at 19:29; Status DC Sodium Chloride 1,000 ml @ 75 mls/hr [id number] IV Last administered on 04/28/24at 04:02; Start 04/24/24 at 16:30; Stop 04/28/24 at 11:48; Status DC Acetaminophen 650 mg Q4H PRN PO; Start 04/24/24 at 16:30; Stop 05/24/24 at 16:29 Acetaminophen 650 mg Q6H PRN PO; Start 04/24/24 at 16:30; Stop 05/24/24 at 16:29 Acetaminophen 325 mg Q6H PRN RC; Start 04/24/24 at 16:30; Stop 05/24/24 at 16:29 Acetaminophen 325 mg Q4H PRN RC Last administered on 04/25/24at 14:02; Start 04/24/24 at 16:30; Stop 05/24/24 at 16:29 Pantoprazole Sodium 40 mg DAILY IVP Last administered on 05/04/24at 08:19; Start 04/25/24 at 09:00; Stop 05/25/24 at 08:59 Lorazepam 0.5 mg ONCE ONCE IVP Last administered on 04/26/24at 01:21; Start 04/26/24 at 01:30; Stop 04/26/24 at 01:31; Status DC Cefepime HCl 1 gm Q24H IVPB Last administered on 05/03/24at 08:57; Start 04/26/24 at 10:30; Stop 05/06/24 at 10:29 Metronidazole 500 mg Q8H PO Last administered on 04/27/24at 17:47; Start 04/26/24 at 10:30; Stop 04/27/24 at 22:59; Status DC Heparin Sodium (Porcine) *calculation based on ACTUAL B... AD PRN IV; Start 04/26/24 at 17:00; Stop 05/02/24 at 07:23; Status DC Heparin Sodium/ Dextrose 250 ml @ 0 mls/hr Q6H IV Last administered on 04/27/24at 14:45; Start 04/26/24 at 17:00; Stop 04/29/24 at 10:28; Status DC Metoprolol Tartrate 12.5 mg BID PO Last administered on 05/04/24at 08:19; Start 04/26/24 at 21:00; Stop 05/26/24 at 20:59 Aspirin 325 mg ONCE ONCE PO Last administered on 04/26/24at 16:51; Start 04/26/24 at 16:30; Stop 04/26/24 at 16:31; Status DC Aspirin 81 mg DAILY PO Last administered on 05/04/24at 08:18; Start 04/27/24 at 09:00; Stop 05/27/24 at 08:59 Heparin Sodium (Porcine) 5,000 unit ONCE ONCE IV Last administered on 04/26/24at 17:10; Start 04/26/24 at 17:00; Stop 04/26/24 at 17:01; Status DC Metronidazole/ Sodium Chloride 500 mg Q8H IV Last administered on 05/02/24at 02:26; Start 04/28/24 at 02:30; Stop 05/02/24 at 07:24; Status DC Metoprolol Tartrate 5 mg Q6H PRN IV; Start 04/27/24 at 23:00; Stop 05/27/24 at 22:59 Lactated Ringer's 1,000 ml @ 150 mls/hr Q6H40M IV Last administered on 04/29/24at 08:00; Start 04/28/24 at 12:00; Stop 04/29/24 at 11:36; Status DC Norepinephrine Bitartrate 4 mg STK-MED ONCE IV; Start 04/29/24 at 11:21; Stop 04/29/24 at 11:22; Status DC Norepinephrine Bitartrate 4 mg STK-MED ONCE IV; Start 04/29/24 at 11:21; Stop 04/29/24 at 11:22; Status DC Propofol 200 mg STK-MED ONCE IV; Start 04/29/24 at 11:22; Stop 04/29/24 at 11:22; Status DC Succinylcholine Chloride 200 mg STK-MED ONCE .ROUTE; Start 04/29/24 at 11:22; Stop 04/29/24 at 11:22; Status DC Etomidate 20 mg STK-MED ONCE .ROUTE; Start 04/29/24 at 11:24; Stop 04/29/24 at 11:24; Status DC Nitroglycerin/ Dextrose 1 ml @ As Directed STK-MED ONCE .ROUTE; Start 04/29/24 at 11:25; Stop 04/29/24 at 11:25; Status DC Sodium Chloride 1,000 ml @ 125 mls/hr Q8H IV Last administered on 04/30/24at 04:16; Start 04/29/24 at 12:00; Stop 04/30/24 at 09:15; Status DC Fentanyl Citrate 100 mcg STK-MED ONCE .ROUTE; Start 04/29/24 at 11:46; Stop 04/29/24 at 11:46; Status DC Rocuronium Sarah Ann 50 mg STK-MED ONCE .ROUTE; Start 04/29/24 at 12:06; Stop 04/29/24 at 12:06; Status DC Sodium Bicarbonate 50 meq STK-MED ONCE .ROUTE; Start 04/29/24 at 13:45; Stop 04/29/24 at 13:45; Status DC Albumin Human 250 ml @ As Directed STK-MED ONCE IV; Start 04/29/24 at 14:07; Stop 04/29/24 at 14:08; Status DC Ropivacaine 150 mg STK-MED ONCE .ROUTE; Start 04/29/24 at 14:36; Stop 04/29/24 at 14:36; Status DC Ondansetron HCl 4 mg STK-MED ONCE .ROUTE; Start 04/29/24 at 15:03; Stop 04/29/24 at 15:03; Status DC Fentanyl Citrate 100 mcg STK-MED ONCE .ROUTE; Start 04/29/24 at 15:07; Stop 04/29/24 at 15:07; Status DC Morphine Sulfate 2 mg Q4H PRN IVP Last administered on 05/01/24at 16:19; Start 04/29/24 at 21:30; Stop 05/06/24 at 21:29 Dextrose 1,000 ml @ 150 mls/hr Q6H40M IV Last administered on 05/03/24at 21:35; Start 04/30/24 at 09:30; Stop 05/30/24 at 09:29 Ferric Sodium Gluconate Complex 125 mg/Sodium Chloride 110 ml @ 110 mls/hr Q24H IV Last administered on 05/02/24at 08:48; Start 04/30/24 at 09:30; Stop 05/02/24 at 10:29; Status DC Potassium Chloride 100 ml @ 100 mls/hr AD PRN IV; Start 05/02/24 at 16:00; Stop 05/03/24 at 16:59; Status DC Potassium Chloride 20 meq AD PRN PO Last administered on 05/04/24at 08:19; Start 05/02/24 at 16:00; Stop 06/01/24 at 15:59 Potassium Chloride 20 meq AD PRN PO; Start 05/02/24 at 16:00; Stop 06/01/24 at 15:59 Guaifenesin/ Dextromethorphan 10 ml Q6H PRN PO Last administered on 05/04/24at 08:19; Start 05/02/24 at 18:00; Stop 06/01/24 at 17:59 Potassium Chloride 100 ml @ 50 mls/hr ONCE ONCE IV; Start 05/03/24 at 16:30; Stop 05/03/24 at 18:29; Status DC Potassium Chloride 100 ml @ 100 mls/hr ONCE ONCE IV Last administered on 05/03/24at 17:11; Start 05/03/24 at 17:00; Stop 05/03/24 at 17:59; Status DC Potassium Chloride 100 ml @ As Directed STK-MED ONCE IV; Start 05/03/24 at 17:01; Stop 05/03/24 at 17:01; Status DC Magnesium Sulfate 50 ml @ 0 mls/hr PROTOCOL IV Last administered on 05/04/24at 06:39; Start 05/04/24 at 06:00; Stop 06/03/24 at 05:59 DONNIE BA Jr. May 04, 2024 10:25
[2024-05-04] MEDS: PoTASSium chloRIDE 20MEQ/100ML 100 ML IV ONE (10:30)
[2024-05-04] MEDS ORDERED: MAGNESIUM 2GM PREMIX 50ML 50 ML IV SCH (10:30)
[2024-05-04 10:42] LABS: INR 1.18 (0.85-1.15); PROTHROMBIN TIME 12.6 SEC (9.6-11.6)
--- NOTE | 2024-05-04 12:28 | PN ---
[facility] PROGRESS NOTE Date of Service: May 04, 2024 Time of Service: 12:25 SUBJECTIVE: 83-year-old female admitted for early abdominal obstruction and large ventral hernia. Patient continues with nonreducible hernia. Her abdomen is tender. Surgeon recommended cardiac clearance and found that patient has abnormal T-wave on the 12 lead EKG and troponin was elevated in 05928R. Patient was upgraded to PCCU as we have to start patient on heparin drip. At this time, target man evaluated the patient this morning and indicated that patient is poor candidate for invasive cardiac procedure due to acute renal failure and bowel obstruction. We will await for 2D echo. At this time, we will also await for further surgical recommendation. 03/29 No acute event reported overnight. Patient continues with abdominal tenderness. She will remain NPO. 03/30 Pt seen at bedside, no acute events overnight. She is s/p ventral hernia repair with resection and repair of ischemic/necrotic bowel post op day 1. She reports her pain is well controlled, she denies BM or flatus. NG tube still in place to intermittent suction. Abdominal binder is in place. She is hypernatremic, not currently on IV fluids, will start D5 at 100 cc/hr to decrease sodium at 0.5 cc/hr rate. Potassium low at 3.0, will replete according to protocol, creatinine continued to improve from 3.8 down to 3.0, remainder of her labs are relatively unremarkable. Diet and NG tube management per General Surgery 03/31 Pt seen at bedside, no acute events overnight. Pt has no complaints today, reports her pain is controlled. She is still NPO with NG tube in place. Denies BM or flatus, continues NPO per general surgery. She was started on D5W at 100 cc/hr yesterday due to hypernatremia at 155, no improvement in sodium this am. Will increase D5W to 125cc/hr and repeat Na at 4pm. Hgb decreased from 9.3 down to 8.4, potassium increased from 3.0 up to 3.1, will continue to replete according to protocol, creatinine improved from 3.0 down to 2.8. Iron is low, patient started on Ferric sodium gluconate per nephrology. Remainder of vitals and labs are relatively unremarkable. 05/02 the patient has been seen and examined during my rounding, no acute events overnight, remains comfortable in bed, NG tube to intermittent suction, output off 150 mL overnight. BP 122/38, afebrile, saturating 94% on 2 L via nasal cannula, no nausea, no vomiting, no abdominal pain, getting good pain control with current medical management. 05/03 the patient has been seen and examined during my rounding, no acute events overnight, remains comfortable in bed, NG tube to intermittent suction, output noted. Patient has not had a bowel movement, currently not passing gas. BP 122/38, afebrile, saturating 94% on 2 L via nasal cannula, no nausea, no vomiting, no abdominal pain, getting good pain control with current medical management. No family at bedside during my visit. 05/04 patient has been seen and examined during my rounding, no acute events overnight, remains comfortably in bed however looks mildly edematous today compared to yesterday, she is getting IV fluids. Remains NPO, NG tube to intermittent suction. She is alert oriented x3, she feels weak. BP 153/70, afebrile, saturating 94-98% on room air. No family members at bedside. REVIEW OF SYSTEMS 12 point ROS negative unless noted in HPI PHYSICAL EXAM GENERAL APPEARANCE: The patient is awake, alert, and oriented, in no acute cardiopulmonary distress. Looks mildly edematous today. NEUROLOGICAL: Cranial nerves II-XII grossly intact. Motor is 5/5 in bilateral upper and lower extremities proximal to distal. No sensory deficits. HEENT: Face is symmetric. Pupils are equal and reactive. Extraocular movements are intact. NECK: Supple. No JVD. No thyromegaly. No submental, submandibular, pre- /postauricular, occipital or supraclavicular lymphadenopathy. CHEST: Normal chest expansion. No Telemetry. LUNGS: Absence of any rales, rhonchi or any wheezing. CARDIOVASCULAR: Regular. S1 and S2 normal. No appreciable rubs, murmurs or gallops. ABDOMEN: Distended, VALERIO drainage serosanguineous output noted. : Deferred. No Sykes. EXTREMITIES: Minimal swollen to both lower extremities. SKIN: No skin breakdown. Vital Signs (last 8hr) Date Time Temp Pulse Resp B/P (MAP) Pulse Ox O2 Delivery O2 Flow Rate FiO2 05/04/24 11:00 98.1 76 22 153/70 94 Room Air 05/04/24 08:00 98 Room Air* 0 21 05/04/24 07:00 98.8 75 18 142/70 96 Room Air LABS: Laboratory: Test 05/04/24 10:27 05/04/24 03:36 05/03/24 20:44 05/03/24 04:14 Range/Units Prothrombin Time 12.6 H 9.6-11.6 SEC Prothromb Time International Ratio 1.18 H 0.85-1.15 Activated Partial Thromboplast Time 32.0 26.3-35.5 SEC White Blood Count 10.8 4.8-10.8 K/uL Red Blood Count 2.70 L 4.00-5.50 MIL/uL Hemoglobin 8.0 L 12.0-16.0 g/dL Hematocrit 24.8 L 36-48 % Mean Corpuscular Volume 91.9 79-99 fL Mean Corpuscular Hemoglobin 29.6 27.0-33.0 pg Mean Corpuscular Hemoglobin Concent 32.3 32.0-36.0 g/dL Red Cell Distribution Width 14.6 11.0-15.5 % Platelet Count 242 130-400 K/uL Mean Platelet Volume 10.0 7.5-10.5 fL Nucleated Red Blood Cells 0.0 0.0-0.19 % Sodium Level 143 136-145 mmol/L Potassium Level 3.1 L 3.5-5.1 mmol/L Chloride Level 108 101-111 mmol/L Carbon Dioxide Level 26 21-32 mmol/L Blood Urea Nitrogen 37 H 7-18 mg/dL Creatinine 1.9 H 0.5-1.0 mg/dL Glomerular Filtration Rate Calc 26 >90 mL/min Random Glucose 169 H 70-105 mg/dL Total Calcium 7.6 L 8.5-10.1 mg/dL Magnesium Level 1.70 L 1.80-2.40 mg/dL Whole Blood Glucose 187 H 70-110 MG/DL Immature Granulocyte % (Auto) 2.1 H 0-1 % Neutrophils (%) (Auto) 85.6 H 40.0-77.0 % Lymphocytes (%) (Auto) 5.0 L 21.0-51.0 % Monocytes (%) (Auto) 3.8 3.0-13.0 % Eosinophils (%) (Auto) 3.4 0.0-8.0 % Basophils (%) (Auto) 0.1 0.0-5.0 % Neutrophils # (Auto) 7.7 1.8-7.7 K/uL Lymphocytes # (Auto) 0.5 L 1.0-4.8 K/uL Monocytes # (Auto) 0.3 0.1-1.0 K/uL Eosinophils # (Auto) 0.31 0.00-0.70 K/uL Basophils # (Auto) 0.01 0.00-0.20 K/uL Absolute Immature Granulocyte (auto 0.19 0-1 K/uL Total Bilirubin 0.3 0.2-1.0 mg/dL Aspartate Amino Transf (AST/SGOT) 22 10-37 U/L Alanine Aminotransferase (ALT/SGPT) 11 #L 12-78 U/L Alkaline Phosphatase 36 L 50-136 U/L Total Protein 5.2 L 6.0-8.3 g/dL Albumin 1.6 L 3.5-5.0 g/dL Current Medications Medications (Trade) Dose Ordered Sig/Papito Route PRN Reason Start Time Stop Time Status Last Admin Dose Admin Acetaminophen (TYLenol 325MG TAB) 650 mg Q4H PRN PO TEMPERATURE GREATER THAN 101.5 04/24/24 16:30 05/24/24 16:29 Acetaminophen (TYLenol 325MG TAB) 650 mg Q6H PRN PO MILD PAIN (1-3) 04/24/24 16:30 05/24/24 16:29 Acetaminophen (Tylenol 325mg Suppository) 325 mg Q4H PRN RC TEMPERATURE GREATER THAN 101.5 04/24/24 16:30 05/24/24 16:29 04/25/24 14:02 325 MG Acetaminophen (Tylenol 325mg Suppository) 325 mg Q6H PRN RC MILD PAIN (1-3) 04/24/24 16:30 05/24/24 16:29 Aspirin (Aspirin 81mg Ec Tab) 81 mg DAILY PO 04/27/24 09:00 05/27/24 08:59 05/04/24 08:18 81 MG Cefepime HCl (MAXipime 1 GM vial) 1 gm Q24H IVPB 04/26/24 10:30 05/06/24 10:29 05/04/24 10:56 1 GM Dextrose 1,000 ml @ 150 mls/hr Q6H40M IV 04/30/24 09:30 05/30/24 09:29 05/04/24 11:39 150 MLS/HR Ferric Sodium Gluconate Complex 125 mg/Sodium Chloride 110 ml @ 110 mls/hr Q24H IV 04/30/24 09:30 05/02/24 10:29 DC 05/02/24 08:48 110 MLS/HR Guaifenesin/ Dextromethorphan (RobiTUSSin DM 200/20MG 10ML) 10 ml Q6H PRN PO COUGH 05/02/24 18:00 06/01/24 17:59 05/04/24 08:19 10 ML Heparin Sodium (Porcine) (HEParin 5,000 UNIT VIAL) *calculation based on ACTUAL B... AD PRN IV HEPARIN PROTOCOL 04/26/24 17:00 05/02/24 07:23 DC Heparin Sodium/ Dextrose 250 ml @ 0 mls/hr Q6H IV 04/26/24 17:00 04/29/24 10:28 DC 04/27/24 14:45 15 MLS/HR Lactated Ringer's 1,000 ml @ 150 mls/hr Q6H40M IV 04/28/24 12:00 04/29/24 11:36 DC 04/29/24 08:00 150 MLS/HR Magnesium Sulfate 50 ml @ 0 mls/hr PROTOCOL IV 05/04/24 06:00 06/03/24 05:59 05/04/24 06:39 20 MLS/HR Magnesium Sulfate 50 ml @ 0 mls/hr PROTOCOL IV 05/04/24 10:30 05/04/24 10:35 DC Metoprolol Tartrate (loprESSOR) 5 mg Q6H PRN IV ARRHYTHMIA 04/27/24 23:00 05/27/24 22:59 Metoprolol Tartrate (loprESSOR) 12.5 mg BID PO 04/26/24 21:00 05/26/24 20:59 05/04/24 08:19 12.5 MG Metronidazole (flaGYL) 500 mg Q8H PO 04/26/24 10:30 04/27/24 22:59 DC 04/27/24 17:47 500 MG Metronidazole/ Sodium Chloride (flaGYL) 500 mg Q8H IV 04/28/24 02:30 05/02/24 07:24 DC 05/02/24 02:26 500 MG Morphine Sulfate (morPHINE 2MG SYG) 2 mg Q4H PRN IVP SEVERE PAIN (7-10) 04/29/24 21:30 05/06/24 21:29 05/01/24 16:19 2 MG Morphine Sulfate (morPHINE 2MG SYG) 2 mg Q4H PRN IVP SEVERE PAIN (7-10) 04/24/24 16:30 04/29/24 19:29 DC 04/29/24 15:38 2 MG Ondansetron HCl (zoFRAN 4MG INJ) 4 mg Q6H PRN IVP NAUSEA/VOMITING 04/24/24 16:30 05/24/24 16:29 04/29/24 18:29 4 MG Pantoprazole Sodium (PROTonix 40MG INJ) 40 mg DAILY IVP 04/25/24 09:00 05/25/24 08:59 05/04/24 08:19 40 MG Potassium Chloride 100 ml @ 100 mls/hr AD PRN IV POTASSIUM PROTOCOL 05/02/24 16:00 05/03/24 16:59 DC Potassium Chloride (K-Dur/Klor-Con 20meq) 20 meq AD PRN PO POTASSIUM PROTOCOL 05/02/24 16:00 06/01/24 15:59 Potassium Chloride (KCl 10% Elixir 20meq/15ml) 20 meq AD PRN PO POTASSIUM PROTOCOL 05/02/24 16:00 06/01/24 15:59 05/04/24 11:02 20 MEQ Sodium Chloride 1,000 ml @ 75 mls/hr [id number] IV 04/24/24 16:30 04/28/24 11:48 DC 04/28/24 04:02 75 MLS/HR Sodium Chloride 1,000 ml @ 125 mls/hr Q8H IV 04/29/24 12:00 04/30/24 09:15 DC 04/30/24 04:16 125 MLS/HR DIAGNOSTICS / RADIOLOGY: [ ] ASSESSMENT: NSTEMI with abnormal EKG, POA Large ventral hernia, POA Small bowel obstruction, POA Ischemic bowel, POA Intractable nausea/vomiting, POA s/p ventral hernia repair with repair of necrotic/ischemic bowel (04/29/24) Hypertensive emergency, resolved POA Hyperglycemia, resolved POA Hypernatremia Leukocytosis with left shift,improving POA Hypokalemia, POA Acute renal failure, improving POA PLAN: Patient remains admitted to the PCU. Continue NPO with NG at intermittent suction Continue supportive care with IV fluids General surgery consulted, appreciate recommendations Continue broad-spectrum IV antibiotic due to leukocytosis Continue on antiemetic as needed Continue with pain management We will repeat labs tomorrow GI prophylaxis with Protonix 40 mg IV daily DVT prophylaxis with SCD PT to start working with patient Disposition: The patient remains admitted to the PCU, continue NPO, NG tube to intermittent suction, IV antibiotics. We will stop IV fluid, start Lasix 20 mg IV q.12 hours, follow Doppler rule out DVT. Scheduled to get PICC line, start TPN. A.m. labs. Prognosis remains guarded. No family members at bedside during my visit to discuss further goals of care, plan of action discussed with the patient, questions answered. Total PCU time spent greater than 30 minutes. ALDEN DINH MD May 04, 2024 12:28
[2024-05-04] MEDS: furoSEMIDE 20MG VIAL IV SCH (13:01)
[2024-05-04] MEDS: ENOXAPARIN SODIUM 30 MG/0.3 ML SQ SCH (13:01)
--- NOTE | 2024-05-04 14:15 | NUR ---
Patient agreed to get up to chair. Patient remains weak and debilitated, requiring mod-max A x 2 to get up to chair. Patient with poor tolerance. PT team to follow. Addendum: 05/04/24 at 1534 by GRADY MCGEE PT Amended: Links added.
--- NOTE | 2024-05-04 14:36 | HMCIMG ---
ABD 1VW REASON: abdominal distension FINDINGS: Single image of the abdomen was obtained. There is an NG tube passing into the stomach. There are surgical clips in the lower pelvic midline. Bowel gas pattern is normal. Bones and soft tissues appear unremarkable. There are no abnormal calcifications. There is no evidence of foreign body. IMPRESSION: 1. NG tube in good position.
--- NOTE | 2024-05-04 17:31 | HMCIMG ---
ULTRASOUND VENOUS DOPPLER, BILATERAL LOWER EXTREMITIES INDICATION: Bilateral lower extremity pain and swelling TECHNIQUE: Routine grayscale and color Doppler ultrasound of the bilateral lower extremity veins performed. COMPARISON: No priors. FINDINGS: The demonstrated veins of the bilateral lower extremity including the common femoral vein, femoral vein, and popliteal vein are associated with normal compressibility, augmentation, and flow. Normal respiratory variation was identified. No evidence for echogenic intraluminal thrombus formation. IMPRESSION: No sonographic evidence for deep venous thrombosis within the bilateral lower extremity veins.
[2024-05-05] VITALS (8 sets, daily range): BP systolic 125–143; BP diastolic 63–73; PULSE 77–88; RESP 16–18; TEMP 97.6–98.8; O2SAT 95
--- NOTE | 2024-05-05 01:39 | PN ---
INFECTIOUS DISEASE FOLLOWUP NOTE DATE OF SERVICE: 05/04/2024 SUBJECTIVE: The patient is seen and examined at bedside today. The patient has no fever, no chills. No nausea or vomiting. The patient will continue with abdominal pain. Yet to pass gas or have bowel movement. No dysuria, no urinary frequency. No rashes or itchiness. PHYSICAL EXAMINATION: VITAL SIGNS: Temperature today 97.4. EYES: No icterus. Pupils equal and reactive. HENT: No oral thrush seen. Moist oral mucosa. NECK: Supple, no JVD or thyromegaly. LUNGS: Good air entry. No rales, no rhonchi. CARDIOVASCULAR: S1, S2 regular. No murmur heard. ABDOMEN: Full, soft. Bowel sounds present. CENTRAL NERVOUS SYSTEM: The patient is awake, alert, bedbound debility. No focal deficits. SKIN: No rashes, no itchiness. LYMPHATIC: No peripheral lymphadenopathy. BACK: No deformity, no pressure ulcer. HEMATOLOGIC: No bleeding or petechial lesion seen. ASSESSMENT: An 83-year-old female admitted with abdominal pain. CURRENT PROBLEMS: Include: * Incarcerated hernia, status post-surgery. * Sepsis. * Bowel ischemia, status post resection. * Hypokalemia. * Renal failure. PLAN: * The patient to be started on TPN. * Continue pain management. * Continue cefepime. * Continue doxycycline. * Continue DVT prophylaxis. * Continue antiemetic. * Monitor electrolytes. * Avoid nephrotoxic medication. TID: [id number] RECEIPT: [id number]
[2024-05-05 03:44] LABS: HEMATOCRIT 26.7 % (36-48); MEAN CORPUSCULAR VOLUME 91.1 fL (79-99); RED BLOOD CELL COUNT(AUTO) 2.93 MIL/uL (4.00-5.50); RED CELL DISTRIBUTION WIDTH 14.4 % (11.0-15.5); WHITE BLOOD COUNT (AUTO) 11.7 K/uL (4.8-10.8)
[2024-05-05 04:01] LABS: ALBUMIN 1.7 g/dL (3.5-5.0); BILIRUBIN,TOTAL 0.4 mg/dL (0.2-1.0); CREATININE 1.8 mg/dL (0.5-1.0); MAGNESIUM 1.8 mg/dL (1.80-2.40); POTASSIUM 3.6 mmol/L (3.5-5.1); TOTAL PROTEIN, SERUM 5.6 g/dL (6.0-8.3)
--- NOTE | 2024-05-05 11:10 | NUR ---
Nutrition consult per TPN recs Reviewed labs, notes, and medications. Pt with no gas or BM, bed bound debility, NG tube for suction, on 2L N.C, NPO since admin, diuretics, elevated bun 37, elevated Cr 1.8, hyperglycemia 119, hypocalcemia 8.1 per chart review. PICC line in place, with ice chips, wt via bed scale, last BM 04/27/24, gastric drainage 1L 05/04/24, mild pitting, s/p abd sx per nursing. Inconsistent wts since admin. TPN for short term nutrition. Provide Clinimix 5/15 via PICC line @ 83.3 ml/hr x 24 hrs, Consider decreasing IV fluids rate per recommended rate providing 2000ml per day. Recommendations -Provide Clinimix 5/15 via PICC line @ 83.3 ml/hr x 24 hrs Provides: 2000ml, 100 gm pro, 1420 kcals -Inclue 10 ml adult MVI and 3 ml trace elements -Provide 3x weekly lipid emulsion to prevent essential fatty acid deficiency -Monitor BM -Monitor electrolytes -Replenish electrolytes per protocol -Monitor wts -Reweigh as able -Order Vit D and b12 labs to rule out deficiencies -Monitor TPN tolerance -Monitor goals of care RD to follow + available for consult per protocol Addendum: 05/05/24 at [address] Amended: Links added.
--- NOTE | 2024-05-05 11:30 | HMCIMG ---
PORTABLE CHEST RADIOGRAPH INDICATION: POST PICC LINE PLACEMENT COMPARISON: 04/26/2024 CT chest FINDINGS: Tip of right PICC occupies the SVC. Tip of NG tube within the stomach. Heart size is normal. Mild calcific plaque is present along the aortic arch paredes. The pulmonary vascularity and alber appear normal. Residual minimal linear opacities at both lung bases and left costophrenic angle is nominally blunted. No pneumothorax detected. IMPRESSION: Tip of right PICC within the SVC. Minimal bibasilar atelectasis and trace left pleural fluid.
--- NOTE | 2024-05-05 12:18 | PN ---
[facility] PROGRESS NOTE Date of Service: May 05, 2024 Time of Service: 12:[address] Barry SUBJECTIVE: 83-year-old female admitted for early abdominal obstruction and large ventral hernia. Patient continues with nonreducible hernia. Her abdomen is tender. Surgeon recommended cardiac clearance and found that patient has abnormal T-wave on the 12 lead EKG and troponin was elevated in [id number]. Patient was upgraded to PCCU as we have to start patient on heparin drip. At this time, umbrella tipper machine evaluated the patient this morning and indicated that patient is poor candidate for invasive cardiac procedure due to acute renal failure and bowel obstruction. We will await for 2D echo. At this time, we will also await for further surgical recommendation. 03/29 No acute event reported overnight. Patient continues with abdominal tenderness. She will remain NPO. 03/30 Pt seen at bedside, no acute events overnight. She is s/p ventral hernia repair with resection and repair of ischemic/necrotic bowel post op day 1. She reports her pain is well controlled, she denies BM or flatus. NG tube still in place to intermittent suction. Abdominal binder is in place. She is hypernatremic, not currently on IV fluids, will start D5 at 100 cc/hr to decrease sodium at 0.5 cc/hr rate. Potassium low at 3.0, will replete according to protocol, creatinine continued to improve from 3.8 down to 3.0, remainder of her labs are relatively unremarkable. Diet and NG tube management per General Surgery 03/31 Pt seen at bedside, no acute events overnight. Pt has no complaints today, reports her pain is controlled. She is still NPO with NG tube in place. Denies BM or flatus, continues NPO per general surgery. She was started on D5W at 100 cc/hr yesterday due to hypernatremia at 155, no improvement in sodium this am. Will increase D5W to 125cc/hr and repeat Na at 4pm. Hgb decreased from 9.3 down to 8.4, potassium increased from 3.0 up to 3.1, will continue to replete according to protocol, creatinine improved from 3.0 down to 2.8. Iron is low, patient started on Ferric sodium gluconate per nephrology. Remainder of vitals and labs are relatively unremarkable. 05/02 the patient has been seen and examined during my rounding, no acute events overnight, remains comfortable in bed, NG tube to intermittent suction, output off 150 mL overnight. BP 122/38, afebrile, saturating 94% on 2 L via nasal cannula, no nausea, no vomiting, no abdominal pain, getting good pain control with current medical management. 05/03 the patient has been seen and examined during my rounding, no acute events overnight, remains comfortable in bed, NG tube to intermittent suction, output noted. Patient has not had a bowel movement, currently not passing gas. BP 122/38, afebrile, saturating 94% on 2 L via nasal cannula, no nausea, no vomiting, no abdominal pain, getting good pain control with current medical management. No family at bedside during my visit. 05/04 patient has been seen and examined during my rounding, no acute events overnight, remains comfortably in bed however looks mildly edematous today compared to yesterday, she is getting IV fluids. Remains NPO, NG tube to inte rmittent suction. She is alert oriented x3, she feels weak. BP 153/70, afebrile, saturating 94-98% on room air. No family members at bedside. 05/05 patient was seen by nurse practitioner and physician during rounding in 06/21/2021. Patient is pending PICC line placement for TPN. Patient is still is not passing any gases no bowel movement. Sykes catheter draining well. Per ID patient continues to be on cefepime. Prophylaxis Lovenox. We will continue to monitor patient. Physical therapy consulted for evaluation. Case management for disposition. We will continue to monitor patient in the meantime. A.m. labs REVIEW OF SYSTEMS 12 point ROS negative unless noted in HPI PHYSICAL EXAM GENERAL APPEARANCE: The patient is awake, alert, and oriented, in no acute cardiopulmonary distress. Looks mildly edematous today. NEUROLOGICAL: Cranial nerves II-XII grossly intact. Motor is 5/5 in bilateral upper and lower extremities proximal to distal. No sensory deficits. HEENT: Face is symmetric. Pupils are equal and reactive. Extraocular movements are intact. NECK: Supple. No JVD. No thyromegaly. No submental, submandibular, pre- /postauricular, occipital or supraclavicular lymphadenopathy. CHEST: Normal chest expansion. No Telemetry. LUNGS: Absence of any rales, rhonchi or any wheezing. CARDIOVASCULAR: Regular. S1 and S2 normal. No appreciable rubs, murmurs or gallops. ABDOMEN: Distended, VALERIO drainage serosanguineous output noted. : Deferred. No Sykes. EXTREMITIES: Minimal swollen to both lower extremities. SKIN: No skin breakdown. Vital Signs (last 8hr) Date Time Temp Pulse Resp B/P (MAP) Pulse Ox O2 Delivery O2 Flow Rate FiO2 05/05/24 07:57 95 Room Air* 0 21 05/05/24 07:52 97.9 82 18 134/71 94 Room Air 05/05/24 04:22 98.8 88 18 125/64 97 Room Air LABS: Laboratory: Test 05/05/24 03:34 05/04/24 10:27 05/03/24 20:44 Range/Units White Blood Count 11.7 H 4.8-10.8 K/uL Red Blood Count 2.93 L 4.00-5.50 MIL/uL Hemoglobin 8.8 L 12.0-16.0 g/dL Hematocrit 26.7 L 36-48 % Mean Corpuscular Volume 91.1 79-99 fL Mean Corpuscular Hemoglobin 30.0 27.0-33.0 pg Mean Corpuscular Hemoglobin Concent 33.0 32.0-36.0 g/dL Red Cell Distribution Width 14.4 11.0-15.5 % Platelet Count 295 130-400 K/uL Mean Platelet Volume 9.7 7.5-10.5 fL Nucleated Red Blood Cells 0.0 0.0-0.19 % Sodium Level 144 136-145 mmol/L Potassium Level 3.6 3.5-5.1 mmol/L Chloride Level 107 101-111 mmol/L Carbon Dioxide Level 30 21-32 mmol/L Blood Urea Nitrogen 37 H 7-18 mg/dL Creatinine 1.8 H 0.5-1.0 mg/dL Glomerular Filtration Rate Calc 28 >90 mL/min Random Glucose 119 H 70-105 mg/dL Total Calcium 8.1 L 8.5-10.1 mg/dL Magnesium Level 1.80 1.80-2.40 mg/dL Total Bilirubin 0.4 0.2-1.0 mg/dL Aspartate Amino Transf (AST/SGOT) 28 10-37 U/L Alanine Aminotransferase (ALT/SGPT) 14 12-78 U/L Alkaline Phosphatase 42 L 50-136 U/L Total Protein 5.6 L 6.0-8.3 g/dL Albumin 1.7 L 3.5-5.0 g/dL Prothrombin Time 12.6 H 9.6-11.6 SEC Prothromb Time International Ratio 1.18 H 0.85-1.15 Activated Partial Thromboplast Time 32.0 26.3-35.5 SEC Whole Blood Glucose 187 H 70-110 MG/DL Current Medications Medications (Trade) Dose Ordered Sig/[place] Route PRN Reason Start Time Stop Time Status Last Admin Dose Admin Acetaminophen (TYLenol 325MG TAB) 650 mg Q4H PRN PO TEMPERATURE GREATER THAN 101.5 04/24/24 16:30 05/24/24 16:29 Acetaminophen (TYLenol 325MG TAB) 650 mg Q6H PRN PO MILD PAIN (1-3) 04/24/24 16:30 05/24/24 16:29 Acetaminophen (Tylenol 325mg Suppository) 325 mg Q4H PRN RC TEMPERATURE GREATER THAN 101.5 04/24/24 16:30 05/24/24 16:29 04/25/24 14:02 325 MG Acetaminophen (Tylenol 325mg Suppository) 325 mg Q6H PRN RC MILD PAIN (1-3) 04/24/24 16:30 05/24/24 16:29 Aspirin (Aspirin 81mg Ec Tab) 81 mg DAILY PO 04/27/24 09:00 05/27/24 08:59 05/05/24 08:45 81 MG Cefepime HCl (MAXipime 1 GM vial) 1 gm Q24H IVPB 04/26/24 10:30 05/06/24 10:29 05/05/24 11:03 1 GM Dextrose 1,000 ml @ 150 mls/hr Q6H40M IV 04/30/24 09:30 05/04/24 13:03 DC 05/04/24 11:39 150 MLS/HR Enoxaparin Sodium (Lovenox) 30 mg DAILY SQ 05/04/24 12:30 06/03/24 12:29 05/04/24 13:01 30 MG Ferric Sodium Gluconate Complex 125 mg/Sodium Chloride 110 ml @ 110 mls/hr Q24H IV 04/30/24 09:30 11/13/24 10:29 DC 05/02/24 08:48 110 MLS/HR Furosemide (LASix 20MG VIAL) 20 mg Q12H IV 05/04/24 12:30 06/03/24 12:29 05/04/24 23:35 20 MG Guaifenesin/ Dextromethorphan (RobiTUSSin DM 200/20MG 10ML) 10 ml Q6H PRN PO COUGH 05/02/24 18:00 06/01/24 17:59 05/04/24 08:19 10 ML Heparin Sodium (Porcine) (HEParin 5,000 UNIT VIAL) *calculation based on ACTUAL B... AD PRN IV HEPARIN PROTOCOL 04/26/24 17:00 05/02/24 07:23 DC Heparin Sodium/ Dextrose 250 ml @ 0 mls/hr Q6H IV 04/26/24 17:00 04/29/24 10:28 DC 04/27/24 14:45 15 MLS/HR Lactated Ringer's 1,000 ml @ 150 mls/hr Q6H40M IV 04/28/24 12:00 04/29/24 11:36 DC 04/29/24 08:00 150 MLS/HR Magnesium Sulfate 50 ml @ 0 mls/hr PROTOCOL IV 05/04/24 06:00 06/03/24 05:59 05/05/24 05:47 20 MLS/HR Magnesium Sulfate 50 ml @ 0 mls/hr PROTOCOL IV 05/04/24 10:30 05/04/24 10:35 DC Metoprolol Tartrate (loprESSOR) 5 mg Q6H PRN IV ARRHYTHMIA 04/27/24 23:00 05/27/24 22:59 Metoprolol Tartrate (loprESSOR) 12.5 mg BID PO 04/26/24 21:00 05/26/24 20:59 05/05/24 08:45 12.5 MG Metronidazole (flaGYL) 500 mg Q8H PO 04/26/24 10:30 04/27/24 22:59 DC 04/27/24 17:47 500 MG Metronidazole/ Sodium Chloride (flaGYL) 500 mg Q8H IV 04/28/24 02:30 05/02/24 07:24 DC 05/02/24 02:26 500 MG Morphine Sulfate (morPHINE 2MG SYG) 2 mg Q4H PRN IVP SEVERE PAIN (7-10) 04/29/24 21:30 05/05/24 00:29 DC 05/01/24 16:19 2 MG Morphine Sulfate (morPHINE 2MG SYG) 2 mg Q4H PRN IVP SEVERE PAIN (7-10) 04/24/24 16:30 04/29/24 19:29 DC 04/29/24 15:38 2 MG Ondansetron HCl (zoFRAN 4MG INJ) 4 mg Q6H PRN IVP NAUSEA/VOMITING 04/24/24 16:30 05/24/24 16:29 04/29/24 18:29 4 MG Pantoprazole Sodium (PROTonix 40MG INJ) 40 mg DAILY IVP 04/25/24 09:00 05/25/24 08:59 05/05/24 08:45 40 MG Potassium Chloride 100 ml @ 100 mls/hr AD PRN IV POTASSIUM PROTOCOL 05/02/24 16:00 05/03/24 16:59 DC Potassium Chloride (K-Dur/Klor-Con 20meq) 20 meq AD PRN PO POTASSIUM PROTOCOL 05/02/24 16:00 06/01/24 15:59 Potassium Chloride (KCl 10% Elixir 20meq/15ml) 20 meq AD PRN PO POTASSIUM PROTOCOL 05/02/24 16:00 06/01/24 15:59 05/05/24 08:45 20 MEQ Sodium Chloride 1,000 ml @ 75 mls/hr [id number] IV 04/24/24 16:30 04/28/24 11:48 DC 04/28/24 04:02 75 MLS/HR Sodium Chloride 1,000 ml @ 125 mls/hr Q8H IV 04/29/24 12:00 04/30/24 09:15 DC 04/30/24 04:16 125 MLS/HR DIAGNOSTICS / RADIOLOGY: [ ] ASSESSMENT: NSTEMI with abnormal EKG, POA Large ventral hernia, POA Small bowel obstruction, POA Ischemic bowel, POA Intractable nausea/vomiting, POA s/p ventral hernia repair with repair of necrotic/ischemic bowel (04/29/24) Hypertensive emergency, resolved POA Hyperglycemia, resolved POA Hypernatremia Leukocytosis with left shift,improving POA Hypokalemia, POA Acute renal failure, improving POA PLAN: Patient remains admitted to the PCU. Continue NPO with NG at intermittent suction Continue supportive care with IV fluids General surgery consulted, appreciate recommendations Continue broad-spectrum IV antibiotic due to leukocytosis Continue on antiemetic as needed Continue with pain management We will repeat labs tomorrow GI prophylaxis with Protonix 40 mg IV daily DVT prophylaxis with SCD PT to start working with patient Disposition: The patient remains admitted to the PCU, continue NPO, NG tube to intermittent suction, IV antibiotics. We will stop IV fluid, start Lasix 20 mg IV q.12 hours, follow Doppler rule out DVT. Scheduled to get PICC line, start TPN. A.m. labs. Prognosis remains guarded. No family members at bedside during my visit to discuss further goals of care, plan of action discussed with the patient, questions answered. Total PCU time spent greater than 30 minutes. ATTESTATION BY PHYSICIAN I have seen and examined the patient. I reviewed the documentation, medical decision making, and treatment plan as noted by the mid-level provider above. I agree with the findings and plan of care. ALDEN DINH MD, [facility]YNA [facility] May 05, 2024 12:18
--- NOTE | 2024-05-05 12:46 | NUR ---
ORDER RECEIVED TO USE PICC LINE.
[2024-05-05] MEDS: M.V.I. IV [ADULT] 10 ML, MULTITRACE-4 ADULT 10ML VIAL 3 ML in CLINIMIX-E 5%AA /D15%W 2... IV ONE (13:21)
--- NOTE | 2024-05-05 13:30 | NUR ---
CLINIMIX-E 11/01 INITIATED AT 83.3 CC/HR. WILL CONTINUE TO MONITOR.
--- NOTE | 2024-05-05 13:48 | PN ---
NEPHROLOGY PROGRESS NOTE Date/Time Patient Seen: May 05, 2024 Reason for Consultation: 13:43 SUBJECTIVE: This is a 83-year-old female, initially presented with small bowel obstruction. The patient underwent hernia repair. She continues to remain n.p.o. The patient had acute renal failure as well as significant electrolyte abnormalities postop. The patient has been transferred out of the ICU. The patient's serum sodium continues to slowly improve. She remains on the IV hydration. The patient's potassium has been aggressively repleted She is pending a PICC line placement for continued TPN. She continues on antibiotics as per ID. Case management coordinating disposition. Her renal function is stable Electrolytes are stable. REVIEW OF SYSTEMS: GENERAL: Negative for any nausea, vomiting, fevers, chills, or weight loss. NEUROLOGIC: Negative for any blurry vision, blind spots, double vision, facial asymmetry, dysphagia, dysarthria, hemiparesis, hemisensory deficits, vertigo, ataxia. HEENT: Negative for any head trauma, neck trauma, neck stiffness, photophobia, phonophobia, sinusitis, rhinitis. CARDIAC: Negative for any chest pain, dyspnea on exertion, paroxysmal nocturnal dyspnea, peripheral edema. PULMONARY: Negative for any shortness of breath, wheezing, COPD, or TB exposure. GASTROINTESTINAL: Negative for any abdominal pain, nausea, vomiting, bright red blood per rectum, melena. GENITOURINARY: Negative for any dysuria, hematuria, incontinence. INTEGUMENTARY: Negative for any rashes, cuts, insect bites. RHEUMATOLOGIC: Negative for any joint pains, photosensitive rashes, history of vasculitis or kidney problems. HEMATOLOGIC: Negative for any abnormal bruising, frequent infections or b leeding. Vital Signs (last 8hr) Date Time Temp Pulse Resp B/P (MAP) Pulse Ox O2 Delivery O2 Flow Rate FiO2 05/05/24 12:30 98.2 79 18 141/69 94 Room Air 05/05/24 07:57 95 Room Air* 0 21 05/05/24 07:52 97.9 82 18 134/71 94 Room Air PHYSICAL EXAM: GENERAL: Alert and oriented x 3. No acute distress. Well-nourished. EYES: EOMI. Anicteric. HENT: Moist mucous membranes. No scleral icterus. No cervical lymphadenopathy. LUNGS: Clear to auscultation bilaterally. No accessory muscle use. CARDIOVASCULAR: Regular rate and rhythm. No murmur. No JVD. ABDOMEN: Soft, non-tender and non-distended. No palpable masses. EXTREMITIES: No edema. Non-tender.?SKIN: No rashes or lesions. Warm. NEUROLOGIC: No focal neurological deficits. CN II-XII grossly intact, but not individually tested. PSYCHIATRIC: Cooperative. Appropriate mood and affect. Current Medications Medications (Trade) Dose Ordered Sig/Papito Route PRN Reason Start Time Stop Time Status Last Admin Dose Admin Acetaminophen (TYLenol 325MG TAB) 650 mg Q4H PRN PO TEMPERATURE GREATER THAN 101.5 04/24/24 16:30 05/24/24 16:29 Acetaminophen (TYLenol 325MG TAB) 650 mg Q6H PRN PO MILD PAIN (1-3) 04/24/24 16:30 05/24/24 16:29 Acetaminophen (Tylenol 325mg Suppository) 325 mg Q4H PRN RC TEMPERATURE GREATER THAN 101.5 04/24/24 16:30 05/24/24 16:29 04/25/24 14:02 325 MG Acetaminophen (Tylenol 325mg Suppository) 325 mg Q6H PRN RC MILD PAIN (1-3) 04/24/24 16:30 05/24/24 16:29 Aspirin (Aspirin 81mg Ec Tab) 81 mg DAILY PO 04/27/24 09:00 05/27/24 08:59 05/05/24 08:45 81 MG Cefepime HCl (MAXipime 1 GM vial) 1 gm Q24H IVPB 04/26/24 10:30 05/06/24 10:29 05/05/24 11:03 1 GM Dextrose 1,000 ml @ 150 mls/hr Q6H40M IV 04/30/24 09:30 05/04/24 13:03 DC 05/04/24 11:39 150 MLS/HR Enoxaparin Sodium (Lovenox) 30 mg DAILY SQ 05/04/24 12:30 06/03/24 12:29 05/04/24 13:01 30 MG Ferric Sodium Gluconate Complex 125 mg/Sodium Chloride 110 ml @ 110 mls/hr Q24H IV 04/30/24 09:30 05/02/24 10:29 DC 05/02/24 08:48 110 MLS/HR Furosemide (LASix 20MG VIAL) 20 mg Q12H IV 05/04/24 12:30 06/03/24 12:29 05/05/24 13:16 20 MG Guaifenesin/ Dextromethorphan (RobiTUSSin DM 200/20MG 10ML) 10 ml Q6H PRN PO COUGH 05/02/24 18:00 06/01/24 17:59 05/04/24 08:19 10 ML Heparin Sodium (Porcine) (HEParin 5,000 UNIT VIAL) *calculation based on ACTUAL B... AD PRN IV HEPARIN PROTOCOL 04/26/24 17:00 05/02/24 07:23 DC Heparin Sodium/ Dextrose 250 ml @ 0 mls/hr Q6H IV 04/26/24 17:00 04/29/24 10:28 DC 04/27/24 14:45 15 MLS/HR Lactated Ringer's 1,000 ml @ 150 mls/hr Q6H40M IV 04/28/24 12:00 04/29/24 11:36 DC 04/29/24 08:00 150 MLS/HR Magnesium Sulfate 50 ml @ 0 mls/hr PROTOCOL IV 05/04/24 06:00 06/03/24 05:59 05/05/24 05:47 20 MLS/HR Magnesium Sulfate 50 ml @ 0 mls/hr PROTOCOL IV 05/04/24 10:30 05/04/24 10:35 DC Metoprolol Tartrate (loprESSOR) 5 mg Q6H PRN IV ARRHYTHMIA 04/27/24 23:00 05/27/24 22:59 Metoprolol Tartrate (loprESSOR) 12.5 mg BID PO 04/26/24 21:00 05/26/24 20:59 05/05/24 08:45 12.5 MG Metronidazole (flaGYL) 500 mg Q8H PO 04/26/24 10:30 04/27/24 22:59 DC 04/27/24 17:47 500 MG Metronidazole/ Sodium Chloride (flaGYL) 500 mg Q8H IV 04/28/24 02:30 05/02/24 07:24 DC 05/02/24 02:26 500 MG Morphine Sulfate (morPHINE 2MG SYG) 2 mg Q4H PRN IVP SEVERE PAIN (7-10) 04/29/24 21:30 05/05/24 00:29 DC 05/01/24 16:19 2 MG Morphine Sulfate (morPHINE 2MG SYG) 2 mg Q4H PRN IVP SEVERE PAIN (7-10) 04/24/24 16:30 04/29/24 19:29 DC 04/29/24 15:38 2 MG Ondansetron HCl (zoFRAN 4MG INJ) 4 mg Q6H PRN IVP NAUSEA/VOMITING 04/24/24 16:30 05/24/24 16:29 04/29/24 18:29 4 MG Pantoprazole Sodium (PROTonix 40MG INJ) 40 mg DAILY IVP 04/25/24 09:00 05/25/24 08:59 05/05/24 08:45 40 MG Potassium Chloride 100 ml @ 100 mls/hr AD PRN IV POTASSIUM PROTOCOL 05/02/24 16:00 05/03/24 16:59 DC Potassium Chloride (K-Dur/Klor-Con 20meq) 20 meq AD PRN PO POTASSIUM PROTOCOL 05/02/24 16:00 06/01/24 15:59 Potassium Chloride (KCl 10% Elixir 20meq/15ml) 20 meq AD PRN PO POTASSIUM PROTOCOL 05/02/24 16:00 06/01/24 15:59 05/05/24 08:45 20 MEQ Sodium Chloride 1,000 ml @ 75 mls/hr [id number] IV 04/24/24 16:30 04/28/24 11:48 DC 04/28/24 04:02 75 MLS/HR Sodium Chloride 1,000 ml @ 125 mls/hr Q8H IV 04/29/24 12:00 04/30/24 09:15 DC 04/30/24 04:16 125 MLS/HR LABORATORY: [ ] Hematology Labs: Test 05/05/24 03:34 Range/Units White Blood Count 11.7 H 4.8-10.8 K/uL Red Blood Count 2.93 L 4.00-5.50 MIL/uL Hemoglobin 8.8 L 12.0-16.0 g/dL Hematocrit 26.7 L 36-48 % Mean Corpuscular Volume 91.1 79-99 fL Mean Corpuscular Hemoglobin 30.0 27.0-33.0 pg Mean Corpuscular Hemoglobin Concent 33.0 32.0-36.0 g/dL Red Cell Distribution Width 14.4 11.0-15.5 % Platelet Count 295 130-400 K/uL Mean Platelet Volume 9.7 7.5-10.5 fL Nucleated Red Blood Cells 0.0 0.0-0.19 % Chemistry Labs: Test 05/05/24 11:40 05/05/24 03:34 05/03/24 20:44 Range/Units Vitamin B12 Level 694 193-986 pg/mL Sodium Level 144 136-145 mmol/L Potassium Level 3.6 3.5-5.1 mmol/L Chloride Level 107 101-111 mmol/L Carbon Dioxide Level 30 21-32 mmol/L Blood Urea Nitrogen 37 H 7-18 mg/dL Creatinine 1.8 H 0.5-1.0 mg/dL Glomerular Filtration Rate Calc 28 >90 mL/min Random Glucose 119 H 70-105 mg/dL Total Calcium 8.1 L 8.5-10.1 mg/dL Magnesium Level 1.80 1.80-2.40 mg/dL Total Bilirubin 0.4 0.2-1.0 mg/dL Aspartate Amino Transf (AST/SGOT) 28 10-37 U/L Alanine Aminotransferase (ALT/SGPT) 14 12-78 U/L Alkaline Phosphatase 42 L 50-136 U/L Total Protein 5.6 L 6.0-8.3 g/dL Albumin 1.7 L 3.5-5.0 g/dL Whole Blood Glucose 187 H 70-110 MG/DL Coagulation Labs: Test 05/04/24 10:27 Range/Units Prothrombin Time 12.6 H 9.6-11.6 SEC Prothromb Time International Ratio 1.18 H 0.85-1.15 Activated Partial Thromboplast Time 32.0 26.3-35.5 SEC DIAGNOSTICS / RADIOLOGY: REASON: POST PICC LINE PLACEMENT ORDERING PHYSICIAN: KRIS WATSON PROCEDURE: CXR1VW - CHEST 1VW PORTABLE CHEST RADIOGRAPH INDICATION: POST PICC LINE PLACEMENT COMPARISON: 04/26/2024 CT chest FINDINGS: Tip of right PICC occupies the SVC. Tip of NG tube within the stomach. Heart size is normal. Mild calcific plaque is present along the aortic arch paredes. The pulmonary vascularity and alber appear normal. Residual minimal linear opacities at both lung bases and left costophrenic angle is nominally blunted. No pneumothorax detected. IMPRESSION: Tip of right PICC within the SVC. Minimal bibasilar atelectasis and trace left pleural fluid. DICTATED BY: BALDOMERO LOPEZ MD DATE: 05/05/24 1127 REASON: mild swelling both legs ORDERING PHYSICIAN: ALDEN DINH MD PROCEDURE: VENOUS ADAM - US VENOUS DOPPLER BILATERAL ULTRASOUND VENOUS DOPPLER, BILATERAL LOWER EXTREMITIES INDICATION: Bilateral lower extremity pain and swelling TECHNIQUE: Routine grayscale and color Doppler ultrasound of the bilateral lower extremity veins performed. COMPARISON: No priors. FINDINGS: The demonstrated veins of the bilateral lower extremity including the common femoral vein, femoral vein, and popliteal vein are associated with normal compressibility, augmentation, and flow. Normal respiratory variation was identified. No evidence for echogenic intraluminal thrombus formation. IMPRESSION: No sonographic evidence for deep venous thrombosis within the bilateral lower extremity veins. DICTATED BY: BALDOMERO LOPEZ MD DATE: 05/04/24 1728 REASON: abdominal distension ORDERING PHYSICIAN: ALDEN DINH MD PROCEDURE: ABD 1VW - ABD 1VW ABD 1VW REASON: abdominal distension FINDINGS: Single image of the abdomen was obtained. There is an NG tube passing into the stomach. There are surgical clips in the lower pelvic midline. Bowel gas pattern is normal. Bones and soft tissues appear unremarkable. There are no abnormal calcifications. There is no evidence of foreign body. IMPRESSION: 1. NG tube in good position. DICTATED BY: MIRIAM CHAMPAGNE MD DATE: 05/04/24 1433 REASON: CHECK FOR NASO GASTRIC TUBE INSERTION ORDERING PHYSICIAN: JACOB GREEN MD PROCEDURE: ABD 1VW - ABD 1VW ABD 1VW HISTORY: Nasogastric tube insertion COMPARISON: None FINDINGS: A frontal projection of the abdomen was obtained. Mild small bowel dilatation is seen. Fecal material is seen in the colon. Degenerative changes of the thoracolumbar spine are noted. IMPRESSION: 1. Mild small bowel dilatation. DICTATED BY: CARO TSE MD DATE: 04/27/24 2331 REASON: cardiac clearance ORDERING PHYSICIAN: VIDAL KING TRAFFIC OPERATIONS MANAGER PROCEDURE: ECHO CMP - ECHO 2-D COMPLETE APPROVED REPORT EXAM: Two-dimensional and M-mode echocardiogram with Doppler and color Doppler. Study Details: Hx: DM type 2, hypertension, hyperlipidemia, diabetic retinopa thy, macular degeneration INDICATION ICD: Cardiac clearance 2D Dimensions RVDd 3.2 cm LVEF(%) 25.2 (>50%) LVED Vol(simp.) 96.5 mL IVSd 1.1 (0.7-1.1cm) FS(%) 12 % LVES Vol(simp.) 61.2 mL LVDd 5.2 (3.8-5.6cm) LVOT diam 2.2 (1.8-2.4cm) LVEF(%, simp.) 37 % PWd 0.7 (0.7-1.1cm) LA ESV INDEX (4CH) 18.10 mL/m2 IVSs 1.0 cm LA ESV INDEX (2CH) 21.30 mL/m2 LVDs 4.6 (2.5-4.0cm) LA ESV INDEX (BP) 20.30 mL/m2 PWs 0.9 cm Deformation Strain Apical 4 14.0 % Apical 2 11.0 % Apical 3 13.0 % Global Strain 13.0 % Aortic Valve AoV VTI 0.2 m Ao Mean GR 5.0 mmHg LVOT VTI 0.15 m VIDHYA (VMAX) 2.5 cm2 Al P1/2T 436 ms VIDHYA (VTI) 2.5 cm2 Mitral Valve MV E Vmax 43.7 cm/s DECEL Time 137 ms MV A Vmax 83.9 cm/s P 1/2 T 57 ms E/A ratio 0.5 MVA (PHT) 3.9 cm2 TDI E/E' Medial 13.7 E/E' Lateral 15.6 Medial E' Peak V 3.20 cm/s Lateral E' Peak V 2.80 cm/s Pulmonary Valve PV Vmax 1.2 m/s PV Peak GR 6.1 mmHg Left Ventricle Left ventricular cavity size is normal. There is normal left ventricular wall thickness. LVEF is 35-40%. Stage I diastolic dysfunction. Right Ventricle The right ventricle is normal size. The right ventricular systolic function is normal. Atria The left atrium size is normal. Lipomatus atrial septal hypertrophy is present. The right atrium size is normal. Eustachian valve is noted in the right atrium. Aortic Valve Aortic valve leaflets Trace of aortic regurgitation is present. There is no aortic valvular stenosis. Mitral Valve Mitral valve leaflets open well. There is trace of mitral valve regurgitation noted. There is no mitral valve stenosis. Tricuspid Valve The tricuspid valve is normal in structure and function. There is no tricuspid valve regurgitation noted. Pulmonic Valve The pulmonic valve leaflets appear normal. There is no pulmonic valvular regurgitation. Great Vessels The aortic root is normal in size. IVC is small in size and collapses <50% with inspiration. Pericardium No pericardial effusion. Other Information Quality : Technically difficult study due to body habitus Conclusion LVEF is 35-40%. Stage I diastolic dysfunction. The right atrium size is normal. Eustachian valve is noted in the right atrium. Lipomatus atrial septal hypertrophy is present. Trace of aortic regurgitation is present. There is trace of mitral valve regurgitation noted. DICTATED BY: EDU QUINTANA MD DATE: 04/27/24 0742 REASON: pneumonia ORDERING PHYSICIAN: NAHUM BROWN MD PROCEDURE: CHEST WO - CT CHEST W/O CONTRAST CT CHEST W/O CONTRAST HISTORY: Pneumonia COMPARISON: None TECHNIQUE: Multiple sequential axial images of the chest were obtained from the thoracic inlet through upper abdomen. Patient was not given contrast through intravenous route. FINDINGS: Bilateral lower lung pulmonary infiltrates are seen. There are interstitial fibrosis with bronchiectasis. Tiny pericardial effusion is seen. No pleural effusion or pericardial effusion is seen. There is no evidence of pneumothorax. There are normal size mediastinal and hilar lymph nodes. The heart is not enlarged. Degenerative changes of the thoracolumbar spine are present. There is no evidence of adrenal nodule. IMPRESSION: 1. Bilateral lower lung pulmonary infiltrates with interstitial fibrosis. CT was performed with one or more following dose reduction techniques: automated exposure control, adjustment of the mA and kv according to patient's size, or use of a iterative reconstruction technique. DICTATED BY: CARO TSE MD DATE: 04/26/24 1243 REASON: lower abd pain, hx hernia, n/v ORDERING PHYSICIAN: JOHN LARA PROCEDURE: ABD PEL W - CT ABDOMEN/PELVIS W/CONTRAST CT ABDOMEN/PELVIS W/CONTRAST HISTORY: Pelvic pain COMPARISON: None TECHNIQUE: Multiple sequential axial images of the abdomen and pelvis were obtained from the dome of the diaphragm through symphysis pubis. Patient was given 100 cc of Omnipaque through intravenous route. Oral contrast was not given. FINDINGS: No pleural effusion is seen bilaterally. There is no evidence of parenchymal disease or pulmonary nodule of the visualized lower lungs. COPD changes are seen. Degenerative changes of the thoracolumbar spine are present. The heart is not enlarged. The liver measures 12 cm. Is small hiatal hernia is seen. Gastric distention is seen. Small bowel dilatation is seen with transitional point not well visualized. There is large anterior pelvic ventral hernia with bowel content. The liver, spleen, adrenal glands and pancreas are unremarkable. There is no evidence of hydronephrosis bilaterally. No evidence of renal stone is seen. Fecal material is seen in the colon. There are normal size retroperitoneal and mesenteric lymph nodes. No ascites is seen. Atherosclerotic changes are present. Appendix is not well seen limiting evaluation. There is diverticulosis. Pelvic sidewalls are symmetric bilaterally. Bladder is poorly distended. IMPRESSION: 1. Large anterior pelvic wall hernia with bowel content. Mild small bowel dilatation. No ascites. CT was performed with one or more following dose reduction techniques: automated exposure control, adjustment of the mA and kv according to patient's size, or use of a iterative reconstruction technique. DICTATED BY: CARO TSE MD DATE: 04/24/24 8746 ASSESSMENT: Hypokalemia Acute renal failure, improving NSTEMI Large ventral hernia Small bowel obstruction Ischemic bowel Intractable nausea/vomiting s/p ventral hernia repair with repair of necrotic/ischemic bowel (04/29/24) Hypertensive emergency Hyperglycemia Hypernatremia Leukocytosis PLAN: Labs, diagnostic, radiologic exams reviewed and interpreted by myself and supervising physician. We have reviewed external records in detail Pending PICC line placement for continued TPN. Require close monitoring of renal function and electrolytes Order CBC, CMP, and electrolytes in am Continue with antibiotics as per ID BiPAP as necessary, for respiratory distress Monitor blood pressure adjust medication doses as needed Avoid hypotensive episodes May use Dilaudid 0.5 mg IV every 6 hours as needed for severe pain Strict intake, output, and daily weight should be monitored Please renally adjust medications Avoid nephrotoxic and nonsteroidal drugs Avoid contrast if possible Will continue to monitor renal function, anemia, electrolytes Treatment plan discussed with patient Questions were answered We have discussed with the other team physicians in detail about the care plan We will continue to monitor the patient closely ATTESTATION BY PHYSICIAN I have seen and examined the patient. I reviewed the documentation, medical decision making, and treatment plan as noted by the mid-level provider above. I agree with the findings and plan of care. SID TAFOYA MD, [facility] May 05, 2024 13:48
--- NOTE | 2024-05-05 13:53 | NUR ---
DRESSING TO ABDOMINAL INCISION CHANGED. INCISION WITH STAPLE LINE WELL APPROXIMATED. APPLIED 4X4 GAUZE AND SECURED WITH PAPER TAPE. ABDOMINAL BINDER REAPPLIED. NOTED DTI TO RIGHT BUTTOCK, REINFORCED THE IMPORTANCE OF REPOSITIONED EVERY 2 HOURS AND PRN WHILE IN BED.
--- NOTE | 2024-05-05 15:55 | PN ---
Postop day 6 after surgery laparotomy small-bowel resection for incarcerated hernia. Patient is drawn relatively well. He is now in the step-down unit. She is still not passing gas. She has developed ileus. X-rays in the last couple of days shows no pattern of obstruction. Abdomen is very soft. NG tube is slightly distal and the stomach has been 200 cc last night. Patient is awake responsive. Nurses tell me that patient has been getting out of bed with physical therapy. She had a PICC line she is starting tPA into the ED because has started to eat. Still not passing any gas. We will continue same management. Renal function is stable. Appreciate client insights consultant input and management. Vitals/Labs Vital Signs Date Time Temp Pulse Resp B/P (MAP) Pulse Ox O2 Delivery O2 Flow Rate FiO2 05/05/24 12:30 98.2 79 18 141/69 94 Room Air 05/05/24 07:57 0 21 Laboratory Tests 05/05/24 03:34 KRYSTA SANCHEZ MD May 05, 2024 15:55
--- NOTE | 2024-05-05 16:00 | NUR ---
DCP/SNF In to speak w pt regarding Md recommendation for SNF @ [place]. Pt requesting for CM to speak w her dtr Emelia. Call placed to Emelia Jones @ [phone]. Discussed w her Md recommendations. Provided her [facility] website, discussed SNFs in the [place] area. Encouraged her to tour facilities. Per Emelia she will come by hospital to speak w CM tomorrow.
--- NOTE | 2024-05-05 17:30 | NUR ---
REPORT CALLED TO MARU PANTOJA. PATIENT TO BE TRANSFERRED TO ROOM 418 VIA BED ALONG WITH PERSONAL BELONGINGS.
--- NOTE | 2024-05-05 18:01 | NUR ---
CALLED AND SPOKE TO DAUGHTER, RIK VICKERS ([phone]) AND INFORMED HER OF PATIENT'S NEW ROOM.
--- NOTE | 2024-05-05 18:54 | PN ---
INFECTIOUS DISEASE PROGRESS NOTE Date of Service: May 05, 2024 SUBJECTIVE: Patient was seen and examined in the ICU room 219. Patient is awake, alert and oriented. Patient is s/p open ventral hernia repair and small-bowel resection on 04/29/2024. No output reported from the 2 Hemovac drains. During visit today patient is drinking some ice water. Patient denying feeling nauseated. Abdomen is soft. Continues with an NG tube to low intermittent suction. No fever , temperature is 97.9 Continues on cefepime. We will continue to monitor patient. PHYSICAL EXAM EYES: Anicteric. Pupils equal and reactive. HENT: No oral thrush seen, moist Oral mucosa. NG tube. NECK: Supple, no JVD or thyromegaly. LUNGS: Good air entry. No rales, no rhonchi. CARDIOVASCULAR: S1, S2 regular. No murmur heard. ABDOMEN: Soft, tender, no organomegaly. Abdominal Surgical incision. Two VALERIO drains. CENTRAL NERVOUS SYSTEM: Awake, alert, oriented x 3. SKIN: No rashes, no swelling. LYMPHATICS: No peripheral lymphadenopathy. MUSCULOSKELETAL: No joint swelling, erythema or tenderness. EXTREMITIES: No cyanosis or clubbing. BACK: No deformity, no pressure ulcer. GENITOURINARY: No dysuria or hematuria. Sykes catheter. Vital Sign (Last 12 Hours) 05/05/24 05/05/24 05/05/24 05/05/24 07:52 07:57 12:30 16:21 Temp 97.9 98.2 97.5 Pulse 82 79 79 Resp 18 18 16 B/P (MAP) 134/71 141/69 126/63 Pulse Ox 94 95 94 93 O2 Delivery Room Air Room Air* Room Air Room Air O2 Flow Rate 0 FiO2 21 05/05/24 18:00 Temp 97.9 Pulse 77 Resp 18 B/P (MAP) 141/72 Pulse Ox 94 O2 Delivery Room Air Intake & Output (last 24hrs) 05/04/24 05/04/24 05/05/24 15:00 23:00 07:00 Intake Total 50.0 ml 50.0 ml Output Total 1100 ml 700 ml 5 ml Balance -1050.0 ml -700 ml 45.0 ml LABS: Laboratory: Test 05/05/24 11:40 05/05/24 03:34 05/04/24 10:27 05/03/24 20:44 Range/Units Vitamin B12 Level 694 193-986 pg/mL White Blood Count 11.7 H 4.8-10.8 K/uL Red Blood Count 2.93 L 4.00-5.50 MIL/uL Hemoglobin 8.8 L 12.0-16.0 g/dL Hematocrit 26.7 L 36-48 % Mean Corpuscular Volume 91.1 79-99 fL Mean Corpuscular Hemoglobin 30.0 27.0-33.0 pg Mean Corpuscular Hemoglobin Concent 33.0 32.0-36.0 g/dL Red Cell Distribution Width 14.4 11.0-15.5 % Platelet Count 295 130-400 K/uL Mean Platelet Volume 9.7 7.5-10.5 fL Nucleated Red Blood Cells 0.0 0.0-0.19 % Sodium Level 144 136-145 mmol/L Potassium Level 3.6 3.5-5.1 mmol/L Chloride Level 107 101-111 mmol/L Carbon Dioxide Level 30 21-32 mmol/L Blood Urea Nitrogen 37 H 7-18 mg/dL Creatinine 1.8 H 0.5-1.0 mg/dL Glomerular Filtration Rate Calc 28 >90 mL/min Random Glucose 119 H 70-105 mg/dL Total Calcium 8.1 L 8.5-10.1 mg/dL Magnesium Level 1.80 1.80-2.40 mg/dL Total Bilirubin 0.4 0.2-1.0 mg/dL Aspartate Amino Transf (AST/SGOT) 28 10-37 U/L Alanine Aminotransferase (ALT/SGPT) 14 12-78 U/L Alkaline Phosphatase 42 L 50-136 U/L Total Protein 5.6 L 6.0-8.3 g/dL Albumin 1.7 L 3.5-5.0 g/dL Prothrombin Time 12.6 H 9.6-11.6 SEC Prothromb Time International Ratio 1.18 H 0.85-1.15 Activated Partial Thromboplast Time 32.0 26.3-35.5 SEC Whole Blood Glucose 187 H 70-110 MG/DL ASSESSMENT: Abdominal pain. Incarcerated ventral hernia, s/p open ventral hernia repair and small-bowel resection on 04/29/2024. Sepsis. Acute renal failure. Leukocytosis. Elevated troponin. Non-STEMI postop. PLAN: Continue cefepime. Incision care as recommended by General surgery. Hemovac drain care. Continues with a NG tube to low intermittent suction. Continue pain management. Physical Science Technician following patient. Will monitor electrolytes. This case was reviewed and discussed with my supervising physician and the above assessment and plan was formulated and agreed upon. ATTESTATION BY PHYSICIAN I have seen and examined the patient. I reviewed the documentation, medical decision making, and treatment plan as noted by the mid-level provider above. I agree with the findings and plan of care. NAHUM BROWN MD, [facility] May 05, 2024 18:54
[2024-05-06] VITALS (7 sets, daily range): BP systolic 135–150; BP diastolic 70–84; PULSE 72–92; RESP 16–18; TEMP 97.5–98.8; O2SAT 95–96
[2024-05-06 05:19] LABS: BASOPHILS # (AUTO) 0.01 K/uL (0.00-0.20); BASOPHILS % (AUTO) 0.1 % (0.0-5.0); EOSINOPHILS # (AUTO) 0.23 K/uL (0.00-0.70); EOSINOPHILS % (AUTO) 2.1 % (0.0-8.0); HEMATOCRIT 27.3 % (36-48); IMMATURE GRANULOCYTE ABSOLUTE 0.15 K/uL (0-1); LYMPHOCYTES # (AUTO) 0.6 K/uL (1.0-4.8); LYMPHOCYTES % (AUTO) 5.5 % (21.0-51.0); MEAN CORPUSCULAR HEMOGLOBIN 29.5 pg (27.0-33.0); MEAN CORPUSCULAR HGB CONC 31.5 g/dL (32.0-36.0); MEAN CORPUSCULAR VOLUME 93.5 fL (79-99); MONOCYTES # (AUTO) 0.4 K/uL (0.1-1.0); MONOCYTES % (AUTO) 3.6 % (3.0-13.0); NEUTROPHILS # (AUTO) 9.3 K/uL (1.8-7.7); NEUTROPHILS % (AUTO) 87.3 % (40.0-77.0); PLATELET COUNT (AUTO) 336 K/uL (130-400); RED BLOOD CELL COUNT(AUTO) 2.92 MIL/uL (4.00-5.50); RED CELL DISTRIBUTION WIDTH 14.4 % (11.0-15.5); WHITE BLOOD COUNT (AUTO) 10.7 K/uL (4.8-10.8)
[2024-05-06 05:56] LABS: ALBUMIN 1.8 g/dL (3.5-5.0); BILIRUBIN,TOTAL 0.3 mg/dL (0.2-1.0); CREATININE 1.7 mg/dL (0.5-1.0); MAGNESIUM 2.1 mg/dL (1.80-2.40); TOTAL PROTEIN, SERUM 5.8 g/dL (6.0-8.3)
[2024-05-06 06:12] LABS: POTASSIUM 2.9 mmol/L (3.5-5.1)
[2024-05-06] MEDS: PoTASSium chloRIDE 20MEQ/100ML 100 ML IV ONE (11:52)
--- NOTE | 2024-05-06 12:15 | PN ---
[facility] PROGRESS NOTE Date of Service: May 06, 2024 Time of Service: 12:[address] Barry SUBJECTIVE: 83-year-old female admitted for early abdominal obstruction and large ventral hernia. Patient continues with nonreducible hernia. Her abdomen is tender. Surgeon recommended cardiac clearance and found that patient has abnormal T-wave on the 12 lead EKG and troponin was elevated [place] [id number]. Patient was upgraded to PCCU as we have to start patient on heparin drip. At this time, systems support engineer evaluated the patient this morning and indicated that patient is poor candidate for invasive cardiac procedure due to acute renal failure and bowel obstruction. We will await for 2D echo. At this time, we will also await for further surgical recommendation. 03/29 No acute event reported overnight. Patient continues with abdominal tenderness. She will remain NPO. 03/30 Pt seen at bedside, no acute events overnight. She is s/p ventral hernia repair with resection and repair of ischemic/necrotic bowel post op day 1. She reports her pain is well controlled, she denies BM or flatus. NG tube still in place to intermittent suction. Abdominal binder is in place. She is hypernatremic, not currently on IV fluids, will start D5 at 100 cc/hr to decrease sodium at 0.5 cc/hr rate. Potassium low at 3.0, will replete according to protocol, creatinine continued to improve from 3.8 down to 3.0, remainder of her labs are relatively unremarkable. Diet and NG tube management per General Surgery 03/31 Pt seen at bedside, no acute events overnight. Pt has no complaints today, reports her pain is controlled. She is still NPO with NG tube in place. Denies BM or flatus, continues NPO per general surgery. She was started on D5W at 100 cc/hr yesterday due to hypernatremia at 155, no improvement in sodium this am. Will increase D5W to 125cc/hr and repeat Na at 4pm. Hgb decreased from 9.3 down to 8.4, potassium increased from 3.0 up to 3.1, will continue to replete according to protocol, creatinine improved from 3.0 down to 2.8. Iron is low, patient started on Ferric sodium gluconate per nephrology. Remainder of vitals and labs are relatively unremarkable. 05/02 the patient has been seen and examined during my rounding, no acute events overnight, remains comfortable in bed, NG tube to intermittent suction, output off 150 mL overnight. BP 122/38, afebrile, saturating 94% on 2 L via nasal cannula, no nausea, no vomiting, no abdominal pain, getting good pain control with current medical management. 05/03 the patient has been seen and examined during my rounding, no acute events overnight, remains comfortable in bed, NG tube to intermittent suction, output noted. Patient has not had a bowel movement, currently not passing gas. BP 122/38, afebrile, saturating 94% on 2 L via nasal cannula, no nausea, no vomiting, no abdominal pain, getting good pain control with current medical management. No family at bedside during my visit. 05/04 patient has been seen and examined during my rounding, no acute events overnight, remains comfortably in bed however looks mildly edematous today compared to yesterday, she is getting IV fluids. Remains NPO, NG tube to inte rmittent suction. She is alert oriented x3, she feels weak. BP 153/70, afebrile, saturating 94-98% on room air. No family members at bedside. 05/05 patient was seen by nurse practitioner and physician during rounding. Patient is pending PICC line placement for TPN. Patient is still is not passing any gases no bowel movement. Sykes catheter draining well. Per ID patient cont inues to be on cefepime. Prophylaxis Lovenox. We will continue to monitor patient. Physical therapy consulted for evaluation. Case management for disposition. We will continue to monitor patient in the meantime. A.m. labs 05/06 patient was seen by PROFESSOR OF FINANCE and physician during rounding comfortably lying in the bed in room 418. Patient is still continues to have no bowel movement also is not passing any gas and there is no drainage from Hemovacs x2. NG tube had 200 yesterday and 100 overnight cc gastric content. NG tube intermittent suction. Patient continues to have a PICC line TPN running. Potassium 2.9 we will be replaced by RN. We will continue to monitor patient. A.m. labs. Continue antibiotics per ID. REVIEW OF SYSTEMS 12 point ROS negative unless noted in HPI PHYSICAL EXAM GENERAL APPEARANCE: The patient is awake, alert, and oriented, in no acute cardiopulmonary distress. Looks mildly edematous today. NEUROLOGICAL: Cranial nerves II-XII grossly intact. Motor is 5/5 in bilateral upper and lower extremities proximal to distal. No sensory deficits. HEENT: Face is symmetric. Pupils are equal and reactive. Extraocular movements are intact. NECK: Supple. No JVD. No thyromegaly. No submental, submandibular, pre- /postauricular, occipital or supraclavicular lymphadenopathy. CHEST: Normal chest expansion. No Telemetry. LUNGS: Absence of any rales, rhonchi or any wheezing. CARDIOVASCULAR: Regular. S1 and S2 normal. No appreciable rubs, murmurs or gallops. ABDOMEN: Distended, VALERIO drainage serosanguineous output noted. : Deferred. No Sykes. EXTREMITIES: Minimal swollen to both lower extremities. SKIN: No skin breakdown. Vital Signs (last 8hr) Date Time Temp Pulse Resp B/P (MAP) Pulse Ox O2 Delivery O2 Flow Rate FiO2 05/06/24 12:00 98.4 77 18 142/76 96 Room Air 05/06/24 08:00 98.8 81 18 147/83 95 Room Air LABS: Laboratory: Test 05/06/24 05:00 05/05/24 11:40 Range/Units White Blood Count 10.7 4.8-10.8 K/uL Red Blood Count 2.92 L 4.00-5.50 MIL/uL Hemoglobin 8.6 L 12.0-16.0 g/dL Hematocrit 27.3 L 36-48 % Mean Corpuscular Volume 93.5 79-99 fL Mean Corpuscular Hemoglobin 29.5 27.0-33.0 pg Mean Corpuscular Hemoglobin Concent 31.5 L 32.0-36.0 g/dL Red Cell Distribution Width 14.4 11.0-15.5 % Platelet Count 336 130-400 K/uL Mean Platelet Volume 9.7 7.5-10.5 fL Immature Granulocyte % (Auto) 1.4 H 0-1 % Neutrophils (%) (Auto) 87.3 H 40.0-77.0 % Lymphocytes (%) (Auto) 5.5 L 21.0-51.0 % Monocytes (%) (Auto) 3.6 3.0-13.0 % Eosinophils (%) (Auto) 2.1 0.0-8.0 % Basophils (%) (Auto) 0.1 0.0-5.0 % Neutrophils # (Auto) 9.3 H 1.8-7.7 K/uL Lymphocytes # (Auto) 0.6 L 1.0-4.8 K/uL Monocytes # (Auto) 0.4 0.1-1.0 K/uL Eosinophils # (Auto) 0.23 0.00-0.70 K/uL Basophils # (Auto) 0.01 0.00-0.20 K/uL Absolute Immature Granulocyte (auto 0.15 0-1 K/uL Nucleated Red Blood Cells 0.0 0.0-0.19 % Sodium Level 142 136-145 mmol/L Potassium Level 2.9 *L 3.5-5.1 mmol/L Chloride Level 103 101-111 mmol/L Carbon Dioxide Level 30 21-32 mmol/L Blood Urea Nitrogen 44 H 7-18 mg/dL Creatinine 1.7 H 0.5-1.0 mg/dL Glomerular Filtration Rate Calc 30 >90 mL/min Random Glucose 302 H 70-105 mg/dL Total Calcium 7.9 L 8.5-10.1 mg/dL Magnesium Level 2.10 1.80-2.40 mg/dL Total Bilirubin 0.3 0.2-1.0 mg/dL Aspartate Amino Transf (AST/SGOT) 27 10-37 U/L Alanine Aminotransferase (ALT/SGPT) 16 12-78 U/L Alkaline Phosphatase 42 L 50-136 U/L Total Protein 5.8 L 6.0-8.3 g/dL Albumin 1.8 L 3.5-5.0 g/dL Vitamin B12 Level 694 193-986 pg/mL Current Medications Medications (Trade) Dose Ordered Sig/[place] Route PRN Reason Start Time Stop Time Status Last Admin Dose Admin Acetaminophen (TYLenol 325MG TAB) 650 mg Q4H PRN PO TEMPERATURE GREATER THAN 101.5 04/24/24 16:30 05/24/24 16:29 Acetaminophen (TYLenol 325MG TAB) 650 mg Q6H PRN PO MILD PAIN (1-3) 04/24/24 16:30 05/24/24 16:29 Acetaminophen (Tylenol 325mg Suppository) 325 mg Q4H PRN RC TEMPERATURE GREATER THAN 101.5 04/24/24 16:30 05/24/24 16:29 04/25/24 14:02 325 MG Acetaminophen (Tylenol 325mg Suppository) 325 mg Q6H PRN RC MILD PAIN (1-3) 04/24/24 16:30 05/24/24 16:29 Aspirin (Aspirin 81mg Ec Tab) 81 mg DAILY PO 04/27/24 09:00 05/27/24 08:59 05/06/24 08:30 81 MG Cefepime HCl (MAXipime 1 GM vial) 1 gm Q24H IVPB 04/26/24 10:30 05/06/24 10:29 DC 05/05/24 11:03 1 GM Dextrose 1,000 ml @ 150 mls/hr Q6H40M IV 04/30/24 09:30 05/04/24 13:03 DC 05/04/24 11:39 150 MLS/HR Enoxaparin Sodium (Lovenox) 30 mg DAILY SQ 05/04/24 12:30 06/03/24 12:29 05/06/24 08:31 30 MG Fat Emulsion Intravenous 250 ml @ 42 mls/hr QMOWEFR IV 05/07/24 09:00 06/06/24 08:59 Ferric Sodium Gluconate Complex 125 mg/Sodium Chloride 110 ml @ 110 mls/hr Q24H IV 04/30/24 09:30 05/02/24 10:29 DC 05/02/24 08:48 110 MLS/HR Furosemide (LASix 20MG VIAL) 20 mg Q12H IV 05/04/24 12:30 06/03/24 12:29 05/06/24 00:22 20 MG Guaifenesin/ Dextromethorphan (RobiTUSSin DM 200/20MG 10ML) 10 ml Q6H PRN PO COUGH 05/02/24 18:00 06/01/24 17:59 05/04/24 08:19 10 ML Heparin Sodium (Porcine) (HEParin 5,000 UNIT VIAL) *calculation based on ACTUAL B... AD PRN IV HEPARIN PROTOCOL 04/26/24 17:00 05/02/24 07:23 DC Heparin Sodium/ Dextrose 250 ml @ 0 mls/hr Q6H IV 04/26/24 17:00 04/29/24 10:28 DC 04/27/24 14:45 15 MLS/HR Lactated Ringer's 1,000 ml @ 150 mls/hr Q6H40M IV 04/28/24 12:00 04/29/24 11:36 DC 04/29/24 08:00 150 MLS/HR Magnesium Sulfate 50 ml @ 0 mls/hr PROTOCOL IV 05/04/24 06:00 06/03/24 05:59 05/05/24 05:47 20 MLS/HR Magnesium Sulfate 50 ml @ 0 mls/hr PROTOCOL IV 05/04/24 10:30 05/04/24 10:35 DC Metoprolol Tartrate (loprESSOR) 5 mg Q6H PRN IV ARRHYTHMIA 04/27/24 23:00 05/27/24 22:59 Metoprolol Tartrate (loprESSOR) 12.5 mg BID PO 04/26/24 21:00 05/26/24 20:59 05/06/24 08:30 12.5 MG Metronidazole (flaGYL) 500 mg Q8H PO 04/26/24 10:30 04/27/24 22:59 DC 04/27/24 17:47 500 MG Metronidazole/ Sodium Chloride (flaGYL) 500 mg Q8H IV 04/28/24 02:30 05/02/24 07:24 DC 05/02/24 02:26 500 MG Morphine Sulfate (morPHINE 2MG SYG) 2 mg Q4H PRN IVP SEVERE PAIN (7-10) 04/29/24 21:30 05/05/24 00:29 DC 05/01/24 16:19 2 MG Morphine Sulfate (morPHINE 2MG SYG) 2 mg Q4H PRN IVP SEVERE PAIN (7-10) 04/24/24 16:30 04/29/24 19:29 DC 04/29/24 15:38 2 MG Ondansetron HCl (zoFRAN 4MG INJ) 4 mg Q6H PRN IVP NAUSEA/VOMITING 04/24/24 16:30 05/24/24 16:29 04/29/24 18:29 4 MG Pantoprazole Sodium (PROTonix 40MG INJ) 40 mg DAILY IVP 04/25/24 09:00 05/25/24 08:59 05/06/24 08:30 40 MG Potassium Chloride 100 ml @ 50 mls/hr PROTOCOL IV 05/06/24 16:30 05/06/24 17:30 Potassium Chloride 100 ml @ 100 mls/hr AD PRN IV POTASSIUM PROTOCOL 05/02/24 16:00 05/03/24 16:59 DC Potassium Chloride (K-Dur/Klor-Con 20meq) 20 meq AD PRN PO POTASSIUM PROTOCOL 05/02/24 16:00 06/01/24 15:59 Potassium Chloride (KCl 10% Elixir 20meq/15ml) 20 meq AD PRN PO POTASSIUM PROTOCOL 05/02/24 16:00 06/01/24 15:59 05/06/24 08:30 20 MEQ Sodium Chloride 1,000 ml @ 75 mls/hr [id number] IV 04/24/24 16:30 04/28/24 11:48 DC 04/28/24 04:02 75 MLS/HR Sodium Chloride 1,000 ml @ 125 mls/hr Q8H IV 04/29/24 12:00 04/30/24 09:15 DC 04/30/24 04:16 125 MLS/HR DIAGNOSTICS / RADIOLOGY: [ ] ASSESSMENT: NSTEMI with abnormal EKG, POA Large ventral hernia, POA Small bowel obstruction, POA Ischemic bowel, POA Intractable nausea/vomiting, POA s/p ventral hernia repair with repair of necrotic/ischemic bowel (04/29/24) Hypertensive emergency, resolved POA Hyperglycemia, resolved POA Hypernatremia Leukocytosis with left shift,improving POA Hypokalemia, POA Acute renal failure, improving POA PLAN: Patient remains admitted to the PCU. Continue NPO with NG at intermittent suction Continue supportive care with IV fluids General surgery consulted, appreciate recommendations Continue broad-spectrum IV antibiotic due to leukocytosis Continue on antiemetic as needed Continue with pain management We will repeat labs tomorrow GI prophylaxis with Protonix 40 mg IV daily DVT prophylaxis with SCD PT to start working with patient TPN continue Disposition: The patient remains admitted to the PCU, continue NPO, NG tube to intermittent suction, IV antibiotics. We will stop IV fluid, start Lasix 20 mg IV q.12 hours, follow Doppler rule out DVT. A.m. labs. Prognosis remains guarded. No family members at bedside during my visit to discuss further goals of care, plan of action discussed with the patient, questions answered. Total PCU time spent greater than 30 minutes. ATTESTATION BY PHYSICIAN I have seen and examined the patient. I reviewed the documentation, medical decision making, and treatment plan as noted by the mid-level provider above. I agree with the findings and plan of care. MD WALTER Barry [facility] May 06, 2024 12:15
--- NOTE | 2024-05-06 13:31 | PN ---
NEPHROLOGY PROGRESS NOTE Date/Time Patient Seen: May 06, 2024 Reason for Consultation: 13:29 SUBJECTIVE: This is a 83-year-old female, initially presented with small bowel obstruction. The patient underwent hernia repair. She continues to remain n.p.o. The patient had acute renal failure as well as significant electrolyte abnormalities postop. The patient has been transferred out of the ICU. She continues on TPN via PICC line. Renal function has remained stable Electrolytes show a potassium of 2.9, replacement has been ordered. Sodium was 142. She continues with NG tube to intermittent suction She continues on antibiotics as per ID. Case management coordinating disposition. Her renal function is stable Electrolytes are stable. REVIEW OF SYSTEMS: GENERAL: Negative for any nausea, vomiting, fevers, chills, or weight loss. NEUROLOGIC: Negative for any blurry vision, blind spots, double vision, facial asymmetry, dysphagia, dysarthria, hemiparesis, hemisensory deficits, vertigo, ataxia. HEENT: Negative for any head trauma, neck trauma, neck stiffness, photophobia, phonophobia, sinusitis, rhinitis. CARDIAC: Negative for any chest pain, dyspnea on exertion, paroxysmal nocturnal dyspnea, peripheral edema. PULMONARY: Negative for any shortness of breath, wheezing, COPD, or TB exposure. GASTROINTESTINAL: Negative for any abdominal pain, nausea, vomiting, bright red blood per rectum, melena. GENITOURINARY: Negative for any dysuria, hematuria, incontinence. INTEGUMENTARY: Negative for any rashes, cuts, insect bites. RHEUMATOLOGIC: Negative for any joint pains, photosensitive rashes, history of vasculitis or kidney problems. HEMATOLOGIC: Negative for any abnormal bruising, frequent infections or bleeding. Vital Signs (last 8hr) Date Time Temp Pulse Resp B/P (MAP) Pulse Ox O2 Delivery O2 Flow Rate FiO2 05/05/24 12:30 98.2 79 18 141/69 94 Room Air 05/05/24 07:57 95 Room Air* 0 21 05/05/24 07:52 97.9 82 18 134/71 94 Room Air PHYSICAL EXAM: GENERAL: Alert and oriented x 3. No acute distress. Well-nourished. EYES: EOMI. Anicteric. HENT: Moist mucous membranes. No scleral icterus. No cervical lymphadenopathy. LUNGS: Clear to auscultation bilaterally. No accessory muscle use. CARDIOVASCULAR: Regular rate and rhythm. No murmur. No JVD. ABDOMEN: Soft, non-tender and non-distended. No palpable masses. EXTREMITIES: No edema. Non-tender.?SKIN: No rashes or lesions. Warm. NEUROLOGIC: No focal neurological deficits. CN II-XII grossly intact, but not individually tested. PSYCHIATRIC: Cooperative. Appropriate mood and affect. Current Medications Medications (Trade) Dose Ordered Sig/Papito Route PRN Reason Start Time Stop Time Status Last Admin Dose Admin Acetaminophen (TYLenol 325MG TAB) 650 mg Q4H PRN PO TEMPERATURE GREATER THAN 101.5 04/24/24 16:30 05/24/24 16:29 Acetaminophen (TYLenol 325MG TAB) 650 mg Q6H PRN PO MILD PAIN (1-3) 04/24/24 16:30 05/24/24 16:29 Acetaminophen (Tylenol 325mg Suppository) 325 mg Q4H PRN RC TEMPERATURE GREATER THAN 101.5 04/24/24 16:30 05/24/24 16:29 04/25/24 14:02 325 MG Acetaminophen (Tylenol 325mg Suppository) 325 mg Q6H PRN RC MILD PAIN (1-3) 04/24/24 16:30 05/24/24 16:29 Aspirin (Aspirin 81mg Ec Tab) 81 mg DAILY PO 04/27/24 09:00 05/27/24 08:59 05/05/24 08:45 81 MG Cefepime HCl (MAXipime 1 GM vial) 1 gm Q24H IVPB 04/26/24 10:30 05/06/24 10:29 05/05/24 11:03 1 GM Dextrose 1,000 ml @ 150 mls/hr Q6H40M IV 04/30/24 09:30 05/04/24 13:03 DC 05/04/24 11:39 150 MLS/HR Enoxaparin Sodium (Lovenox) 30 mg DAILY SQ 05/04/24 12:30 06/03/24 12:29 05/04/24 13:01 30 MG Ferric Sodium Gluconate Complex 125 mg/Sodium Chloride 110 ml @ 110 mls/hr Q24H IV 04/30/24 09:30 05/02/24 10:29 DC 05/02/24 08:48 110 MLS/HR Furosemide (LASix 20MG VIAL) 20 mg Q12H IV 05/04/24 12:30 06/03/24 12:29 05/05/24 13:16 20 MG Guaifenesin/ Dextromethorphan (RobiTUSSin DM 200/20MG 10ML) 10 ml Q6H PRN PO COUGH 05/02/24 18:00 06/01/24 17:59 05/04/24 08:19 10 ML Heparin Sodium (Porcine) (HEParin 5,000 UNIT VIAL) *calculation based on ACTUAL B... AD PRN IV HEPARIN PROTOCOL 04/26/24 17:00 05/02/24 07:23 DC Heparin Sodium/ Dextrose 250 ml @ 0 mls/hr Q6H IV 04/26/24 17:00 04/29/24 10:28 DC 04/27/24 14:45 15 MLS/HR Lactated Ringer's 1,000 ml @ 150 mls/hr Q6H40M IV 04/28/24 12:00 04/29/24 11:36 DC 04/29/24 08:00 150 MLS/HR Magnesium Sulfate 50 ml @ 0 mls/hr PROTOCOL IV 05/04/24 06:00 06/03/24 05:59 05/05/24 05:47 20 MLS/HR Magnesium Sulfate 50 ml @ 0 mls/hr PROTOCOL IV 05/04/24 10:30 05/04/24 10:35 DC Metoprolol Tartrate (loprESSOR) 5 mg Q6H PRN IV ARRHYTHMIA 04/27/24 23:00 05/27/24 22:59 Metoprolol Tartrate (loprESSOR) 12.5 mg BID PO 04/26/24 21:00 05/26/24 20:59 05/05/24 08:45 12.5 MG Metronidazole (flaGYL) 500 mg Q8H PO 04/26/24 10:30 04/27/24 22:59 DC 04/27/24 17:47 500 MG Metronidazole/ Sodium Chloride (flaGYL) 500 mg Q8H IV 04/28/24 02:30 05/02/24 07:24 DC 05/02/24 02:26 500 MG Morphine Sulfate (morPHINE 2MG SYG) 2 mg Q4H PRN IVP SEVERE PAIN (7-10) 04/29/24 21:30 05/05/24 00:29 DC 05/01/24 16:19 2 MG Morphine Sulfate (morPHINE 2MG SYG) 2 mg Q4H PRN IVP SEVERE PAIN (7-10) 04/24/24 16:30 04/29/24 19:29 DC 04/29/24 15:38 2 MG Ondansetron HCl (zoFRAN 4MG INJ) 4 mg Q6H PRN IVP NAUSEA/VOMITING 04/24/24 16:30 05/24/24 16:29 04/29/24 18:29 4 MG Pantoprazole Sodium (PROTonix 40MG INJ) 40 mg DAILY IVP 04/25/24 09:00 05/25/24 08:59 05/05/24 08:45 40 MG Potassium Chloride 100 ml @ 100 mls/hr AD PRN IV POTASSIUM PROTOCOL 05/02/24 16:00 05/03/24 16:59 DC Potassium Chloride (K-Dur/Klor-Con 20meq) 20 meq AD PRN PO POTASSIUM PROTOCOL 05/02/24 16:00 06/01/24 15:59 Potassium Chloride (KCl 10% Elixir 20meq/15ml) 20 meq AD PRN PO POTASSIUM PROTOCOL 05/02/24 16:00 06/01/24 15:59 05/05/24 08:45 20 MEQ Sodium Chloride 1,000 ml @ 75 mls/hr [id number] IV 04/24/24 16:30 04/28/24 11:48 DC 04/28/24 04:02 75 MLS/HR Sodium Chloride 1,000 ml @ 125 mls/hr Q8H IV 04/29/24 12:00 04/30/24 09:15 DC 04/30/24 04:16 125 MLS/HR LABORATORY: [ ] Hematology Labs: Test 05/06/24 05:00 Range/Units White Blood Count 10.7 4.8-10.8 K/uL Red Blood Count 2.92 L 4.00-5.50 MIL/uL Hemoglobin 8.6 L 12.0-16.0 g/dL Hematocrit 27.3 L 36-48 % Mean Corpuscular Volume 93.5 79-99 fL Mean Corpuscular Hemoglobin 29.5 27.0-33.0 pg Mean Corpuscular Hemoglobin Concent 31.5 L 32.0-36.0 g/dL Red Cell Distribution Width 14.4 11.0-15.5 % Platelet Count 336 130-400 K/uL Mean Platelet Volume 9.7 7.5-10.5 fL Immature Granulocyte % (Auto) 1.4 H 0-1 % Neutrophils (%) (Auto) 87.3 H 40.0-77.0 % Lymphocytes (%) (Auto) 5.5 L 21.0-51.0 % Monocytes (%) (Auto) 3.6 3.0-13.0 % Eosinophils (%) (Auto) 2.1 0.0-8.0 % Basophils (%) (Auto) 0.1 0.0-5.0 % Neutrophils # (Auto) 9.3 H 1.8-7.7 K/uL Lymphocytes # (Auto) 0.6 L 1.0-4.8 K/uL Monocytes # (Auto) 0.4 0.1-1.0 K/uL Eosinophils # (Auto) 0.23 0.00-0.70 K/uL Basophils # (Auto) 0.01 0.00-0.20 K/uL Absolute Immature Granulocyte (auto 0.15 0-1 K/uL Nucleated Red Blood Cells 0.0 0.0-0.19 % Chemistry Labs: Test 05/06/24 05:00 05/05/24 11:40 Range/Units Sodium Level 142 136-145 mmol/L Potassium Level 2.9 *L 3.5-5.1 mmol/L Chloride Level 103 101-111 mmol/L Carbon Dioxide Level 30 21-32 mmol/L Blood Urea Nitrogen 44 H 7-18 mg/dL Creatinine 1.7 H 0.5-1.0 mg/dL Glomerular Filtration Rate Calc 30 >90 mL/min Random Glucose 302 H 70-105 mg/dL Total Calcium 7.9 L 8.5-10.1 mg/dL Magnesium Level 2.10 1.80-2.40 mg/dL Total Bilirubin 0.3 0.2-1.0 mg/dL Aspartate Amino Transf (AST/SGOT) 27 10-37 U/L Alanine Aminotransferase (ALT/SGPT) 16 12-78 U/L Alkaline Phosphatase 42 L 50-136 U/L Total Protein 5.8 L 6.0-8.3 g/dL Albumin 1.8 L 3.5-5.0 g/dL Vitamin B12 Level 694 193-986 pg/mL DIAGNOSTICS / RADIOLOGY: REASON: POST PICC LINE PLACEMENT ORDERING PHYSICIAN: KRIS WATSON HYDRODYNAMICIST PROCEDURE: CXR1VW - CHEST 1VW PORTABLE CHEST RADIOGRAPH INDICATION: POST PICC LINE PLACEMENT COMPARISON: 04/26/2024 CT chest FINDINGS: Tip of right PICC occupies the SVC. Tip of NG tube within the stomach. Heart size is normal. Mild calcific plaque is present along the aortic arch paredes. The pulmonary vascularity and alber appear normal. Residual minimal linear opacities at both lung bases and left costophrenic angle is nominally blunted. No pneumothorax detected. IMPRESSION: Tip of right PICC within the SVC. Minimal bibasilar atelectasis and trace left pleural fluid. DICTATED BY: BALDOMERO LOPEZ MD DATE: 05/05/24 1127 REASON: mild swelling both legs ORDERING PHYSICIAN: ALDEN DINH MD PROCEDURE: VENOUS ADAM - US VENOUS DOPPLER BILATERAL ULTRASOUND VENOUS DOPPLER, BILATERAL LOWER EXTREMITIES INDICATION: Bilateral lower extremity pain and swelling TECHNIQUE: Routine grayscale and color Doppler ultrasound of the bilateral lower extremity veins performed. COMPARISON: No priors. FINDINGS: The demonstrated veins of the bilateral lower extremity including the common femoral vein, femoral vein, and popliteal vein are associated with normal compressibility, augmentation, and flow. Normal respiratory variation was identified. No evidence for echogenic intraluminal thrombus formation. IMPRESSION: No sonographic evidence for deep venous thrombosis within the bilateral lower extremity veins. DICTATED BY: BALDOMERO LOPEZ MD DATE: 05/04/24 1728 REASON: abdominal distension ORDERING PHYSICIAN: ALDEN DINH MD PROCEDURE: ABD 1VW - ABD 1VW ABD 1VW REASON: abdominal distension FINDINGS: Single image of the abdomen was obtained. There is an NG tube passing into the stomach. There are surgical clips in the lower pelvic midline. Bowel gas pattern is normal. Bones and soft tissues appear unremarkable. There are no abnormal calcifications. There is no evidence of foreign body. IMPRESSION: 1. NG tube in good position. DICTATED BY: MIRIAM CHAMPAGNE MD DATE: 05/04/24 1433 REASON: CHECK FOR NASO GASTRIC TUBE INSERTION ORDERING PHYSICIAN: JACOB GREEN MD PROCEDURE: ABD 1VW - ABD 1VW ABD 1VW HISTORY: Nasogastric tube insertion COMPARISON: None FINDINGS: A frontal projection of the abdomen was obtained. Mild small bowel dilatation is seen. Fecal material is seen in the colon. Degenerative changes of the thoracolumbar spine are noted. IMPRESSION: 1. Mild small bowel dilatation. DICTATED BY: CARO STE MD DATE: 04/27/24 0060 REASON: cardiac clearance ORDERING PHYSICIAN: VIDAL KING PROCEDURE: ECHO CMP - ECHO 2-D COMPLETE APPROVED REPORT EXAM: Two-dimensional and M-mode echocardiogram with Doppler and color Doppler. Study Details: Hx: DM type 2, hypertension, hyperlipidemia, diabetic retinopathy, macular degeneration INDICATION ICD: Cardiac clearance 2D Dimensions RVDd 3.2 cm LVEF(%) 25.2 (>50%) LVED Vol(simp.) 96.5 mL IVSd 1.1 (0.7-1.1cm) FS(%) 12 % LVES Vol(simp.) 61.2 mL LVDd 5.2 (3.8-5.6cm) LVOT diam 2.2 (1.8-2.4cm) LVEF(%, simp.) 37 % PWd 0.7 (0.7-1.1cm) LA ESV INDEX (4CH) 18.10 mL/m2 IVSs 1.0 cm LA ESV INDEX (2CH) 21.30 mL/m2 LVDs 4.6 (2.5-4.0cm) LA ESV INDEX (BP) 20.30 mL/m2 PWs 0.9 cm Deformation Strain Apical 4 14.0 % Apical 2 11.0 % Apical 3 13.0 % Global Strain 13.0 % Aortic Valve AoV VTI 0.2 m Ao Mean GR 5.0 mmHg LVOT VTI 0.15 m VIDHYA (VMAX) 2.5 cm2 Al P1/2T 436 ms VIDHYA (VTI) 2.5 cm2 Mitral Valve MV E Vmax 43.7 cm/s DECEL Time 137 ms MV A Vmax 83.9 cm/s P 1/2 T 57 ms E/A ratio 0.5 MVA (PHT) 3.9 cm2 TDI E/E' Medial 13.7 E/E' Lateral 15.6 Medial E' Peak V 3.20 cm/s Lateral E' Peak V 2.80 cm/s Pulmonary Valve PV Vmax 1.2 m/s PV Peak GR 6.1 mmHg Left Ventricle Left ventricular cavity size is normal. There is normal left ventricular wall thickness. LVEF is 35-40%. Stage I diastolic dysfunction. Right Ventricle The right ventricle is normal size. The right ventricular systolic function is normal. Atria The left atrium size is normal. Lipomatus atrial septal hypertrophy is present. The right atrium size is normal. Eustachian valve is noted in the right atrium. Aortic Valve Aortic valve leaflets Trace of aortic regurgitation is present. There is no aortic valvular stenosis. Mitral Valve Mitral valve leaflets open well. There is trace of mitral valve regurgitation noted. There is no mitral valve stenosis. Tricuspid Valve The tricuspid valve is normal in structure and function. There is no tricuspid valve regurgitation noted. Pulmonic Valve The pulmonic valve leaflets appear normal. There is no pulmonic valvular regurgitation. Great Vessels The aortic root is normal in size. IVC is small in size and collapses <50% with inspiration. Pericardium No pericardial effusion. Other Information Quality : Technically difficult study due to body habitus Conclusion LVEF is 35-40%. Stage I diastolic dysfunction. The right atrium size is normal. Eustachian valve is noted in the right atrium. Lipomatus atrial septal hypertrophy is present. Trace of aortic regurgitation is present. There is trace of mitral valve regurgitation noted. DICTATED BY: EDU QUINTANA MD DATE: 04/27/24 0742 REASON: pneumonia ORDERING PHYSICIAN: NAHUM BROWN MD PROCEDURE: CHEST WO - CT CHEST W/O CONTRAST CT CHEST W/O CONTRAST HISTORY: Pneumonia COMPARISON: None TECHNIQUE: Multiple sequential axial images of the chest were obtained from the thoracic inlet through upper abdomen. Patient was not given contrast through intravenous route. FINDINGS: Bilateral lower lung pulmonary infiltrates are seen. There are interstitial fibrosis with bronchiectasis. Tiny pericardial effusion is seen. No pleural effusion or pericardial effusion is seen. There is no evidence of pneumothorax. There are normal size mediastinal and hilar lymph nodes. The heart is not enlarged. Degenerative changes of the thoracolumbar spine are present. There is no evidence of adrenal nodule. IMPRESSION: 1. Bilateral lower lung pulmonary infiltrates with interstitial fibrosis. CT was performed with one or more following dose reduction techniques: automated exposure control, adjustment of the mA and kv according to patient's size, or use of a iterative reconstruction technique. DICTATED BY: CARO TSE MD DATE: 04/26/24 1243 REASON: lower abd pain, hx hernia, n/v ORDERING PHYSICIAN: JOHN LARA PROCEDURE: ABD PEL W - CT ABDOMEN/PELVIS W/CONTRAST CT ABDOMEN/PELVIS W/CONTRAST HISTORY: Pelvic pain COMPARISON: None TECHNIQUE: Multiple sequential axial images of the abdomen and pelvis were obtained from the dome of the diaphragm through symphysis pubis. Patient was given 100 cc of Omnipaque through intravenous route. Oral contrast was not given. FINDINGS: No pleural effusion is seen bilaterally. There is no evidence of parenchymal disease or pulmonary nodule of the visualized lower lungs. COPD changes are seen. Degenerative changes of the thoracolumbar spine are present. The heart is not enlarged. The liver measures 12 cm. Is small hiatal hernia is seen. Gastric distention is seen. Small bowel dilatation is seen with transitional point not well visualized. There is large anterior pelvic ventral hernia with bowel content. The liver, spleen, adrenal glands and pancreas are unremarkable. There is no evidence of hydronephrosis bilaterally. No evidence of renal stone is seen. Fecal material is seen in the colon. There are normal size retroperitoneal and mesenteric lymph nodes. No ascites is seen. Atherosclerotic changes are present. Appendix is not well seen limiting evaluation. There is diverticulosis. Pelvic sidewalls are symmetric bilaterally. Bladder is poorly distended. IMPRESSION: 1. Large anterior pelvic wall hernia with bowel content. Mild small bowel dilatation. No ascites. CT was performed with one or more following dose reduction techniques: automated exposure control, adjustment of the mA and kv according to patient's size, or use of a iterative reconstruction technique. DICTATED BY: CARO TSE MD DATE: 04/24/24 1347 ASSESSMENT: Hypokalemia Acute renal failure, improving NSTEMI Large ventral hernia Small bowel obstruction Ischemic bowel Intractable nausea/vomiting s/p ventral hernia repair with repair of necrotic/ischemic bowel (04/29/24) Hypertensive emergency Hyperglycemia Hypernatremia Leukocytosis PLAN: Labs, diagnostic, radiologic exams reviewed and interpreted by myself and supervising physician. We have reviewed external records in detail Potassium replacement has been ordered. Continue with TPN. Require close monitoring of renal function and electrolytes Order CBC, CMP, and electrolytes in am Continue with antibiotics as per ID BiPAP as necessary, for respiratory distress Monitor blood pressure adjust medication doses as needed Avoid hypotensive episodes May use Dilaudid 0.5 mg IV every 6 hours as needed for severe pain Strict intake, output, and daily weight should be monitored Please renally adjust medications Avoid nephrotoxic and nonsteroidal drugs Avoid contrast if possible Will continue to monitor renal function, anemia, electrolytes Treatment plan discussed with patient Questions were answered We have discussed with the other team physicians in detail about the care plan We will continue to monitor the patient closely ATTESTATION BY PHYSICIAN I have seen and examined the patient. I reviewed the documentation, medical decision making, and treatment plan as noted by the mid-level provider above. I agree with the findings and plan of care. SID TAFOYA MD, [facility] May 06, 2024 13:31
[2024-05-06] MEDS: [UNRECOGNIZED DRUG - NUTRITION] IV ONE (14:41)
[2024-05-06] MEDS ORDERED: PoTASSium chloRIDE 20MEQ/100ML 100 ML IV SCH (16:30)
--- NOTE | 2024-05-06 17:14 | NUR ---
DCP pending Per primary nurse family has not come by today. ZARIA/PC for SNF preference still pending.
[2024-05-06] MEDS: PoTASSium chloRIDE 20MEQ/100ML 100 ML IV SCH (18:01)
[2024-05-07] VITALS (9 sets, daily range): BP systolic 112–166; BP diastolic 62–86; PULSE 84–111; RESP 17–20; TEMP 96.9–98.3; O2SAT 96
[2024-05-07 03:16] LABS: BASOPHILS # (AUTO) 0.01 K/uL (0.00-0.20); BASOPHILS % (AUTO) 0.1 % (0.0-5.0); EOSINOPHILS # (AUTO) 0.15 K/uL (0.00-0.70); EOSINOPHILS % (AUTO) 1.7 % (0.0-8.0); HEMATOCRIT 25.5 % (36-48); IMMATURE GRANULOCYTE ABSOLUTE 0.11 K/uL (0-1); LYMPHOCYTES # (AUTO) 0.8 K/uL (1.0-4.8); LYMPHOCYTES % (AUTO) 8.6 % (21.0-51.0); MEAN CORPUSCULAR HEMOGLOBIN 29.7 pg (27.0-33.0); MEAN CORPUSCULAR HGB CONC 31.8 g/dL (32.0-36.0); MEAN CORPUSCULAR VOLUME 93.4 fL (79-99); MONOCYTES # (AUTO) 0.4 K/uL (0.1-1.0); MONOCYTES % (AUTO) 4.2 % (3.0-13.0); NEUTROPHILS # (AUTO) 7.4 K/uL (1.8-7.7); NEUTROPHILS % (AUTO) 84.2 % (40.0-77.0); PLATELET COUNT (AUTO) 358 K/uL (130-400); RED BLOOD CELL COUNT(AUTO) 2.73 MIL/uL (4.00-5.50); RED CELL DISTRIBUTION WIDTH 14.4 % (11.0-15.5); WHITE BLOOD COUNT (AUTO) 8.8 K/uL (4.8-10.8)
[2024-05-07 03:31] LABS: ALBUMIN 1.9 g/dL (3.5-5.0); BILIRUBIN,TOTAL 0.3 mg/dL (0.2-1.0); CREATININE 1.6 mg/dL (0.5-1.0); MAGNESIUM 1.7 mg/dL (1.80-2.40); PHOSPHORUS 3.4 mg/dL (2.5-4.9); POTASSIUM 3.9 mmol/L (3.5-5.1)
[2024-05-07] MEDS: FAT EMULSIONS 20% 250ML 250 ML IV SCH (09:42)
--- NOTE | 2024-05-07 09:44 | PN ---
FOLLOWUP PROGRESS NOTE SUBJECTIVE: An 83-year-old female who initially presented with small bowel obstruction. The patient underwent hernia repair. She continues with the NG tube in place. The patient has had acute renal failure in the hospital. Creatinine is much improved. The patient has been started on TPN and she is being seen as a followup visit for all of the above. REVIEW OF SYSTEMS: CONSTITUTIONAL: Complaining of the nausea. HEENT: No change in vision. No change in hearing. CARDIOVASCULAR: There is no current chest pain or palpitation. PULMONARY: She denies any shortness of breath. GASTROINTESTINAL: As described above. MUSCULOSKELETAL: Complains of weakness. PHYSICAL EXAMINATION:. VITAL SIGNS: Blood pressure 166/84, pulse 80s. GENERAL: Chronically ill female lying in bed on medical floor. HEENT: Atraumatic. Pupils equal, roving to light. Oropharynx is without exudate. Nares clear. NECK: There is no JVP. There is no thyromegaly, no mass. CARDIOVASCULAR: Regular. There is no S3, S4 gallop. LUNGS: Coarse with equal thoracic movement. ABDOMEN: Soft, nondistended, nontender. EXTREMITIES: No clubbing, no cyanosis. NEUROLOGIC: She is awake. She is alert. LABORATORY DATA: Sodium 131, potassium 3.9, BUN 48, creatinine 1.6. Hemoglobin 8.1, hematocrit 25. IMPRESSION: * Acute renal failure. * Bowel obstruction, status post surgery. * Electrolyte abnormalities. * Hypertension. PLAN: The patient's creatinine continues to stabilize. The patient's hypernatremia is much improved. She remains on the TPN and we will continue to follow closely. Workup is ongoing per surgical service. TID: [id number] RECEIPT: [id number]
[2024-05-07] MEDS ORDERED: MAGNESIUM 2GM PREMIX 50ML 50 ML IV SCH (10:30)
--- NOTE | 2024-05-07 12:08 | NUR ---
CM NOTE: POC CM VISITED PATIENT, DAUGHTER NOT IN ROOM. CALLED DAUGHTER RIK VICKERS . DISCUSSED POC. AWARE PT STILL ON TPN, DISCUSSED MD RECOMMENDATIONS FOR SNF, CM INFORMED DAUGHTER PT DOES NOT MEET CRITERIA FOR SNF AT THIS TIME SNF DOES NOT ADMNISTER TPN, DAUGHTER MADE AWARE [facility] IS THE ONLY FACILITY THAT WILL BE ABLE TO ADMINISTER TPN, DTR STATED SHE WAS TOLD SHE CAN CHOOSE WHICHEVER FACILITY SHE WANTS, DAUGHTER VERBALIZED CM INFO GIVEN AT THIS TIME DOES NOT GIVE HER ANY OPTIONS BUT [facility]. DAUGHTER STATED SHE IS HERE IN THE HOSPITAL SHE IS CURRENTLY GETTING FOOD IN [place] AND WOULD LIKE TO MEET WITH CM TO FURTHER DISCUSS DCP ONCE SHE GET BACK IN PT ROOM. INSTRUCTED DAUGHTER TO CALL THIS CM ONCE SHE'S BACK IN PT ROOM. GIVEN CM #. PENDING DAUGHTER TO CALL CM. ZAFAR UPDATED. CM TO CONTINUE TO FOLLOW UP. Addendum: 05/07/24 at 1216 by GREGG BA LVN CM Amended: Links added.
--- NOTE | 2024-05-07 12:13 | PN ---
[facility] PROGRESS NOTE Date of Service: May 07, 2024 Time of Service: 12:[address] Dinh SUBJECTIVE: 83-year-old female admitted for early abdominal obstruction and large ventral hernia. Patient continues with nonreducible hernia. Her abdomen is tender. Surgeon recommended cardiac clearance and found that patient has abnormal T-wave on the 12 lead EKG and trop[place] [id number]. Patient was upgraded to PCCU as we have to start patient on heparin drip. At this time, ecdis n navigation operator evaluated the patient this morning and indicated that patient is poor candidate for invasive cardiac procedure due to acute renal failure and bowel obstruction. We will await for 2D echo. At this time, we will also await for further surgical recommendation. 03/29 No acute event reported overnight. Patient continues with abdominal tenderness. She will remain NPO. 03/30 Pt seen at bedside, no acute events overnight. She is s/p ventral hernia repair with resection and repair of ischemic/necrotic bowel post op day 1. She reports her pain is well controlled, she denies BM or flatus. NG tube still in place to intermittent suction. Abdominal binder is in place. She is hypernatremic, not currently on IV fluids, will start D5 at 100 cc/hr to decrease sodium at 0.5 cc/hr rate. Potassium low at 3.0, will replete according to protocol, creatinine continued to improve from 3.8 down to 3.0, remainder of her labs are relatively unremarkable. Diet and NG tube management per General Surgery 03/31 Pt seen at bedside, no acute events overnight. Pt has no complaints today, reports her pain is controlled. She is still NPO with NG tube in place. Denies BM or flatus, continues NPO per general surgery. She was started on D5W at 100 cc/hr yesterday due to hypernatremia at 155, no improvement in sodium this am. Will increase D5W to 125cc/hr and repeat Na at 4pm. Hgb decreased from 9.3 down to 8.4, potassium increased from 3.0 up to 3.1, will continue to replete according to protocol, creatinine improved from 3.0 down to 2.8. Iron is low, patient started on Ferric sodium gluconate per nephrology. Remainder of vitals and labs are relatively unremarkable. 05/02 the patient has been seen and examined during my rounding, no acute events overnight, remains comfortable in bed, NG tube to intermittent suction, output off 150 mL overnight. BP 122/38, afebrile, saturating 94% on 2 L via nasal cannula, no nausea, no vomiting, no abdominal pain, getting good pain control with current medical management. 05/03 the patient has been seen and examined during my rounding, no acute events overnight, remains comfortable in bed, NG tube to intermittent suction, output noted. Patient has not had a bowel movement, currently not passing gas. BP 122/38, afebrile, saturating 94% on 2 L via nasal cannula, no nausea, no vomiting, no abdominal pain, getting good pain control with current medical management. No family at bedside during my visit. 05/04 patient has been seen and examined during my rounding, no acute events overnight, remains comfortably in bed however looks mildly edematous today compared to yesterday, she is getting IV fluids. Remains NPO, NG tube to intermittent suction. She is alert oriented x3, she feels weak. BP 153/70, afebrile, saturating 94-98% on room air. No family members at bedside. 05/05 patient was seen by nurse practitioner and physician during rounding. Patient is pending PICC line placement for TPN. Patient is still is not passing any gases no bowel movement. Sykes catheter draining well. Per ID patient continues to be on cefepime. Prophylaxis Lovenox. We will continue to monitor patient. Physical therapy consulted for evaluation. Case management for disposition. We will continue to monitor patient in the meantime. A.m. labs 05/06 patient was seen by TAX ATTORNEY and physician during rounding comfortably lying in the bed in room 418. Patient is still continues to have no bowel movement also is not passing any gas and there is no drainage from Hemovacs x2. NG tube had 200 yesterday and 100 overnight cc gastric content. NG tube intermittent suction. Patient continues to have a PICC line TPN running. Potassium 2.9 we will be replaced by RN. We will continue to monitor patient. A.m. labs. Continue antibiotics per ID. 05/07 patient was seen by nurse practitioner and physician during rounding in room 418 comfortably lying in the bed. Patient continues to have a NG tube and that is draining about 400 cc in the past 24 hours. Patient still does not pass any gases and no bowel movement. We will order CT abdomen/pelvis for evaluation. Case management was consulted for disposition to [facility] since patient is on TPN at this moment. We will continue to monitor patient in the meantime. A.m. labs REVIEW OF SYSTEMS 12 point ROS negative unless noted in HPI PHYSICAL EXAM GENERAL APPEARANCE: The patient is awake, alert, and oriented, in no acute cardiopulmonary distress. Looks mildly edematous today. NEUROLOGICAL: Cranial nerves II-XII grossly intact. Motor is 5/5 in bilateral upper and lower extremities proximal to distal. No sensory deficits. HEENT: Face is symmetric. Pupils are equal and reactive. Extraocular movements are intact. NECK: Supple. No JVD. No thyromegaly. No submental, submandibular, pre- /postauricular, occipital or supraclavicular lymphadenopathy. CHEST: Normal chest expansion. No Telemetry. LUNGS: Absence of any rales, rhonchi or any wheezing. CARDIOVASCULAR: Regular. S1 and S2 normal. No appreciable rubs, murmurs or gallops. ABDOMEN: Distended, VALERIO drainage no output : Deferred. No Sykes. EXTREMITIES: Minimal swollen to both lower extremities. SKIN: No skin breakdown. Vital Signs (last 8hr) Date Time Temp Pulse Resp B/P (MAP) Pulse Ox O2 Delivery O2 Flow Rate FiO2 05/07/24 08:00 97.5 84 17 166/84 96 Room Air 0.0 LABS: Laboratory: Test 05/07/24 03:10 Range/Units White Blood Count 8.8 4.8-10.8 K/uL Red Blood Count 2.73 L 4.00-5.50 MIL/uL Hemoglobin 8.1 L 12.0-16.0 g/dL Hematocrit 25.5 L 36-48 % Mean Corpuscular Volume 93.4 79-99 fL Mean Corpuscular Hemoglobin 29.7 27.0-33.0 pg Mean Corpuscular Hemoglobin Concent 31.8 L 32.0-36.0 g/dL Red Cell Distribution Width 14.4 11.0-15.5 % Platelet Count 358 130-400 K/uL Mean Platelet Volume 9.6 7.5-10.5 fL Immature Granulocyte % (Auto) 1.2 H 0-1 % Neutrophils (%) (Auto) 84.2 H 40.0-77.0 % Lymphocytes (%) (Auto) 8.6 L 21.0-51.0 % Monocytes (%) (Auto) 4.2 3.0-13.0 % Eosinophils (%) (Auto) 1.7 0.0-8.0 % Basophils (%) (Auto) 0.1 0.0-5.0 % Neutrophils # (Auto) 7.4 1.8-7.7 K/uL Lymphocytes # (Auto) 0.8 L 1.0-4.8 K/uL Monocytes # (Auto) 0.4 0.1-1.0 K/uL Eosinophils # (Auto) 0.15 0.00-0.70 K/uL Basophils # (Auto) 0.01 0.00-0.20 K/uL Absolute Immature Granulocyte (auto 0.11 0-1 K/uL Nucleated Red Blood Cells 0.0 0.0-0.19 % Sodium Level 141 136-145 mmol/L Potassium Level 3.9 3.5-5.1 mmol/L Chloride Level 106 101-111 mmol/L Carbon Dioxide Level 30 21-32 mmol/L Blood Urea Nitrogen 48 H 7-18 mg/dL Creatinine 1.6 H 0.5-1.0 mg/dL Glomerular Filtration Rate Calc 32 >90 mL/min Random Glucose 391 H 70-105 mg/dL Total Calcium 8.0 L 8.5-10.1 mg/dL Phosphorus Level 3.4 2.5-4.9 mg/dL Magnesium Level 1.70 L 1.80-2.40 mg/dL Total Bilirubin 0.3 0.2-1.0 mg/dL Aspartate Amino Transf (AST/SGOT) 19 10-37 U/L Alanine Aminotransferase (ALT/SGPT) 16 12-78 U/L Alkaline Phosphatase 46 L 50-136 U/L Total Protein 6.0 6.0-8.3 g/dL Albumin 1.9 L 3.5-5.0 g/dL Current Medications Medications (Trade) Dose Ordered Sig/Papito Route PRN Reason Start Time Stop Time Status Last Admin Dose Admin Acetaminophen (TYLenol 325MG TAB) 650 mg Q4H PRN PO TEMPERATURE GREATER THAN 101.5 04/24/24 16:30 05/24/24 16:29 Acetaminophen (TYLenol 325MG TAB) 650 mg Q6H PRN PO MILD PAIN (1-3) 04/24/24 16:30 05/24/24 16:29 Acetaminophen (Tylenol 325mg Suppository) 325 mg Q4H PRN RC TEMPERATURE GREATER THAN 101.5 04/24/24 16:30 05/24/24 16:29 04/25/24 14:02 325 MG Acetaminophen (Tylenol 325mg Suppository) 325 mg Q6H PRN RC MILD PAIN (1-3) 04/24/24 16:30 05/24/24 16:29 Aspirin (Aspirin 81mg Ec Tab) 81 mg DAILY PO 04/27/24 09:00 05/27/24 08:59 05/07/24 08:09 81 MG Cefepime HCl (MAXipime 1 GM vial) 1 gm Q24H IVPB 04/26/24 10:30 05/06/24 10:29 DC 05/05/24 11:03 1 GM Dextrose 1,000 ml @ 150 mls/hr Q6H40M IV 04/30/24 09:30 05/04/24 13:03 DC 05/04/24 11:39 150 MLS/HR Enoxaparin Sodium (Lovenox) 30 mg DAILY SQ 05/04/24 12:30 06/03/24 12:29 05/07/24 08:10 30 MG Fat Emulsion Intravenous 250 ml @ 42 mls/hr QMOWEFR IV 05/07/24 09:00 06/06/24 08:59 05/07/24 09:42 42 MLS/HR Ferric Sodium Gluconate Complex 125 mg/Sodium Chloride 110 ml @ 110 mls/hr Q24H IV 04/30/24 09:30 05/02/24 10:29 DC 05/02/24 08:48 110 MLS/HR Furosemide (LASix 20MG VIAL) 20 mg Q12H IV 05/04/24 12:30 06/03/24 12:29 05/07/24 00:35 20 MG Guaifenesin/ Dextromethorphan (RobiTUSSin DM 200/20MG 10ML) 10 ml Q6H PRN PO COUGH 05/02/24 18:00 06/01/24 17:59 05/04/24 08:19 10 ML Heparin Sodium (Porcine) (HEParin 5,000 UNIT VIAL) *calculation based on ACTUAL B... AD PRN IV HEPARIN PROTOCOL 04/26/24 17:00 05/02/24 07:23 DC Heparin Sodium/ Dextrose 250 ml @ 0 mls/hr Q6H IV 04/26/24 17:00 04/29/24 10:28 DC 04/27/24 14:45 15 MLS/HR Lactated Ringer's 1,000 ml @ 150 mls/hr Q6H40M IV 04/28/24 12:00 04/29/24 11:36 DC 04/29/24 08:00 150 MLS/HR Magnesium Sulfate 50 ml @ 0 mls/hr PROTOCOL IV 05/04/24 06:00 06/03/24 05:59 05/07/24 03:41 25 MLS/HR Magnesium Sulfate 50 ml @ 0 mls/hr PROTOCOL IV 05/04/24 10:30 05/04/24 10:35 DC Magnesium Sulfate 50 ml @ 0 mls/hr PROTOCOL IV 05/07/24 10:30 05/07/24 10:20 DC Metoprolol Tartrate (loprESSOR) 5 mg Q6H PRN IV ARRHYTHMIA 04/27/24 23:00 05/27/24 22:59 Metoprolol Tartrate (loprESSOR) 12.5 mg BID PO 04/26/24 21:00 05/26/24 20:59 05/07/24 08:09 12.5 MG Metronidazole (flaGYL) 500 mg Q8H PO 04/26/24 10:30 04/27/24 22:59 DC 04/27/24 17:47 500 MG Metronidazole/ Sodium Chloride (flaGYL) 500 mg Q8H IV 04/28/24 02:30 05/02/24 07:24 DC 05/02/24 02:26 500 MG Morphine Sulfate (morPHINE 2MG SYG) 2 mg Q4H PRN IVP SEVERE PAIN (7-10) 04/29/24 21:30 05/05/24 00:29 DC 05/01/24 16:19 2 MG Morphine Sulfate (morPHINE 2MG SYG) 2 mg Q4H PRN IVP SEVERE PAIN (7-10) 04/24/24 16:30 04/29/24 19:29 DC 04/29/24 15:38 2 MG Ondansetron HCl (zoFRAN 4MG INJ) 4 mg Q6H PRN IVP NAUSEA/VOMITING 04/24/24 16:30 125/24 16:29 04/29/24 18:29 4 MG Pantoprazole Sodium (PROTonix 40MG INJ) 40 mg DAILY IVP 04/25/24 09:00 05/25/24 08:59 05/07/24 08:09 40 MG Potassium Chloride 100 ml @ 50 mls/hr ONCE IV 05/06/24 18:00 05/06/24 22:00 DC 05/06/24 18:01 50 MLS/HR Potassium Chloride 100 ml @ 50 mls/hr PROTOCOL IV 05/06/24 16:30 05/06/24 17:30 DC Potassium Chloride 100 ml @ 100 mls/hr AD PRN IV POTASSIUM PROTOCOL 05/02/24 16:00 05/03/24 16:59 DC Potassium Chloride (K-Dur/Klor-Con 20meq) 20 meq AD PRN PO POTASSIUM PROTOCOL 05/02/24 16:00 06/01/24 15:59 Potassium Chloride (KCl 10% Elixir 20meq/15ml) 20 meq AD PRN PO POTASSIUM PROTOCOL 05/02/24 16:00 06/01/24 15:59 05/06/24 08:30 20 MEQ Sodium Chloride 1,000 ml @ 75 mls/hr [id number] IV 04/24/24 16:30 04/28/24 11:48 DC 04/28/24 04:02 75 MLS/HR Sodium Chloride 1,000 ml @ 125 mls/hr Q8H IV 04/29/24 12:00 04/30/24 09:15 DC 04/30/24 04:16 125 MLS/HR DIAGNOSTICS / RADIOLOGY: [ ] ASSESSMENT: NSTEMI with abnormal EKG, POA Large ventral hernia, POA Small bowel obstruction, POA Ischemic bowel, POA Intractable nausea/vomiting, POA s/p ventral hernia repair with repair of necrotic/ischemic bowel (04/29/24) Hypertensive emergency, resolved POA Hyperglycemia, resolved POA Hypernatremia Leukocytosis with left shift,improving POA Hypokalemia, POA Acute renal failure, improving POA PLAN: Patient remains admitted to the PCU. Continue NPO with NG at intermittent suction Continue supportive care with IV fluids General surgery consulted, appreciate recommendations Continue broad-spectrum IV antibiotic due to leukocytosis Continue on antiemetic as needed Continue with pain management We will repeat labs tomorrow GI prophylaxis with Protonix 40 mg IV daily DVT prophylaxis with SCD PT to start working with patient TPN continue Disposition: [facility] A.m. labs. Prognosis remains guarded. No family members at bedside during my visit to discuss further goals of care, plan of action discussed with the patient, questions answered. Total PCU time spent greater than 30 minutes. ATTESTATION BY PHYSICIAN I have seen and examined the patient. I reviewed the documentation, medical decision making, and treatment plan as noted by the mid-level provider above. I agree with the findings and plan of care. ALDEN DINH MD, [facility] May 07, 2024 12:13
--- NOTE | 2024-05-07 13:14 | NUR ---
AMARILIS NOTE: [facility] PENDING ACCEPTANCE AMARILIS MET WITH PT AND DAUGHTER IN ROOM, DISCUSSED WHAT WAS TALKED ABOUT EARLIER. NOW DAUGHTER AGREEABLE. CONSENT SIGNED ZARIA FOR [facility]. CM SENT ORDER, REV CODE, FACE SHEET TO [facility] W/DELIA VIA SECURE EFAX AND EMAIL. CONFIRMATION RECEIVED. CM SPOKE TO [facility], WILL COME EVALUATE PT. PT PENDING ACCEPTANCE. MOT SEMI-FILLED PENDING TO COMPLETE ONCE PT HAS ACCEPTANCE. EMS FILLED OUT, PENDING TO FAX W/CURRENT DATE ONCE PT READY TO DC. PRIMARY NURSE MIL MELVIN. ZAFAR FINN UPDATED. CM TO CONTINUE TO FOLLOW UP. Addendum: 05/07/24 at 1318 by GREGG BA LVN CM Amended: Links added.
[2024-05-07] MEDS: [UNRECOGNIZED DRUG - NUTRITION] IV ONE (14:01)
--- NOTE | 2024-05-07 14:22 | PN ---
INFECTIOUS DISEASE PROGRESS NOTE Date of Service: May 07, 2024 SUBJECTIVE: Patient was seen and examined in room 418. Patient is awake, alert and oriented. Patient is awake and sitting up on the bedside chair. Patient is s/p open ventral hernia repair and small-bowel resect ion on 04/29/2024. Patient has remained afebrile for the past 48 hours and the WBC is 8.8. Patient has been started on TPN and tolerating well. Patient is being referred to LTAC . Will continue on cefepime. We will continue to monitor patient. PHYSICAL EXAM EYES: Anicteric. Pupils equal and reactive. HENT: No oral thrush seen, moist Oral mucosa. NG tube. NECK: Supple, no JVD or thyromegaly. LUNGS: Good air entry. No rales, no rhonchi. CARDIOVASCULAR: S1, S2 regular. No murmur heard. ABDOMEN: Soft, tender, no organomegaly. Abdominal Surgical incision. CENTRAL NERVOUS SYSTEM: Awake, alert, oriented x 3. SKIN: No rashes, no swelling. LYMPHATICS: No peripheral lymphadenopathy. MUSCULOSKELETAL: No joint swelling, erythema or tenderness. EXTREMITIES: No cyanosis or clubbing. BACK: No deformity, no pressure ulcer. GENITOURINARY: No dysuria or hematuria. Sykes catheter. Vital Sign (Last 12 Hours) 05/07/24 05/07/24 05/07/24 04:00 08:00 12:00 Temp 98.1 97.5 97.5 Pulse 90 84 111 Resp 20 17 19 B/P (MAP) 163/84 166/84 112/62 Pulse Ox 96 96 94 O2 Delivery Room Air Room Air Room Air O2 Flow Rate 0.0 0.0 Intake & Output (last 24hrs) 05/06/24 05/06/24 05/07/24 15:00 23:00 07:00 Intake Total 110.0 ml Output Total 1200 ml 600 ml 1900 ml Balance -1200 ml -600 ml -1790.0 ml LABS: Laboratory: Test 05/07/24 03:10 Range/Units White Blood Count 8.8 4.8-10.8 K/uL Red Blood Count 2.73 L 4.00-5.50 MIL/uL Hemoglobin 8.1 L 12.0-16.0 g/dL Hematocrit 25.5 L 36-48 % Mean Corpuscular Volume 93.4 79-99 fL Mean Corpuscular Hemoglobin 29.7 27.0-33.0 pg Mean Corpuscular Hemoglobin Concent 31.8 L 32.0-36.0 g/dL Red Cell Distribution Width 14.4 11.0-15.5 % Platelet Count 358 130-400 K/uL Mean Platelet Volume 9.6 7.5-10.5 fL Immature Granulocyte % (Auto) 1.2 H 0-1 % Neutrophils (%) (Auto) 84.2 H 40.0-77.0 % Lymphocytes (%) (Auto) 8.6 L 21.0-51.0 % Monocytes (%) (Auto) 4.2 3.0-13.0 % Eosinophils (%) (Auto) 1.7 0.0-8.0 % Basophils (%) (Auto) 0.1 0.0-5.0 % Neutrophils # (Auto) 7.4 1.8-7.7 K/uL Lymphocytes # (Auto) 0.8 L 1.0-4.8 K/uL Monocytes # (Auto) 0.4 0.1-1.0 K/uL Eosinophils # (Auto) 0.15 0.00-0.70 K/uL Basophils # (Auto) 0.01 0.00-0.20 K/uL Absolute Immature Granulocyte (auto 0.11 0-1 K/uL Nucleated Red Blood Cells 0.0 0.0-0.19 % Sodium Level 141 136-145 mmol/L Potassium Level 3.9 3.5-5.1 mmol/L Chloride Level 106 101-111 mmol/L Carbon Dioxide Level 30 21-32 mmol/L Blood Urea Nitrogen 48 H 7-18 mg/dL Creatinine 1.6 H 0.5-1.0 mg/dL Glomerular Filtration Rate Calc 32 >90 mL/min Random Glucose 391 H 70-105 mg/dL Total Calcium 8.0 L 8.5-10.1 mg/dL Phosphorus Level 3.4 2.5-4.9 mg/dL Magnesium Level 1.70 L 1.80-2.40 mg/dL Total Bilirubin 0.3 0.2-1.0 mg/dL Aspartate Amino Transf (AST/SGOT) 19 10-37 U/L Alanine Aminotransferase (ALT/SGPT) 16 12-78 U/L Alkaline Phosphatase 46 L 50-136 U/L Total Protein 6.0 6.0-8.3 g/dL Albumin 1.9 L 3.5-5.0 g/dL ASSESSMENT: Abdominal pain. Incarcerated ventral hernia, s/p open ventral hernia repair and small-bowel resection on 04/29/2024. Sepsis. Acute renal failure. Leukocytosis, resolved. Elevated troponin. Non-STEMI postop. PLAN: Continue cefepime. Incision care as recommended by General surgery. Patient has been started on TPN. Continue pain management. Heat Treating Operator following patient. Will monitor electrolytes. Patient being referred to LTAC. This case was reviewed and discussed with my supervising physician and the above assessment and plan was formulated and agreed upon. ATTESTATION BY PHYSICIAN I have seen and examined the patient. I reviewed the documentation, medical decision making, and treatment plan as noted by the mid-level provider above. I agree with the findings and plan of care. NAHUM BROWN MD, [facility] May 07, 2024 14:21
[2024-05-07] MEDS: ceFEPime HCL 1 GM VIAL IVPB SCH (15:32)
--- NOTE | 2024-05-07 16:23 | PN ---
This is a 83-year-old female postop day eight for hernia repair with small-bowel resection Interval history: This 83-year-old female seen in her room resting No pain reported today Nursing continues with the b.i.d. dressing changes Little flatus reported today Patient underwent CT of abdomen and pelvis and currently pending Labs unremarkable Physical exam General: Awake alert and oriented Heart: Regular rate and rhythm} Lungs: Clear to auscultation no distress Abdomen: [Soft, nontender, nondistended incisions clean Assessment : This is an 83-year-old female status post small bowel resection with ventral hernia repair Plan: Patient to be allowed ice chips Continue with NG tube to LIS Nursing to report CT imaging once complete Dr. Thapa to be updated in patient's status and will see patient tomorrow Vitals/Labs Vital Signs Date Time Temp Pulse Resp B/P (MAP) Pulse Ox O2 Delivery O2 Flow Rate FiO2 05/07/24 15:50 97.0 90 17 143/86 94 Room Air 0.0 05/07/24 08:20 21 Laboratory Tests 05/06/24 20:00 05/07/24 03:10 Medications Current Medications Sodium Chloride 1,000 ml @ 0 mls/hr ONCE ONCE IV Last administered on 04/24/24at 11:26; Start 04/24/24 at 11:00; Stop 04/24/24 at 11:01; Status DC Morphine Sulfate 4 mg ONCE ONCE IVP Last administered on 04/24/24at 11:26; Start 04/24/24 at 11:00; Stop 04/24/24 at 11:01; Status DC Ondansetron HCl 4 mg ONCE ONCE IVP Last administered on 04/24/24at 11:26; Start 04/24/24 at 11:00; Stop 04/24/24 at 11:01; Status DC Ondansetron HCl 4 mg ONCE ONCE IVP Last administered on 04/24/24at 11:53; Start 04/24/24 at 12:00; Stop 04/24/24 at 12:01; Status DC Iohexol 75 ml STK-MED ONCE IV; Start 04/24/24 at 13:22; Stop 04/24/24 at 13:23; Status DC Iohexol 35,000 mg STK-MED ONCE IV; Start 04/24/24 at 13:23; Stop 04/24/24 at 13:24; Status DC Metoclopramide HCl 10 mg ONCE ONCE IVP Last administered on 04/24/24at 14:34; Start 04/24/24 at 14:30; Stop 04/24/24 at 14:31; Status DC Morphine Sulfate 4 mg ONCE ONCE IVP Last administered on 04/24/24at 14:34; Start 04/24/24 at 14:30; Stop 04/24/24 at 14:31; Status DC Ondansetron HCl 4 mg Q6H PRN IVP Last administered on 04/29/24at 18:29; Start 04/24/24 at 16:30; Stop 05/24/24 at 16:29 Morphine Sulfate 2 mg Q4H PRN IVP Last administered on 04/29/24at 15:38; Start 04/24/24 at 16:30; Stop 04/29/24 at 19:29; Status DC Sodium Chloride 1,000 ml @ 75 mls/hr [id number] IV Last administered on 04/28/24at 04:02; Start 04/24/24 at 16:30; Stop 04/28/24 at 11:48; Status DC Acetaminophen 650 mg Q4H PRN PO; Start 04/24/24 at 16:30; Stop 05/24/24 at 16:29 Acetaminophen 650 mg Q6H PRN PO; Start 04/24/24 at 16:30; Stop 05/24/24 at 16:29 Acetaminophen 325 mg Q6H PRN RC; Start 04/24/24 at 16:30; Stop 05/24/24 at 16:29 Acetaminophen 325 mg Q4H PRN RC Last administered on 04/25/24at 14:02; Start 04/24/24 at 16:30; Stop 05/24/24 at 16:29 Pantoprazole Sodium 40 mg DAILY IVP Last administered on 05/07/24at 08:09; Start 04/25/24 at 09:00; Stop 05/25/24 at 08:59 Lorazepam 0.5 mg ONCE ONCE IVP Last administered on 04/26/24at 01:21; Start 04/26/24 at 01:30; Stop 04/26/24 at 01:31; Status DC Cefepime HCl 1 gm Q24H IVPB Last administered on 05/05/24at 11:03; Start 04/26/24 at 10:30; Stop 05/06/24 at 10:29; Status DC Metronidazole 500 mg Q8H PO Last administered on 04/27/24at 17:47; Start 04/26/24 at 10:30; Stop 04/27/24 at 22:59; Status DC Heparin Sodium (Porcine) *calculation based on ACTUAL B... AD PRN IV; Start 04/26/24 at 17:00; Stop 05/02/24 at 07:23; Status DC Heparin Sodium/ Dextrose 250 ml @ 0 mls/hr Q6H IV Last administered on 04/27/24at 14:45; Start 04/26/24 at 17:00; Stop 04/29/24 at 10:28; Status DC Metoprolol Tartrate 12.5 mg BID PO Last administered on 05/07/24at 08:09; Start 04/26/24 at 21:00; Stop 05/26/24 at 20:59 Aspirin 325 mg ONCE ONCE PO Last administered on 04/26/24at 16:51; Start 04/26/24 at 16:30; Stop 04/26/24 at 16:31; Status DC Aspirin 81 mg DAILY PO Last administered on 05/07/24at 08:09; Start 04/27/24 at 09:00; Stop 05/27/24 at 08:59 Heparin Sodium (Porcine) 5,000 unit ONCE ONCE IV Last administered on 04/26/24at 17:10; Start 04/26/24 at 17:00; Stop 04/26/24 at 17:01; Status DC Metronidazole/ Sodium Chloride 500 mg Q8H IV Last administered on 05/02/24at 02:26; Start 04/28/24 at 02:30; Stop 05/02/24 at 07:24; Status DC Metoprolol Tartrate 5 mg Q6H PRN IV; Start 04/27/24 at 23:00; Stop 05/27/24 at 22:59 Lactated Ringer's 1,000 ml @ 150 mls/hr Q6H40M IV Last administered on 04/29/24at 08:00; Start 04/28/24 at 12:00; Stop 04/29/24 at 11:36; Status DC Norepinephrine Bitartrate 4 mg STK-MED ONCE IV; Start 04/29/24 at 11:21; Stop 04/29/24 at 11:22; Status DC Norepinephrine Bitartrate 4 mg STK-MED ONCE IV; Start 04/29/24 at 11:21; Stop 04/29/24 at 11:22; Status DC Propofol 200 mg STK-MED ONCE IV; Start 04/29/24 at 11:22; Stop 04/29/24 at 11:22; Status DC Succinylcholine Chloride 200 mg STK-MED ONCE .ROUTE; Start 04/29/24 at 11:22; Stop 04/29/24 at 11:22; Status DC Etomidate 20 mg STK-MED ONCE .ROUTE; Start 04/29/24 at 11:24; Stop 04/29/24 at 11:24; Status DC Nitroglycerin/ Dextrose 1 ml @ As Directed STK-MED ONCE .ROUTE; Start 04/29/24 at 11:25; Stop 04/29/24 at 11:25; Status DC Sodium Chloride 1,000 ml @ 125 mls/hr Q8H IV Last administered on 04/30/24at 04:16; Start 04/29/24 at 12:00; Stop 04/30/24 at 09:15; Status DC Fentanyl Citrate 100 mcg STK-MED ONCE .ROUTE; Start 04/29/24 at 11:46; Stop 04/29/24 at 11:46; Status DC Rocuronium [place] 50 mg STK-MED ONCE .ROUTE; Start 04/29/24 at 12:06; Stop 04/29/24 at 12:06; Status DC Sodium Bicarbonate 50 meq STK-MED ONCE .ROUTE; Start 04/29/24 at 13:45; Stop 04/29/24 at 13:45; Status DC Albumin Human 250 ml @ As Directed STK-MED ONCE IV; Start 04/29/24 at 14:07; Stop 04/29/24 at 14:08; Status DC Ropivacaine 150 mg STK-MED ONCE .ROUTE; Start 04/29/24 at 14:36; Stop 04/29/24 at 14:36; Status DC Ondansetron HCl 4 mg STK-MED ONCE .ROUTE; Start 04/29/24 at 15:03; Stop 04/29/24 at 15:03; Status DC Fentanyl Citrate 100 mcg STK-MED ONCE .ROUTE; Start 04/29/24 at 15:07; Stop 04/29/24 at 15:07; Status DC Morphine Sulfate 2 mg Q4H PRN IVP Last administered on 05/01/24at 16:19; Start 04/29/24 at 21:30; Stop 05/05/24 at 00:29; Status DC Dextrose 1,000 ml @ 150 mls/hr Q6H40M IV Last administered on 05/04/24at 11:39; Start 04/30/24 at 09:30; Stop 05/04/24 at 13:03; Status DC Ferric Sodium Gluconate Complex 125 mg/Sodium Chloride 110 ml @ 110 mls/hr Q24H IV Last administered on 05/02/24at 08:48; Start 04/30/24 at 09:30; Stop 05/02/24 at 10:29; Status DC Potassium Chloride 100 ml @ 100 mls/hr AD PRN IV; Start 05/02/24 at 16:00; Stop 05/03/24 at 16:59; Status DC Potassium Chloride 20 meq AD PRN PO Last administered on 05/06/24at 08:30; Start 05/02/24 at 16:00; Stop 06/01/24 at 15:59 Potassium Chloride 20 meq AD PRN PO; Start 05/02/24 at 16:00; Stop 06/01/24 at 15:59 Guaifenesin/ Dextromethorphan 10 ml Q6H PRN PO Last administered on 05/04/24at 08:19; Start 05/02/24 at 18:00; Stop 06/01/24 at 17:59 Potassium Chloride 100 ml @ 50 mls/hr ONCE ONCE IV; Start 05/03/24 at 16:30; Stop 05/03/24 at 18:29; Status DC Potassium Chloride 100 ml @ 100 mls/hr ONCE ONCE IV Last administered on 05/03/24at 17:11; Start 05/03/24 at 17:00; Stop 05/03/24 at 17:59; Status DC Potassium Chloride 100 ml @ As Directed STK-MED ONCE IV; Start 05/03/24 at 17:01; Stop 05/03/24 at 17:01; Status DC Magnesium Sulfate 50 ml @ 0 mls/hr PROTOCOL IV Last administered on 05/07/24at 03:41; Start 05/04/24 at 06:00; Stop 06/03/24 at 05:59 Potassium Chloride 100 ml @ 50 mls/hr ONCE ONCE IV; Start 05/04/24 at 10:30; Stop 05/04/24 at 12:29; Status DC Magnesium Sulfate 50 ml @ 0 mls/hr PROTOCOL IV; Start 05/04/24 at 10:30; Stop 05/04/24 at 10:35; Status DC Furosemide 20 mg Q12H IV Last administered on 05/07/24at 15:38; Start 05/04/24 at 12:30; Stop 06/03/24 at 12:29 Enoxaparin Sodium 30 mg DAILY SQ Last administered on 05/07/24at 08:10; Start 05/04/24 at 12:30; Stop 06/03/24 at 12:29 Multivitamins/ Minerals 10 ml/ Chromium/Copper/ Manganese/Zinc 3 ml/Amino Acids/ Electrolytes/ Dextrose 2,000 ml @ 83 mls/hr ONCE ONCE IV Last administered on 05/05/24at 13:21; Start 05/05/24 at 12:30; Stop 05/06/24 at 11:56; Status DC Fat Emulsion Intravenous 250 ml @ 42 mls/hr [id number] IV Last administered on 05/07/24at 09:42; Start 05/07/24 at 09:00; Stop 06/06/24 at 08:59 Potassium Chloride 100 ml @ 50 mls/hr ONCE ONCE IV Last administered on 05/06/24at 11:52; Start 05/06/24 at 11:30; Stop 05/06/24 at 13:29; Status DC Potassium Chloride 100 ml @ 50 mls/hr PROTOCOL IV; Start 05/06/24 at 16:30; Stop 05/06/24 at 17:30; Status DC Multivitamins/ Minerals 10 ml/ Chromium/Copper/ Manganese/Zinc 3 ml/Amino Acids/ Electrolytes/ Dextrose 2,000 ml @ 83 mls/hr ONCE ONCE IV Last administered on 05/06/24at 14:41; Start 05/06/24 at 14:00; Stop 05/07/24 at 12:07; Status DC Potassium Chloride 100 ml @ 50 mls/hr ONCE IV Last administered on 05/06/24at 18:01; Start 05/06/24 at 18:00; Stop 05/06/24 at 22:00; Status DC Magnesium Sulfate 50 ml @ 0 mls/hr PROTOCOL IV; Start 05/07/24 at 10:30; Stop 05/07/24 at 10:20; Status DC Multivitamins/ Minerals 10 ml/ Chromium/Copper/ Manganese/Zinc 3 ml/Amino Acids/ Electrolytes/ Dextrose 2,000 ml @ 83 mls/hr ONCE ONCE IV Last administered on 05/07/24at 14:01; Start 05/07/24 at 12:30; Stop 05/08/24 at 12:35 Cefepime HCl 1 gm Q24H IVPB Last administered on 05/07/24at 15:32; Start 05/07/24 at 15:00; Stop 05/17/24 at 14:59 DONNIE BA Jr. May 07, 2024 16:23
--- NOTE | 2024-05-07 16:47 | HMCIMG ---
CT ABDOMEN/PELVIS W/O CONTRAST HISTORY: Small bowel obstruction COMPARISON: 04/24/2024 TECHNIQUE: Multiple sequential axial images of the abdomen and pelvis were obtained from the dome of the diaphragm through symphysis pubis. Patient was not given contrast through intravenous route. Oral contrast was not given. FINDINGS: No pleural effusion is seen bilaterally. Bibasilar linear atelectasis changes are seen. There is no evidence of parenchymal disease or pulmonary nodule of the visualized lower lungs. Degenerative changes of the thoracolumbar spine are present. The heart is not enlarged. Nonspecific mesenteric fat stranding is seen in the mid and lower abdomen with right more than left. Findings are suggestive of inflammatory changes. There is diverticulosis. The liver, spleen, adrenal glands and pancreas are unremarkable. There is no evidence of hydronephrosis bilaterally. No evidence of renal stone is seen. Fecal material is seen in the colon. There are normal size retroperitoneal and mesenteric lymph nodes. No ascites is seen. Atherosclerotic changes are present. Drainage catheter is seen in the abdominal wall region anteriorly. Pelvic sidewalls are symmetric bilaterally. Bladder is poorly distended with Sykes catheter and bladder wall thickening. IMPRESSION: 1. Nonspecific mesenteric fat stranding is seen in the mid and lower abdomen with right more than left. Findings are suggestive of inflammatory changes. There is diverticulosis. CT was performed with one or more following dose reduction techniques: automated exposure control, adjustment of the mA and kv according to patient's size, or use of a iterative reconstruction technique.
[2024-05-07] MEDS: acetaMINOPHEN 325 MG TAB PO PRN (18:31)
--- NOTE | 2024-05-07 19:11 | NUR ---
INCISION DRESSING CHANGES DONE ORDERED. GAUZE DRY AND INTACT. DRAINS IN PLACE. NO DRAINAGE NOTED TO SITE. KENDRA INTACT. NO S/S OF INFECTION NOTED. PATIENT TOLERATED WELL. WILL CONTINUE TO MONITOR.
--- NOTE | 2024-05-07 19:31 | NUR ---
Pain assessment Patient denies any pain at this time. Patient noted supine in bed. HOB elevated, side rails up x2. Call light within reach.
--- NOTE | 2024-05-07 23:44 | NUR ---
NG tube insertion Patient noted with NG tube at bedside. Stated "Ya no lo necesito". I advised patient that she needed the NG tube to low intermittent suction due to continuous build up of dark stomach contents per surgical team recommendations. Advised patient nurse would have to insert NG tube to right nare this time. Patient verbalized understanding. 14 Fr. NG tube inserted to right nare. Patient tolerated well. Placement verified with air bolus. NG tube placed on low-intermittent suction. Noted stomach contents in NG tube.
[2024-05-08 05:00] VITALS: BP 156/98; PULSE 103; RESP 20; TEMP 97.9
[2024-05-08 05:10] LABS: BASOPHILS # (AUTO) 0.01 K/uL (0.00-0.20); BASOPHILS % (AUTO) 0.1 % (0.0-5.0); EOSINOPHILS # (AUTO) 0.09 K/uL (0.00-0.70); EOSINOPHILS % (AUTO) 0.8 % (0.0-8.0); HEMATOCRIT 26.9 % (36-48); IMMATURE GRANULOCYTE ABSOLUTE 0.08 K/uL (0-1); LYMPHOCYTES # (AUTO) 0.6 K/uL (1.0-4.8); MEAN CORPUSCULAR HGB CONC 31.6 g/dL (32.0-36.0); MEAN CORPUSCULAR VOLUME 91.8 fL (79-99); MONOCYTES # (AUTO) 0.4 K/uL (0.1-1.0); MONOCYTES % (AUTO) 3.2 % (3.0-13.0); NEUTROPHILS # (AUTO) 10.8 K/uL (1.8-7.7); NEUTROPHILS % (AUTO) 90.2 % (40.0-77.0); PLATELET COUNT (AUTO) 483 K/uL (130-400); RED BLOOD CELL COUNT(AUTO) 2.93 MIL/uL (4.00-5.50); RED CELL DISTRIBUTION WIDTH 14.4 % (11.0-15.5); WHITE BLOOD COUNT (AUTO) 11.9 K/uL (4.8-10.8)
--- NOTE | 2024-05-08 05:20 | NUR ---
NG tube Noted patient pulling on NG tube. Nursing staff was able to prevent patient from taking out NG tube. Patient voiced she no longer wanted the NG tube. Advised patient that NG tube was still needed due to almost 200cc of stomach contents suctioned out since 190 on 05/07/2024. Patient voiced for nurse to contact physician and advise them of her no longer wanting NG tube in place. Advised will advise physician rounding during day shift. I will advise am nurse to voice her concerns. Patient was able to keep NG tube inserted without trying to remove it.
[2024-05-08 05:25] LABS: ALBUMIN 2.2 g/dL (3.5-5.0); BILIRUBIN,TOTAL 0.4 mg/dL (0.2-1.0); CREATININE 1.6 mg/dL (0.5-1.0); MAGNESIUM 1.9 mg/dL (1.80-2.40); POTASSIUM 3.7 mmol/L (3.5-5.1); TOTAL PROTEIN, SERUM 6.7 g/dL (6.0-8.3)
--- NOTE | 2024-05-08 05:58 | NUR ---
RBS 441 mg/dL Patient noted with high blood glucose level. RBS 441 mg/dL. Call placed to [facility]. Pending call back.
--- NOTE | 2024-05-08 06:32 | NUR ---
Magnesium 1.9 mg/dL Patient given Magnesium 2GM/50mL via IV at 25cc/hr per magnesium protocol.
--- NOTE | 2024-05-08 07:20 | NUR ---
High blood glucose/NG tube insertion Yaneth Bonilla VALVE SEATER OPERATOR from [facility] returned phone call due to patient's high blood glucose since 05/05/2024. RBS 441 mg/dL reported to Yaneth. As per VALVE SEATER OPERATOR start patient on hyperglycemia NPO protocol sliding scale #1. Orders noted and carried out. Patient noted removing NG tube on right nare. New 14 Fr. NG tube inserted to patient's left nare with the help of Brittany MAHONEY. Patient tolerated well. NG tube placement verified with air bolus. Brittany FIRST AID OFFICER verified placement. Patient placed back on low-intermittent suction.
--- NOTE | 2024-05-08 07:27 | NUR ---
Potassium 3.7 mmol/L Patient given potassium 20 mEq elixir via NG tube at this time per hypokalemia protocol. NG tube clamped at this time to allow absorption of medication. Brittany MAHONEY advised of patient pending one further dose. Verbalized understanding.
[2024-05-08 08:04] VITALS: BP 148/80; PULSE 102; RESP 18; TEMP 98.3
[2024-05-08 08:20] VITALS: O2SAT 98
[2024-05-08] MEDS: INSULIN humuLIN R 100 UNIT/ML 3ML SQ ONE (08:41)
[2024-05-08 11:34] VITALS: BP 154/73; PULSE 99; RESP 18; TEMP 98.2
--- NOTE | 2024-05-08 12:54 | PN ---
SUBJECTIVE: An 83-year-old female initially presented with small bowel obstruction. The patient underwent hernia repair. She has had acute renal failure in the hospital as well as significant electrolyte abnormalities. The patient continues to remain n.p.o. The patient has been started on TPN. The patient's electrolytes have greatly improved as well as her creatinine and she is being seen for all the above. REVIEW OF SYSTEMS: GENERAL: She is feeling weak and tired. HEENT: No change in vision. No change in hearing. CARDIOVASCULAR: No current chest pains or palpitations. PULMONARY: No shortness of breath. GASTROINTESTINAL: As described above. MUSCULOSKELETAL: Complains of weakness. PHYSICAL EXAMINATION: VITAL SIGNS: Blood pressure 154/73, pulse of 90s. GENERAL: Chronically ill female, elderly, lying in bed on medical floor. HEENT: Head is atraumatic. Pupils equal, roving to light. Oropharynx is without exudate. Nares clear. NECK: There is no JVP. There is no thyromegaly, no mass. CARDIOVASCULAR: Regular. There is no S3, S4 gallop. LUNGS: Coarse with equal thoracic movement. ABDOMEN: Soft, nondistended, nontender. EXTREMITIES: Reveal no clubbing, no cyanosis. NEUROLOGIC: She is awake. She is alert. She is oriented. SKIN: Reveals no rash, no nodules. LABORATORY DATA: Hemoglobin 8.5, hematocrit 26, white cell count 11,000. Sodium 142, potassium 3.7, BUN 55, creatinine 1.6, glucose is 400. IMPRESSION: * Renal dysfunction. * Small bowel obstruction, status post surgery. * Diabetes mellitus. * Electrolyte abnormalities. PLAN: The patient continues with the TPN. The patient continues to be seen by surgical service. TPN will continue to be adjusted per the electrolytes. Creatinine of 1.6 mg/dL is essentially the patient's baseline. We will continue to monitor closely. Electrolytes have been repleted. We will follow while in the hospital. TID: [id number] RECEIPT: [id number]
[2024-05-08] MEDS: INSULIN humuLIN R 100 UNIT/ML 3ML SQ SCH (13:07)
[2024-05-08] MEDS: M.V.I. IV [ADULT] 10 ML, MULTITRACE-4 ADULT 10ML VIAL 3 ML in CLINIMIX-E 5%AA /D15%W 2... IV ONE (13:08)
--- NOTE | 2024-05-08 13:38 | PN ---
This is an 83 year old female 9 days s/p open ventral hernia repair and small bowel resection. Patient is passing gas. No BM. NGT output 350 cc bilious. Abdomen soft, non-tender, non-distended, drains with small serosang output. Ok to pull ngt and start clear liquids. Pull one of the drains today. Surgery will follow. Vitals/Labs Vital Signs Date Time Temp Pulse Resp B/P (MAP) Pulse Ox O2 Delivery O2 Flow Rate FiO2 05/08/24 11:34 98.2 99 18 154/73 95 Room Air 05/07/24 19:15 0 21 Laboratory Tests 05/08/24 04:25 EDU QURESHI DO May 08, 2024 13:38
--- NOTE | 2024-05-08 13:44 | NUR ---
NG TUBE DR. QURESHI ROUNDED AT BEDSIDE. VORB TO D/C NG TUBE AND ONE OF THE HEMOVACS. ORDERS PLACED. NG TUBE REMOVED. TIP INTACT, PATIENT TOLERATED WELL. DENIED ANY PAIN OR DISCOMFORT. WILL CONTINUE TO MONITOR.
--- NOTE | 2024-05-08 14:45 | NUR ---
ONE TO ONE SITTER PATIENT MORE CONFUSED, ATTEMPTING TO GET OUT OF BED ON HER OWN. PATIENT HIGH RISK FOR FALLS DUE TO GBW. OBTAINED VO FOR ONE TO ONE SITTER TO PREVENT FALLS AND PATIENT PULLING OUT ANY LINES/DRAINS. ORDERS PLACED AND CARRIED OUT. CHARGE NURSE NOTIFIED. WILL CONTINUE TO MONITOR.
--- NOTE | 2024-05-08 15:26 | NUR ---
HEMOVAC DRAIN 1400 LEFT HEMOVAC DRAIN DISCONTINUED ORDERED BY DR. QURESHI. TIP INTACT, NO BLEEDING, SWELLING OR OTHER S/S OF INFECTION NOTED TO SITE. NO DRAINAGE IN CANISTER TO MEASURE. COVERED WITH 2X2 AND SECURED WITH TAPE. PATIENT TOLERATED WELL. WILL CONTINUE TO MONITOR.
--- NOTE | 2024-05-08 15:35 | NUR ---
Nutrition f/u Reviewed labs, notes, and medications. Pt on lasix, TPN @ 83.3 ml/hr x 24 hrs, elevated bun 55, elevated Cr 1.6, hyperglycemia 441, vit. D 13.9, low albumin, post op day 8 hernia repair per chart review. Pt on CLD, w/ ice chips, pending LTAC placement per nursing. Observed NG tube for suction, output of ~250 ml, TPN @ 83.3. Communicated with nursing regarding decreasing TPN to improve BG levels to 60 ml/hr x 24 hrs, once Pt's diet advanced to gi soft diet and PO intake >75 %PO to d/c TPN, nurse verbalized understanding. TPN for short term nutrition. Provide Clinimix 5/15 via PICC line @ 60 ml/hr x 24 hrs. TPN new rec meets Pt's protein needs, meets 63% of caloric needs. Recommendations: -Provide prostat jello BID while Pt on CLD -Provide Clinimix 5/15 via PICC line @ 60 ml/hr x 24 hrs Provides: 1440ml, 72 gm pro, 1022 kcals -Inclue 10 ml adult MVI and 3 ml trace elements -Provide 3x weekly lipid emulsion to prevent essential fatty acid deficiency -Monitor BM -Monitor electrolytes -Replenish electrolytes per protocol -Monitor wts -Reweigh as able -Provide vit. D supplement per vit. d low -Monitor TPN tolerance + need for adjustment -Monitor goals of care RD to follow + available for consult per protocol Addendum: 05/08/24 at [address] Amended: Links added.
--- NOTE | 2024-05-08 15:51 | NUR ---
CM NOTE: [facility] ACCEPTANCE CM SPOKE TO CALVIN Dawn/DELIA, PT HAS ACCEPTANCE. MOT FILLED OUT, PENDING MD AND LUFKIN SUPER TO SIGN. EMS ARRANGED AND FAXED FOR TODAY. PRIMARY NURSE MIL MADE AWARE. CM TO CONTINUE TO FOLLOW UP.
--- NOTE | 2024-05-08 15:54 | PN ---
INFECTIOUS DISEASE PROGRESS NOTE Date of Service: May 08, 2024 SUBJECTIVE: Patient was seen and examined in room 418. Patient is awake, alert and oriented. Patient is s/p open ventral hernia repair and small-bowel resection on 04/29/2024. Per nursing report patient is on obse rvation due to she pulled out the NG tube earlier and had to be reinserted. General surgeon visited with the patient and the NG tube will be removed and patient will be started on clear liquid diet as tolerated. Patient continues o n TPN. Patient is being referred to [facility] and has been approved . Will continue on cefepime. We will continue to monitor patient. PHYSICAL EXAM EYES: Anicteric. Pupils equal and reactive. HENT: No oral thrush seen, moist Oral mucosa. NG tube. NECK: Supple, no JVD or thyromegaly. LUNGS: Good air entry. No rales, no rhonchi. CARDIOVASCULAR: S1, S2 regular. No murmur heard. ABDOMEN: Soft, tender, no organomegaly. Abdominal Surgical incision. CENTRAL NERVOUS SYSTEM: Awake, alert, oriented x 3. SKIN: No rashes, no swelling. LYMPHATICS: No peripheral lymphadenopathy. MUSCULOSKELETAL: No joint swelling, erythema or tenderness. EXTREMITIES: No cyanosis or clubbing. BACK: No deformity, no pressure ulcer. GENITOURINARY: No dysuria or hematuria. Sykes catheter. Vital Sign (Last 12 Hours) 05/08/24 05/08/24 05/08/24 05:00 08:04 11:34 Temp 97.9 98.2 98.2 Pulse 103 102 99 Resp 18 B/P (MAP) 156/98 148/80 154/73 Pulse Ox 94 98 95 O2 Delivery Room Air Room Air Room Air Intake & Output (last 24hrs) 05/07/24 05/07/24 05/08/24 15:00 23:00 07:00 Intake Total 0 ml Output Total 600 ml 2950 ml 2800 ml Balance -600 ml -2950 ml -2800 ml LABS: Laboratory: Test 05/08/24 12:59 05/08/24 04:25 05/07/24 03:10 Range/Units Whole Blood Glucose 436 *H 70-110 MG/DL Bedside Glucose Comment Notified Nurse White Blood Count 11.9 H 4.8-10.8 K/uL Red Blood Count 2.93 L 4.00-5.50 MIL/uL Hemoglobin 8.5 L 12.0-16.0 g/dL Hematocrit 26.9 L 36-48 % Mean Corpuscular Volume 91.8 79-99 fL Mean Corpuscular Hemoglobin 29.0 27.0-33.0 pg Mean Corpuscular Hemoglobin Concent 31.6 L 32.0-36.0 g/dL Red Cell Distribution Width 14.4 11.0-15.5 % Platelet Count 483 #H 130-400 K/uL Mean Platelet Volume 9.9 7.5-10.5 fL Immature Granulocyte % (Auto) 0.7 0-1 % Neutrophils (%) (Auto) 90.2 H 40.0-77.0 % Lymphocytes (%) (Auto) 5.0 L 21.0-51.0 % Monocytes (%) (Auto) 3.2 3.0-13.0 % Eosinophils (%) (Auto) 0.8 0.0-8.0 % Basophils (%) (Auto) 0.1 0.0-5.0 % Neutrophils # (Auto) 10.8 H 1.8-7.7 K/uL Lymphocytes # (Auto) 0.6 L 1.0-4.8 K/uL Monocytes # (Auto) 0.4 0.1-1.0 K/uL Eosinophils # (Auto) 0.09 0.00-0.70 K/uL Basophils # (Auto) 0.01 0.00-0.20 K/uL Absolute Immature Granulocyte (auto 0.08 0-1 K/uL Nucleated Red Blood Cells 0.0 0.0-0.19 % Sodium Level 142 136-145 mmol/L Potassium Level 3.7 3.5-5.1 mmol/L Chloride Level 104 101-111 mmol/L Carbon Dioxide Level 29 21-32 mmol/L Blood Urea Nitrogen 55 H 7-18 mg/dL Creatinine 1.6 H 0.5-1.0 mg/dL Glomerular Filtration Rate Calc 32 >90 mL/min Random Glucose 476 *H 70-105 mg/dL Total Calcium 8.6 8.5-10.1 mg/dL Magnesium Level 1.90 1.80-2.40 mg/dL Total Bilirubin 0.4 0.2-1.0 mg/dL Aspartate Amino Transf (AST/SGOT) 20 10-37 U/L Alanine Aminotransferase (ALT/SGPT) 18 12-78 U/L Alkaline Phosphatase 71 50-136 U/L Total Protein 6.7 6.0-8.3 g/dL Albumin 2.2 L 3.5-5.0 g/dL Phosphorus Level 3.4 2.5-4.9 mg/dL ASSESSMENT: Abdominal pain. Incarcerated ventral hernia, s/p open ventral hernia repair and small-bowel resection on 04/29/2024. Sepsis. Acute renal failure. Leukocytosis, resolved. Elevated troponin. Non-STEMI postop. PLAN: Continue cefepime. Incision care as recommended by General surgery. NG tube will be removed, patient will be started on clear liquid diet as recommended by General surgery. Continues on TPN. Continue pain management. Will monitor electrolytes. Patient was referred to [facility] and has been approved. This case was reviewed and discussed with my supervising physician and the above assessment and plan was formulated and agreed upon. ATTESTATION BY PHYSICIAN I have seen and examined the patient. I reviewed the documentation, medical decision making, and treatment plan as noted by the mid-level provider above. I agree with the findings and plan of care. NAHUM BROWN MD, [facility] May 08, 2024 15:54
[2024-05-08 16:00] VITALS: BP 149/74; PULSE 89; RESP 19; TEMP 98.4
--- NOTE | 2024-05-08 16:14 | PN ---
[facility] PROGRESS NOTE Date of Service: May 08, 2024 Time of Service: 16:09 SUBJECTIVE: 83-year-old female admitted for early abdominal obstruction and large ventral hernia. Patient continues with nonreducible hernia. Her abdomen is tender. Surgeon recommended cardiac clearance and found that patient has abnormal T-wave on the 12 lead EKG and troponin was elevated in [id number]. Patient was upgraded to PCCU as we have to start patient on heparin drip. At this time, regional service manager evaluated the patient this morning and indicated that patient is poor candidate for invasive cardiac procedure due to acute renal failure and bowel obstruction. We will await for 2D echo. At this time, we will also await for further surgical recommendation. 03/29 No acute event reported overnight. Patient continues with abdominal tenderness. She will remain NPO. 03/30 Pt seen at bedside, no acute events overnight. She is s/p ventral hernia repair with resection and repair of ischemic/necrotic bowel post op day 1. She reports her pain is well controlled, she denies BM or flatus. NG tube still in place to intermittent suction. Abdominal binder is in place. She is hypernatremic, not currently on IV fluids, will start D5 at 100 cc/hr to decrease sodium at 0.5 cc/hr rate. Potassium low at 3.0, will replete according to protocol, creatinine continued to improve from 3.8 down to 3.0, remainder of her labs are relatively unremarkable. Diet and NG tube management per General Surgery 03/31 Pt seen at bedside, no acute events overnight. Pt has no complaints today, reports her pain is controlled. She is still NPO with NG tube in place. Denies BM or flatus, continues NPO per general surgery. She was started on D5W at 100 cc/hr yesterday due to hypernatremia at 155, no improvement in sodium this am. Will increase D5W to 125cc/hr and repeat Na at 4pm. Hgb decreased from 9.3 down to 8.4, potassium increased from 3.0 up to 3.1, will continue to replete according to protocol, creatinine improved from 3.0 down to 2.8. Iron is low, patient started on Ferric sodium gluconate per nephrology. Remainder of vitals and labs are relatively unremarkable. 05/02 the patient has been seen and examined during my rounding, no acute events overnight, remains comfortable in bed, NG tube to intermittent suction, output off 150 mL overnight. BP 122/38, afebrile, saturating 94% on 2 L via nasal cannula, no nausea, no vomiting, no abdominal pain, getting good pain control with current medical management. 05/03 the patient has been seen and examined during my rounding, no acute events overnight, remains comfortable in bed, NG tube to intermittent suction, output noted. Patient has not had a bowel movement, currently not passing gas. BP 122/38, afebrile, saturating 94% on 2 L via nasal cannula, no nausea, no vomiting, no abdominal pain, getting good pain control with current medical management. No family at bedside during my visit. 05/04 patient has been seen and examined during my rounding, no acute events overnight, remains comfortably in bed however looks mildly edematous today compared to yesterday, she is getting IV fluids. Remains NPO, NG tube to intermittent suction. She is alert oriented x3, she feels weak. BP 153/70, afebrile, saturating 94-98% on room air. No family members at bedside. 05/05 patient was seen by nurse practitioner and physician during rounding. Patient is pending PICC line placement for TPN. Patient is still is not passing any gases no bowel movement. Sykes catheter draining well. Per ID patient continues to be on cefepime. Prophylaxis Lovenox. We will continue to monitor patient. Physical therapy consulted for evaluation. Case management for di sposition. We will continue to monitor patient in the meantime. A.m. labs 05/06 patient was seen by ELECTRONICS TECHNICIAN APPRENTICE and physician during rounding comfortably lying in the bed in room 418. Patient is still continues to have no bowel movement also is not passing any gas and there is no drainage from Hemovacs x2. NG tube had 200 yesterday and 100 overnight cc gastric content. NG tube intermittent suction. Patient continues to have a PICC line TPN running. Potassium 2.9 we will be replaced by RN. We will continue to monitor patient. A.m. labs. Continue antibiotics per ID. 05/07 patient was seen by nurse practitioner and physician during rounding in room 418 comfortably lying in the bed. Patient continues to have a NG tube and that is draining about 400 cc in the past 24 hours. Patient still does not pass any gases and no bowel movement. We will order CT abdomen/pelvis for evaluation. Case management was consulted for disposition to [facility] since patient is on TPN at this moment. We will continue to monitor patient in the meantime. A.m. labs 05/08 patient was evaluated today in her room, patient is hallucinating, currently on one-to-one supervision. Patient continues with an NG tube and MVI. Apparently patient has been getting more confused. Daughter at bedside. Vitals reviewed, patient has been tachycardic in the low 100s. Labs reviewed, WBCs 11.9, her blood sugar is elevated in the 400s, started about24 hours ago, we started patient on insulin sliding scale and start hitting her with Lantus 10 units at HS. She has been accepted to [facility] but we will hold off on transferred due to elevated blood sugars, we will re-evaluate in the morning. REVIEW OF SYSTEMS 12 point ROS negative unless noted in HPI PHYSICAL EXAM GENERAL APPEARANCE: The patient is awake, alert, and oriented, in no acute cardiopulmonary distress. Looks mildly edematous today. NEUROLOGICAL: Cranial nerves II-XII grossly intact. Motor is 5/5 in bilateral upper and lower extremities proximal to distal. No sensory deficits. HEENT: Face is symmetric. Pupils are equal and reactive. Extraocular movements are intact. NECK: Supple. No JVD. No thyromegaly. No submental, submandibular, pre- /postauricular, occipital or supraclavicular lymphadenopathy. CHEST: Normal chest expansion. No Telemetry. LUNGS: Absence of any rales, rhonchi or any wheezing. CARDIOVASCULAR: Regular. S1 and S2 normal. No appreciable rubs, murmurs or gallops. ABDOMEN: Distended, VALERIO drainage no output : Deferred. No Sykes. EXTREMITIES: Minimal swollen to both lower extremities. SKIN: No skin breakdown. Vital Signs (last 8hr) Date Time Temp Pulse Resp B/P (MAP) Pulse Ox O2 Delivery O2 Flow Rate FiO2 05/08/24 11:34 98.2 99 18 154/73 95 Room Air LABS: Laboratory: Test 05/08/24 12:59 05/08/24 04:25 05/07/24 03:10 Range/Units Whole Blood Glucose 436 *H 70-110 MG/DL Bedside Glucose Comment Notified Nurse White Blood Count 11.9 H 4.8-10.8 K/uL Red Blood Count 2.93 L 4.00-5.50 MIL/uL Hemoglobin 8.5 L 12.0-16.0 g/dL Hematocrit 26.9 L 36-48 % Mean Corpuscular Volume 91.8 79-99 fL Mean Corpuscular Hemoglobin 29.0 27.0-33.0 pg Mean Corpuscular Hemoglobin Concent 31.6 L 32.0-36.0 g/dL Red Cell Distribution Width 14.4 11.0-15.5 % Platelet Count 483 #H 130-400 K/uL Mean Platelet Volume 9.9 7.5-10.5 fL Immature Granulocyte % (Auto) 0.7 0-1 % Neutrophils (%) (Auto) 90.2 H 40.0-77.0 % Lymphocytes (%) (Auto) 5.0 L 21.0-51.0 % Monocytes (%) (Auto) 3.2 3.0-13.0 % Eosinophils (%) (Auto) 0.8 0.0-8.0 % Basophils (%) (Auto) 0.1 0.0-5.0 % Neutrophils # (Auto) 10.8 H 1.8-7.7 K/uL Lymphocytes # (Auto) 0.6 L 1.0-4.8 K/uL Monocytes # (Auto) 0.4 0.1-1.0 K/uL Eosinophils # (Auto) 0.09 0.00-0.70 K/uL Basophils # (Auto) 0.01 0.00-0.20 K/uL Absolute Immature Granulocyte (auto 0.08 0-1 K/uL Nucleated Red Blood Cells 0.0 0.0-0.19 % Sodium Level 142 136-145 mmol/L Potassium Level 3.7 3.5-5.1 mmol/L Chloride Level 104 101-111 mmol/L Carbon Dioxide Level 29 21-32 mmol/L Blood Urea Nitrogen 55 H 7-18 mg/dL Creatinine 1.6 H 0.5-1.0 mg/dL Glomerular Filtration Rate Calc 32 >90 mL/min Random Glucose 476 *H 70-105 mg/dL Total Calcium 8.6 8.5-10.1 mg/dL Magnesium Level 1.90 1.80-2.40 mg/dL Total Bilirubin 0.4 0.2-1.0 mg/dL Aspartate Amino Transf (AST/SGOT) 20 10-37 U/L Alanine Aminotransferase (ALT/SGPT) 18 12-78 U/L Alkaline Phosphatase 71 50-136 U/L Total Protein 6.7 6.0-8.3 g/dL Albumin 2.2 L 3.5-5.0 g/dL Phosphorus Level 3.4 2.5-4.9 mg/dL Current Medications Medications (Trade) Dose Ordered Sig/Papito Route PRN Reason Start Time Stop Time Status Last Admin Dose Admin Acetaminophen (TYLenol 325MG TAB) 650 mg Q4H PRN PO TEMPERATURE GREATER THAN 101.5 04/24/24 16:30 05/24/24 16:29 Acetaminophen (TYLenol 325MG TAB) 650 mg Q6H PRN PO MILD PAIN (1-3) 04/24/24 16:30 05/24/24 16:29 05/07/24 18:31 650 MG Acetaminophen (Tylenol 325mg Suppository) 325 mg Q4H PRN RC TEMPERATURE GREATER THAN 101.5 04/24/24 16:30 05/24/24 16:29 04/25/24 14:02 325 MG Acetaminophen (Tylenol 325mg Suppository) 325 mg Q6H PRN RC MILD PAIN (1-3) 04/24/24 16:30 05/24/24 16:29 Aspirin (Aspirin 81mg Ec Tab) 81 mg DAILY PO 04/27/24 09:00 05/27/24 08:59 05/08/24 08:25 81 MG Cefepime HCl (MAXipime 1 GM vial) 1 gm Q24H IVPB 05/07/24 15:00 05/17/24 14:59 05/07/24 15:32 1 GM Cefepime HCl (MAXipime 1 GM vial) 1 gm Q24H IVPB 04/26/24 10:30 05/06/24 10:29 DC 05/05/24 11:03 1 GM Dextrose 1,000 ml @ 150 mls/hr Q6H40M IV 04/30/24 09:30 05/04/24 13:03 DC 05/04/24 11:39 150 MLS/HR Enoxaparin Sodium (Lovenox) 30 mg DAILY SQ 05/04/24 12:30 06/03/24 12:29 05/08/24 08:25 30 MG Fat Emulsion Intravenous 250 ml @ 42 mls/hr QMOWEFR IV 05/07/24 09:00 06/06/24 08:59 05/07/24 09:42 42 MLS/HR Ferric Sodium Gluconate Complex 125 mg/Sodium Chloride 110 ml @ 110 mls/hr Q24H IV 04/30/24 09:30 05/02/24 10:29 DC 05/02/24 08:48 110 MLS/HR Furosemide (LASix 20MG VIAL) 20 mg Q12H IV 05/04/24 12:30 06/03/24 12:29 05/08/24 14:39 20 MG Guaifenesin/ Dextromethorphan (RobiTUSSin DM 200/20MG 10ML) 10 ml Q6H PRN PO COUGH 05/02/24 18:00 06/01/24 17:59 05/04/24 08:19 10 ML Heparin Sodium (Porcine) (HEParin 5,000 UNIT VIAL) *calculation based on ACTUAL B... AD PRN IV HEPARIN PROTOCOL 04/26/24 17:00 05/02/24 07:23 DC Heparin Sodium/ Dextrose 250 ml @ 0 mls/hr Q6H IV 04/26/24 17:00 04/29/24 10:28 DC 04/27/24 14:45 15 MLS/HR Insulin Glargine (LANtus 100 UNITS/ML 10 ML VIAL) 10 units HS SQ 05/08/24 21:00 06/07/24 20:59 Insulin Human Regular (humuLIN R 100 UNIT/ML 3ML) INSULIN SLIDING SCAL... Q6H6 SQ 05/08/24 12:00 06/07/24 11:59 05/08/24 13:07 16 UNIT Lactated Ringer's 1,000 ml @ 150 mls/hr Q6H40M IV 04/28/24 12:00 04/29/24 11:36 DC 04/29/24 08:00 150 MLS/HR Magnesium Sulfate 50 ml @ 0 mls/hr PROTOCOL IV 05/04/24 06:00 06/03/24 05:59 05/08/24 06:32 25 MLS/HR Magnesium Sulfate 50 ml @ 0 mls/hr PROTOCOL IV 05/04/24 10:30 05/04/24 10:35 DC Magnesium Sulfate 50 ml @ 0 mls/hr PROTOCOL IV 05/07/24 10:30 05/07/24 10:20 DC Metoprolol Tartrate (loprESSOR) 5 mg Q6H PRN IV ARRHYTHMIA 04/27/24 23:00 05/27/24 22:59 Metoprolol Tartrate (loprESSOR) 12.5 mg BID PO 04/26/24 21:00 05/26/24 20:59 05/08/24 08:25 12.5 MG Metronidazole (flaGYL) 500 mg Q8H PO 04/26/24 10:30 04/27/24 22:59 DC 04/27/24 17:47 500 MG Metronidazole/ Sodium Chloride (flaGYL) 500 mg Q8H IV 04/28/24 02:30 05/02/24 07:24 DC 05/02/24 02:26 500 MG Morphine Sulfate (morPHINE 2MG SYG) 2 mg Q4H PRN IVP SEVERE PAIN (7-10) 04/29/24 21:30 05/05/24 00:29 DC 05/01/24 16:19 2 MG Morphine Sulfate (morPHINE 2MG SYG) 2 mg Q4H PRN IVP SEVERE PAIN (7-10) 04/24/24 16:30 04/29/24 19:29 DC 04/29/24 15:38 2 MG Ondansetron HCl (zoFRAN 4MG INJ) 4 mg Q6H PRN IVP NAUSEA/VOMITING 04/24/24 16:30 05/24/24 16:29 04/29/24 18:29 4 MG Pantoprazole Sodium (PROTonix 40MG INJ) 40 mg DAILY IVP 04/25/24 09:00 05/25/24 08:59 05/08/24 08:25 40 MG Potassium Chloride 100 ml @ 50 mls/hr ONCE IV 05/06/24 18:00 05/06/24 22:00 DC 05/06/24 18:01 50 MLS/HR Potassium Chloride 100 ml @ 50 mls/hr PROTOCOL IV 05/06/24 16:30 05/06/24 17:30 DC Potassium Chloride 100 ml @ 100 mls/hr AD PRN IV POTASSIUM PROTOCOL 05/02/24 16:00 05/03/24 16:59 DC Potassium Chloride (K-Dur/Klor-Con 20meq) 20 meq AD PRN PO POTASSIUM PROTOCOL 05/02/24 16:00 06/01/24 15:59 Potassium Chloride (KCl 10% Elixir 20meq/15ml) 20 meq AD PRN PO POTASSIUM PROTOCOL 05/02/24 16:00 06/01/24 15:59 05/08/24 08:25 20 MEQ Sodium Chloride 1,000 ml @ 75 mls/hr [id number] IV 04/24/24 16:30 04/28/24 11:48 DC 04/28/24 04:02 75 MLS/HR Sodium Chloride 1,000 ml @ 125 mls/hr Q8H IV 04/29/24 12:00 04/30/24 09:15 DC 04/30/24 04:16 125 MLS/HR DIAGNOSTICS / RADIOLOGY: [ ] ASSESSMENT: Hyperglycemia, recurrent NSTEMI with abnormal EKG, POA Large ventral hernia, POA Small bowel obstruction, POA Ischemic bowel, POA Intractable nausea/vomiting, POA s/p ventral hernia repair with repair of necrotic/ischemic bowel (04/29/24) Hypertensive emergency, resolved POA Hyperglycemia, resolved POA Hypernatremia Leukocytosis with left shift,improving POA Hypokalemia, POA Acute renal failure, improving POA PLAN: Patient remains admitted to the PCU. Patient will continue with NG tube Continue supportive care with IV fluids, and MVI We will start patient on insulin sliding scale, blood sugar checks q.6, we will start patient with Lantus 10 units at General surgery consulted, appreciate recommendations Continue broad-spectrum IV antibiotic due to leukocytosis Continue on antiemetic as needed Continue with pain management We will repeat labs tomorrow GI prophylaxis with Protonix 40 mg IV daily DVT prophylaxis with SCD PT to start working with patient A.m. labs. Disposition: [facility], patient has been accepted but due to hyperglycemia, we will observe overnight and repeat labs in the morning Prognosis remains guarded. Family at bedside, updated on patient's condition and discussed plan of care. All questions addressed, they verbalized understanding and is in agreement with the plan Total PCU time spent greater than 30 minutes. ATTESTATION BY PHYSICIAN I have seen and examined the patient. I reviewed the documentation, medical decision making, and treatment plan as noted by the mid-level provider above. I agree with the findings and plan of care. DINH, SAMMY PRINGLE MD AGNP May 08, 2024 16:14
[2024-05-08 19:30] VITALS: BP 141/71; PULSE 107; RESP 18; TEMP 97.6
[2024-05-08] MEDS: INSULIN GLARgine 100 UNITS/ML 10 ML VIAL SQ SCH (19:50)
[2024-05-09] VITALS (9 sets, daily range): BP systolic 96–152; BP diastolic 25–77; PULSE 62–87; RESP 16–18; TEMP 97.6–98.4; O2SAT 96–98
--- NOTE | 2024-05-09 00:33 | NUR ---
RBS 128 mg/dL No insulin coverage needed at this time per insulin sliding scale.
--- NOTE | 2024-05-09 09:26 | PN ---
FOLLOWUP PROGRESS NOTE SUBJECTIVE: The patient is an 83-year-old female who initially presented with small bowel obstruction. The patient underwent hernia repair. She has had acute on chronic renal dysfunction in the hospital. The patient remains on the TPN, and she is being seen as a followup visit for all the above. She has had acute renal failure in the hospital which has greatly improved. REVIEW OF SYSTEMS: GENERAL: She is feeling somewhat improved. HEENT: No change in vision. No change in hearing. CARDIOVASCULAR: No current chest pains or palpitations. PULMONARY: No shortness of breath. GASTROINTESTINAL: As described above. MUSCULOSKELETAL: Complains of weakness. PHYSICAL EXAMINATION: VITAL SIGNS: Blood pressure 144/62, pulse 80s. GENERAL: She is a chronically ill female, elderly, lying in bed on medical floor. HEENT: Head is atraumatic. Pupils equal, roving to light. Oropharynx is without exudate. Nares clear. NECK: There is no JVP. There is no thyromegaly, no mass. CARDIOVASCULAR: Regular. There is no S3, S4 gallop. LUNGS: Coarse with equal thoracic movement. ABDOMEN: Soft, nondistended, nontender. EXTREMITIES: Reveal no clubbing, no cyanosis. NEUROLOGIC: She is awake. She is alert. LABORATORY DATA: Hemoglobin 8.5, hematocrit 29, white count is 12,000. IMPRESSION: 1. Bowel obstruction. 2. Acute renal failure. 3. Electrolyte abnormalities. 4. Diabetes mellitus. PLAN: The patient continues with the TPN. The patient has been started on clear liquid diet. Workup is ongoing per Surgical Service. We will continue to follow the patient closely. Once the patient is discharged, she will follow up in the [facility]al [facility]. TID: [id number] RECEIPT: [id number]
--- NOTE | 2024-05-09 12:55 | DS ---
Discharge Summary Hospital Course Summary: 83-year-old female with history of hyperlipidemia presented to the emergency department with complaints of left lower quadrant pain. Apparently patient was cooking when she suddenly felt sharp pain to the left lower quadrant accompanied by vomiting. Patient has history of ventral hernia in the past but after she vomited at home, her ventral hernia protruded out, and intense pain was felt after. In the ED, her initial vitals showed temperature of 98.2, pulse 76, respiratory rate 16, blood pressure 173/80, pulse oximetry 98% on room air. Labs reviewed, WBC 11.4, Cl 98, creatinine 1.2, random glucose 154. Urinalysis was remarkable with cloudy appearance, ketones 10. CT abdomen and pelvis with contrast showed large anterior pelvic wall hernia with bowel contents. Mild small bowel dilatation. No ascites. As per ER provider they reached out to Dr. Thapa, general surgeon who recommended patient to be admitted. She was referred to the hospitalist service further evaluation and management. Hospitalized, patient was evaluated by general surgeon for which cardiac clearance was needed prior to surgery. The Cardiology team noted patient had [id number] lead EKG and her troponin was elevated, patient was upgraded to ICU for which she was monitored closely. At the same way, her kidney function was up trending, nephrology has been consulted. Patient was monitored closely and was cleared from cardiac standpoint although the patient had suffered non-STEMI earlier in the stay, she appeared to be stable hence procedure for ventral hernia repair was done by Dr. Kehinde Thapa on 04/29/2024 postop diagnosis was shown incarcerated ventral hernia with small bowel obstruction and ischemic small bowel patient is status post open ventral repair and small-bowel resection. Patient was kept on an NG tube, she was on TPN while hospitalized. Patient was monitored closely continue with IV antibiotics yesterday, Dr. Thapa remove NG tube, she is tolerating her diet, was on clear liquid. Also yesterday, she was noted with hyperglycemia for which she was started with insulin sliding scale, long acting insulin Lantus 10 units at HS has been started for which her sugar improved to 200. Patient has been accepted to LT[facility] yesterday but due to her hyperglycemia and increased confusion, patient was held and monitored closely. Overnight, patient remained stable, and patient will be discharged today to [facility]. She will continue current management and we will be followed by the same consultants. Batching Operator(s): Dr. Thapa, general surgeon Dr. Nadiya Escalante, infectious Disease Dr. Smith Dozier, Nephrology Procedure(s): 04/29/2024-Open ventral hernia repair and small-bowel resection by Dr. Thapa Assessment/Plan: Discharge diagnoses: Incarcerated ventral hernia with small bowel obstruction and ischemic small bowel Hyperglycemia, recurrent NSTEMI with abnormal EKG, POA Large ventral hernia, POA Small bowel obstruction, POA Ischemic bowel, POA Intractable nausea/vomiting, POA s/p ventral hernia repair with repair of necrotic/ischemic bowel (04/29/24) Hypertensive emergency, resolved POA Hyperglycemia, resolved POA Hypernatremia Leukocytosis with left shift,improving POA Hypokalemia, POA Acute renal failure, improving POA Admitting diagnoses Hyperglycemia, recurrent NSTEMI with abnormal EKG, POA Large ventral hernia, POA Small bowel obstruction, POA Ischemic bowel, POA Intractable nausea/vomiting, POA s/p ventral hernia repair with repair of necrotic/ischemic bowel (04/29/24) Hypertensive emergency, resolved POA Hyperglycemia, resolved POA Hypernatremia Leukocytosis with left shift,improving POA Hypokalemia, POA Acute renal failure, improving POA Discharge Instructions: Patient to be transferred to [facility] Continue infectious disease consultation and nephrology consultation Home Medications: Reported Medications Omeprazole (Omeprazole) 40 Mg Capsule.dr, 40 MG PO AM, CAP 04/24/24 Acebutolol HCl (Acebutolol HCl) 200 Mg Capsule, 200 MG PO AM, CAP 04/24/24 Omeprazole (Omeprazole) 40 Mg Capsule.dr, 40 MG PO AM, CAP 04/24/24 Albuterol Sulfate (Proair Hfa) 8.5 Gm Hfa.aer.ad, 90 MCG IH AD PRN for WHEEZING 12/01/16 D-Methorphan Hb/P-Epd HCl/Bpm (Lsmiglabkt-Xllpjntjoup-Bj Syr) 118 Ml Syrup, 10 ML PO Q4HPRN PRN for COUGH, ML 12/01/16 Omeprazole (Omeprazole) 20 Mg Capsule.dr, 20 MG PO DAILY, CAP 12/01/16 Metoprolol Succinate (Metoprolol Succinate) 50 Mg Tab.er.24h, 75 MG PO DAILY, TAB 12/01/16 Simvastatin (Simvastatin) 20 Mg Tablet, 20 MG PO HS, TAB 12/01/16 Bimatoprost (Lumigan 0.01% Ophth Soln) 20 Drop/Ml Opsol, 1 DROP OU HS, DROP 12/31/14 Loratadine (Loratadine) 10 Mg Tablet, 10 MG PO AM, TAB 12/31/14 Fluticasone Propionate (Fluticasone Propionate) 16 Gm [place].susp, NS DAILY PRN for CONGESTION, APPL 12/31/14 Time spent arranging discharge: 31-60 minutes ATTESTATION BY PHYSICIAN I have seen and examined the patient. I reviewed the documentation, medical decision making, and treatment plan as noted by the mid-level provider above. I agree with the findings and plan of care. ALDEN DINH MD, [facility] May 09, 2024 12:55
[2024-05-09] MEDS: M.V.I. IV [ADULT] 10 ML, MULTITRACE-4 ADULT 10ML VIAL 3 ML in CLINIMIX-E 5%AA /D15%W 2... IV ONE (13:28)
--- NOTE | 2024-05-09 14:45 | PN ---
INFECTIOUS DISEASE PROGRESS NOTE Date of Service: May 09, 2024 SUBJECTIVE: Patient was seen and examined in room 418. Patient is awake, alert and oriented. Patient is s/p open ventral hernia repair and small-bowel resection on 04/29/2024. Patient is awake, alert and able to voice most basic needs. Patient has been started on clear liquid diet and tolerating well. Patient continues on TPN. Patient has been approved to [facility]. Will continue on cefepime. We will continue to monitor patient. PHYSICAL EXAM EYES: Anicteric. Pupils equal and reactive. HENT: No oral thrush seen, moist Oral mucosa. NG tube. NECK: Supple, no JVD or thyromegaly. LUNGS: Good air entry. No rales, no rhonchi. CARDIOVASCULAR: S1, S2 regular. No murmur heard. ABDOMEN: Soft, tender, no organomegaly. Abdominal Surgical incision. CENTRAL NERVOUS SYSTEM: Awake, alert, oriented x 3. SKIN: No rashes, no swelling. LYMPHATICS: No peripheral lymphadenopathy. MUSCULOSKELETAL: No joint swelling, erythema or tenderness. EXTREMITIES: No cyanosis or clubbing. BACK: No deformity, no pressure ulcer. GENITOURINARY: No dysuria or hematuria. Sykes catheter. Vital Sign (Last 12 Hours) 05/09/24 05/09/24 05/09/24 05:03 08:00 12:00 Temp 97.5 98.1 98.1 Pulse 87 83 86 Resp 18 16 18 B/P (MAP) 144/62 105/61 120/51 Pulse Ox 99 96 95 O2 Delivery Room Air Room Air Room Air Intake & Output (last 24hrs) 05/08/24 05/08/24 05/09/24 15:00 23:00 07:00 Intake Total 720 ml Output Total 1000 ml 800 ml 800 ml Balance -1000 ml -800 ml -80 ml LABS: Laboratory: Test 05/09/24 14:06 05/09/24 05:56 05/08/24 04:25 Range/Units Whole Blood Glucose 289 H 70-110 MG/DL Bedside Glucose Comment Protocol Initiated Bedside Glucose #2 Comment Notified Nurse White Blood Count 11.9 H 4.8-10.8 K/uL Red Blood Count 2.93 L 4.00-5.50 MIL/uL Hemoglobin 8.5 L 12.0-16.0 g/dL Hematocrit 26.9 L 36-48 % Mean Corpuscular Volume 91.8 79-99 fL Mean Corpuscular Hemoglobin 29.0 27.0-33.0 pg Mean Corpuscular Hemoglobin Concent 31.6 L 32.0-36.0 g/dL Red Cell Distribution Width 14.4 11.0-15.5 % Platelet Count 483 #H 130-400 K/uL Mean Platelet Volume 9.9 7.5-10.5 fL Immature Granulocyte % (Auto) 0.7 0-1 % Neutrophils (%) (Auto) 90.2 H 40.0-77.0 % Lymphocytes (%) (Auto) 5.0 L 21.0-51.0 % Monocytes (%) (Auto) 3.2 3.0-13.0 % Eosinophils (%) (Auto) 0.8 0.0-8.0 % Basophils (%) (Auto) 0.1 0.0-5.0 % Neutrophils # (Auto) 10.8 H 1.8-7.7 K/uL Lymphocytes # (Auto) 0.6 L 1.0-4.8 K/uL Monocytes # (Auto) 0.4 0.1-1.0 K/uL Eosinophils # (Auto) 0.09 0.00-0.70 K/uL Basophils # (Auto) 0.01 0.00-0.20 K/uL Absolute Immature Granulocyte (auto 0.08 0-1 K/uL Nucleated Red Blood Cells 0.0 0.0-0.19 % Sodium Level 142 136-145 mmol/L Potassium Level 3.7 3.5-5.1 mmol/L Chloride Level 104 101-111 mmol/L Carbon Dioxide Level 29 21-32 mmol/L Blood Urea Nitrogen 55 H 7-18 mg/dL Creatinine 1.6 H 0.5-1.0 mg/dL Glomerular Filtration Rate Calc 32 >90 mL/min Random Glucose 476 *H 70-105 mg/dL Total Calcium 8.6 8.5-10.1 mg/dL Magnesium Level 1.90 1.80-2.40 mg/dL Total Bilirubin 0.4 0.2-1.0 mg/dL Aspartate Amino Transf (AST/SGOT) 20 10-37 U/L Alanine Aminotransferase (ALT/SGPT) 18 12-78 U/L Alkaline Phosphatase 71 50-136 U/L Total Protein 6.7 6.0-8.3 g/dL Albumin 2.2 L 3.5-5.0 g/dL ASSESSMENT: Abdominal pain. Incarcerated ventral hernia, s/p open ventral hernia repair and small-bowel resection on 04/29/2024. Sepsis. Acute renal failure. Leukocytosis, resolved. Elevated troponin. Non-STEMI postop. PLAN: Continue cefepime. Continue GI prophylaxis. Patient has been started on clear liquid diet as recommended by General surgery. Continues on TPN. Continue pain management. Continue physical therapy. Plan is to discharge patient to [facility]. This case was reviewed and discussed with my supervising physician and the above assessment and plan was formulated and agreed upon. ATTESTATION BY PHYSICIAN I have seen and examined the patient. I reviewed the documentation, medical decision making, and treatment plan as noted by the mid-level provider above. I agree with the findings and plan of care. NAHUM BROWN MD, [facility] May 09, 2024 14:45
--- NOTE | 2024-05-09 15:55 | PN ---
This is a 83-year-old female postop day 10 for hernia repair with small-bowel resection Interval history: This 83-year-old female seen in her room resting comfortably Bowel movements reported today Patient tolerating clear liquid diet No other acute events reported at this time VALERIO still in place Physical exam General: Awake alert and oriented Heart: Regular rate and rhythm} Lungs: Clear to auscultation no distress Abdomen: [Soft, nontender, nondistended Assessment : This is an 83-year-old female status post hernia repair with small-bowel resection Plan: Plan will be to advance diet as tolerated Continue with stool softeners Encouraged continued work with physical therapy and ambulation Continue with the aggressive IS Dr. Thapa to be updated in patient's status and surgical team to follow patient Vitals/Labs Vital Signs Date Time Temp Pulse Resp B/P (MAP) Pulse Ox O2 Delivery O2 Flow Rate FiO2 05/09/24 12:00 98.1 86 18 120/51 95 Room Air 05/08/24 19:49 0 21 Medications Current Medications Sodium Chloride 1,000 ml @ 0 mls/hr ONCE ONCE IV Last administered on 04/24/24at 11:26; Start 04/24/24 at 11:00; Stop 04/24/24 at 11:01; Status DC Morphine Sulfate 4 mg ONCE ONCE IVP Last administered on 04/24/24at 11:26; Start 04/24/24 at 11:00; Stop 04/24/24 at 11:01; Status DC Ondansetron HCl 4 mg ONCE ONCE IVP Last administered on 04/24/24at 11:26; Start 04/24/24 at 11:00; Stop 04/24/24 at 11:01; Status DC Ondansetron HCl 4 mg ONCE ONCE IVP Last administered on 04/24/24at 11:53; Start 04/24/24 at 12:00; Stop 04/24/24 at 12:01; Status DC Iohexol 75 ml STK-MED ONCE IV; Start 04/24/24 at 13:22; Stop 04/24/24 at 13:23; Status DC Iohexol 35,000 mg STK-MED ONCE IV; Start 04/24/24 at 13:23; Stop 04/24/24 at 13:24; Status DC Metoclopramide HCl 10 mg ONCE ONCE IVP Last administered on 04/24/24at 14:34; Start 04/24/24 at 14:30; Stop 04/24/24 at 14:31; Status DC Morphine Sulfate 4 mg ONCE ONCE IVP Last administered on 04/24/24at 14:34; St art 04/24/24 at 14:30; Stop 04/24/24 at 14:31; Status DC Ondansetron HCl 4 mg Q6H PRN IVP Last administered on 04/29/24at 18:29; Start 04/24/24 at 16:30; Stop 05/24/24 at 16:29 Morphine Sulfate 2 mg Q4H PRN IVP Last administered on 04/29/24at 15:38; Start 04/24/24 at 16:30; Stop 04/29/24 at 19:29; Status DC Sodium Chloride 1,000 ml @ 75 mls/hr [id number] IV Last administered on 04/28/24at 04:02; Start 04/24/24 at 16:30; Stop 04/28/24 at 11:48; Status DC Acetaminophen 650 mg Q4H PRN PO; Start 04/24/24 at 16:30; Stop 05/24/24 at 16:29 Acetaminophen 650 mg Q6H PRN PO Last administered on 05/07/24at 18:31; Start 04/24/24 at 16:30; Stop 05/24/24 at 16:29 Acetaminophen 325 mg Q6H PRN RC; Start 04/24/24 at 16:30; Stop 05/24/24 at 16:29 Acetaminophen 325 mg Q4H PRN RC Last administered on 04/25/24at 14:02; Start 04/24/24 at 16:30; Stop 05/24/24 at 16:29 Pantoprazole Sodium 40 mg DAILY IVP Last administered on 05/09/24at 09:54; Start 04/25/24 at 09:00; Stop 05/25/24 at 08:59 Lorazepam 0.5 mg ONCE ONCE IVP Last administered on 04/26/24at 01:21; Start 04/26/24 at 01:30; Stop 04/26/24 at 01:31; Status DC Cefepime HCl 1 gm Q24H IVPB Last administered on 05/05/24at 11:03; Start 04/26/24 at 10:30; Stop 05/06/24 at 10:29; Status DC Metronidazole 500 mg Q8H PO Last administered on 04/27/24at 17:47; Start 04/26/24 at 10:30; Stop 04/27/24 at 22:59; Status DC Heparin Sodium (Porcine) *calculation based on ACTUAL B... AD PRN IV; Start 04/26/24 at 17:00; Stop 05/02/24 at 07:23; Status DC Heparin Sodium/ Dextrose 250 ml @ 0 mls/hr Q6H IV Last administered on 04/27/24at 14:45; Start 04/26/24 at 17:00; Stop 04/29/24 at 10:28; Status DC Metoprolol Tartrate 12.5 mg BID PO Last administered on 05/09/24at 09:55; Start 04/26/24 at 21:00; Stop 05/26/24 at 20:59 Aspirin 325 mg ONCE ONCE PO Last administered on 04/26/24at 16:51; Start 04/26/24 at 16:30; Stop 04/26/24 at 16:31; Status DC Aspirin 81 mg DAILY PO Last administered on 05/09/24at 09:54; Start 04/27/24 at 09:00; Stop 05/27/24 at 08:59 Heparin Sodium (Porcine) 5,000 unit ONCE ONCE IV Last administered on 04/26/24at 17:10; Start 04/26/24 at 17:00; Stop 04/26/24 at 17:01; Status DC Metronidazole/ Sodium Chloride 500 mg Q8H IV Last administered on 05/02/24at 02:26; Start 04/28/24 at 02:30; Stop 05/02/24 at 07:24; Status DC Metoprolol Tartrate 5 mg Q6H PRN IV; Start 04/27/24 at 23:00; Stop 05/27/24 at 22:59 Lactated Ringer's 1,000 ml @ 150 mls/hr Q6H40M IV Last administered on 04/29/24at 08:00; Start 04/28/24 at 12:00; Stop 04/29/24 at 11:36; Status DC Norepinephrine Bitartrate 4 mg STK-MED ONCE IV; Start 04/29/24 at 11:21; Stop 04/29/24 at 11:22; Status DC Norepinephrine Bitartrate 4 mg STK-MED ONCE IV; Start 04/29/24 at 11:21; Stop 04/29/24 at 11:22; Status DC Propofol 200 mg STK-MED ONCE IV; Start 04/29/24 at 11:22; Stop 04/29/24 at 11:22; Status DC Succinylcholine Chloride 200 mg STK-MED ONCE .ROUTE; Start 04/29/24 at 11:22; Stop 04/29/24 at 11:22; Status DC Etomidate 20 mg STK-MED ONCE .ROUTE; Start 04/29/24 at 11:24; Stop 04/29/24 at 11:24; Status DC Nitroglycerin/ Dextrose 1 ml @ As Directed STK-MED ONCE .ROUTE; Start 04/29/24 at 11:25; Stop 04/29/24 at 11:25; Status DC Sodium Chloride 1,000 ml @ 125 mls/hr Q8H IV Last administered on 04/30/24at 04:16; Start 04/29/24 at 12:00; Stop 04/30/24 at 09:15; Status DC Fentanyl Citrate 100 mcg STK-MED ONCE .ROUTE; Start 04/29/24 at 11:46; Stop 04/29/24 at 11:46; Status DC Rocuronium [place] 50 mg STK-MED ONCE .ROUTE; Start 04/29/24 at 12:06; Stop 04/29/24 at 12:06; Status DC Sodium Bicarbonate 50 meq STK-MED ONCE .ROUTE; Start 04/29/24 at 13:45; Stop 04/29/24 at 13:45; Status DC Albumin Human 250 ml @ As Directed STK-MED ONCE IV; Start 04/29/24 at 14:07; Stop 04/29/24 at 14:08; Status DC Ropivacaine 150 mg STK-MED ONCE .ROUTE; Start 04/29/24 at 14:36; Stop 04/29/24 at 14:36; Status DC Ondansetron HCl 4 mg STK-MED ONCE .ROUTE; Start 04/29/24 at 15:03; Stop 04/29/24 at 15:03; Status DC Fentanyl Citrate 100 mcg STK-MED ONCE .ROUTE; Start 04/29/24 at 15:07; Stop 04/29/24 at 15:07; Status DC Morphine Sulfate 2 mg Q4H PRN IVP Last administered on 05/01/24at 16:19; Start 04/29/24 at 21:30; Stop 05/05/24 at 00:29; Status DC Dextrose 1,000 ml @ 150 mls/hr Q6H40M IV Last administered on 05/04/24at 11:39; Start 04/30/24 at 09:30; Stop 05/04/24 at 13:03; Status DC Ferric Sodium Gluconate Complex 125 mg/Sodium Chloride 110 ml @ 110 mls/hr Q24H IV Last administered on 05/02/24at 08:48; Start 04/30/24 at 09:30; Stop 05/02/24 at 10:29; Status DC Potassium Chloride 100 ml @ 100 mls/hr AD PRN IV; Start 05/02/24 at 16:00; Stop 05/03/24 at 16:59; Status DC Potassium Chloride 20 meq AD PRN PO Last administered on 05/08/24at 08:25; Start 05/02/24 at 16:00; Stop 06/01/24 at 15:59 Potassium Chloride 20 meq AD PRN PO; Start 05/02/24 at 16:00; Stop 06/01/24 at 15:59 Guaifenesin/ Dextromethorphan 10 ml Q6H PRN PO Last administered on 05/04/24at 08:19; Start 05/02/24 at 18:00; Stop 06/01/24 at 17:59 Potassium Chloride 100 ml @ 50 mls/hr ONCE ONCE IV; Start 05/03/24 at 16:30; Stop 05/03/24 at 18:29; Status DC Potassium Chloride 100 ml @ 100 mls/hr ONCE ONCE IV Last administered on 05/03/24at 17:11; Start 05/03/24 at 17:00; Stop 05/03/24 at 17:59; Status DC Potassium Chloride 100 ml @ As Directed STK-MED ONCE IV; Start 05/03/24 at 17: 01; Stop 05/03/24 at 17:01; Status DC Magnesium Sulfate 50 ml @ 0 mls/hr PROTOCOL IV Last administered on 05/08/24at 06:32; Start 05/04/24 at 06:00; Stop 06/03/24 at 05:59 Potassium Chloride 100 ml @ 50 mls/hr ONCE ONCE IV; Start 05/04/24 at 10:30; Stop 05/04/24 at 12:29; Status DC Magnesium Sulfate 50 ml @ 0 mls/hr PROTOCOL IV; Start 05/04/24 at 10:30; Stop 05/04/24 at 10:35; Status DC Furosemide 20 mg Q12H IV Last administered on 05/09/24at 00:45; Start 05/04/24 at 12:30; Stop 06/03/24 at 12:29 Enoxaparin Sodium 30 mg DAILY SQ Last administered on 05/09/24at 09:56; Start 05/04/24 at 12:30; Stop 06/03/24 at 12:29 Multivitamins/ Minerals 10 ml/ Chromium/Copper/ Manganese/Zinc 3 ml/Amino Acids/ Electrolytes/ Dextrose 2,000 ml @ 83 mls/hr ONCE ONCE IV Last administered on 05/05/24at 13:21; Start 05/05/24 at 12:30; Stop 05/06/24 at 11:56; Status DC Fat Emulsion Intravenous 250 ml @ 42 mls/hr [id number] IV Last administered on 05/09/24at 09:49; Start 05/07/24 at 09:00; Stop 06/06/24 at 08:59 Potassium Chloride 100 ml @ 50 mls/hr ONCE ONCE IV Last administered on 05/06/24at 11:52; Start 05/06/24 at 11:30; Stop 05/06/24 at 13:29; Status DC Potassium Chloride 100 ml @ 50 mls/hr PROTOCOL IV; Start 05/06/24 at 16:30; Stop 05/06/24 at 17:30; Status DC Multivitamins/ Minerals 10 ml/ Chromium/Copper/ Manganese/Zinc 3 ml/Amino Acids/ Electrolytes/ Dextrose 2,000 ml @ 83 mls/hr ONCE ONCE IV Last administered on 05/06/24at 14:41; Start 05/06/24 at 14:00; Stop 05/07/24 at 12:07; Status DC Potassium Chloride 100 ml @ 50 mls/hr ONCE IV Last administered on 05/06/24at 18:01; Start 05/06/24 at 18:00; Stop 05/06/24 at 22:00; Status DC Magnesium Sulfate 50 ml @ 0 mls/hr PROTOCOL IV; Start 05/07/24 at 10:30; Stop 05/07/24 at 10:20; Status DC Multivitamins/ Minerals 10 ml/ Chromium/Copper/ Manganese/Zinc 3 ml/Amino Acids/ Electrolytes/ Dextrose 2,000 ml @ 83 mls/hr ONCE ONCE IV Last administered on 05/07/24at 14:01; Start 05/07/24 at 12:30; Stop 05/08/24 at 11:58; Status DC Cefepime HCl 1 gm Q24H IVPB Last administered on 05/08/24at 16:11; Start 05/07/24 at 15:00; Stop 05/17/24 at 14:59 Insulin Human Regular INSULIN SLIDING SCAL... Q6H6 SQ Last administered on 05/09/24at 12:00; Start 05/08/24 at 12:00; Stop 06/07/24 at 11:59 Insulin Human Regular 16 unit ONCE ONCE SQ Last administered on 05/08/24at 08:41; Start 05/08/24 at 08:30; Stop 05/08/24 at 08:31; Status DC Multivitamins/ Minerals 10 ml/ Chromium/Copper/ Manganese/Zinc 3 ml/Amino Acids/ Electrolytes/ Dextrose 2,000 ml @ 83 mls/hr ONCE ONCE IV Last administered on 05/08/24at 13:08; Start 05/08/24 at 12:30; Stop 05/09/24 at 10:25; Status DC Insulin Glargine 10 units HS SQ Last administered on 05/08/24at 19:50; Start 05/08/24 at 21:00; Stop 06/07/24 at 20:59 Multivitamins/ Minerals 10 ml/ Chromium/Copper/ Manganese/Zinc 3 ml/Amino Acids/ Electrolytes/ Dextrose 2,000 ml @ 83 mls/hr ONCE ONCE IV Last administered on 05/09/24at 13:28; Start 05/09/24 at 12:30; Stop 05/10/24 at 12:35 DONNIE BA Jr. May 09, 2024 15:55
--- NOTE | 2024-05-09 20:32 | NUR ---
Torrie Jason-NEGATIVE CLE[employer]ER, notified of pt.'s blood pressure of 96/25 @ time, being asymptomatic, no new orders given; stated to keep on observing pt.
[2024-05-10 04:00] VITALS: BP 112/47; PULSE 76; RESP 17; TEMP 98.6
[2024-05-10 08:00] VITALS: BP 146/66; PULSE 95; RESP 18; TEMP 98; O2SAT 95
--- NOTE | 2024-05-10 09:30 | PN ---
SUBJECTIVE: An 83-year-old female who has had a prolonged hospital course. The patient initially admitted with bowel obstruction. The patient underwent hernia repair. She has had acute renal failure in the hospital. The patient is tolerating some amount of a clear liquid diet. She remains on the TPN and the patient is being seen as a followup visit for all of the above. REVIEW OF SYSTEMS: CONSTITUTIONAL: She complained of pain. HEENT: No change in vision. No change in hearing. CARDIOVASCULAR: There is no current chest pain or palpitations. PULMONARY: There is no shortness of breath. GASTROINTESTINAL: As described above. MUSCULOSKELETAL: Complains of weakness. PHYSICAL EXAMINATION: VITAL SIGNS: Blood pressure 146/66, pulse of 90s. GENERAL: Chronically ill female, elderly, lying in bed on the medical floor. HEENT: Head is atraumatic. Pupils equal, roving to light. Oropharynx is without exudate. Nares are clear. NECK: There is no JVP. There is no thyromegaly, no mass. CARDIOVASCULAR: Regular. There is no S3, S4, gallop. LUNGS: Coarse with equal thoracic movement. ABDOMEN: Soft, nondistended, nontender. EXTREMITIES: There is no clubbing, no cyanosis. NEUROLOGIC: She is awake. She is alert. LABORATORY DATA: Sodium 142, potassium 3.7, BUN 55, creatinine 1.6. IMPRESSION: * Acute renal failure. * Bowel obstruction, status post surgery. * Diabetes mellitus. * Hypertension. PLAN: The patient is encouraged with her oral intake. She remains on the TPN. The patient is scheduled for transfer to the [facility]. Electrolytes have all been aggressively repleted. We will continue to follow closely. The patient with multiple questions, all of which were all answered. TID: [id number] RECEIPT: [id number]
--- NOTE | 2024-05-10 10:19 | PN ---
[facility] PROGRESS NOTE Date of Service: May 10, 2024 Time of Service: 10:16 SUBJECTIVE: 83-year-old female admitted for early abdominal obstruction and large ventral hernia. Patient continues with nonreducible hernia. Her abdomen is tender. Surgeon recommended cardiac clearance and found that patient has abnormal T-wave on the 12 lead EKG and troponin was elevated in [id number]. Patient was upgraded to PCCU as we have to start patient on heparin drip. At this time, tube builder evaluated the patient this morning and indicated that patient is poor candidate for invasive cardiac procedure due to acute renal failure and bowel obstruction. We will await for 2D echo. At this time, we will also await for further surgical recommendation. 03/29 No acute event reported overnight. Patient continues with abdominal tenderness. She will remain NPO. 03/30 Pt seen at bedside, no acute events overnight. She is s/p ventral hernia repair with resection and repair of ischemic/necrotic bowel post op day 1. She reports her pain is well controlled, she denies BM or flatus. NG tube still in place to intermittent suction. Abdominal binder is in place. She is hypernatremic, not currently on IV fluids, will start D5 at 100 cc/hr to decrease sodium at 0.5 cc/hr rate. Potassium low at 3.0, will replete according to protocol, creatinine continued to improve from 3.8 down to 3.0, remainder of her labs are relatively unremarkable. Diet and NG tube management per General Surgery 03/31 Pt seen at bedside, no acute events overnight. Pt has no complaints today, reports her pain is controlled. She is still NPO with NG tube in place. Denies BM or flatus, continues NPO per general surgery. She was started on D5W at 100 cc/hr yesterday due to hypernatremia at 155, no improvement in sodium this am. Will increase D5W to 125cc/hr and repeat Na at 4pm. Hgb decreased from 9.3 down to 8.4, potassium increased from 3.0 up to 3.1, will continue to replete according to protocol, creatinine improved from 3.0 down to 2.8. Iron is low, patient started on Ferric sodium gluconate per nephrology. Remainder of vitals and labs are relatively unremarkable. 05/02 the patient has been seen and examined during my rounding, no acute events overnight, remains comfortable in bed, NG tube to intermittent suction, output off 150 mL overnight. BP 122/38, afebrile, saturating 94% on 2 L via nasal cannula, no nausea, no vomiting, no abdominal pain, getting good pain control with current medical management. 05/03 the patient has been seen and examined during my rounding, no acute events overnight, remains comfortable in bed, NG tube to intermittent suction, output noted. Patient has not had a bowel movement, currently not passing gas. BP 122/38, afebrile, saturating 94% on 2 L via nasal cannula, no nausea, no vomiting, no abdominal pain, getting good pain control with current medical management. No family at bedside during my visit. 05/04 patient has been seen and examined during my rounding, no acute events overnight, remains comfortably in bed however looks mildly edematous today compared to yesterday, she is getting IV fluids. Remains NPO, NG tube to intermittent suction. She is alert oriented x3, she feels weak. BP 153/70, afebrile, saturating 94-98% on room air. No family members at bedside. 05/05 patient was seen by nurse practitioner and physician during rounding. Patient is pending PICC line placement for TPN. Patient is still is not passing any gases no bowel movement. Sykes catheter draining well. Per ID patient continues to be on cefepime. Prophylaxis Lovenox. We will continue to monitor patient. Physical therapy consulted for evaluation. Case management for di sposition. We will continue to monitor patient in the meantime. A.m. labs 05/06 patient was seen by DIORAMIST and physician during rounding comfortably lying in the bed in room 418. Patient is still continues to have no bowel movement also is not passing any gas and there is no drainage from Hemovacs x2. NG tube had 200 yesterday and 100 overnight cc gastric content. NG tube intermittent suction. Patient continues to have a PICC line TPN running. Potassium 2.9 we will be replaced by RN. We will continue to monitor patient. A.m. labs. Continue antibiotics per ID. 05/07 patient was seen by nurse practitioner and physician during rounding in room 418 comfortably lying in the bed. Patient continues to have a NG tube and that is draining about 400 cc in the past 24 hours. Patient still does not pass any gases and no bowel movement. We will order CT abdomen/pelvis for evaluation. Case management was consulted for disposition to [facility] since patient is on TPN at this moment. We will continue to monitor patient in the meantime. A.m. labs 05/08 patient was evaluated today in her room, patient is hallucinating, currently on one-to-one supervision. Patient continues with an NG tube and MVI. Apparently patient has been getting more confused. Daughter at bedside. Vitals reviewed, patient has been tachycardic in the low 100s. Labs reviewed, WBCs 11.9, her blood sugar is elevated in the 400s, started about24 hours ago, we started patient on insulin sliding scale and start hitting her with Lantus 10 units at HS. She has been accepted to [facility] but we will hold off on transferred due to elevated blood sugars, we will re-evaluate in the morning. 05/10 patient was examined in the room. She is improving, tolerating her diet slowly. Patient is supposed to be discharged for [facility], unfortunately she continued on one-to-one. Today we will discontinue one-to-one and plan on discharge in the next24 hours. Otherwise patient remains stable., no other complaints except for low blood pressure. REVIEW OF SYSTEMS 12 point ROS negative unless noted in HPI PHYSICAL EXAM GENERAL APPEARANCE: The patient is awake, alert, and oriented, in no acute cardiopulmonary distress. Looks mildly edematous today. NEUROLOGICAL: Cranial nerves II-XII grossly intact. Motor is 5/5 in bilateral upper and lower extremities proximal to distal. No sensory deficits. HEENT: Face is symmetric. Pupils are equal and reactive. Extraocular movements are intact. NECK: Supple. No JVD. No thyromegaly. No submental, submandibular, pre- /postauricular, occipital or supraclavicular lymphadenopathy. CHEST: Normal chest expansion. No Telemetry. LUNGS: Absence of any rales, rhonchi or any wheezing. CARDIOVASCULAR: Regular. S1 and S2 normal. No appreciable rubs, murmurs or gallops. ABDOMEN: Distended, VALERIO drainage no output : Deferred. No Sykes. EXTREMITIES: Minimal swollen to both lower extremities. SKIN: No skin breakdown. Vital Signs (last 8hr) Date Time Temp Pulse Resp B/P (MAP) Pulse Ox O2 Delivery O2 Flow Rate FiO2 11/21/24 08:00 98.1 95 18 146/66 95 Room Air 05/10/24 04:00 98.6 76 17 112/47 94 Room Air 21 LABS: Laboratory: Test 05/10/24 05:04 05/09/24 05:56 Range/Units Whole Blood Glucose 211 H 70-110 MG/DL Bedside Glucose Comment Protocol Initiated Bedside Glucose #2 Comment Notified Nurse Current Medications Medications (Trade) Dose Ordered Sig/[place] Route PRN Reason Start Time Stop Time Status Last Admin Dose Admin Acetaminophen (TYLenol 325MG TAB) 650 mg Q4H PRN PO TEMPERATURE GREATER THAN 101.5 04/24/24 16:30 05/24/24 16:29 Acetaminophen (TYLenol 325MG TAB) 650 mg Q6H PRN PO MILD PAIN (1-3) 04/24/24 16:30 05/24/24 16:29 05/07/24 18:31 650 MG Acetaminophen (Tylenol 325mg Suppository) 325 mg Q4H PRN RC TEMPERATURE GREATER THAN 101.5 04/24/24 16:30 05/24/24 16:29 04/25/24 14:02 325 MG Acetaminophen (Tylenol 325mg Suppository) 325 mg Q6H PRN RC MILD PAIN (1-3) 04/24/24 16:30 05/24/24 16:29 Aspirin (Aspirin 81mg Ec Tab) 81 mg DAILY PO 04/27/24 09:00 05/27/24 08:59 05/10/24 08:47 81 MG Cefepime HCl (MAXipime 1 GM vial) 1 gm Q24H IVPB 05/07/24 15:00 05/17/24 14:59 05/09/24 16:22 1 GM Cefepime HCl (MAXipime 1 GM vial) 1 gm Q24H IVPB 04/26/24 10:30 05/06/24 10:29 DC 05/05/24 11:03 1 GM Dextrose 1,000 ml @ 150 mls/hr Q6H40M IV 04/30/24 09:30 05/04/24 13:03 DC 05/04/24 11:39 150 MLS/HR Enoxaparin Sodium (Lovenox) 30 mg DAILY SQ 05/04/24 12:30 06/03/24 12:29 05/10/24 08:47 30 MG Fat Emulsion Intravenous 250 ml @ 42 mls/hr QMOWEFR IV 05/07/24 09:00 06/06/24 08:59 05/09/24 09:49 42 MLS/HR Ferric Sodium Gluconate Complex 125 mg/Sodium Chloride 110 ml @ 110 mls/hr Q24H IV 04/30/24 09:30 05/02/24 10:29 DC 05/02/24 08:48 110 MLS/HR Furosemide (LASix 20MG VIAL) 20 mg Q12H IV 05/04/24 12:30 06/03/24 12:29 05/09/24 00:45 20 MG Guaifenesin/ Dextromethorphan (RobiTUSSin DM 200/20MG 10ML) 10 ml Q6H PRN PO COUGH 05/02/24 18:00 06/01/24 17:59 05/04/24 08:19 10 ML Heparin Sodium (Porcine) (HEParin 5,000 UNIT VIAL) *calculation based on ACTUAL B... AD PRN IV HEPARIN PROTOCOL 04/26/24 17:00 05/02/24 07:23 DC Heparin Sodium/ Dextrose 250 ml @ 0 mls/hr Q6H IV 04/26/24 17:00 04/29/24 10:28 DC 04/27/24 14:45 15 MLS/HR Insulin Glargine (LANtus 100 UNITS/ML 10 ML VIAL) 10 units HS SQ 05/08/24 21:00 06/07/24 20:59 05/09/24 21:47 10 UNITS Insulin Human Regular (humuLIN R 100 UNIT/ML 3ML) INSULIN SLIDING SCAL... Q6H6 SQ 05/08/24 12:00 06/07/24 11:59 05/10/24 06:32 6 UNIT Lactated Ringer's 1,000 ml @ 150 mls/hr Q6H40M IV 04/28/24 12:00 04/29/24 11:36 DC 04/29/24 08:00 150 MLS/HR Magnesium Sulfate 50 ml @ 0 mls/hr PROTOCOL IV 05/04/24 06:00 06/03/24 05:59 05/08/24 06:32 25 MLS/HR Magnesium Sulfate 50 ml @ 0 mls/hr PROTOCOL IV 05/04/24 10:30 05/04/24 10:35 DC Magnesium Sulfate 50 ml @ 0 mls/hr PROTOCOL IV 05/07/24 10:30 05/07/24 10:20 DC Metoprolol Tartrate (loprESSOR) 5 mg Q6H PRN IV ARRHYTHMIA 04/27/24 23:00 05/27/24 22:59 Metoprolol Tartrate (loprESSOR) 12.5 mg BID PO 04/26/24 21:00 05/26/24 20:59 05/10/24 08:47 12.5 MG Metronidazole (flaGYL) 500 mg Q8H PO 04/26/24 10:30 04/27/24 22:59 DC 04/27/24 17:47 500 MG Metronidazole/ Sodium Chloride (flaGYL) 500 mg Q8H IV 04/28/24 02:30 05/02/24 07:24 DC 05/02/24 02:26 500 MG Morphine Sulfate (morPHINE 2MG SYG) 2 mg Q4H PRN IVP SEVERE PAIN (7-10) 04/29/24 21:30 05/05/24 00:29 DC 05/01/24 16:19 2 MG Morphine Sulfate (morPHINE 2MG SYG) 2 mg Q4H PRN IVP SEVERE PAIN (7-10) 04/24/24 16:30 04/29/24 19:29 DC 04/29/24 15:38 2 MG Ondansetron HCl (zoFRAN 4MG INJ) 4 mg Q6H PRN IVP NAUSEA/VOMITING 04/24/24 16:30 05/24/24 16:29 04/29/24 18:29 4 MG Pantoprazole Sodium (PROTonix 40MG INJ) 40 mg DAILY IVP 04/25/24 09:00 05/25/24 08:59 05/10/24 08:47 40 MG Potassium Chloride 100 ml @ 50 mls/hr ONCE IV 05/06/24 18:00 05/06/24 22:00 DC 05/06/24 18:01 50 MLS/HR Potassium Chloride 100 ml @ 50 mls/hr PROTOCOL IV 05/06/24 16:30 05/06/24 17:30 DC Potassium Chloride 100 ml @ 100 mls/hr AD PRN IV POTASSIUM PROTOCOL 05/02/24 16:00 05/03/24 16:59 DC Potassium Chloride (K-Dur/Klor-Con 20meq) 20 meq AD PRN PO POTASSIUM PROTOCOL 05/02/24 16:00 06/01/24 15:59 Potassium Chloride (KCl 10% Elixir 20meq/15ml) 20 meq AD PRN PO POTASSIUM PROTOCOL 05/02/24 16:00 06/01/24 15:59 05/08/24 08:25 20 MEQ Sodium Chloride 1,000 ml @ 75 mls/hr [id number] IV 04/24/24 16:30 04/28/24 11:48 DC 04/28/24 04:02 75 MLS/HR Sodium Chloride 1,000 ml @ 125 mls/hr Q8H IV 04/29/24 12:00 04/30/24 09:15 DC 04/30/24 04:16 125 MLS/HR DIAGNOSTICS / RADIOLOGY: [ ] Assessment Incarcerated ventral hernia with small bowel obstruction and ischemic small bowel Hyperglycemia, recurrent NSTEMI with abnormal EKG, POA Large ventral hernia, POA Small bowel obstruction, POA Ischemic bowel, POA Intractable nausea/vomiting, POA s/p ventral hernia repair with repair of necrotic/ischemic bowel (04/29/24) Hypertensive emergency, resolved POA Hyperglycemia, resolved POA Hypernatremia Leukocytosis with left shift,improving POA Hypokalemia, POA Acute renal failure, improving POA Plan We will continue current management Continue with medical surgical floor Continue with current diet advance as tolerate if okay with surgeon Slowly titrate TPN Continue with IV antibiotics Continue with supportive care GI and DVT prophylaxis We will repeat labs tomorrow Case seen and discussed with Dr. Dinh, but plans formulated ATTESTATION BY PHYSICIAN I have seen and examined the patient. I reviewed the documentation, medical decision making, and treatment plan as noted by the mid-level provider above. I agree with the findings and plan of care. ALDEN DINH MD, [facility] May 10, 2024 10:19
--- NOTE | 2024-05-10 11:56 | PN ---
INFECTIOUS DISEASE PROGRESS NOTE Date of Service: May 10, 2024 SUBJECTIVE: Patient was seen and examined in room 418. Patient is awake, alert and oriented. Patient is s/p open ventral hernia repair and small-bowel resection on 04/29/2024. Patient is resting comfortable. No reports of fever, temperature 98.1. Will continue on cefepime. Per report patient will be transferred to [facility] today. We will continue to monitor patient. PHYSICAL EXAM EYES: Anicteric. Pupils equal and reactive. HENT: No oral thrush seen, moist Oral mucosa. NG tube. NECK: Supple, no JVD or thyromegaly. LUNGS: Good air entry. No rales, no rhonchi. CARDIOVASCULAR: S1, S2 regular. No murmur heard. ABDOMEN: Soft, tender, no organomegaly. Abdominal Surgical incision. CENTRAL NERVOUS SYSTEM: Awake, alert, oriented x 3. SKIN: No rashes, no swelling. LYMPHATICS: No peripheral lymphadenopathy. MUSCULOSKELETAL: No joint swelling, erythema or tenderness. EXTREMITIES: No cyanosis or clubbing. BACK: No deformity, no pressure ulcer. GENITOURINARY: No dysuria or hematuria. Sykes catheter. Vital Sign (Last 12 Hours) 05/10/24 05/10/24 05/10/24 04:00 08:00 08:00 Temp 98.6 98.1 Pulse 76 95 Resp 17 18 B/P (MAP) 112/47 146/66 Pulse Ox 94 95 95 O2 Delivery Room Air Room Air* Room Air O2 Flow Rate 0 FiO2 21 21 Intake & Output (last 24hrs) 05/09/24 05/09/24 05/10/24 15:00 23:00 07:00 Intake Total 1200.0 ml Output Total 605 ml Balance 595.0 ml LABS: Laboratory: Test 05/10/24 11:41 05/09/24 05:56 Range/Units Whole Blood Glucose 179 H 70-110 MG/DL Bedside Glucose Comment Protocol Initiated Bedside Glucose #2 Comment Notified Nurse ASSESSMENT: Abdominal pain. Incarcerated ventral hernia, s/p open ventral hernia repair and small-bowel resection on 04/29/2024. Sepsis. Acute renal failure. Leukocytosis, resolved. Elevated troponin. Non-STEMI postop. PLAN: Continue cefepime. Continue GI prophylaxis. Diet is being advanced as recommended by General surgery. Continues on TPN. Continue pain management. Continue physical therapy. Patient will be transferring to [facility] today. This case was reviewed and discussed with my supervising physician and the above assessment and plan was formulated and agreed upon. ATTESTATION BY PHYSICIAN I have seen and examined the patient. I reviewed the documentation, medical decision making, and treatment plan as noted by the mid-level provider above. I agree with the findings and plan of care. NAHUM BROWN MD, [facility] May 10, 2024 11:56
[2024-05-10 12:00] VITALS: BP 116/64; PULSE 95; RESP 16; TEMP 98.3
--- NOTE | 2024-05-10 12:20 | DS ---
Discharge Summary Hospital Course Summary: 83-year-old female with history of hyperlipidemia presented to the emergency department with complaints of left lower quadrant pain. Apparently patient was cooking when she suddenly felt sharp pain to the left lower quadrant accompanied by vomiting. Patient has history of ventral hernia in the past but after she vomited at home, her ventral hernia protruded out, and intense pain was felt after. In the ED, her initial vitals showed temperature of 98.2, pulse 76, respiratory rate 16, blood pressure 173/80, pulse oximetry 98% on room air. Labs reviewed, WBC 11.4, Cl 98, creatinine 1.2, random glucose 154. Urinalysis was remarkable with cloudy appearance, ketones 10. CT abdomen and pelvis with contrast showed large anterior pelvic wall hernia with bowel contents. Mild small bowel dilatation. No ascites. As per ER provider they reached out to Dr. Thapa, general surgeon who recommended patient to be admitted. She was referred to the hospitalist service further evaluation and management. Hospitalized, patient was evaluated by general surgeon for which cardiac clearance was needed prior to surgery. The Cardiology team noted patient had [id number] lead EKG and her troponin was elevated, patient was upgraded to ICU for which she was monitored closely. At the same way, her kidney function was up trending, nephrology has been consulted. Patient was monitored closely and was cleared from cardiac standpoint although the patient had suffered non-STEMI earlier in the stay, she appeared to be stable hence procedure for ventral hernia repair was done by Dr. Kehinde Thapa on 04/29/2024 postop diagnosis was shown incarcerated ventral hernia with small bowel obstruction and ischemic small bowel patient is status post open ventral repair and small-bowel resection. Patient was kept on an NG tube, she was on TPN while hospitalized. Patient was monitored closely continue with IV antibiotics yesterday, Dr. Thapa remove NG tube, she is tolerating her diet, was on clear liquid. Also yesterday, she was noted with hyperglycemia for which she was started with insulin sliding scale, long acting insulin Lantus 10 units at HS has been started for which her sugar improved to 200. Patient has been accepted to [facility] yesterday but due to her hyperglycemia and increased confusion, patient was held and monitored closely. Overnight, patient remained stable, and patient will be discharged today to [facility]. She will continue current management and we will be followed by the same consultants. 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 Thapa, general surgeon Dr. Nadiya Escalante, infectious Disease Dr. Smith Dozier, Nephrology Procedure(s): 04/29/2024-Open ventral hernia repair and small-bowel resection by Dr. Thapa Assessment/Plan: Discharge diagnoses: Incarcerated ventral hernia with small bowel obstruction and ischemic small bowel Hyperglycemia, recurrent NSTEMI with abnormal EKG, POA Large ventral hernia, POA Small bowel obstruction, POA Ischemic bowel, POA Intractable nausea/vomiting, POA s/p ventral hernia repair with repair of necrotic/ischemic bowel (04/29/24) Hypertensive emergency, resolved POA Hyperglycemia, resolved POA Hypernatremia Leukocytosis with left shift,improving POA Hypokalemia, POA Acute renal failure, improving POA Admitting diagnoses Hyperglycemia, recurrent NSTEMI with abnormal EKG, POA Large ventral hernia, POA Small bowel obstruction, POA Ischemic bowel, POA Intractable nausea/vomiting, POA s/p ventral hernia repair with repair of necrotic/ischemic bowel (04/29/24) Hypertensive emergency, resolved POA Hyperglycemia, resolved POA Hypernatremia Leukocytosis with left shift,improving POA Hypokalemia, POA Acute renal failure, improving POA Discharge Instructions: Patient to be transferred to [facility] Continue infectious disease consultation and nephrology consultation Discharge Instructions: Transfer to [facility] Home Medications: Reported Medications Omeprazole (Omeprazole) 40 Mg Capsule.dr, 40 MG PO AM, CAP 04/24/24 Acebutolol HCl (Acebutolol HCl) 200 Mg Capsule, 200 MG PO AM, CAP 04/24/24 Omeprazole (Omeprazole) 40 Mg Capsule.dr, 40 MG PO AM, CAP 04/24/24 Albuterol Sulfate (Proair Hfa) 8.5 Gm Hfa.aer.ad, 90 MCG IH AD PRN for WHEEZING 12/01/16 D-Methorphan Hb/P-Epd HCl/Bpm (Fbwgskipgf-Qhlpiknqglc-Ok Syr) 118 Ml Syrup, 10 ML PO Q4HPRN PRN for COUGH, ML 12/01/16 Omeprazole (Omeprazole) 20 Mg Capsule.dr, 20 MG PO DAILY, CAP 12/01/16 Metoprolol Succinate (Metoprolol Succinate) 50 Mg Tab.er.24h, 75 MG PO DAILY, TAB 12/01/16 Simvastatin (Simvastatin) 20 Mg Tablet, 20 MG PO HS, TAB 12/01/16 Bimatoprost (Lumigan 0.01% Ophth Soln) 20 Drop/Ml Opsol, 1 DROP OU HS, DROP 12/31/14 Loratadine (Loratadine) 10 Mg Tablet, 10 MG PO AM, TAB 12/31/14 Fluticasone Propionate (Fluticasone Propionate) 16 Gm [place].susp, NS DAILY PRN for CONGESTION, APPL 12/31/14 Time spent arranging discharge: 31-60 minutes ATTESTATION BY PHYSICIAN I have seen and examined the patient. I reviewed the documentation, medical decision making, and treatment plan as noted by the mid-level provider above. I agree with the findings and plan of care. ALDEN DINH MD, [facility] May 10, 2024 12:20
[2024-05-10 12:47] LABS: HEMATOCRIT 23.4 % (36-48); MEAN CORPUSCULAR HEMOGLOBIN 29.9 pg (27.0-33.0); MEAN CORPUSCULAR HGB CONC 32.5 g/dL (32.0-36.0); MEAN CORPUSCULAR VOLUME 92.1 fL (79-99); RED BLOOD CELL COUNT(AUTO) 2.54 MIL/uL (4.00-5.50); RED CELL DISTRIBUTION WIDTH 14.4 % (11.0-15.5); WHITE BLOOD COUNT (AUTO) 12.1 K/uL (4.8-10.8)
[2024-05-10 13:11] LABS: CREATININE 1.7 mg/dL (0.5-1.0); POTASSIUM 3.6 mmol/L (3.5-5.1)
--- NOTE | 2024-05-10 14:22 | NUR ---
Hemovac removed as per order. Patient tolerated well. No output noted in hemovac
[2024-05-10 16:00] VITALS: BP 120/72; PULSE 72; RESP 16; TEMP 98.4
--- NOTE | 2024-05-10 16:20 | NUR ---
PATIENT D/C TO [facility] FOR CONTINUED CARE. REPORT GIVEN TO KAREN. PICC LINE IN PLACE TO RIGHT UPPER ARM. 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 EMS NOTIFIED OF TRANSFER
--- NOTE | 2024-05-10 17:00 | NUR ---
EMS PICKED UP
== END 2024-05-10 17:30 | DRG 853 ==
LOC: EDH 10:51 → EDHIP 16:02 → 3BH 22:09 → 2CV 04-26 16:47 → 2AH 04-27 14:24 → 2CH 04-29 13:01 → 2DH 05-03 18:44 → 4CH 05-05 18:00
PROVIDERS: ADMIT Internal Medicine; ATTEND Internal Medicine
PROC: 0D9670Z Drainage of Stomach with Drainage Device, Via Natural or Artificial Opening (ICD-10-PCS; 2024-04-24)
PROC: 0WQF0ZZ Repair Abdominal Wall, Open Approach (ICD-10-PCS; principal; 2024-04-29 11:38)
PROC: 0DB80ZZ Excision of Small Intestine, Open Approach (ICD-10-PCS; 2024-04-29 11:38)
PROC: 02HV33Z Insertion of Infusion Device into Superior Vena Cava, Percutaneous Approach (ICD-10-PCS; 2024-05-05)
DX: A41.9 Sepsis, unspecified organism (principal); I21.4 Non-ST elevation (NSTEMI) myocardial infarction; R65.21 Severe sepsis with septic shock; I16.1 Hypertensive emergency; K43.6 Other and unspecified ventral hernia with obstruction, without gangrene; K55.9 Vascular disorder of intestine, unspecified; N17.9 Acute kidney failure, unspecified; I47.19 Other supraventricular tachycardia; E87.0 Hyperosmolality and hypernatremia; E11.65 Type 2 diabetes mellitus with hyperglycemia; K81.9 Cholecystitis, unspecified; E87.6 Hypokalemia; I10 Essential (primary) hypertension; I25.10 Atherosclerotic heart disease of native coronary artery without angina pectoris; E86.0 Dehydration; E78.00 Pure hypercholesterolemia, unspecified; D64.9 Anemia, unspecified; E87.8 Other disorders of electrolyte and fluid balance, not elsewhere classified; K21.9 Gastro-esophageal reflux disease without esophagitis; Z79.4 Long term (current) use of insulin; Z90.710 Acquired absence of both cervix and uterus; Z83.3 Family history of diabetes mellitus; I25.2 Old myocardial infarction; Z88.8 Allergy status to other drugs, medicaments and biological substances
CPT/HCPCS: 36415; 36569; 71045; 71250; 74018; 74176; 74177; 80048; 80053; 80076; 81001; 82306; 82435; 82570; 82607; 82803; 82947; 82948; 83036; 83540; 83550; 83605; 83690; 83735; 84100; 84132; 84295; 84300; 84484; 85018; 85025; 85027; 85610; 85730; 87804; 88302; 88307; 93005; 93306; 93356; 93970; 96374; 96375; A4450; A4606; C1894; G0378; J0330; J0692; J1644; J1650; J1815; J1940; J2060; J2270; J2405; J2470; J2704; J2765; J2795; J2916; J3010; J3475; J3480; J3490; J7030; J7040; P9045; Q9967; A4930; C1713

== ENCOUNTER 2024-11-30 10:32 | Emergency (ER) | payer MEDICARE ==
[~2024-11-30] VITALS: Ht 157.5 cm; Wt 56.7 kg
[~2024-11-30 10:32] MED LIST changes: -D-ME118S56 PO; -FLUT16H NS; -LORA10TA7 PO; -METO-391 PO; -OMEP20CA12 PO; -SIMV-43 PO
--- NOTE | 2024-11-30 10:42 | ERN ---
ED Note History of Present Illness Stated Complaint: DIZZYNESS,HEAT Chief Complaint: Dizzy/Light Headed Time Seen by MD: 10:33 Dictation: PATIENT IS AN 84-YEAR-OLD FEMALE STATES SHE IS FEELING LIGHTHEADED AND DIZZY ONSET THIS MORNING. SHE ALSO STATES SHE HAS A HEADACHE. NO NAUSEA VOMITING NO DIARRHEA NIH IS 0 IN TRIAGE. DENIES ANY VISUAL ACUITY CHANGES. NO CHEST PAIN NO BACK PAIN NO SOB. Allergies: Coded Allergies: Penicillins (Unverified Allergy, Unknown, RASH, 12/31/14) atorvastatin (Unverified Allergy, Unknown, RASH, 12/01/16) Home Meds Active Scripts Azithromycin (Zithromax Tri-Reji) 500 Mg Tablet, 500 MG PO DAILY for 7 Days, #7 TAB Prov:CM MAY MILITARY PAY CLERK 11/30/24 Reported Medications Albuterol Sulfate (Proair Hfa) 8.5 Gm Hfa.aer.ad, 90 MCG IH AD PRN for WHEEZING 12/01/16 Bimatoprost (Lumigan 0.01% Ophth Soln) 20 Drop/Ml Opsol, 1 DROP OU HS, DROP 12/31/14 Past Medical History Past Medical History: Asthma, Diabetes-Type II, High Cholesterol, Hypertension Surgical History: Hysterectomy, Other Surgical History Other: HERNIA SX History: Not Applicable RN Note Reviewed/Agreed w/PFSH: Yes Review of System Dictation CONSTITUTIONAL: NEGATIVE EXCEPT FOR HPI WEAK HEAD/FACE: NEGATIVE EXCEPT FOR HPI EENT: NEGATIVE EXCEPT FOR HPI RESPIRATORY: NEGATIVE EXCEPT FOR HPI GASTROINTESTINAL/ABDOMINAL: NEGATIVE EXCEPT FOR HPI GENITOURINARY: NEGATIVE EXCEPT FOR HPI MUSCULOSKELETAL: NEGATIVE EXCEPT FOR HPI INTEGUMENTARY: NEGATIVE EXCEPT FOR HPI NEUROLOGICAL/PSYCH: NEGATIVE EXCEPT FOR HPI GENERALIZED HEADACHE WITH DIZZINESS HEMATOLOGIC/LYMPHATIC: NEGATIVE EXCEPT FOR HPI ALL SYSTEMS NEGATIVE, EXCEPT NOTED ABOVE. 13 POINT REVIEW OF SYSTEMS ASSESSED AND ALL NEGATIVE EXCEPT FOR ABOVE. Initial Vital Sign VS Vital Signs Date Time Temp Pulse Resp B/P (MAP) Pulse Ox O2 Delivery O2 Flow Rate FiO2 11/30/24 10:39 97.5 83 18 150/91 98 Room Air 0 11/30/24 11:12 21 Physical Exam Dictation VITAL SIGNS REVIEWED GENERAL APPEARANCE: ALERT, ORIENTED X 3, NO ACUTE DISTRESS, WELL DEVELOPED, NOURISHED. HEAD AND FACE: NON-TRAUMATIC. FRONTAL SINUS TENDERNESS WITH PALPATION EYES: PERRL, PINK CONJUNCTIVAS, EYELID NO TRAUMA, ANTERIOR CHAMBER WITH ARCUS SENILIS. EARS: PINNAS INTACT AND NO SIGNS OF TRAUMA OR ERYTHEMA EAR CANALS CLEAR AND NO DISCHARGE TM NO ERYTHEMA NOSE: NO DISCHARGE, NO BLEEDING. OROPHARYNX: MOUTH NORMAL, TONGUE PINK, PHARYNX CLEAR,NO ERYTHEMA, TONSILS NO EXUDATES, NO ABSCESSES NOTED, MUCOUS MEMBRANE MOIST NECK: SUPPLE, NON-TENDER, NO THYROMEGALY, NO MASSES, NO JVD, NO BRUITS BREAST:DEFERRED CHEST:NO TENDERNESS, NO CREPITUS, NO PARADOXICAL MOVEMENT, NO RETRACTIONS LUNGS:CLEAR, WELL-VENTILATED, SYMMETRIC, NO RALES, NO WHEEZING, NO RHONCHI, NO STRIDOR, GOOD BREATH SOUNDS BILATERALLY HEART: REGULAR RATE, REGULAR RHYTHM, NO MURMUR, NO GALLOPS VASCULAR: NO PERIPHERAL EDEMA, ABDOMEN: SOFT, POSITIVE BOWEL SOUNDS, NONDISTENDED, NO GUARDING, NONTENDER, NO REBOUND, NO MASSES NO HEPATOMEGALY, NO SPLENOMEGALY, NO HASKINS'S SIGN, NO HERNIAS. RECTAL: DEFERRED GENITAL: DEFERRED NEUROLOGICAL: NORMAL SPEECH, MOTOR FUNCTION INTACT, SENSORY FUNCTION INTACT NIH IS 0 MILD TREMOR NOTED. DAUGHTER STATES HER PRIMARY CARE DOCTORS AWARE OF THIS AND HAS BEEN TREATING IT. MUSCULOSKELETAL: NECK NONTENDER, FULL RANGE OF MOTION, BACK NONTENDER, FULL RANGE OF MOTION, EXTREMITIES: NONTENDER, FULL RANGE OF MOTION SKIN: COLOR PINK, DRY, NO TURGOR, NO RASH, NO LACERATIONS, NO ABRASIONS, NO CONTUSIONS. LYMPHATIC: DEFERRED Results (Laboratory/Radiology) Laboratory/Radiology Laboratory Tests Test 11/30/24 11:02 11/30/24 13:12 White Blood Count 7.2 K/uL (4.8-10.8) Red Blood Count 3.66 MIL/uL (4.00-5.50) L Hemoglobin 10.6 g/dL (12.0-16.0) L Hematocrit 33.2 % (36-48) L Mean Corpuscular Volume 90.7 fL (79-99) Mean Corpuscular Hemoglobin 29.0 pg (27.0-33.0) Mean Corpuscular Hemoglobin Concent 31.9 g/dL (32.0-36.0) L Red Cell Distribution Width 14.3 % (11.0-15.5) Platelet Count 224 K/uL (130-400) Mean Platelet Volume 8.7 fL (7.5-10.5) Immature Granulocyte % (Auto) 0.4 % (0-1) Neutrophils (%) (Auto) 72.9 % (40.0-77.0) Lymphocytes (%) (Auto) 16.7 % (21.0-51.0) L Monocytes (%) (Auto) 6.7 % (3.0-13.0) Eosinophils (%) (Auto) 2.9 % (0.0-8.0) Basophils (%) (Auto) 0.4 % (0.0-5.0) Neutrophils # (Auto) 5.2 K/uL (1.8-7.7) Lymphocytes # (Auto) 1.2 K/uL (1.0-4.8) Monocytes # (Auto) 0.5 K/uL (0.1-1.0) Eosinophils # (Auto) 0.21 K/uL (0.00-0.70) Basophils # (Auto) 0.03 K/uL (0.00-0.20) Absolute Immature Granulocyte (auto 0.03 K/uL (0-1) Nucleated Red Blood Cells 0.0 % (0.0-0.19) Sodium Level 143 mmol/L (136-145) Potassium Level 4.1 mmol/L (3.5-5.1) Chloride Level 106 mmol/L (101-111) Carbon Dioxide Level 24 mmol/L (21-32) Blood Urea Nitrogen 23 mg/dL (7-18) H Creatinine 1.3 mg/dL (0.5-1.0) H Glomerular Filtration Rate Calc 41 mL/min (>90) Random Glucose 93 mg/dL (70-105) Total Calcium 9.4 mg/dL (8.5-10.1) Troponin I High Sensitivity 8 ng/L (4-50) Urine Color COLORLESS (YELLOW) Urine Appearance CLEAR (CLEAR) Urine pH 5.5 (5.0-8.0) Urine Specific [place] 1.004 (1.001-1.031) Urine Protein NEGATIVE mg/dL (NEGATIVE) Urine Glucose (UA) NEGATIVE mg/dL (NEGATIVE) Urine Ketones NEGATIVE mg/dL (NEGATIVE) Urine Occult Blood NEGATIVE (NEGATIVE) Urine Nitrate NEGATIVE (NEGATIVE) Urine Bilirubin NEGATIVE mg/dL (NEGATIVE) Urine Urobilinogen 0.2 mg/dL (0.2-1.0) Urine Leukocyte Esterase NEGATIVE Pravin/uL Exam Type: CT HEAD/BRAIN W/O CONTRAST Clinical Information: HEAD OF DIZZINESS MORNING. NIH IS 0 Comparison: None CT Dose Index (CTDI): 57.33 mGy Dose Length Product (DLP): 956.79 total mGy-cm Findings: There is low attenuation throughout the periventricular white matter locations, consistent with chronic small vessel ischemic changes. No acute intra- or extra-axial fluid collections are seen. There is no evidence of acute or chronic hemorrhage. There is no mass effect or shift of midline structures. There are no areas to suggest acute infarct. The skull windows show no significant abnormalities. IMPRESSION: 1. CHRONIC SMALL VESSEL ISCHEMIC CHANGES. Labs Reviewed?: Yes EKG Comment: EKG SINUS RHYTHM/HEART RATE 74/VENTRICULAR BIGEMINY/ ED Course ED Course Orders Procedure Category Date Status Time Cbc With Differential LAB 11/30/24 Complete 10:40 Troponin I High LAB 11/30/24 Complete Sensitivity 10:40 Urinalysis Profile LAB 11/30/24 Complete 10:40 12 Lead Ekg Tracing- EKG 11/30/24 Complete Technical 10:40 0.9%Nacl 1000ml (Ns PHA 11/30/24 Complete 1000ml) 11:00 Basic Metabolic Panel LAB 11/30/24 Complete 10:40 Ct Head/Brain W/O CT 11/30/24 Resulted Contrast 12:09 Current Medications Medications (Trade) Dose Ordered Sig/[place] Route PRN Reason Start Time Stop Time Status Last Admin Dose Admin Sodium Chloride 1,000 ml @ 0 mls/hr ONCE ONCE IV 11/30/24 11:00 11/30/24 11:01 DC 11/30/24 10:59 Vital Signs Date Time Temp Pulse Resp B/P (MAP) Pulse Ox O2 Delivery O2 Flow Rate FiO2 11/30/24 15:29 98.6 65 15 145/60 95 Room Air* 0 11/30/24 14:00 98.6 68 17 150/61 98 Room Air* 0 11/30/24 12:00 98.6 65 16 159/63 98 Room Air* 0 21 11/30/24 11:12 99.0 72 16 140/68 98 Room Air* 0 11/30/24 10:39 97.5 83 18 150/91 98 Room Air 0 1210/NIH IS 0 LABS ARE UNREMARKABLE CARDIA HE ALLERGY WORKUP IS UNREMARKABLE. PATIENT CHRONIC LABS ARE STABLE PER HER BASELINE. WE WILL FOLLOW UP WITH CAT SCAN OF THE HEAD DUE TO ONSET OF DIZZINESS.1400/ 1400/PATIENT NIH IS 0 GAIT IS STEADY TO THE RESTROOM. SHE HAS NO COMPLAINTS OF HEADACHE DIZZINESS AT THIS TIME. SHE WAS MADE AWARE THAT SHE HAS STAGE 3 KIDNEY DISEASE STATES HER DOCTOR HAS NEVER MENTIONED THIS BEFORE SHE WILL BE DISCHARGED HOME WITH HER DAUGHTER TO FOLLOW UP WITH HER DOCTOR IN THE NEXT 2-3 DAYS AND WE WILL BE GIVEN REFERRAL TO NEPHROLOGY. PATIENT AND DAUGHTER WERE ENCOURAGED TO LET ME ADMIT HER TO [facility] AND FOLLOW UP NEUROLOGY HOWEVER THEY REFUSED AND SAID THEY WOULD SEE HER DOCTOR. HEART Score Response (Comments) Value EKG: Repolarization changes 1 Age: > 65yrs (+2) 2 Risk Factors: 1-2 risk factors (+1) 1 Initial Troponin: Normal limit (0) 0 Total 4 Medical Decision Making MDM MDM: DIFFERENTIAL DIAGNOSIS: CVA/ACS/AMI/ARRHYTHMIA/ELECTROLYTE IMBALANCE/DEHYDRATION RATIONALE: TESTS CONSIDERED AND ORDERED SECONDARY TO SHARED DECISION MAKING INCLUDE: EKG/LABS/RADIOLOGY PREVIOUS OUTSIDE RECORDS REVIEWED: OLD ER VISITS. RISK OF COMPLICATION AND/OR MORBIDITY OR MORTALITY OF PATIENT MANAGEMENT: NONE MEDICATIONS-PER MEDICATION RECONCILIATION NEED FOR HOSPITALIZATION: PATIENT DOES NOT MEET CRITERIA FOR HOSPITALIZATION. NO NEED FOR EMERGENCY MAJOR/MINOR SURGERY: NO THERE ARE NO SOCIAL CONCERNS WITH THIS PATIENT. PRESCRIPTION DRUG MANAGEMENT NONE PRESCRIPTIONS WILL INCLUDE SYMPTOMATIC CARE PATIENT'S PRIOR EXTERNAL MEDICAL RECORDS FROM OTHER ER VISITS WERE REVIEWED BY ME INDICATED. PRIOR TESTING AND RESULTS FROM PREVIOUS VISITS WERE REVIEWED. PRIOR TESTS WERE TAKEN INTO ACCOUNT WITH MEDICAL DECISION MAKING AND RESOURCE UTILIZATION, INDEPENDENT HISTORIAN/HISTORIANS WERE USED TO OBTAIN COMPLETE MEDICAL HISTORY. I INDEPENDENTLY INTERPRETED THE TEST THAT WERE PERFORMED, RESULTS WERE REVIEWED BY ME AND CONSIDERED FINDINGS ON RADIOLOGY IF ORDERED. MEDICAL MANAGEMENT AND EXAMINATION INTERPRETATION DISCUSSIONS WERE HAD BY ME WITH OTHER QUALIFIED HEALTHCARE PROFESSIONALS INDICATED FOR THE PATIENT'S CARE. DX & DISP Disposition: Discharge Departure Impression: Primary Impression: Dizziness Additional Impressions: Stage 3 chronic kidney disease, Anemia of chronic renal failure, stage 3b, Chronic frontal sinusitis Condition: Stable Scripts Azithromycin (Zithromax Tri-Reji) 500 Mg Tablet 500 MG PO DAILY for 7 Days, #7 TAB Prov: CM MAY MILITARY PAY CLERK 11/30/24 Additional Instructions: FOLLOW-UP WITH PRIMARY CARE PROVIDER IN 1 TO 2 DAYS. TAKE MEDICATIONS DIRECTED HERE IN THE EMERGENCY ROOM. OKAY TO CONTINUE HOME MEDICATIONS UNLESS OTHERWISE DISCUSSED DURING YOUR VISIT IN THE EMERGENCY ROOM TODAY. RETURN TO YOUR NEAREST EMERGENCY ROOM IF SYMPTOMS WORSEN OR IF THERE IS NO IMPROVEMENT. CALL 911 IF YOU NEED IMMEDIATE ASSISTANCE. TAKE TYLENOL OR MOTRIN [id number] NEEDED AND IF NO CONTRAINDICATIONS ARE PRESENT. INCREASE ORAL HYDRATION. A WOUND CULTURE OR URINE CULTURE WAS ORDERED HERE IN THE EMERGENCY ROOM DEPARTMENT PLEASE FOLLOW-UP WITH PRIMARY CARE PROVIDER AND ADVISE THEM TO GET REPEAT PORTS FROM OUR FACILITY. IF YOU HAD ANY ROCK WRAP/SPLINTS THAT WERE APPLIED HERE, PLEASE DO NOT REMOVE THEM UNTIL YOU SEE YOUR PRIMARY CARE OR SPECIALTY. SEE YOUR PRIMARY CARE DOCTOR IN ONE TWO DAYS FOR FOLLOW UP AND MANAGEMENT. CALL NEPHROLOGY FOR AN APPOINTMENT IN THE NEXT 2-3 DAYS AT YOUR CONVENIENCE. Referrals: NADEEN LOWRY DO (PCP) BRIGETTE SPANN MD Time of Disposition: 14:02 I have reviewed the case, and I agree with, Diagnosis and Plan CM MAY NP Nov 30, 2024 10:42 HILARY MATHEWS DO Nov 30, 2024 18:56
--- NOTE | 2024-11-30 10:58 | EKG ---
[facility] Test Date: 2024-11-30 Test Time: 10:55:05 Pat Name: NAMITA VICKERS Department: ED Room: Gender: F [employer] Back Feeder: [id number] Requested By: CM MAY Order Number: [id number] Reading MD: Adal Sellers Measurements Intervals [place] Rate: 74 P: 61 MA: 181 QRS: 12 QRSD: 90 T: 96 QT: 393 QTc: 436 Interpretive Statements Sinus rhythm Ventricular bigeminy Low voltage, precordial leads Electronically Signed On 12-02-2024 14:40:38 CDT by Adal Sellers Please click the below link to view image of tracing.
[2024-11-30] MEDS: 0.9%NACL 1000ML 1,000 ML IV ONE (10:59)
[2024-11-30 11:07] LABS: BASOPHILS # (AUTO) 0.03 K/uL (0.00-0.20); BASOPHILS % (AUTO) 0.4 % (0.0-5.0); EOSINOPHILS # (AUTO) 0.21 K/uL (0.00-0.70); EOSINOPHILS % (AUTO) 2.9 % (0.0-8.0); HEMATOCRIT 33.2 % (36-48); IMMATURE GRANULOCYTE ABSOLUTE 0.03 K/uL (0-1); LYMPHOCYTES # (AUTO) 1.2 K/uL (1.0-4.8); LYMPHOCYTES % (AUTO) 16.7 % (21.0-51.0); MEAN CORPUSCULAR HGB CONC 31.9 g/dL (32.0-36.0); MEAN CORPUSCULAR VOLUME 90.7 fL (79-99); MONOCYTES # (AUTO) 0.5 K/uL (0.1-1.0); MONOCYTES % (AUTO) 6.7 % (3.0-13.0); NEUTROPHILS # (AUTO) 5.2 K/uL (1.8-7.7); NEUTROPHILS % (AUTO) 72.9 % (40.0-77.0); PLATELET COUNT (AUTO) 224 K/uL (130-400); RED BLOOD CELL COUNT(AUTO) 3.66 MIL/uL (4.00-5.50); RED CELL DISTRIBUTION WIDTH 14.3 % (11.0-15.5); WHITE BLOOD COUNT (AUTO) 7.2 K/uL (4.8-10.8)
[2024-11-30 11:16] LABS: CREATININE 1.3 mg/dL (0.5-1.0); POTASSIUM 4.1 mmol/L (3.5-5.1)
--- NOTE | 2024-11-30 13:32 | HMCIMG ---
Exam Type: CT HEAD/BRAIN W/O CONTRAST Clinical Information: HEAD OF DIZZINESS MORNING. NIH IS 0 Comparison: None CT Dose Index (CTDI): 57.33 mGy Dose Length Product (DLP): 956.79 total mGy-cm Findings: There is low attenuation throughout the periventricular white matter locations, consistent with chronic small vessel ischemic changes. No acute intra- or extra-axial fluid collections are seen. There is no evidence of acute or chronic hemorrhage. There is no mass effect or shift of midline structures. There are no areas to suggest acute infarct. The skull windows show no significant abnormalities. IMPRESSION: 1. CHRONIC SMALL VESSEL ISCHEMIC CHANGES.
[2024-11-30 13:33] LABS: APPEARANCE,URINE CLEAR (CLEAR); BILIRUBIN,URINE NEGATIVE (NEGATIVE); COLOR,URINE COLORLESS (YELLOW); GLUCOSE, URINE (UA) NEGATIVE (NEGATIVE); KETONES,URINE NEGATIVE (NEGATIVE); LEUKOCYTE ESTERASE ,URINE NEGATIVE Leu/uL (NEGATIVE); NITRATE,URINE NEGATIVE (NEGATIVE); OCCULT BLOOD,URINE NEGATIVE (NEGATIVE); PH,URINE 5.5 (5.0-8.0); PROTEIN,URINE NEGATIVE (NEGATIVE); UROBILINOGEN,URINE 0.2 mg/dL (0.2-1.0)
[2024-11-30 13:38] LABS: ADD UA MICROSCOPIC NO
[2024-11-30 15:29] VITALS: BP 145/60; PULSE 65; RESP 15; TEMP 98.6; O2SAT 95
[2024-11-30] MEDS ORDERED: AZIT500T2 PO (15:35)
== END 2024-11-30 15:30 | disposition home or self-care (01) ==
LOC: EDH 10:32
DX: R42 Dizziness and giddiness (principal); J32.1 Chronic frontal sinusitis; I12.9 Hypertensive chronic kidney disease with stage 1 through stage 4 chronic kidney disease, or unspecified chronic kidney disease; E11.22 Type 2 diabetes mellitus with diabetic chronic kidney disease; N18.32 Chronic kidney disease, stage 3b; D63.1 Anemia in chronic kidney disease; E78.00 Pure hypercholesterolemia, unspecified; I67.82 Cerebral ischemia; J45.909 Unspecified asthma, uncomplicated; Z88.0 Allergy status to penicillin; Z90.710 Acquired absence of both cervix and uterus
CPT/HCPCS: 99285; 96360; 70450; 84484; 80048; 85025; 81003; 36415; 93005; J7030